=== PATIENT | female | born 1960 | race Caucasian/White ===

== ENCOUNTER → 2021-01-22 | Day surgery (SDC) | payer BC ==
[~2021-01-22] MED LIST: COSYNTROPIN 0.25 MG VIAL IV ONE; SODIUM CHLORIDE 0.9% 10ML INJ IV ONE
[2021-01-22 09:27] VITALS: BMI 14.6
[2021-01-22 09:34] VITALS: BP 127/81; TEMP 97.7; O2SAT 95
== END ==
LOC: DS 06:53
PROVIDERS: ATTEND Internal Medicine
DX: E87.1 Hypo-osmolality and hyponatremia (principal); R74.8 Abnormal levels of other serum enzymes
CPT/HCPCS: 82977; 36415; 82728; 83970; 82533 ×4; 82306; 82024; 86255 ×2; 86334; 96365; J0834

== ENCOUNTER 2021-04-12 18:34 | Emergency (ER) | payer BC ==
[2021-04-12 19:05] LABS: Absolute Lymphocytes (CBC) 1.2 K/uL (0.7-4.9); Basophils % 0.4 % (0-1.3); Hematocrit 37.9 % (36.0-45.0); Lymphocytes % 10.9 % (15.3-44.8); MPV 7.3 fL (7.6-11.3); RBC Red Blood Cell Count 3.86 M/uL (3.86-4.86)
[2021-04-12 19:21] LABS: Phenytoin (Dilantin) Level 14.4 ug/mL (10.0-20.0); Potassium 3.5 mmol/L (3.5-5.1)
--- NOTE | 2021-04-12 19:46 | RAD REPORT ---
EXAM DESCRIPTION: RAD - Chest Single View - 04/12/2021 7:36 pm CLINICAL HISTORY: Seizure COMPARISON: Chest Pa And Lat (2 Views) dated 01/14/2021; CHEST PA AND LAT 2 VIEW dated 07/21/2013; AMAURY ST SINGLE VIEW dated 06/22/2013; CHEST SINGLE VIEW dated 06/21/2013; CTANGIO CHEST FOR PE dated 06/15 FINDINGS: Lines: None. Lungs: No evidence of edema or pneumonia. Pleural: No significant pleural effusions or pneumothorax. Cardiac: The heart size is within normal limits. Bones: No acute fractures. Remote right-sided rib fractures. Other: IMPRESSION: No acute cardiopulmonary disease.
--- NOTE | 2021-04-12 20:58 | ER ---
Nurse's Notes [facility] Name: Cathy Giraldo Age: 60 yrs Sex: Female : 1960 Arrival Date: 04/12/2021 Time: 18:40 Bed 19 Private MD: Diagnosis: recurrent seizure Presentation: 04/12 18:40 Chief complaint: EMS states: seizure, approximately 4 min. Coronavirus screen: At this tc5 time, unable to obtain information related to travel outside the [place] Ebola Screen: Unable to complete the Ebola screening because:. Risk Assessment: Do you want to hurt yourself or someone else? Unable to obtain. Onset of symptoms was April 12, 2021 at 18:30. 18:40 Method Of Arrival: EMS tc5 18:40 Acuity: RACHEL 2 tc5 19:10 Initial Sepsis Screen: Does the patient meet any 2 criteria? No. Patient's initial cc4 sepsis screen is negative. 21:35 Initial Sepsis Screen: Does the patient have a suspected source of infection?. cc4 Triage Assessment: 18:44 General: Appears distressed, slender, Behavior is unresponsive. Smells of ciggarettes. tc5 19:10 Pain: Denies pain. cc4 Historical: - Allergies: 18:42 No Known Allergies; tc5 - Immunization history:: Adult Immunizations. - Social history:: Smoking status: Patient reports the use of cigarette tobacco products, unknown amount. Screenin:10 Abuse screen: Denies threats or abuse. Nutritional screening: No deficits noted. cc4 Tuberculosis screening: No symptoms or risk factors identified. Fall Risk None identified. Assessment: 19:10 General: Appears Sleeping; arouses easily to verbal stimuli; oriented to place; cc4 following commands; requesting to use bathroom; assisted onto bedpan \\T\\ voided 300 ml clear yellow urine; IV NS patent/infusing left AC \\T\\ open rate with no infiltration noted of site; SR's padded x 2; O2 intact \\T\\ 2L/NBP; SR with no ectopy; VSS; stretcher low position.. General: no seizure activity noted.. 19:10 Neuro: Level of Consciousness is post ictal, Arouses easily \\T\\ following commands.. cc4 Oriented to person. Cardiovascular: No deficits noted. Rhythm is sinus rhythm. Respiratory: No deficits noted. Airway is patent Breath sounds are clear bilaterally. GI: No deficits noted. Abdomen is flat, non-distended. : Reports urinary frequency, since reports months and seeing urologist with no improvement in urgency. EENT: No deficits noted. Derm: No deficits noted. Skin is intact. Musculoskeletal: No deficits noted. Capillary refill < 3 seconds. 20:00 Reassessment: Patient appears in no apparent distress at this time. awake \\T\\ more alert; cc4 no seizure activity noted; assisted onto bedpan \\T\\ voided 350 ml clear yellow urine; states, "I want to go home". Vital Signs: 18:40 BP 112 / 84; Pulse 90; Resp 28; Temp 97.7; Pulse Ox 91% 4 lpm ; Weight 40.82 kg; Height tc5 5 ft. 2 in. (157.48 cm); 19:10 BP 123 / 91; Pulse 85; Resp 24; Temp 97.6; Pulse Ox 99% on 2 lpm NC; cc4 20:00 BP 110 / 79; Pulse 85; Resp 18; Pulse Ox 97% on 2 lpm NC; cc4 21:00 BP 115 / 97; Pulse 85; Resp 16; Pulse Ox 98% on 2 lpm NC; cc4 21:35 BP 118 / 83; Pulse 85; Resp 16; Temp 98.4; Pulse Ox 95% on R/A; cc4 18:40 Body Mass Index 16.46 (40.82 kg, 157.48 cm) tc5 ED Course: 18:40 Patient arrived in ED. tc5 18:40 Waleska Shaw, RN is Primary Nurse. tc5 18:42 Triage completed. tc5 18:54 Davin Arzola MD is Attending Physician. kdr 19:10 Arm band placed on. cc4 19:10 Patient has correct armband on for positive identification. Bed in low position. Call cc4 light in reach. Side rails up X2. Seizure precautions initiated. Oral airway \\T\\ suction placed \\T\\ bedside; arriving to bedside. 19:36 CXR XRAY In Process Unspecified. EDMS 20:18 Attending Physician role handed off by Davin Arzola MD ps1 20:18 Say Jean Baptiste MD is Attending Physician. ps1 21:35 IV discontinued, intact, bleeding controlled, No redness/swelling at site. Pressure cc4 dressing applied. 22:04 No provider procedures requiring assistance completed. cc4 Administered Medications: 21:33 Drug: Keppra (levETIRAcetam) 1000 mg Route: PO; cc4 21:35 Follow up: Response: No adverse reaction; No change in condition cc4 Point of Care Testing: Blood Glucose: 18:45 Blood Glucose: 200 mg/dL; tc5 Ranges: Outcome: 20:58 Discharge ordered by . ps1 21:35 Discharged to home with . cc4 21:35 Condition: improved 21:35 Discharge instructions given to patient, with Instructed on discharge instructions, follow up and referral plans. Demonstrated understanding of instructions, follow-up care. 23:22 Patient left the ED. cc4 Signatures: Dispatcher [employer] EDMS Davin Arzola MD MD kdr Say Jean Baptiste MD MD ps1 Kassie Lomeli, RN RN cc4 Waleska Shaw RN RN tc5
--- NOTE | 2021-04-12 20:58 | EDPHYS ---
Physician Documentation [facility] Name: Cathy Giraldo Age: 60 yrs Sex: Female : 1960 Arrival Date: 04/12/2021 Time: 18:40 Bed 19 Private MD: ED Physician Say Jean Baptiste HPI: 04/12 18:57 This 60 yrs old Female presents to ER via EMS with complaints of Breakthrough kdr seizure. 18:57 The patient presents with a history of multiple seizures, an unknown number. Character kdr of seizure(s): Loss of consciousness: the patient experienced loss of consciousness, Motor activity: generalized, shaking all over, Incontinence: none. Seizure onset: just prior to arrival, today. Context: the seizure(s) was witnessed, by a bystander, by EMS personnel, occurred at home, occurred while the patient was Unknown. Contributing factors: unknown. Seizure Hx: it is unknown whether or not the patient has a previous seizure history. Associated injury: The patient did not suffer any apparent associated injury. EMS care: versed, Patient was given 2 mg of Versed intranasal followed by 2 mg of Versed IV. Current symptoms: confusion, Postictal. The patient has experienced similar episodes in the past, multiple times. It is unknown whether or not the patient has recently seen a physician. Historical: - Allergies: 18:42 No Known Allergies; tc5 - Immunization history:: Adult Immunizations. - Social history:: Smoking status: Patient reports the use of cigarette tobacco products, unknown amount. ROS: 18:57 Constitutional: Negative for fever, chills, and weight loss, Eyes: Negative for injury, kdr pain, redness, and discharge, Neck: Negative for injury, pain, and swelling, Cardiovascular: Negative for chest pain, palpitations, and edema, Abdomen/GI: Negative for abdominal pain, nausea, vomiting, diarrhea, and constipation. 18:57 Respiratory: Positive for Congestion and coarse breath sounds bilaterally. Exam: 18:57 Constitutional: This is a well developed, well nourished patient who is somnolent but kdr in no acute distress. Head/Face: Normocephalic, atraumatic. Eyes: Pupils equal round and reactive to light, extra-ocular motions intact. Lids and lashes normal. Conjunctiva and sclera are non-icteric and not injected. Cornea within normal limits. Periorbital areas with no swelling, redness, or edema. Neck: Trachea midline, no thyromegaly or masses palpated, and no cervical lymphadenopathy. Supple, full range of motion without nuchal rigidity, or vertebral point tenderness. No Meningismus. Chest/axilla: Normal chest wall appearance and motion. Nontender with no deformity. No lesions are appreciated. Cardiovascular: Regular rate and rhythm with a normal S1 and S2. No gallops, murmurs, or rubs. Normal PMI, no JVD. No pulse deficits. Abdomen/GI: Soft, non-tender, with normal bowel sounds. No distension or tympany. No guarding or rebound. No evidence of tenderness throughout. Back: No spinal tenderness. No costovertebral tenderness. Full range of motion. Skin: Warm, dry with normal turgor. Normal color with no rashes, no lesions, and no evidence of cellulitis. MS/ Extremity: Pulses equal, no cyanosis. Neurovascular intact. Full, normal range of motion. 18:57 Respiratory: the patient does not display signs of respiratory distress, Respirations: normal, Breath sounds: rales, Coarse breath sound. Vital Signs: 18:40 BP 112 / 84; Pulse 90; Resp 28; Temp 97.7; Pulse Ox 91% 4 lpm ; Weight 40.82 kg; Height tc5 5 ft. 2 in. (157.48 cm); 19:10 BP 123 / 91; Pulse 85; Resp 24; Temp 97.6; Pulse Ox 99% on 2 lpm NC; cc4 20:00 BP 110 / 79; Pulse 85; Resp 18; Pulse Ox 97% on 2 lpm NC; cc4 21:00 BP 115 / 97; Pulse 85; Resp 16; Pulse Ox 98% on 2 lpm NC; cc4 21:35 BP 118 / 83; Pulse 85; Resp 16; Temp 98.4; Pulse Ox 95% on R/A; cc4 18:40 Body Mass Index 16.46 (40.82 kg, 157.48 cm) tc5 MDM: 20:58 Patient medically screened. ps1 20:59 Data reviewed: vital signs, nurses notes, lab test result(s). Counseling: I had a ps1 detailed discussion with the patient and/or guardian regarding: the historical points, exam findings, and any diagnostic results supporting the discharge/admit diagnosis, lab results, the need for outpatient follow up, to return to the emergency department if symptoms worsen or persist or if there are any questions or concerns that arise at home. 04/12 18:54 Order name: CBC with Diff; Complete Time: 20:18 kdr 04/12 18:54 Order name: Chem 7; Complete Time: 20:18 kdr 04/12 18:54 Order name: CXR XRAY; Complete Time: : kdr 04/12 18:54 Order name: Dilantin; Complete Time: 20:18 kdr Administered Medications: 21:33 Drug: Keppra (levETIRAcetam) 1000 mg Route: PO; cc4 21:35 Follow up: Response: No adverse reaction; No change in condition cc4 Point of Care Testing: Blood Glucose: 18:45 Blood Glucose: 200 mg/dL; tc5 Ranges: Critical Glucose Levels:Adult <50 mg/dl or >400 mg/dl <40 mg/dl or >180 mg/dl Disposition Summary: 04/12/21 20:58 Discharge Ordered Location: Home ps1 Problem: new ps1 Symptoms: are unchanged ps1 Condition: Stable ps1 Diagnosis - recurrent seizure ps1 Followup: ps1 - With: Private Physician - When: As needed - Reason: Recheck today's complaints, Continuance of care, Re-evaluation by your physician Followup: ps1 - With: Emergency Department - When: As needed - Reason: Fever > 102 F, If symptoms return, Worsening of condition Discharge Instructions: - Discharge Summary Sheet ps1 - Seizure, Adult ps1 Forms: - Medication Reconciliation Form ps1 - Thank You Letter ps1 - Antibiotic Education ps1 - Prescription Opioid Use ps1 Signatures: Dispatcher [employer] EDDavin Snow MD MD kdr Say Jean Baptiste MD MD ps1 Kassie Lomeli, RN RN cc4 Waleska Shaw RN RN tc5
[2021-04-12] MEDS ORDERED: levETIRAcetam 500 MG TAB ONE (21:53)
[2021-04-12 23:35] VITALS: BP 118/83; TEMP 98.4; O2SAT 95
== END 2021-04-12 23:22 | disposition home or self-care (01) ==
LOC: ER 18:34
DX: G40.909 Epilepsy, unspecified, not intractable, without status epilepticus (principal); F17.210 Nicotine dependence, cigarettes, uncomplicated
CPT/HCPCS: 36415; 71045; 80048; 80185; 85025; 99284

== ENCOUNTER 2021-07-03 18:23 | Emergency (ER) | payer BC, OTHER ==
--- OUTSIDE RECORDS SUMMARY | 2021-07-03 18:37 | XMS REPORT | Continuity of Care Document ---
:1960 Author Organization [facility] t Address [address] [place] [place] [address] Care Team Providers Name Role Phone TRICE Primary Care Physician Unavailable Kareem Rob Attending Clinician Unavailable NAM REECE Attending Clinician Unavailable Andie Azul Attending Clinician Radiology Attending Clinician Unavailable RADIOLOGY Attending Clinician Unavailable Charlee Vines MD Attending Clinician Charlee Hammond DO Attending Clinician Trice Attending Clinician TRICE Attending Clinician Unavailable Doctor Unassigned, Name Attending Clinician Unavailable ANDIE HAYS Attending Clinician Unavailable Valeria Carter Attending Clinician Mikey LOREDO Attending Clinician Pob, Lab Main Attending Clinician Unavailable MIKEY Attending Clinician Unavailable 1, Lab Attending Clinician Unavailable Татьяна STOVER, S Attending Clinician KILO Attending Clinician Unavailable Poncho Carnes Admitting Clinician Unavailable Jennifer MERCEDES Admitting Clinician Unavailable Charlee Vines MD Admitting Clinician ANDIE HAYS Admitting Clinician Unavailable Charlee VINES Admitting Clinician Unavailable TRICE Admitting Clinician Unavailable LAKISHA ROSENBAUM Admitting Clinician Unavailable Payers Payer Name Policy Type Policy Number Effective Date Expiration Date Natalee feldman [employer] [place] [id number] 2019 00:00:00 CIGNA [id number] 2017 HMO/POS/OPEN 00:00:00 ACCESS CIGNA II [id number] 2017 2019 00:00:00 00:00:00 Problems Condition Condition Condition Status Onset Resolution Last Treating Co mments Source Name Details Category Date Date Treatment Clinician Date Acute Acute Disease Active 2019-06 Univers cystitis cystitis 06-30 ity of without without 00:00: [place] hematuria hematuria 00 [facility] Seizures Seizures Disease Active 2019-06 Unive rs 06-29 ity of 00:00: [place] 00 Medical Branch CVA Diagnosis Active 2018-11-16 Mem oria 11-16 14:48:00 l CVA 00:00: [place] 00 Active 11/16/2018 [facility] NSTEMI, Diagnosis Active 2018-12-01 Me moria SEIZURES 11-16 22:12:00 l NSTEMI, 00:00: [place] SEIZURES 00 Active 11/16/2018 [facility] MICHEAL Diagnosis Active 2018-11-17 Memoria BILLING 11-16 08:14:00 l 00:00: [place] MICHEAL 00 BILLING Active 11/16/2018 [facility] Cerebral Problem Active 2020-10-28 Mem oria infarction 00:56:47 l (disorder) Cerebral He rmann infarction (disorder) Active Problem 10/28/2020 [facility] Neuro Epilepsy Problem Active 2020-10-28 Mem oria characteri 00:56:47 l zed by Epilepsy Eddie n intractabl characteri e complex zed by partial intractabl seizures e complex (disorder) partial seizures (disorder) [facility] Hypertensi Problem Active 2020-10-28 M emoria ve 00:56:47 l disorder, [place] systemic Hypertensi arterial ve (disorder) disorder, systemic arterial (disorder) Active Problem [facility]/28/2020 [facility] Hyperlipid Problem Active 2020-10-28 M emoria emia 00:56:47 l (disorder) Eddie tapia Hyperlipid emia (disorder) Active Problem 10/28/2020 [facility] Hyponatrem Problem Active 2020-10-28 M emoria ia 00:56:47 l (disorder) Eddie tapia Hyponatrem ia (disorder) Active Problem 10/28/2020 [facility] NON-ST Diagnosis Active 2018-12-01 Mem oria ELEVATION 22:12:00 l (NSTEMI) NON-ST Eddie n MYOCARDIAL ELEVATION INF (NSTEMI) MYOCARDIAL INF Active [facility] UNSPECIFIE Diagnosis Active 2018-12-01 Memoria D 22:12:00 l CONVULSION Eddie n S UNSPECIFIE D CONVULSION S Active [facility] No known No known Disease Unive rs active active ity of problems problems [facility] Allergies, Adverse Reactions, Alerts Allergy Allergy Status Severity Reaction(s) Onset Inactive Treating Comm ents Source Name Type Date Date Clinician Hydrocod Propensi Active Nausea Univer s one ty to and/or 1-10 ity of adverse Vomiting 00:00: [place] reaction 00 [facility] HYDROCOD DRUG Active N/V Univers ONE INGREDI 1-10 ity of 00:00: [place] 00 [facility] codeine DA Active SV 2019- [facility] 2-30 [place] 00:00: d 00 [facility] hydrocod DA Active MO 2019-06 [facility] one 2-30 [place] 00:00: d 00 [facility] codeine DA Active SV NAUSEA 2019-06 [facility] 2-30 [place] 00:00: d 00 [facility] hydrocod DA Active MO NAUSEA 2019-06 [facility] one 2-30 [place] 00:00: d 00 [facility] Codeine Drug Active Nausea 2018-06 Univers Allergy and/or 0-23 ity of Vomiting 00:00: [place] 00 [facility] CODEINE DRUG Active N/V 2018-06 Univers INGREDI 0-23 ity of 00:00: [place] 00 [facility] Lillie Propensi Active Other - See 2017-06 Coughing, Univers Derivati ty to comments 0-18 sneezingC ity of ves adverse 00:00: oughing, [place] reaction 00 sneezing Medica s Branch Ragweed Propensi Active Other - See 2017-06 Coughing, Univers ty to comments 0-18 sneezingC ity o f adverse 00:00: oughing, Maribel reaction 00 sneezing Medica l s Branch OAK Drug Active High Other-Cmnt 2017-06 Univer s DERIVATI Class 0-18 ity of VES 00:00: [place] 00 Medical Branch RAGWEED Drug Active High Other-Cmnt 2017-06 Unive rs Class 0-18 ity of 00:00: [place] 00 Medical Branch OAK Allergy Active High Other 2017-[address] [facility] 0-18 [facility] RAGWEED Allergy Active High Other 2017-[address] 0-18 [facility] No Known DA Active U 2017-06 [facility] Allergie 0-08 [place] [facility] 00:[facility]: d 00 [facility] No Known DA Active U 2017- [facility] Allergie 0-08 [place] [facility] 00:[facility]: d 00 [facility] codeine codeine Active Nima Das Social History Social Habit Start Date Stop Date Quantity Comments Source History [facility] University o f Alcohol Std [place] [facility] Drinks Branch History [facility] University o f Alcohol Binge [place] [facility] al [facility] Sex Assigned At [facility] [place] [facility] Exposure to Not sure [facility] SARS-CoV-2 [facility] (event) Branch Alcohol intake 2020-04-30 2020-04-30 Current drinker Unive rsity of 00:00:00 00:00:00 of alcohol [place] [facility] (finding) Branch Tobacco use and 2020-04-30 2020-04-30 Never used Universit y of exposure 00:00:00 00:00:00 [place] [facility] History SDOH 2020-04-30 2020-04-30 17 University o f Education 00:00:00 00:00:00 [place] [facility] History SDOH 2020-04-30 2020-04-30 5 University o f Financial 00:00:00 00:00:00 [place] [facility] History SDDE Food 2020-04-30 2020-04-30 1 Univers ity of Worry 00:00:00 00:00:00 [place] [facility] History SDDE Food 2020-04-30 2020-04-30 1 Univers ity of Scarcity 00:00:00 00:00:00 [place] [facility] History SDOH 2020-04-30 2020-04-30 2 University o f Transport Med 00:00:00 00:00:00 [place] [facility] History SDDE 2020-04-30 2020-04-30 2 [place] o f Transport Non-Med 00:00:00 00:00:00 [facility] Social History 2019-09-09 2019-09-09 [facility] Sima robertsonelda 19:21:28 19:21:28 History [facility] 2019-04-20 2019-04-20 5 [place] o f Alcohol Frequency 00:00:00 00:00:00 [facility] Tobacco Comment 2019-04-20 2019-04-20 prn 1 a week Univer sity of 00:00:00 00:00:00 [facility] Smoking Status Start Date Stop Date Source Current some day 2020-04-30 00:00:00 [facility] smoker [facility] Unknown if ever smoked [facility] Social History 2018-11-17 04:21:27 2018-11-17 04:21:27 [facility] [place] Medications Ordered Filled Start Stop Current Ordering Indication Dosage Frequency Signature Comments Components Source Medication Medication Date Date Medication? Clinician (SIG) Name Name Levetiracet Yes 1,500 mg = Memoria am 750 MG 4-29 2 tab, PO, l Oral Tablet 19:26: BID, # 360 [place] [Keppra] 00 tab, 3 Refill(s), Pharmacy: [facility] #[id number], 154.94, cm, 04/20/20 10:48:00 CDT, Height, 39.545, kg, 10/25/20 14:07:00 CDT, Weight phenytoin Yes See Memoria 100 mg oral 4-29 Instructio l capsule, 19:26: ns, 300mg Herm elda extended 00 alternatin release g with 400mg, # 120 cap, 6 Refill(s), Pharmacy: [facility] #[id number], 154.94, cm, 04/20/20 10:48:00 CDT, Height, 39.545, kg, 10/25/20 14:07:00 CDT, Weight Levetiracet Yes 1,500 mg = Memoria am 750 MG 4-29 2 tab, PO, l Oral Tablet 19:26: BID, # 360 [place] [Keppra] 00 tab, 3 Refill(s), Pharmacy: [facility] #[id number], 154.94, cm, 04/20/20 10:48:00 CDT, Height, 39.545, kg, 10/25/20 14:07:00 CDT, Weight phenytoin Yes See Memoria 100 mg oral 10-25 Instructio l capsule, 19:26: ns, 300mg Herm elda extended 00 alternatin release g with 400mg, # 120 cap, 6 Refill(s), Pharmacy: [facility] #[id number], 154.94, cm, 04/20/20 10:48:00 CDT, Height, 39.545, kg, 10/25/20 14:07:00 CDT, Weight naproxen 0 2020- No 500mg 500 mg, Univ ers (NAPROSYN) 07-08 Oral, ity of tablet 500 23:00: 22:19 ONCE, 1 Matthew as mg 00 :00 dose, [facility] 07/08/20 at Branch 1700, Routine naproxen Yes [id number] 500mg Take 1 U nivers (NAPROSYN) 07-08 tablet by ity of 500 mg 00:00: mouth 2 [place] tablet 00 (two) Medical times [place] daily with meals. iohexol 2019-06- No 100mL 100 mL, Unive rs (OMNIPAQUE 07-30 Intravenou it y of 350 00:15: 00:11 s, ONCE, 1 [place] BULK-100 00 :00 dose, Mon Medica l mL) 05/28/20 Branch injection at 1815, 100 mL Routine atorvastati 2019-06 Yes 40mg 40 mg, Univ ers n (LIPITOR) 07-01 Oral, QHS, it y of tablet 40 03:00: First dose [place] mg 00 on [facility] 04/30/20 at Branch 2100, Until Discontinu ed, Routine cefTRIAXone 2019-06 2020- No 1000mg 1,000 mg, Univers (ROCEPHIN) 07-0108 IV ity of 1,000 mg in 00:00: 23:59 [place], [place] NaCl 0.9% 00 :00 Q24H ABX, Medic al (NS) 50 mL 6 doses, Branc h MINI-BAG First dose (after last modificati on) on [facility] 04/30/20 at 1800, Last dose on 05/05/20 at 1800, 50 mL
Reas on for Anti-Infec tive: Empiric Therapy for Suspected Infection< br>Empiric Therapy Site: Urine
D uration of therapy: 72 hours aspirin 81 2019-06 Yes 81mg Take 81 mg U nivers mg EC 02 by mouth. ity of tablet 23:07: [address] azelastine 2019-06 Yes 1{spray Use 1 Uni vers 137 mcg 06-30 } [place] in ity of (0.1 %) 23:07: each [place] nasal spray 05 nostril. [facility] budesonide- 2019-06 Yes 2{puff} Inhale 2 Univers formoterol 02 Puffs. ity of (SYMBICORT) 23:07: [place] 160-4.5 Medical mcg/actuati Branch on inhaler carvedilol 2019-06 Yes 3.125mg Take 3.125 Univers 3.125 mg 02 mg by ity of tablet 23:07: mouth. [address] melatonin 2019-06 Yes Take by [facility] ers 10 mg Cap 02 mouth. ity of 23:07: [address] ticagrelor 2019-06 Yes 90mg Take 90 mg U nivers (BRILINTA) 06-30 by mouth. ity of 90 mg 23:07: [address] cyanocobala 2019-[address] Uni vers min, 06-30 2,500 mcg ity of vitamin 23:07: under the [place] B-12, 5,000 05 tongue Medica l mcg Subl daily. Branch ipratropium 2019-06 Yes 2{spray Use 2 Un susana 0.03 % 06-30 } Sprays in ity of nasal spray 23:07: each [place] [address] nostril 2 Medical (two) Branch times daily. losartan 50 2019-06 Yes 50mg Take 50 mg Univers mg tablet 02 by mouth ity of 23:07: daily. [address] Lacosamide 2019-06 Yes 1{tbl} Take 1 Uni vers (VIMPAT) 06-30 tablet by ity of 200 mg 23:07: mouth 2 [place] tablet (two) Medical times Branch daily. montelukast 2019-06 Yes 10mg Take 10 mg Univers (SINGULAIR) 02 by mouth ity of 10 mg 23:07: daily. [place] tablet Medical Branch phenytoin 2019-06 Yes 100mg Take 100 Uni vers sodium 1-02 mg by ity of extended 23:07: mouth 4 [place] (DILANTIN 05 (four) Medical ORAL) times Branch daily. aspirin 81 2019-06 Yes 81mg Take 81 mg U nivers mg EC 02 by mouth. ity of tablet 23:07: [address] Branch azelastine 2019-06 Yes 1{spray Use 1 Uni vers 137 mcg 02 } [place] in ity of (0.1 %) 23:07: each [place] nasal spray 05 nostril. [facility] budesonide- 2019-06 Yes 2{puff} Inhale 2 Univers formoterol 02 Puffs. ity of (SYMBICORT) 23:07: [place] 160-4.5 05 Medical mcg/actuati Branch on inhaler carvedilol 2019-06 Yes 3.125mg Take 3.125 Univers 3.125 mg 1-02 mg by ity of tablet 23:07: mouth. [address] melatonin 2019-06 Yes Take by [facility] ers 10 mg Cap 02 mouth. ity of 23:07: [address] ticagrelor 2019-06 Yes 90mg Take 90 mg U nivers (BRILINTA) 02 by mouth. ity of 90 mg 23:07: [address] Branch cyanocobala 2019-[address] Uni vers min, -02 2,500 mcg ity of vitamin 23:07: under the [place] B-12, 5,000 05 tongue Medica l mcg Subl daily. Branch ipratropium 2019-06 Yes 2{spray Use 2 Un susana 0.03 % 06-30 } Sprays in ity of nasal spray 23:07: each [place] 05 nostril 2 Medical (two) Branch times daily. losartan 50 2019-06 Yes 50mg Take 50 mg Univers mg tablet 02 by mouth ity of 23:07: daily. [address] Lacosamide 2019-06 Yes 1{tbl} Take 1 Uni vers (VIMPAT) 1-02 tablet by ity of 200 mg 23:07: mouth 2 [place] tablet 05 (two) Medical times Branch daily. montelukast 2019-06 Yes 10mg Take 10 mg Univers (SINGULAIR) -02 by mouth ity of 10 mg 23:07: daily. [place] tablet [address] [place] [address] Branch phenytoin 2019-06 Yes 100mg Take 100 Uni vers sodium 1-02 mg by ity of extended 23:07: mouth 4 [place] (DILANTIN 05 (four) Medical ORAL) times Branch daily. aspirin 81 2019-06 Yes 81mg Take 81 mg U nivers mg EC 02 by mouth. ity of tablet 23:07: [address] azelastine 2019-06 Yes 1{spray Use 1 Uni vers 137 mcg 02 } [place] in ity of (0.1 %) 23:07: each [place] nasal spray 05 nostril. [facility] budesonide- 2019-06 Yes 2{puff} Inhale 2 Univers formoterol -02 Puffs. ity of (SYMBICORT) 23:07: [place] 160-4.5 Medical [facility]/actuati Branch on inhaler carvedilol 2019-06 Yes 3.125mg Take 3.125 Univers 3.125 mg 1-02 mg by ity of tablet 23:07: mouth. [address] melatonin 2019-06 Yes Take by Univ ers 10 mg Cap 02 mouth. ity of 23:07: [address] ticagrelor 2019-06 Yes 90mg Take 90 mg U nivers (BRILINTA) 02 by mouth. ity of 90 mg 23:07: [address] cyanocobala 2019-[address] Uni vers min, 1-02 2,500 mcg ity of vitamin 23:07: under the [place] B-12, 5,000 05 tongue Medica l mcg Subl daily. Branch ipratropium 2019-06 Yes 2{spray Use 2 Un susana 0.03 % 02 } Sprays in ity of nasal spray 23:07: each [place] [address] nostril 2 Medical (two) Branch times daily. losartan 50 2019-06 Yes 50mg Take 50 mg Univers mg tablet 02 by mouth ity of 23:07: daily. [address] Lacosamide 2019-06 Yes 1{tbl} Take 1 Uni vers (VIMPAT) 1-02 tablet by ity of 200 mg 23:07: mouth 2 [place] tablet 05 (two) Medical times Branch daily. montelukast 2019-06 Yes 10mg Take 10 mg Univers (SINGULAIR) 02 by mouth ity of 10 mg 23:07: daily. [place] tablet [address] [place] [address] phenytoin 2019-06 Yes 100mg Take 100 Uni vers sodium 1-02 mg by ity of extended 23:07: mouth 4 [place] (DILANTIN 05 (four) Medical ORAL) times Branch daily. aspirin 81 2019-06 Yes 81mg Take 81 mg U nivers mg EC 02 by mouth. ity of tablet 23:07: [address] azelastine 2019-06 Yes 1{spray Use 1 Uni vers 137 mcg -02 } [place] in ity of (0.1 %) 23:07: each [place] nasal spray 05 nostril. [facility] budesonide- 2019-06 Yes 2{puff} Inhale 2 Univers formoterol -02 Puffs. ity of (SYMBICORT) 23:07: [place] 160-4.5 Medical mcg/actuati Branch on inhaler carvedilol 2019-06 Yes 3.125mg Take 3.125 Univers 3.125 mg 1-02 mg by ity of tablet 23:07: mouth. [address] melatonin 2019-06 Yes Take by Univ ers 10 mg Cap -02 mouth. ity of 23:07: [address] ticagrelor 2019-06 Yes 90mg Take 90 mg U nivers (BRILINTA) 02 by mouth. ity of 90 mg 23:07: [address] cyanocobala 2019-[address] Uni vers min, 1-02 2,500 mcg ity of vitamin 23:07: under the [place] B-12, 5,000 05 tongue Medica l mcg Subl daily. Branch ipratropium 2019-06 Yes 2{spray Use 2 Un susana 0.03 % 02 } Sprays in ity of nasal spray 23:07: each [place] [address] nostril 2 Medical (two) Branch times daily. losartan 50 2019-06 Yes 50mg Take 50 mg Univers mg tablet 02 by mouth ity of 23:07: daily. [address] Lacosamide 2019-06 Yes 1{tbl} Take 1 Uni vers (VIMPAT) 1-02 tablet by ity of 200 mg 23:07: mouth 2 [place] tablet 05 (two) Medical times Branch daily. montelukast 2019-06 Yes 10mg Take 10 mg Univers (SINGULAIR) 06-30 by mouth ity of 10 mg 23:07: daily. [place] tablet 05 Medical Branch phenytoin 2019-06 Yes 100mg Take 100 Uni vers sodium 1-02 mg by ity of extended 23:07: mouth 4 [place] (DILANTIN 05 (four) Medical ORAL) times Branch daily. ibuprofen 2019-06 2020- No 200mg Take 200 Un susana 200 mg 06-30 11-02 mg by ity of tablet 19:13: 00:00 mouth. [place] 22 :00 Medical Branch ticagrelor 2019-06 Yes 90mg 90 mg, Unive rs (BRILINTA) 06-30 Oral, ity of tablet 90 15:00: DAILY, [place] mg 00 First dose Medical on [facility] 04/30/20 at 0900, Until Discontinu ed, Routine losartan 2019-06 Yes 50mg 50 mg, Univers (COZAAR) 06-30 Oral, ity of tablet 50 15:00: DAILY, [place] mg 00 First dose Medical on [facility] 04/30/20 at 0900, Until Discontinu ed, Routine montelukast 2019-06 Yes 10mg 10 mg, Univ ers (SINGULAIR) 06-30 Oral, ity of tablet 10 15:00: DAILY, [place] mg 00 First dose Medical on [facility] 04/30/20 at 0900, Until Discontinu ed, Routine aspirin EC 2019-06 Yes 81mg 81 mg, Unive rs tablet 81 06-30 Oral, ity of mg 15:00: DAILY, [place] 00 First dose Medical on [facility] 04/30/20 at 0900, Until Discontinu ed, Routine thiamine 2019-06 Yes 100mg 100 mg, Unive rs (VITAMIN 06-30 Oral, ity of B1) tablet 15:00: DAILY, [place] 100 mg 00 First dose Medical on [facility] 04/30/20 at 0900, Until Discontinu ed, Routine foLIC acid 2019- Yes 1mg 1 mg, Univer s (FOLATE) 06-30 Oral, ity of tablet 1 mg 15:00: DAILY, [place] 00 First dose Medical on [facility] 04/30/20 at 0900, Until Discontinu ed, Routine pantoprazol 2020-1 Yes 40mg 40 mg, Univ ers e 06-30 Oral, ity of (PROTONIX) 15:00: DAILY, [place] EC tablet 00 First dose Medi zach 40 mg on [facility] Branch 04/30/20 at 0900, Until Discontinu ed, Routine levETIRAcet 2019-06 Yes 2000mg 2,000 mg, Univers am (KEPPRA) 06-30 Oral, BID, it y of tablet 14:00: First dose [place] 2,000 mg 00 (after Medical last Branch modificati on) on [facility] 04/30/20 at 0800, Until Discontinu ed, Routine phenytoin 2019-06 Yes 100mg 100 mg, Univ ers Extended 06-30 Oral, QID, ity o f (DILANTIN 14:00: [place] KAPSEAL[place] 00 on [facility] Medical capsule 100 04/30/20 at Br anch mg 0800, Until Discontinu ed carvediloL 2019-06 Yes 3.125mg 3.125 mg, [facility] (COREG) 06-30 Oral, BID ity of tablet 14:00: MEALS, [place] 3.125 mg 00 First dose Medic al on [facility] 04/30/20 at 0800, Until Discontinu ed, Routine enoxaparin 2019-06 Yes 30mg 30 [facility], [facility]-30 Subcutaneo ity of injection 04:30: us, Q24H, [place] as 30 mg 00 First dose Medical on [facility] 04/29/20 at 2230, Until Discontinu ed, Routine budesonide- 2019-06 Yes 2{puff} 2 Puff, [facility] formoteroL 06-30 Inhalation ity of (SYMBICORT) 04:15: , BID, [place] 160-4.5 00 First dose Medica l mcg/actuati on [facility] on inhaler 04/29/20 at 2 Puff 2215, Until Discontinu ed, Routine clonazePAM 2019-06 2020- No .5mg Take 0.5 Un susana 0.5 mg 06-30 mg by ity of tablet 04:01: 00:00 mouth. [place] 50 :00 [facility] Branch lisinopril 2019-06 2020- No 5mg Take 5 mg U nivers 5 mg tablet 06-30 by mouth. it y of 04:01: 00:00 [place] 50 :00 Medical Branch furosemide 2019-06 2020- No 20mg Take 20 mg Univers 20 mg 06-30 by mouth ity of tablet 04:01: 00:00 daily. [place] 50 :00 [facility] oxazepam 2019-06 Yes 15mg 15 mg, Univers (SERAX) 06-30 Oral, ity of capsule 15 03:35: Q4HPRN, [place] mg 47 Starting [facility] 04/29/20 at 2135, Until Discontinu ed, Routine, Only while awake for DBP equal to or greater than 100, HR equal to or greater than 100. acetaminoph 2019-06 Yes 650mg 650 mg, Un susana en 06-30 Oral, ity of (TYLENOL) 03:07: Q6HPRN, [place] tablet 650 17 Starting Medic al mg [facility] 04/29/20 at 2107, Until Discontinu ed, Routine, Pain (scale 4-6) docusate 2019-06 Yes 100mg 100 mg, Unive rs (COLACE) 06-30 Oral, ity of capsule 100 03:07: QDAILYPRN, [place] mg 17 Starting [facility] 04/29/20 at 2107, Until Discontinu ed, Routine, Constipati on levETIRAcet 2019-06- No [id number] 1500mg Take 2 Univers am 750 mg 06-30 tablets by ity of tablet 00:00: 05:59 mouth [place] 00 :00 every Medical morning Branch for 90 days. levETIRAcet 2019-06- No [id number] 2000mg Take 2 Univers am 1,000 mg 06-30 tablets by i ty of tablet 00:00: 05:59 mouth at [place] 00 :00 bedtime Medical for 90 Branch days. levETIRAcet 2019-06- No [id number] 1500mg Take 2 Univers am 750 mg 06-30 tablets by ity of tablet 00:00: 05:59 mouth [place] 00 :00 every Medical morning Branch for 90 days. levETIRAcet 2019-06- No [id number] 2000mg Take 2 Univers am 1,000 mg 06-30 tablets by i ty of tablet 00:00: 05:59 mouth at [place] 00 :00 bedtime Medical for 90 Branch days. levETIRAcet 2019-06- No [id number] 1500mg Take 2 Univers am 750 mg 06-30 tablets by ity of tablet 00:00: 05:59 mouth [place] 00 :00 every Medical morning Branch for 90 days. levETIRAcet 2019-06 No [id number] 2000mg Take 2 Univers am 1,000 mg 06-30 tablets by i ty of tablet 00:00: 05:59 mouth at [place] 00 :00 bedtime Medical for 90 Branch days. levETIRAcet 2019-06 No [id number] 1500mg Take 2 Univers am 750 mg 06-30 tablets by ity of tablet 00:00: 05:59 mouth [place] 00 :00 every Medical morning Branch for 90 days. levETIRAcet 2019-06 No [id number] 2000mg Take 2 Univers am 1,000 mg 06-30 tablets by i ty of tablet 00:00: 05:59 mouth at [place] 00 :00 bedtime Medical for 90 Branch days. cefdinir 2019-06 No [id number] 300mg Take 1 U nivers 300 mg 06-30 capsule by ity of capsule 00:00: 05:59 mouth 2 [place] 00 :00 (two) Medical times Branch daily for 5 days. cefTRIAXone 2019-06 No 1000mg 1,000 mg, Univers (ROCEPHIN) 06-30 IV ity of 1,000 mg in 00:00: 23:32 [place], [place] NaCl 0.9% 00 :00 ONCE, 1 Medical (NS) 50 mL dose, [place] [facility] ch MINI-BAG 04/29/20 at 1800, 50 mL
Reas on for Anti-Infec tive: Empiric Therapy for Suspected Infection< br>Empiric Therapy Site: Urine
D uration of therapy: 72 hours levETIRAcet 2019-06 No 1000mg 1,000 mg, Univers am (KEPPRA) 06-29 IV ity of in NACL 22:15: 21:32 [place], [place] (ISO-OS) 00 :00 ONCE, 1 Medical 1,000 dose, [place] Branch mg/100 mL 04/29/20 at RTU 1615, 100 mL NaCl 0.9% 2019-06 No 1000mL at 999 Uni vers (NS) bolus 06-29 mL/hr, ity of infusion 21:15: 22:21 1,000 mL, [place] as 1,000 mL 00 :00 IV Medical Infusion, Branch ONCE, 1 dose, 04/29/20 at 1515, EZIO phenytoin 2019- Yes See Memoria 100 mg oral 0-23 Instructio l capsule, 16:05: ns, 300mg Herm elda extended 00 alternatin release g with 400mg, # 120 cap, 6 Refill(s), Pharmacy: [facility] #[id number], 154.94, cm, 04/20/20 10:48:00 CDT, Height, 44.091, kg, 04/20/20 10:48:00 CDT, Weight lacosamide 2019-06 Yes 200 mg = 1 M emoria 200 MG Oral 0-23 tab, PO, l Tablet 16:05: BID, # 60 Eddie n [Vimpat] 00 tab, 4 Refill(s), Pharmacy: [facility] #[id number], 154.94, cm, 04/20/20 10:48:00 CDT, Height, 44.091, kg, 04/20/20 10:48:00 CDT, Weight phenytoin 2019-06 Yes See Memoria 100 mg oral 0-23 Instructio l capsule, 16:05: ns, 300mg Herm elda extended 00 alternatin release g with 400mg, # 120 cap, 6 Refill(s), Pharmacy: [facility] #[id number], 154.94, cm, 04/20/20 10:48:00 CDT, Height, 44.091, kg, 04/20/20 10:48:00 CDT, Weight lacosamide 2019- Yes 200 mg = 1 M emoria 200 MG Oral 0-23 tab, PO, l Tablet 16:05: BID, # 60 Eddie n [Vimpat] 00 tab, 4 Refill(s), Pharmacy: [facility] #[id number], 154.94, cm, 04/20/20 10:48:00 CDT, Height, 44.091, kg, 04/20/20 10:48:00 CDT, Weight lacosamide 2020-0 Yes 100 mg = 1 M emoria 100 MG Oral 5-26 tab, PO, l Tablet 21:08: BID, # 60 Eddie n [Vimpat] 00 tab, 2 Refill(s), Pharmacy: [facility] #[id number] lacosamide 2020-0 Yes 100 mg = 1 M emoria 100 MG Oral 5-26 tab, PO, l Tablet 21:08: BID, # 60 Eddie n [Vimpat] 00 tab, 2 Refill(s), Pharmacy: [facility] #[id number] lacosamide 2020-0 Yes 50 mg = 1 Me moria 50 MG Oral 4-20 tab, PO, l Tablet 22:01: BID, # 60 Eddie n [Vimpat] 00 tab, 2 Refill(s), Pharmacy: [facility] #[id number] lacosamide 2020-0 Yes 50 mg = 1 Me moria 50 MG Oral 4-20 tab, PO, l Tablet 22:01: BID, # 60 Eddie n [Vimpat] 00 tab, 2 Refill(s), Pharmacy: [facility] #[id number] phenytoin 2020-0 2020- No 18mg/kg 898 mg [place] (DILANTIN) 10-16-20 (rounded ity of injection 01:00: 01:17 from 898.2 [place] 898 mg 00 :00 mg = 18 Medical mg/kg Branch ?49.9 kg), IV Piggyback, Administer over 20 Minutes, ONCE, 1 dose, 10/16/19 at 2000, STAT Levetiracet 2020-0 Yes 1,500 mg = Memoria am 750 MG 4-03 2 tab, PO, l Oral Tablet 20:20: BID, # 360 [place] [Keppra] 00 tab, 3 Refill(s), Pharmacy: [facility] #[id number] Levetiracet 2020-0 Yes 1,500 mg = Memoria am 750 MG 4-03 2 tab, PO, l Oral Tablet 20:20: BID, # 360 [place] [Keppra] 00 tab, 3 Refill(s), Pharmacy: [facility] #[id number] lamotrigine 2020-0 Yes 25 mg = 1 M emoria 25 MG Oral 3-13 tab, PO, l Tablet 19:16: BID, # 60 Eddie n [Lamictal] 00 tab, 3 Refill(s), Pharmacy: [facility] #[id number] lamotrigine 2020-0 Yes 25 mg = 1 M emoria 25 MG Oral 3-13 tab, PO, l Tablet 19:16: BID, # 60 Eddie n [Lamictal] 00 tab, 3 Refill(s), Pharmacy: [facility] #[id number] losartan 50 2020-0 Yes 50 mg = 1 M emoria mg oral 3-13 tab, PO, l tablet 18:54: Daily, 0 [place] 00 Refill(s) Potassium 2020-0 Yes 10 mEq, Memor ia Chloride 3-13 PO, ONCE, l 18:54: 0 [place] 00 Refill(s) montelukast 2020-0 Yes 10 mg = 1 M emoria 10 mg oral 3-13 tab, PO, l tablet 18:54: Daily, 0 [place] 00 Refill(s) Ipratropium 2020-0 Yes 500 Memori a 3-13 microgram, l 18:54: NEB, BID, [place] 00 0 Refill(s) losartan 50 2020-0 Yes 50 mg = 1 M emoria mg oral 3-13 tab, PO, l tablet 18:54: Daily, 0 [place] 00 Refill(s) Potassium 2020-0 Yes 10 mEq, Memor ia Chloride 3-13 PO, ONCE, l 18:54: 0 [place] 00 Refill(s) montelukast 2020-0 Yes 10 mg = 1 M emoria 10 mg oral 3-13 tab, PO, l tablet 18:54: Daily, 0 [place] 00 Refill(s) Ipratropium 2020-0 Yes 500 Memori a 3-13 microgram, l 18:54: NEB, BID, [place] 00 0 Refill(s) aspirin 81 2018- Yes 81mg Take 81 mg U nivers mg EC 1-14 by mouth. ity of tablet 16:50: [address] azelastine 2018-06 Yes 1{spray Use 1 Uni vers 137 mcg 1-14 } [place] in ity of (0.1 %) 16:50: each [place] nasal spray nostril. [facility] budesonide- 2018-06 Yes 2{puff} Inhale 2 Univers formoterol 1-14 Puffs. ity of (SYMBICORT) 16:50: [place] 160-4.5 Medical [facility]/actuati Branch on inhaler carvedilol 2018- Yes 3.125mg Take 3.125 Univers 3.125 mg 1-14 mg by ity of tablet 16:50: mouth. [address] clonazePAM 2018- Yes .5mg Take 0.5 Uni vers 0.5 mg 1-14 mg by ity of tablet 16:50: mouth. [address] ibuprofen 2018- Yes 200mg Take 200 Uni vers 200 mg 1-14 mg by ity of tablet 16:50: mouth. [address] lisinopril 2018- Yes 5mg Take 5 mg [place] 5 mg tablet 1-14 by mouth. ity of 16:50: [address] melatonin 2018-06 Yes Take by Univ ers 10 mg Cap 1-14 mouth. ity of 16:50: [address] ticagrelor 2018-06 Yes 90mg Take 90 mg U nivers (BRILINTA) 1-14 by mouth. ity of 90 mg 16:50: [address] cyanocobala 2018-[address] Uni vers min, 1-14 2,500 mcg ity of vitamin 16:50: under the [place] B-12, 5,000 tongue Medica l mcg Subl daily. Branch furosemide 2018-06 Yes 20mg Take 20 mg U nivers 20 mg 1-14 by mouth ity of tablet 16:50: daily. [address] ipratropium 2018-06 Yes 2{spray Use 2 [place] 0.03 % 1-14 } Sprays in ity of nasal spray 16:50: each [place] [address] nostril 2 Medical (two) Branch times daily. losartan 2018-06 Yes 100mg Take 100 Univ ers 100 mg 1-14 mg by ity of tablet 16:50: mouth [place] [address] daily. Medical Branch aspirin 81 2018-06 Yes 81mg Take 81 mg U nivers mg EC 1-14 by mouth. ity of tablet 16:50: [address] azelastine 2018-06 Yes 1{spray Use 1 Uni vers 137 mcg 1-14 } [place] in ity of (0.1 %) 16:50: each [place] nasal spray 54 nostril. [facility] Branch budesonide- 2018-06 Yes 2{puff} Inhale 2 Univers formoterol 1-14 Puffs. ity of (SYMBICORT) 16:50: [place] 160-4.5 Medical [facility]/actuati Branch on inhaler carvedilol 2018- Yes 3.125mg Take 3.125 Univers 3.125 mg 1-14 mg by ity of tablet 16:50: mouth. [address] clonazePAM 2018-06 Yes .5mg Take 0.5 Uni vers 0.5 mg 1-14 mg by ity of tablet 16:50: mouth. [address] ibuprofen 2018-06 Yes 200mg Take 200 Uni vers 200 mg 1-14 mg by ity of tablet 16:50: mouth. [address] lisinopril 2018-06 Yes 5mg Take 5 mg [place] 5 mg tablet 1-14 by mouth. ity of 16:50: [address] melatonin 2018-06 Yes Take by Univ ers 10 mg Cap 1-14 mouth. ity of 16:50: [address] ticagrelor 2018-06 Yes 90mg Take 90 mg U nivers (BRILINTA) 1-14 by mouth. ity of 90 mg 16:50: [address] cyanocobala 2018-[address] Uni vers min, 1-14 2,500 mcg ity of vitamin 16:50: under the [place] B-12, 5,000 tongue Medica l mcg Subl daily. Branch furosemide 2018-06 Yes 20mg Take 20 mg U nivers 20 mg 1-14 by mouth ity of tablet 16:50: daily. [address] ipratropium 2018-06 Yes 2{spray Use 2 [place] 0.03 % 1-14 } Sprays in ity of nasal spray 16:50: each [place] [address] nostril 2 Medical (two) Branch times daily. losartan 2018-06 Yes 100mg Take 100 Univ ers 100 mg 1-14 mg by ity of tablet 16:50: mouth [place] [address] daily. Medical Branch aspirin 81 2018- Yes 81mg Take 81 mg U nivers mg EC 1-14 by mouth. ity of tablet 16:50: [address] azelastine 2018-06 Yes 1{spray Use 1 Uni vers 137 mcg 1-14 } [place] in ity of (0.1 %) 16:50: each [place] nasal spray 54 nostril. [facility] Branch budesonide- 2018- Yes 2{puff} Inhale 2 Univers formoterol 1-14 Puffs. ity of (SYMBICORT) 16:50: [place] 160-4.5 Medical [facility]/actuati Branch on inhaler carvedilol 2018- Yes 3.125mg Take 3.125 Univers 3.125 mg 1-14 mg by ity of tablet 16:50: mouth. [address] clonazePAM 2018- Yes .5mg Take 0.5 Uni vers 0.5 mg 1-14 mg by ity of tablet 16:50: mouth. [address] ibuprofen 2018- Yes 200mg Take 200 Uni vers 200 mg 1-14 mg by ity of tablet 16:50: mouth. [address] lisinopril 2018- Yes 5mg Take 5 mg [place] 5 mg tablet 1-14 by mouth. ity of 16:50: [address] melatonin 2018-06 Yes Take by Univ ers 10 mg Cap 1-14 mouth. ity of 16:50: [address] ticagrelor 2018-06 Yes 90mg Take 90 mg U nivers (BRILINTA) 1-14 by mouth. ity of 90 mg 16:50: [address] cyanocobala 2018-[address] Uni vers min, 1-14 2,500 mcg ity of vitamin 16:50: under the [place] B-12, 5,000 tongue Medica l mcg Subl daily. Branch furosemide 2018-06 Yes 20mg Take 20 mg U nivers 20 mg 1-14 by mouth ity of tablet 16:50: daily. [address] ipratropium 2018- Yes 2{spray Use 2 [place] 0.03 % 1-14 } Sprays in ity of nasal spray 16:50: each [place] [address] nostril 2 Medical (two) Branch times daily. losartan 2018- Yes 100mg Take 100 Univ ers 100 mg 1-14 mg by ity of tablet 16:50: mouth [place] [address] daily. Medical Branch aspirin 81 2018- Yes 81mg Take 81 mg U nivers mg EC 1-14 by mouth. ity of tablet 16:50: [address] azelastine 2018-1 Yes 1{spray Use 1 Uni vers 137 mcg 1-14 } [place] in ity of (0.1 %) 16:50: each [place] nasal spray 54 nostril. [facility] Branch budesonide- 2018-06 Yes 2{puff} Inhale 2 Univers formoterol 1-14 Puffs. ity of (SYMBICORT) 16:50: [place] 160-4.5 Medical mcg/actuati Branch on inhaler carvedilol 2018-06 Yes 3.125mg Take 3.125 Univers 3.125 mg 1-14 mg by ity of tablet 16:50: mouth. [address] clonazePAM 2018-06 Yes .5mg Take 0.5 Uni vers 0.5 mg 1-14 mg by ity of tablet 16:50: mouth. [address] ibuprofen 2018-06 Yes 200mg Take 200 Uni vers 200 mg 1-14 mg by ity of tablet 16:50: mouth. [address] lisinopril 2018-06 Yes 5mg Take 5 mg [place] 5 mg tablet 1-14 by mouth. ity of 16:50: [address] melatonin 2018-06 Yes Take by Univ ers 10 mg Cap 1-14 mouth. ity of 16:50: [address] ticagrelor 2018-06 Yes 90mg Take 90 mg U nivers (BRILINTA) 1-14 by mouth. ity of 90 mg 16:50: [address] cyanocobala 2018-[address] Uni vers min, 1-14 2,500 mcg ity of vitamin 16:50: under the [place] B-12, 5,000 54 tongue Medica l mcg Subl daily. Branch furosemide 2018-06 Yes 20mg Take 20 mg U nivers 20 mg 1-14 by mouth ity of tablet 16:50: daily. [address] ipratropium 2018-06 Yes 2{spray Use 2 [place] 0.03 % 1-14 } Sprays in ity of nasal spray 16:50: each [place] [address] nostril 2 Medical (two) Branch times daily. losartan 2018-06 Yes 100mg Take 100 Univ ers 100 mg 1-14 mg by ity of tablet 16:50: mouth [place] [address] daily. Medical Branch aspirin 81 2018-06 Yes 81mg Take 81 mg U nivers mg EC 1-14 by mouth. ity of tablet 16:50: [address] azelastine 2018-06 Yes 1{spray Use 1 Uni vers 137 mcg 1-14 } [place] in ity of (0.1 %) 16:50: each [place] nasal spray 54 nostril. [facility] Branch budesonide- 2018-06 Yes 2{puff} Inhale 2 Univers formoterol 1-14 Puffs. ity of (SYMBICORT) 16:50: [place] 160-4.5 Medical mcg/actuati Branch on inhaler carvedilol 2018-06 Yes 3.125mg Take 3.125 Univers 3.125 mg 1-14 mg by ity of tablet 16:50: mouth. [address] clonazePAM 2018-06 Yes .5mg Take 0.5 Uni vers 0.5 mg 1-14 mg by ity of tablet 16:50: mouth. [address] ibuprofen 2018-06 Yes 200mg Take 200 Uni vers 200 mg 1-14 mg by ity of tablet 16:50: mouth. [address] lisinopril 2018-06 Yes 5mg Take 5 mg [place] 5 mg tablet 1-14 by mouth. ity of 16:50: [address] melatonin 2018-06 Yes Take by Univ ers 10 mg Cap 1-14 mouth. ity of 16:50: [address] ticagrelor 2018-06 Yes 90mg Take 90 mg U nivers (BRILINTA) 1-14 by mouth. ity of 90 mg 16:50: [address] cyanocobala 2018-[address] Uni vers min, 1-14 2,500 mcg ity of vitamin 16:50: under the [place] B-12, 5,000 tongue Medica l mcg Subl daily. Branch furosemide 2018-06 Yes 20mg Take 20 mg U nivers 20 mg 1-14 by mouth ity of tablet 16:50: daily. [address] ipratropium 2018-06 Yes 2{spray Use 2 [place] 0.03 % 1-14 } Sprays in ity of nasal spray 16:50: each [place] [address] nostril 2 Medical (two) Branch times daily. losartan 2018-06 Yes 100mg Take 100 Univ ers 100 mg 1-14 mg by ity of tablet 16:50: mouth [place] [address] daily. Medical Branch aspirin 81 2018-06 Yes 81mg Take 81 mg U nivers mg EC 1-14 by mouth. ity of tablet 16:50: [address] azelastine 2018- Yes 1{spray Use 1 Uni vers 137 mcg 1-14 } [place] in ity of (0.1 %) 16:50: each [place] nasal spray 54 nostril. [facility] Branch budesonide- 2018- Yes 2{puff} Inhale 2 Univers formoterol 1-14 Puffs. ity of (SYMBICORT) 16:50: [place] 160-4.5 Medical mcg/actuati Branch on inhaler carvedilol 2018-06 Yes 3.125mg Take 3.125 Univers 3.125 mg 1-14 mg by ity of tablet 16:50: mouth. [address] clonazePAM 2018-06 Yes .5mg Take 0.5 Uni vers 0.5 mg 1-14 mg by ity of tablet 16:50: mouth. [address] ibuprofen 2018-06 Yes 200mg Take 200 Uni vers 200 mg 1-14 mg by ity of tablet 16:50: mouth. [address] lisinopril 2018-06 Yes 5mg Take 5 mg [place] 5 mg tablet 1-14 by mouth. ity of 16:50: [address] melatonin 2018-06 Yes Take by Univ ers 10 mg Cap 1-14 mouth. ity of 16:50: [address] ticagrelor 2018-06 Yes 90mg Take 90 mg U nivers (BRILINTA) 1-14 by mouth. ity of 90 mg 16:50: [address] cyanocobala 2018-[address] Uni vers min, 1-14 2,500 mcg ity of vitamin 16:50: under the [place] B-12, 5,000 tongue Medica l mcg Subl daily. Branch furosemide 2018-06 Yes 20mg Take 20 mg U nivers 20 mg 1-14 by mouth ity of tablet 16:50: daily. [address] ipratropium 2018-06 Yes 2{spray Use 2 [place] 0.03 % 1-14 } Sprays in ity of nasal spray 16:50: each [place] [address] nostril 2 Medical (two) Branch times daily. losartan 2018- Yes 100mg Take 100 Univ ers 100 mg 1-14 mg by ity of tablet 16:50: mouth [place] [address] daily. Medical Branch melatonin Yes Take by [facility] ers 10 mg Cap 7-27 mouth. ity of 21:03: [address] ticagrelor Yes 90mg Take 90 mg U nivers (BRILINTA) 7-27 by mouth. ity of 90 mg 21:03: [place] [address] Medical Branch albuterol Yes 2{puff} Inhale 2 U nivers (PROVENTIL 7-27 Puffs. ity of HFA) 90 21:03: [facility]/actuati Medical on inhaler Branch aspirin 81 Yes 81mg Take 81 mg U nivers mg EC 7-27 by mouth. ity of tablet 21:03: [address] azelastine Yes 1{spray Use 1 Uni vers 137 mcg 7-27 } [place] in ity of (0.1 %) 21:03: each [place] nasal spray 54 nostril. [facility] budesonide- Yes 2{puff} Inhale 2 Univers formoterol 7-27 Puffs. ity of (SYMBICORT) 21:03: [place] 160-4.[address] [place] [address]/actuati [place] on inhaler carvedilol Yes 3.125mg Take 3.125 Univers 3.125 mg 7-27 mg by ity of tablet 21:03: mouth. [address] clonazePAM Yes .5mg Take 0.5 Uni vers 0.5 mg 7-27 mg by ity of tablet 21:03: mouth. [address] ibuprofen Yes 200mg Take 200 Uni vers 200 mg 7-27 mg by ity of tablet 21:03: mouth. [address] lisinopril Yes 5mg Take 5 mg [place] 5 mg tablet 7-27 by mouth. ity of 21:03: [address] melatonin Yes Take by [facility] ers 10 mg Cap 7-27 mouth. ity of 21:03: [address] ticagrelor Yes 90mg Take 90 mg U nivers (BRILINTA) 7-27 by mouth. ity of 90 mg 21:03: [address] Branch albuterol Yes 2{puff} Inhale 2 U nivers (PROVENTIL 7-27 Puffs. ity of HFA) 90 21:03: [facility]/actuati Medical on inhaler Branch aspirin 81 Yes 81mg Take 81 mg U nivers mg EC 7-27 by mouth. ity of tablet 21:03: [address] azelastine Yes 1{spray Use 1 Uni vers 137 mcg 7-27 } [place] in ity of (0.1 %) 21:03: each [place] nasal spray 54 nostril. [facility] Branch budesonide- Yes 2{puff} Inhale 2 Univers formoterol 7-27 Puffs. ity of (SYMBICORT) 21:03: [place] 160-4.[address] [place] [address]/actuati [place] on inhaler carvedilol Yes 3.125mg Take 3.125 Univers 3.125 mg 7-27 mg by ity of tablet 21:03: mouth. [address] clonazePAM Yes .5mg Take 0.5 Uni vers 0.5 mg 7-27 mg by ity of tablet 21:03: mouth. [address] ibuprofen Yes 200mg Take 200 Uni vers 200 mg 7-27 mg by ity of tablet 21:03: mouth. [address] lisinopril Yes 5mg Take 5 mg [place] 5 mg tablet 7-27 by mouth. ity of 21:03: [address] melatonin Yes Take by Univ ers 10 mg Cap 7-27 mouth. ity of 21:03: [address] ticagrelor Yes 90mg Take 90 mg U nivers (BRILINTA) 7-27 by mouth. ity of 90 mg 21:03: [address] albuterol Yes 2{puff} Inhale 2 U nivers (PROVENTIL 7-27 Puffs. ity of HFA) 90 21:03: [facility]/actuati Medical on inhaler Branch aspirin 81 Yes 81mg Take 81 mg U nivers mg EC 7-27 by mouth. ity of tablet 21:03: [address] azelastine Yes 1{spray Use 1 Uni vers 137 mcg 7-27 } [place] in ity of (0.1 %) 21:03: each [place] nasal spray 54 nostril. [facility] budesonide- Yes 2{puff} Inhale 2 Univers formoterol 7-27 Puffs. ity of (SYMBICORT) 21:03: [place] 160-4.5 Medical mcg/actuati Branch on inhaler carvedilol Yes 3.125mg Take 3.125 Univers 3.125 mg 7-27 mg by ity of tablet 21:03: mouth. [address] clonazePAM Yes .5mg Take 0.5 Uni vers 0.5 mg 7-27 mg by ity of tablet 21:03: mouth. [address] ibuprofen Yes 200mg Take 200 Uni vers 200 mg 7-27 mg by ity of tablet 21:03: mouth. [address] lisinopril Yes 5mg Take 5 mg [place] 5 mg tablet 7-27 by mouth. ity of 21:03: [address] melatonin Yes Take by Univ ers 10 mg Cap 7-27 mouth. ity of 21:03: [address] ticagrelor Yes 90mg Take 90 mg U nivers (BRILINTA) 7-27 by mouth. ity of 90 mg 21:03: [address] albuterol Yes 2{puff} Inhale 2 U nivers (PROVENTIL 7-27 Puffs. ity of HFA) 90 21:03: [facility]/actuati Medical on inhaler Branch aspirin 81 Yes 81mg Take 81 mg U nivers mg EC 7-27 by mouth. ity of tablet 21:03: [address] azelastine Yes 1{spray Use 1 Uni vers 137 mcg 7-27 } [place] in ity of (0.1 %) 21:03: each [place] nasal spray 54 nostril. [facility] budesonide- Yes 2{puff} Inhale 2 Univers formoterol 7-27 Puffs. ity of (SYMBICORT) 21:03: [place] 160-4.[address] [place] [address] mcg/actuati [place] on inhaler carvedilol Yes 3.125mg Take 3.125 Univers 3.125 mg 7-27 mg by ity of tablet 21:03: mouth. [address] clonazePAM Yes .5mg Take 0.5 Uni vers 0.5 mg 7-27 mg by ity of tablet 21:03: mouth. [address] ibuprofen Yes 200mg Take 200 Uni vers 200 mg 7-27 mg by ity of tablet 21:03: mouth. [address] lisinopril Yes 5mg Take 5 mg [place] 5 mg tablet 7-27 by mouth. ity of 21:03: [address] melatonin Yes Take by Univ ers 10 mg Cap 7-27 mouth. ity of 21:03: [address] ticagrelor Yes 90mg Take 90 mg U nivers (BRILINTA) 7-27 by mouth. ity of 90 mg 21:03: [address] albuterol Yes 2{puff} Inhale 2 U nivers (PROVENTIL 7-27 Puffs. ity of HFA) 90 21:03: [facility]/actuati Medical on inhaler [place] aspirin 81 Yes 81mg Take 81 mg U nivers mg EC 7-27 by mouth. ity of tablet 21:03: [address] azelastine Yes 1{spray Use 1 Uni vers 137 mcg 7-27 } [place] in ity of (0.1 %) 21:03: each [place] nasal spray 54 nostril. [facility] budesonide- Yes 2{puff} Inhale 2 Univers formoterol 7-27 Puffs. ity of (SYMBICORT) 21:03: [place] 160-4.[address] [place] [address] carvedilol Yes 3.125mg Take 3.125 Univers 3.125 mg 7-27 mg by ity of tablet 21:03: mouth. [address] clonazePAM Yes .5mg Take 0.5 Uni vers 0.5 mg 7-27 mg by ity of tablet 21:03: mouth. [address] ibuprofen Yes 200mg Take 200 Uni vers 200 mg 7-27 mg by ity of tablet 21:03: mouth. [address] lisinopril Yes 5mg Take 5 mg [place] 5 mg tablet 7-27 by mouth. ity of 21:03: [address] melatonin Yes Take by Univ ers 10 mg Cap 01-22 mouth. ity of 21:03: [address] ticagrelor Yes 90mg Take 90 mg U nivers (BRILINTA) 7- by mouth. ity of 90 mg 21:03: [place] tablet [address] [place] [address] albuterol 2018- Yes 2{puff} Inhale 2 U nivers (PROVENTIL 7- Puffs. ity of HFA) 90 21:03: [facility]/actuati Medical on inhaler Branch aspirin 81 2019- Yes 81mg Take 81 mg U nivers mg EC 01-22 by mouth. ity of tablet 21:03: [address] azelastine Yes 1{spray Use 1 Uni vers 137 mcg - } [place] in ity of (0.1 %) 21:03: each [place] nasal spray 54 nostril. [facility] budesonide- 2018- Yes 2{puff} Inhale 2 Univers formoterol 7-27 Puffs. ity of (SYMBICORT) 21:03: [place] 160-4.[address] [place] [address]/actuati [place] on inhaler carvedilol 2018- Yes 3.125mg Take 3.125 Univers 3.125 mg 7-27 mg by ity of tablet 21:03: mouth. [address] clonazePAM 2018- Yes .5mg Take 0.5 Uni vers 0.5 mg 7-27 mg by ity of tablet 21:03: mouth. [address] ibuprofen 2018- Yes 200mg Take 200 Uni vers 200 mg 7-27 mg by ity of tablet 21:03: mouth. [address] lisinopril Yes 5mg Take 5 mg [place] 5 mg tablet 01-22 by mouth. ity of 21:03: [address] levETIRAcet 2018- 2019- No 1000mg 1,000 mg, Univers am (KEPPRA) 01-22 IV ity of in NACL 18:15: 17:55 Piggyback, Matthew as (ISO-OS) 00 :00 ONCE, 1 Medical 1,000 dose, Sat Branch mg/100 mL 01/22/19 at RTU 1315, 100 mL fosphenytoi 2019- No 1000mg{ 1,000 mg Univers n (CEREBYX) 01-22 phenyto PE, Slow ity of injection 18:15: 17:59 in'equi IV Push, [place] 1,000 mg PE 00 :00 valent} ONCE, 1 Me dical dose, Sat [place] 01/22/19 at 1315, EZIO NaCl 0.9% 2019- No 1000mL at 999 Uni vers (NS) bolus 01-22 mL/hr, ity of infusion 18:00: 20:38 1,000 mL, Matthew as 1,000 mL 00 :00 IV Medical Infusion, [place] ONCE, 1 dose, 01/22/19 at 1300, STAT LORazepam 2018- No 2mg 2 mg, Slow U nivers (ATIVAN) 01-22 IV Push, ity of injection 2 16:45: 15:32 ONCE, 1 [place] mg 00 :00 dose, Sat [facility] 01/22/19 at Branch 1145, STAT fluconazole 2019- No [id number] 150mg Take 1 Univers 150 mg 01-22 tablet by ity of tablet 00:00: 04:59 mouth once [place] 00 :00 now for 1 Medical dose. [place] Ticagrelor Yes 90 mg = 1 Me moria 90 MG Oral 5-31 tab, PO, l Tablet 17:48: BID, # 60 [place] n [Brilinta] 00 tab, 2 Refill(s), Pharmacy: [facility] [id number] Levetiracet Yes 1,500 mg = Memoria am 750 MG 5-31 2 tab, PO, l Oral Tablet 17:48: BID, # 120 [place] [Keppra] 00 tab, 2 Refill(s), Pharmacy: [facility] [id number] Aspirin 81 2018- Yes 81 mg = 1 Me moria MG Chewable 5-31 tab, CHEW, l Tablet 17:48: Daily, # 1 Renita nn 00 tab, 3 Refill(s), Pharmacy: [facility] [id number] lisinopril Yes 5 mg = 1 Mem oria 5 mg oral 5-31 tab, PO, l tablet 17:48: Daily, # [place] 00 30 tab, 2 Refill(s), Pharmacy: [facility] [place] [address] carvedilol 2018- Yes 3.125 mg = M emoria 3.125 mg 5-31 1 tab, PO, l oral tablet 17:48: Q12H, # 60 [place] 00 tab, 2 Refill(s), Pharmacy: [facility] [place] [address] Ticagrelor 2018- Yes 90 mg = 1 Me moria 90 MG Oral 5-31 tab, PO, l Tablet 17:48: BID, # 60 [place] n [Brilinta] 00 tab, 2 Refill(s), Pharmacy: [facility] [place] [address] Levetiracet Yes 1,500 mg = Memoria am 750 MG 5-31 2 tab, PO, l Oral Tablet 17:48: BID, # 120 [place] [Keppra] 00 tab, 2 Refill(s), Pharmacy: [facility] [place] [address] Aspirin 81 Yes 81 mg = 1 Me moria MG Chewable 5-31 tab, CHEW, l Tablet 17:48: Daily, # 1 Renita nn 00 tab, 3 Refill(s), Pharmacy: [facility] [place] [address] lisinopril Yes 5 mg = 1 Mem oria 5 mg oral 5-31 tab, PO, l tablet 17:48: Daily, # [place] 00 30 tab, 2 Refill(s), Pharmacy: [facility] [place] [address] carvedilol Yes 3.125 mg = M emoria 3.125 mg 5-31 1 tab, PO, l oral tablet 17:48: Q12H, # 60 [place] 00 tab, 2 Refill(s), Pharmacy: [facility] [place] [address] potassium 2018- No Notes: Memori a phosphate 5-31 (Same as: l 10:36: K [place] 00 Phosphate. ) Do not infuse phosphorou s concurrent ly in the same line as TPN or IVF that contains calcium. For double lumen central lines, phosphorou s may be infused in a separate lumen from TPN. 1 mMol phoshate has 1.47 mEq potassium Infuse over 4 hours sodium 2019-0 No Notes: Memoria phosphate 5-31 Infuse l 10:36: over 4 [place] 00 hour. Do not infuse phosphorou s concurrent ly in the same line as TPN or IVF that contains calcium. For double lumen central lines, phosphorou s may be infused in a separate lumen from TPN. Potassium No Notes: Memori a Chloride 5-31 (Same as: l 10:36: KCL) [place] 00 Infuse over 2 hours. potassium No Notes: Memori a phosphate-s 5-31 (Same as: l odium 10:36: Phos-NaK) [place] phosphate 00 Each 1.5 250 mg-280 gm pkt has mg-160 mg 250mg oral powder phosphorou for s. Mix reconstitut w/2.5oz ion water and stir. Calcium No Notes: Memoria Gluconate 11-26 WASTE: F/P l 10:36: - Sink; E [place] [facility] Magnesium No Notes: Memori a Sulfate 11-26 WASTE: F/P l 10:36: - Sink; E [place] [facility] Magnesium No Notes: Memori a Oxide 11-26 (Same as: l 10:36: Mag-Ox [place] 00 400) Magnesium oxide [id number] g elemental magnesium Dose=____m g magnesium oxide (___mg elemental magnesium) potassium No Notes: Memori a phosphate 5-31 (Same as: l 10:36: K [place] 00 Phosphate. ) Do not infuse phosphorou s concurrent ly in the same line as TPN or IVF that contains calcium. For double lumen central lines, phosphorou s may be infused in a separate lumen from TPN. 1 mMol phoshate has 1.47 mEq potassium Infuse over 4 hours sodium No Notes: [facility] phosphate 5-31 Infuse l 10:36: over 4 [place] 00 hour. Do not infuse phosphorou s concurrent ly in the same line as TPN or IVF that contains calcium. For double lumen central lines, phosphorou s may be infused in a separate lumen from TPN. Potassium No Notes: Memori a Chloride 5-31 (Same as: l 10:36: KCL) [place] 00 Infuse over 2 hours. potassium No Notes: Memori a phosphate-s 5-31 (Same as: l odium 10:36: Phos-NaK) [place] phosphate 00 Each 1.5 250 mg-280 gm pkt has mg-160 mg 250mg oral powder phosphorou for s. Mix reconstitut w/2.5oz ion water and stir. Calcium No Notes: Memoria Gluconate 11-26 WASTE: F/P l 10:36: - Sink; E [place] 00 - Municipal Trash Bin Magnesium No Notes: Memori a Sulfate 11-26 WASTE: F/P l 10:36: - Sink; E [place] - Municipal Trash Bin Magnesium No Notes: Memori a Oxide 11-26 (Same as: l 10:36: Mag-Ox [place] 00 400) Magnesium oxide 467yb=280c g elemental magnesium Dose=____m g magnesium oxide (___mg elemental magnesium) Lisinopril No Notes: Memor ia -29 (Same as: l 19:03: Prinivil, [place] 00 Zestril) Lisinopril No Notes: Memor ia -29 (Same as: l 19:03: Prinivil, [place] 00 Zestril) sodium No Notes: Memoria phosphate 5-28 Infuse l 14:20: over 4 [place] 00 hour. Do not infuse phosphorou s concurrent ly in the same line as TPN or IVF that contains calcium. For double lumen central lines, phosphorou s may be infused in a separate lumen from TPN. potassium No Notes: Memori a phosphate - (Same as: l 14:20: K [place] 00 Phosphate. ) Do not infuse phosphorou s concurrent ly in the same line as TPN or IVF that contains calcium. For double lumen central lines, phosphorou s may be infused in a separate lumen from TPN. 1 mMol phoshate has 1.47 mEq potassium Infuse over 4 hours sodium No Notes: Memoria phosphate 5-28 Infuse l 14:20: over 4 [place] 00 hour. Do not infuse phosphorou s concurrent ly in the same line as TPN or IVF that contains calcium. For double lumen central lines, phosphorou s may be infused in a separate lumen from TPN. potassium No Notes: Memori a phosphate 5-28 (Same as: l 14:20: K [place] 00 Phosphate. ) Do not infuse phosphorou s concurrent ly in the same line as TPN or IVF that contains calcium. For double lumen central lines, phosphorou s may be infused in a separate lumen from TPN. 1 mMol phoshate has 1.47 mEq potassium Infuse over 4 hours potassium No Notes: Memori a phosphate-s 11-23 (Same as: l odium 14:20: Phos-NaK) [place] phosphate 00 Each 1.5 250 mg-280 gm pkt has mg-160 mg 250mg oral powder phosphorou for s. Mix reconstitut w/2.5oz ion water and stir. Magnesium No Notes: Memori a Sulfate 11-23 WASTE: F/P l 14:20: - Sink; E - Municipal Trash Bin Magnesium No Notes: Memori a Oxide 11-23 (Same as: l 14:20: Mag-Ox [place] 00 400) Magnesium oxide 291pe=546i g elemental magnesium Dose=____m g magnesium oxide (___mg elemental magnesium) Calcium No Notes: [facility] Gluconate 11-23 WASTE: F/P l 14:20: - Sink; E - Municipal Trash Bin Calcium No Notes: Memoria Carbonate 11-23 (Same As: l 500 MG 14:20: Tums) [place] Chewable 00 Calcium Tablet Carbonate 500 mg = 200 mg elemental calcium Dose = mg calcium carbonate ( mg elemental calcium) Potassium No Notes: Memori a Chloride 11-23 (Same as: l 14:20: KCL) [place] 00 Infuse over 2 hours. potassium No Notes: Memori a phosphate-s 11-23 (Same as: l odium 14:20: Phos-NaK) [place] phosphate 00 Each 1.5 250 mg-280 gm pkt has mg-160 mg 250mg oral powder phosphorou for s. Mix reconstitut w/2.5oz ion water and stir. Magnesium No Notes: Memori a Sulfate 11-23 WASTE: F/P l 14:20: - Sink; E [place] - Municipal Trash Bin Magnesium No Notes: Memori a Oxide 11-23 (Same as: l 14:20: Mag-Ox 400) Magnesium oxide 360jm=734o g elemental magnesium Dose=____m g magnesium oxide (___mg elemental magnesium) Calcium No Notes: [facility] Gluconate 11-23 WASTE: F/P l 14:20: - Sink; E - Municipal Trash Bin Calcium No Notes: [facility] Carbonate 11-23 (Same As: l 500 MG 14:20: Tums) [place] Calcium Tablet Carbonate 500 mg = 200 mg elemental calcium Dose = mg calcium carbonate ( mg elemental calcium) Potassium No Notes: Memori a Chloride 11-23 (Same as: l 14:20: KCL) Infuse over 2 hours. Lasix No Notes: Memoria - (Same as: l 14:00: Lasix) MEDICATION WASTE Product Size: 40 mg Product Wasted: ___ mg carvedilol No Notes: Memor ia - Give with l 14:00: food. [place] 00 (Same As: Coreg) Lasix No Notes: Memoria - (Same as: l 14:00: Lasix) MEDICATION WASTE Product Size: 40 mg Product Wasted: ___ mg carvedilol No Notes: Memor ia -28 Give with l 14:00: food. (Same As: Coreg) Budesonide No Notes: Memor ia - (Same As: l 01:00: Pulmicort) Budesonide No Notes: Memor ia -28 (Same As: l 01:00: Pulmicort) Calcium No 1,000 mg, Memor ia Gluconate 11-22 Route: l 21:45: IVPB, Drug form: INJ, ONCE, Dosing Weight 50.5, kg, Start date: 11/22/18 16:45:00 CDT, Stop date: 11/22/18 16:45:00 CDT Calcium No 1,000 mg, Memor ia Gluconate 11-22 Route: l 21:45: IVPB, Drug [place] 00 form: INJ, ONCE, Dosing Weight 50.5, kg, Start date: 11/22/18 16:45:00 CDT, Stop date: 11/22/18 16:45:00 CDT iodixanol 2019-0 No 70 mL, Memori a 11-22 Route: l 17:50: IVP, Drug [place] 00 Form: SOLN, Dosing Weight 50.5, kg, ONCALL, STAT, Start date: 11/22/18 12:50:00 CDT, Duration: 1 doses or times, Dose = 2.2ml/kg, Max dose = 100ml -- "To be infused by Radiology Staff ONLY" iodixanol 2019-0 No 70 mL, Memori a 11-22 Route: l 17:50: IVP, Drug [place] 00 Form: SOLN, Dosing Weight 50.5, kg, ONCALL, STAT, Start date: 11/22/18 12:50:00 CDT, Duration: 1 doses or times, Dose = 2.2ml/kg, Max dose = 100ml -- "To be infused by Radiology Staff ONLY" Levofloxaci 2018- No Notes: Do M emoria n -27 not give l 14:00: w/antacids [place] 00 , dairy pdt & minerals Take 1 hr before or 2 hr after dairy products Levofloxaci 2018-0 No Notes: Do M emoria n -27 not give l 14:00: w/antacids [place] 00 , dairy pdt & minerals Take 1 hr before or 2 hr after dairy products Omeprazole 2018- No 20 mg, Memor ia 11-22 Route: PO, l 12:30: Drug form: [place] 00 ECCAP, Before Breakfast, Dosing Weight 50.5, kg, Start date: 11/22/18 7:30:00 CDT, Duration: 30 day, Stop date: 12/21/18 7:30:00 CDT Protonix 2018-0 No Notes: Memoria 5-27 Tablet l 12:30: should not [place] 00 be chewed or crushed. (Same as: Protonix) Omeprazole No 20 mg, Memor ia 11-22 Route: PO, l 12:30: Drug form: [place] 00 ECCAP, Before Breakfast, Dosing Weight 50.5, kg, Start date: 11/22/18 7:30:00 CDT, Duration: 30 day, Stop date: 12/21/18 7:30:00 CDT Protonix 2019-0 No Notes: Memoria 5-27 Tablet l 12:30: should not [place] 00 be chewed or crushed. (Same as: Protonix) Sodium 2019-0 No 250 mL, Memoria Chloride 5-27 Rate: To l 0.9% 12:10: prime line Randolph (titrate) 00 and flush 250 mL remaining blood products., Dosing Weight 50.5, kg, Route: IV, Total Volume: 250, Start Date: 11/22/18 7:10:00 CDT, Duration: 1 day, Stop date: 11/23/18 7:09:00 CDT, Replace Every: 24 hr Sodium 2019-0 No 250 mL, Memoria Chloride 5-27 Rate: To l 0.9% 12:10: prime line [place] (titrate) 00 and flush 250 mL remaining blood products., Dosing Weight 50.5, kg, Route: IV, Total Volume: 250, Start Date: 11/22/18 7:10:00 CDT, Duration: 1 day, Stop date: 11/23/18 7:09:00 CDT, Replace Every: 24 hr Sodium 2019-0 No 250 mL, Memoria Chloride 5-27 Rate: To l 0.9% 11:02: prime line [place] (titrate) 00 and flush 250 mL remaining blood products., Dosing Weight 50.5, kg, Route: IV, Total Volume: 250, Priority: Routine, Start Date: 11/22/18 6:02:00 CDT, Duration: 30 day, Stop date: 12/22/18 6:01:00 CDT, Replace Every: 24 hr Sodium 2019-0 No 250 mL, Memoria Chloride 5-27 Rate: To l 0.9% 11:02: prime line [place] (titrate) 00 and flush 250 mL remaining blood products., Dosing Weight 50.5, kg, Route: IV, Total Volume: 250, Priority: Routine, Start Date: 11/22/18 6:02:00 CDT, Duration: 30 day, Stop date: 12/22/18 6:01:00 CDT, Replace Every: 24 hr NS (Bolus) No 250 mL, Neil paulo IV - 1000 l 04:55: ml/hr, [place] Infuse Over: 15 minutes, Route: IV, 250, Drug form: INJ, ONCE, Priority: STAT, Dosing Weight 50.5 kg, Start date: 11/21/18 23:55:00 CDT, Stop date: 11/21/18 23:55:00 CDT NS (Bolus) No 250 mL, Neil paulo IV - 1000 l 04:55: ml/hr, [place] 00 Infuse Over: 15 minutes, Route: IV, 250, Drug form: INJ, ONCE, Priority: STAT, Dosing Weight 50.5 kg, Start date: 11/21/18 23:55:00 CDT, Stop date: 11/21/18 23:55:00 CDT nxstage No Notes: Memoria pureflow 5-27 NxStage l rfp-401 04:19: RFP-401 = Renita nn 5000ml SOLN 00 K4/Ca3 5,000 mL Total ingredient s in bag Na 140meq/L; K 4meq/L; HCO 35meq/L; Ca 3meq/L; Magnesium 1meq/L; CL 113meq/L; Glucose 100mg/dL; "Break seal Between compartmen ts and mix before hanging" nxstage No Notes: Memoria pureflow 5-27 NxStage l rfp-401 04:19: RFP-401 = Renita nn 5000ml SOLN 00 K4/Ca3 5,000 mL Total ingredient s in bag Na 140meq/L; K 4meq/L; HCO 35meq/L; Ca 3meq/L; Magnesium 1meq/L; CL 113meq/L; Glucose 100mg/dL; "Break seal Between compartmen ts and mix before hanging" Calcium No 250 mL, Memoria Chloride 5-27 250 ml/hr, l 0.0014 03:51: Infuse [place] MEQ/ML / 00 Over: 1 Potassium hr, Route: Chloride IV, 250, 0.004 Drug form: MEQ/ML / INJ, ONCE, Sodium Priority: Chloride STAT, 0.103 Dosing MEQ/ML / Weight Sodium 50.5 kg, Lactate Start 0.028 date: MEQ/ML 11/21/18 Injectable 22:51:00 Solution CDT, Stop date: 11/21/18 22:51:00 CDT Calcium 2019- No 250 mL, Memoria Chloride 5-27 250 ml/hr, l 0.0014 03:51: Infuse [place] MEQ/ML / 00 Over: 1 Potassium hr, Route: Chloride IV, 250, 0.004 Drug form: MEQ/ML / INJ, ONCE, Sodium Priority: Chloride STAT, 0.103 Dosing MEQ/ML / Weight Sodium 50.5 kg, Lactate Start 0.028 date: MEQ/ML 11/21/18 Injectable 22:51:00 Solution CDT, Stop date: 11/21/18 22:51:00 CDT Flagyl No Notes: Memoria 5-26 (Same as: l 16:00: Flagyl) [place] 00 Take with food/ avoid alcohol Flagyl No Notes: Memoria 5-26 (Same as: l 16:00: Flagyl) [place] 00 Take with food/ avoid alcohol Melatonin No Notes: Memori a 5-26 (Same as: l 15:34: Melatonin) [place] 00 Melatonin No Notes: Memori a 5-26 (Same as: l 15:34: Melatonin) [place] 00 Levofloxaci No Notes: Do M emoria n 5-26 not give l 15:24: w/antacids [place] 00 , dairy pdt & minerals Take 1 hr before or 2 hr after dairy products Levofloxaci No Notes: Do M emoria n 5-26 not give l 15:24: w/antacids [place] 00 , dairy pdt & minerals Take 1 hr before or 2 hr after dairy products Vancomycin No 2000 mg: Me moria 5-26 infuse l 15:00: over 2.5 [place] 00 hours For adult patients only: Round to nearest 250 mg per Medical Staff approval MEDICATION WASTE Product Size: 1000 mg Product Wasted: ___ mg Vancomycin 2019- No 2000 mg: Me moria 5-26 infuse l 15:00: over 2.5 [place] 00 hours For adult patients only: Round to nearest 250 mg per Medical Staff approval MEDICATION WASTE Product Size: 1000 mg Product Wasted: ___ mg potassium No Notes: Memori a phosphate-s -26 (Same as: l odium 14:54: Phos-NaK) phosphate 00 Each 1.5 250 mg-280 gm pkt has mg-160 mg 250mg oral powder phosphorou for s. Mix reconstitut w/2.5oz ion water and stir. potassium No Notes: Memori a phosphate 5-26 (Same as: l 14:54: K [place] 00 Phosphate. ) Do not infuse phosphorou s concurrent ly in the same line as TPN or IVF that contains calcium. For double lumen central lines, phosphorou s may be infused in a separate lumen from TPN. 1 mMol phoshate has 1.47 mEq potassium Infuse over 4 hours Potassium No Notes: Memori a Chloride - (Same as: l 14:54: K-Dur 20) "Do Not Crush" Give with food and full glass of water For patients unable to swallow tablet, dissolve in one half glass of water. Allow about 2 minutes for the tablets to disintegra te. Stir before giving to prepare slurry and administer . Please exclude Patient s with feeding tube less than 14 Tristanian (Dobhoff, J-tube etc) and pediatric and patients. sodium No Notes: Memoria phosphate - Infuse l 14:54: over 4 [place] 00 hour. Do not infuse phosphorou s concurrent ly in the same line as TPN or IVF that contains calcium. For double lumen central lines, phosphorou s may be infused in a separate lumen from TPN. Magnesium No Notes: Memori a Sulfate 11-21 WASTE: F/P l 14:54: - Sink; E - Municipal Trash Bin Magnesium No Notes: Memori a Oxide - (Same as: l 14:54: Mag-Ox 400) Magnesium oxide [id number] g elemental magnesium Dose=____m g magnesium oxide (___mg elemental magnesium) Calcium No Notes: [facility]oria Chloride 11-21 WASTE: F/P l 14:54: - Sink; E - Municipal Trash Bin potassium No Notes: Memori a phosphate-s - (Same as: l odium 14:54: Phos-NaK) [place] phosphate 00 Each 1.5 250 mg-280 gm pkt has mg-160 mg 250mg oral powder phosphorou for s. Mix reconstitut w/2.5oz ion water and stir. potassium No Notes: Memori a phosphate 5-26 (Same as: l 14:54: K [place] Phosphate. ) Do not infuse phosphorou s concurrent ly in the same line as TPN or IVF that contains calcium. For double lumen central lines, phosphorou s may be infused in a separate lumen from TPN. 1 mMol phoshate has 1.47 mEq potassium Infuse over 4 hours Potassium No Notes: Memori a Chloride - (Same as: l 14:54: K-Dur 20) "Do Not Crush" Give with food and full glass of water For patients unable to swallow tablet, dissolve in one half glass of water. Allow about 2 minutes for the tablets to disintegra te. Stir before giving to prepare slurry and administer . Please exclude Patient s with feeding tube less than 14 Tristanian (Dobhoff, J-tube etc) and pediatric and patients. sodium No Notes: Memoria phosphate 5-26 Infuse l 14:54: over 4 [place] 00 hour. Do not infuse phosphorou s concurrent ly in the same line as TPN or IVF that contains calcium. For double lumen central lines, phosphorou s may be infused in a separate lumen from TPN. Magnesium No Notes: Memori a Sulfate 11-21 WASTE: F/P l 14:54: - Sink; E - Municipal Trash Bin Magnesium No Notes: Memori a Oxide - (Same as: l 14:54: Mag-Ox [place] 00 400) Magnesium oxide 267tt=302h g elemental magnesium Dose=____m g magnesium oxide (___mg elemental magnesium) Calcium No Notes: Memoria Chloride - WASTE: F/P l 14:54: - Sink; E - Municipal Trash Bin nxstage No Notes: Memoria pureflow -26 NxStage l rfp-400 14:53: RFP-400 = Renita nn 5000ml SOLN 00 K2/Ca3 5,000 mL Total ingredient s in bag Na 140meq/L; K 2meq/L; HCO 35meq/L; Ca 3meq/L; Magnesium 1meq/L; CL 111meq/L; Glucose 100mg/dL; "Break seal Between compartmen ts and mix before hanging" nxstage No Notes: Memoria pureflow 5-26 NxStage l rfp-400 14:53: RFP-400 = Renita nn 5000ml SOLN 00 K2/Ca3 5,000 mL Total ingredient s in bag Na 140meq/L; K 2meq/L; HCO 35meq/L; Ca 3meq/L; Magnesium 1meq/L; CL 111meq/L; Glucose 100mg/dL; "Break seal Between compartmen ts and mix before hanging" Fentanyl No Notes: Memoria 5-26 (Same as: l 14:44: Sublimaze) [place] Preservat bong free. Fentanyl No Notes: Memoria 5-26 (Same as: l 14:44: Sublimaze) [place] Preservat bong free. heparin No Notes: Memoria 5-26 porcine l 13:00: heparin [place] heparin No Notes: Memoria 5-26 porcine l 13:00: heparin [place] Lasix No Notes: Memoria 5-26 (Same as: l 12:13: Lasix) [place] MEDICATION WASTE Product Size: 40 mg Product Wasted: ___ mg Lasix No Notes: Memoria 5-26 (Same as: l 12:13: Lasix) [place] MEDICATION WASTE Product Size: 40 mg Product Wasted: ___ mg Keppra No Notes: Memoria 5-26 Same as l 03:00: Keppra [place] Keppra No Notes: Memoria 5-26 Same as l 03:00: Keppra [place] Seroquel No Notes: Memoria 5-26 (Same as: l 02:00: SEROquel) [place] Seroquel No Notes: Memoria 5-26 (Same as: l 02:00: SEROquel) [place] Vancomycin No 2001 mg: Me moria 5-26 infuse l 01:24: over 2.5 [place] 00 hours For adult patients only: Round to nearest 250 mg per Medical Staff approval MEDICATION WASTE Product Size: 1000 mg Product Wasted: ___ mg Vancomycin No 2000 mg: Me moria 5-26 infuse l 01:24: over 2.5 [place] 00 hours For adult patients only: Round to nearest 250 mg per Medical Staff approval MEDICATION WASTE Product Size: 1000 mg Product Wasted: ___ mg Ativan Yes Notes: Memoria 5-25 (Same as: l 23:43: Ativan) 00 Ativan Yes Notes: Memoria 5-25 (Same as: l 23:43: Ativan) Calcium No 1,000 mL, Memor ia Chloride 5-25 1,000 l 0.0014 22:06: ml/hr, [place] MEQ/ML / 00 Infuse Potassium Over: 1 Chloride hr, Route: 0.004 IV, 1,000, MEQ/ML / Drug form: Sodium INJ, ONCE, Chloride Priority: 0.103 STAT, MEQ/ML / Dosing Sodium Weight Lactate 50.5 kg, 0.028 Start MEQ/ML date: Injectable 11/20/18 Solution 17:06:00 CDT, Stop date: 11/20/18 17:06:00 CDT Calcium No 1,000 mL, Memor ia Chloride 5-25 1,000 l 0.0014 22:06: ml/hr, [place] MEQ/ML / 00 Infuse Potassium Over: 1 Chloride hr, Route: 0.004 IV, 1,000, MEQ/ML / Drug form: Sodium INJ, ONCE, Chloride Priority: 0.103 STAT, MEQ/ML / Dosing Sodium Weight Lactate 50.5 kg, 0.028 Start MEQ/ML date: Injectable 11/20/18 Solution 17:06:00 CDT, Stop date: 11/20/18 17:06:00 CDT Phenytoin No Notes: Memori a 5-25 (Same as: l 22:00: Dilantin) Do not open, crush, or chew. Phenytoin No Notes: Memori a 5-25 (Same as: l 22:00: Dilantin) [place] 00 Do not open, crush, or chew. NS (Bolus) No 1,000 mL, Me moria IV 5-25 1,000 l 16:15: ml/hr, [place] 00 Infuse Over: 1 hr, Route: IV, 1,000, Drug form: INJ, ONCE, Priority: STAT, Dosing Weight 50.5 kg, Start date: 11/20/18 11:15:00 CDT, Stop date: 11/20/18 11:15:00 CDT NS (Bolus) No 1,000 mL, Me moria IV 5-25 1,000 l 16:15: ml/hr, [place] 00 Infuse Over: 1 hr, Route: IV, 1,000, Drug form: INJ, ONCE, Priority: STAT, Dosing Weight 50.5 kg, Start date: 11/20/18 11:15:00 CDT, Stop date: 11/20/18 11:15:00 CDT Ipratropium No Notes: SEE Memoria Wheeler 0.2 5-25 RT l MG/ML 16:10: DOCUMENTAT Eddie n Inhalant 00 ION (Same Solution as:Atroven t) Xopenex No Notes: SEE Neil paulo 5-25 RT l 16:10: DOCUMENTAT [place] 00 ION (Same as:Xopenex ) Non-Formul steff Ipratropium No Notes: SEE Memoria Wheeler 0.2 5-25 RT l MG/ML 16:10: DOCUMENTAT Eddie n Inhalant 00 ION (Same Solution as:Atroven t) Xopenex No Notes: SEE Neil paulo 5-25 RT l 16:10: DOCUMENTAT [place] 00 ION (Same as:Xopenex ) Non-Formul steff Sodium No Notes: Memoria Chloride 5-25 Same as: l 1.2 MEQ/ML 16:09: HYPER-JOAN He rmann Inhalant 00 Solution Sodium No Notes: Memoria Chloride 5-25 Same as: l 1.2 MEQ/ML 16:09: HYPER-JOAN He rmann Inhalant 00 Solution Losartan No Notes: Memoria 5-25 (Same as: l 14:00: Cozaar) [place] 00 Losartan 2019-0 No Notes: Memoria 5-25 (Same as: l 14:00: Cozaar) [place] 00 Protonix 2018-0 No Notes: Memoria 5-25 Tablet l 12:30: should not be chewed or crushed. (Same as: Protonix) Omeprazole No 20 mg, Memor ia 5-25 Route: PO, l 12:30: Drug form: [place] 00 ECCAP, Before Breakfast, Dosing Weight 50.5, kg, Start date: 11/20/18 7:30:00 CDT, Duration: 30 day, Stop date: 12/19/18 7:30:00 CDT Protonix 0 No Notes: Memoria 5-25 Tablet l 12:30: should not be chewed or crushed. (Same as: Protonix) Omeprazole No 20 mg, Memor ia 5-25 Route: PO, l 12:30: Drug form: [place] 00 ECCAP, Before Breakfast, Dosing Weight 50.5, kg, Start date: 11/20/18 7:30:00 CDT, Duration: 30 day, Stop date: 12/19/18 7:30:00 CDT vancomycin No 2000 mg: Me moria + Sodium 5-25 infuse l Chloride 10:00: over 2.5 Renita nn 0.9% IV 250 00 hours For mL adult patients only: Round to nearest 250 mg per Medical Staff approval MEDICATION WASTE Product Size: 1000 mg Product Wasted: ___ mg vancomycin 2018- No 2000 mg: Me moria + Sodium 5-25 infuse l Chloride 10:00: over 2.5 Renita nn 0.9% IV 250 00 hours For mL adult patients only: Round to nearest 250 mg per Medical Staff approval MEDICATION WASTE Product Size: 1000 mg Product Wasted: ___ mg Calcium 2018-0 No 1,000 mL, Memor ia Chloride 5-25 1,000 l 0.0014 09:37: ml/hr, [place] MEQ/ML / 00 Infuse Potassium Over: 1 Chloride hr, Route: 0.004 IV, 1,000, MEQ/ML / Drug form: Sodium INJ, ONCE, Chloride Priority: 0.103 STAT, MEQ/ML / Dosing Sodium Weight Lactate 50.5 kg, 0.028 Start MEQ/ML date: Injectable 11/20/18 Solution 4:37:00 CDT, Stop date: 11/20/18 4:37:00 CDT Calcium 2019-0 No 1,000 mL, Memor ia Chloride 5-25 1,000 l 0.0014 09:37: ml/hr, [place] MEQ/ML / 00 Infuse Potassium Over: 1 Chloride hr, Route: 0.004 IV, 1,000, MEQ/ML / Drug form: Sodium INJ, ONCE, Chloride Priority: 0.103 STAT, MEQ/ML / Dosing Sodium Weight Lactate 50.5 kg, 0.028 Start MEQ/ML date: Injectable 11/20/18 Solution 4:37:00 CDT, Stop date: 11/20/18 4:37:00 CDT NS (Bolus) 2019-0 No 1,000 mL, Me moria IV 5-25 1,000 l 09:35: ml/hr, [place] 00 Infuse Over: 1 hr, Route: IV, 1,000, Drug form: INJ, ONCE, Priority: STAT, Dosing Weight 50.5 kg, Start date: 11/20/18 4:35:00 CDT, Stop date: 11/20/18 4:35:00 CDT NS (Bolus) 2019-0 No 1,000 mL, Me moria IV 5-25 1,000 l 09:35: ml/hr, [place] 00 Infuse Over: 1 hr, Route: IV, 1,000, Drug form: INJ, ONCE, Priority: STAT, Dosing Weight 50.5 kg, Start date: 11/20/18 4:35:00 CDT, Stop date: 11/20/18 4:35:00 CDT NS (Bolus) 2019-0 No 500 mL, Neil paulo IV 5-25 2000 l 09:32: ml/hr, [place] 00 Infuse Over: 15 minutes, Route: IV, 500, Drug form: INJ, ONCE, Dosing Weight 50.5 kg, Start date: 11/20/18 4:32:00 CDT, Stop date: 11/20/18 4:32:00 CDT NS (Bolus) 2019-0 No 500 mL, Neil paulo IV 5-25 2000 l 09:32: ml/hr, [place] 00 Infuse Over: 15 minutes, Route: IV, 500, Drug form: INJ, ONCE, Dosing Weight 50.5 kg, Start date: 11/20/18 4:32:00 CDT, Stop date: 11/20/18 4:32:00 CDT heparin 2018- No Notes: Memoria additive 5-25 Total l 25,000 unit 03:35: Concentrat [place] [12 00 ion = 50 unit/kg/hr] unit/ ml + Premix Total Diluent volume = Sodium 500 ml Chloride Send Med 0.45% 500 Request 2 mL hours prior to next bag Heparin 30 No Route: Memor ia unit/kg 5-25 IVP, PRN, l Bolus 03:35: 1,500 [place] (Heparin 00 unit, 1.5 Dosing mL, Drug Weight) form: INJ, PRN, Heparin Protocol, Start date: 11/19/18 22:35:00 CDT Stop date: 12/19/18 22:34:00 CDT, 30 day Heparin 60 No Route: Memor ia unit/kg 5-25 IVP, PRN, l Bolus 03:35: 3,000 [place] (Heparin 00 unit, 3 Dosing mL, Drug Weight) form: INJ, PRN, Heparin Protocol, Start date: 11/19/18 22:35:00 CDT Stop date: 12/19/18 22:34:00 CDT, 30 day Heparin - No 3,000 Memoria one time 5-25 unit, 3 l bolus for 03:35: mL, Route: rmann ACS 00 IVP, Drug form: INJ, ONCE, Dosing Weight 50.5, kg, Priority: STAT, Start date: 11/19/18 22:35:00 CDT, Stop date: 11/19/18 22:35:00 CDT heparin 2018-0 No Notes: Memoria additive 5-25 Total l 25,000 unit 03:35: Concentrat [place] [12 00 ion = 50 unit/kg/hr] unit/ ml + Premix Total Diluent volume = Sodium 500 ml Chloride Send Med 0.45% 500 Request 2 mL hours prior to next bag Heparin 30 No Route: Memor ia unit/kg 5-25 IVP, PRN, l Bolus 03:35: 1,500 [place] (Heparin 00 unit, 1.5 Dosing mL, Drug Weight) form: INJ, PRN, Heparin Protocol, Start date: 11/19/18 22:35:00 CDT Stop date: 12/19/18 22:34:00 CDT, 30 day Heparin 60 No Route: Memor ia unit/kg 5-25 IVP, PRN, l Bolus 03:35: 3,000 [place] (Heparin 00 unit, 3 Dosing mL, Drug Weight) form: INJ, PRN, Heparin Protocol, Start date: 11/19/18 22:35:00 CDT Stop date: 12/19/18 22:34:00 CDT, 30 day Heparin - No 3,000 Memoria one time 5-25 unit, 3 l bolus for 03:35: mL, Route: He rmann ACS 00 IVP, Drug form: INJ, ONCE, Dosing Weight 50.5, kg, Priority: STAT, Start date: 11/19/18 22:35:00 CDT, Stop date: 11/19/18 22:35:00 CDT NS (Bolus) No 500 mL, Neil paulo IV 5-25 500 ml/hr, l 02:25: Infuse [place] 00 Over: 1 hr, Route: IV, 500, Drug form: INJ, ONCE, Priority: STAT, Dosing Weight 50.5 kg, Start date: 11/19/18 21:25:00 CDT, Stop date: 11/19/18 21:25:00 CDT NS (Bolus) No 500 mL, Neil paulo IV 5-25 500 ml/hr, l 02:25: Infuse [place] 00 Over: 1 hr, Route: IV, 500, Drug form: INJ, ONCE, Priority: STAT, Dosing Weight 50.5 kg, Start date: 11/19/18 21:25:00 CDT, Stop date: 11/19/18 21:25:00 CDT Flagyl No Notes: Memoria 5-25 (Same as: l 02:00: Flagyl) Avoid alcohol. cefepime No Notes: Memoria 5-25 (Same As: l 02:00: Maxipime) MEDICATION WASTE Product Size: 1000 mg Product Wasted: ___ mg Flagyl No Notes: Memoria 5-25 (Same as: l 02:00: Flagyl) Randolph 00 Avoid alcohol. cefepime No Notes: Memoria 5-25 (Same As: l 02:00: Maxipime) Thiago 00 MEDICATION WASTE Product Size: 1000 mg Product Wasted: ___ mg vancomycin No 2001 mg: Me moria 5-25 infuse l 01:42: over 2.5 Thiago 00 hours vancomycin No 2001 mg: Me moria 5-25 infuse l 01:42: over 2.5 Thiago 00 hours pantoprazol No Notes: For Memoria e 5-25 IV push l 01:11: reconstitu Thiago 00 te with 10 ml 0.9% sodium chloride and push over 2 minutes. (Same as: Protonix) pantoprazol No Notes: For Memoria e 5-25 IV push l 01:11: reconstitu Thiago 00 te with 10 ml 0.9% sodium chloride and push over 2 minutes. (Same as: Protonix) NS (Bolus) No 500 mL, Neil paulo IV 5-24 250 ml/hr, l 23:39: Infuse Randolph 00 Over: 2 hr, Route: IV, 500, Drug form: INJ, ONCE, Priority: STAT, Dosing Weight 50.5 kg, Start date: 11/19/18 18:39:00 CDT, Stop date: 11/19/18 18:39:00 CDT NS (Bolus) No 500 mL, Neil paulo IV 5-24 250 ml/hr, l 23:39: Infuse [place]iago 00 Over: 2 hr, Route: IV, 500, Drug form: INJ, ONCE, Priority: STAT, Dosing Weight 50.5 kg, Start date: 11/19/18 18:39:00 CDT, Stop date: 11/19/18 18:39:00 CDT Ondansetron No Notes: Neil paulo 2 MG/ML 5-24 (Same as: l Injectable 18:55: Zofran) Herm elda Solution 00 [Zofran] MEDICATION WASTE Product Size: 4 mg Product Wasted: ___ mg Ondansetron No Notes: Neil pauol 2 MG/ML 5-24 (Same as: l Injectable 18:55: Zofran) Herm elda Solution [Zofran] MEDICATION WASTE Product Size: 4 mg Product Wasted: ___ mg heparin No Notes: Memoria 5-23 porcine l 21:00: heparin Randolph 00 heparin No Notes: Memoria 5-23 porcine l 21:00: heparin Thiago 00 Losartan No Notes: Memoria 5-23 (Same as: l 17:57: Cozaar) Losartan No Notes: Memoria 5-23 (Same as: l 17:57: Cozaar) Brilinta No Notes: Memoria 5-23 (Same as: l 14:00: Brilinta) Plavix No Notes: Memoria 5-23 (Same As: l 14:00: Plavix) Flagyl No Notes: Memoria 5-23 (Same as: l 14:00: Flagyl) Avoid alcohol. Brilinta No Notes: Memoria 5-23 (Same as: l 14:00: Brilinta) Plavix No Notes: Memoria 5-23 (Same As: l 14:00: Plavix) Flagyl No Notes: Memoria 5-23 (Same as: l 14:00: Flagyl) Avoid alcohol. Ondansetron No Notes: Neil paulo 5-23 (Same as: l 13:56: Zofran) Thiago MEDICATION WASTE Product Size: 4 mg Product Wasted: ___ mg Ondansetron No Notes: Neil paulo 5-23 (Same as: l 13:56: Zofran) Randolph MEDICATION WASTE Product Size: 4 mg Product Wasted: ___ mg Lactated No 1,000 mL, Neil paulo Ringers IV 11-18 Rate: 75 l 1,000 mL 06:10: ml/hr, Infuse over: 13.3 hr, Route: IV, Dosing Weight 50.5 kg, Total Volume: 1,000, Start date: 11/18/18 1:10:00 CDT, Duration: 30 day, Stop date: 12/18/18 1:09:00 CDT, 1.51, m2 Lactated 2019-0 No 1,000 mL, Neil paulo Ringers IV 5-23 Rate: 75 l 1,000 mL 06:10: ml/hr, [place] 00 Infuse over: 13.3 hr, Route: IV, Dosing Weight 50.5 kg, Total Volume: 1,000, Start date: 11/18/18 1:10:00 CDT, Duration: 30 day, Stop date: 12/18/18 1:09:00 CDT, 1.51, m2 normal 2019-0 No 1,000 mL, Memori a saline 0.9% 5-23 Rate: 75 l IV 1,000 mL 03:37: ml/hr, Herm elda Infuse over: 13.3 hr, Route: IVPB, Dosing Weight 50.5 kg, Total Volume: 1,000, Start date: 11/17/18 22:37:00 CDT, Duration: 30 day, Stop date: 12/17/18 22:36:00 CDT, 1.51, m2 normal 2019-0 No 1,000 mL, Memori a saline 0.9% 5-23 Rate: 75 l IV 1,000 mL 03:37: ml/hr, Herm elda 00 Infuse over: 13.3 hr, Route: IVPB, Dosing Weight 50.5 kg, Total Volume: 1,000, Start date: 11/17/18 22:37:00 CDT, Duration: 30 day, Stop date: 12/17/18 22:36:00 CDT, 1.51, m2 NS (Bolus) 2019-0 No 500 mL, Neil paulo IV 5-23 500 ml/hr, l 03:13: Infuse [place]iago 00 Over: 1 hr, Route: IV, 500, Drug form: INJ, ONCE, Priority: STAT, Dosing Weight 50.5 kg, Start date: 11/17/18 22:13:00 CDT, Stop date: 11/17/18 22:13:00 CDT NS (Bolus) 2019-0 No 500 mL, Neil paulo IV 5-23 500 ml/hr, l 03:13: Infuse [place] 00 Over: 1 hr, Route: IV, 500, Drug form: INJ, ONCE, Priority: STAT, Dosing Weight 50.5 kg, Start date: 11/17/18 22:13:00 CDT, Stop date: 11/17/18 22:13:00 CDT Lipitor No Notes: Memoria 11-18 (Same as: l 02:00: Lipitor) Lipitor No Notes: Memoria 11-18 (Same as: l 02:00: Lipitor) Versed No Notes: Memoria 11-18 (Same as: l 01:16: Versed) MEDICATION WASTE Product Size: 2 mg Product Wasted: ___ mg Versed No Notes: Memoria 11-18 (Same as: l 01:16: Versed) Randolph 00 MEDICATION WASTE Product Size: 2 mg Product Wasted: ___ mg Brilinta No Notes: Memoria 11-18 (Same as: l 00:26: Brilinta) Brilinta No Notes: Memoria 11-18 (Same as: l 00:26: Brilinta) Brilinta No Notes: Memoria 11-17 (Same as: l 22:29: Brilinta) Brilinta No Notes: Memoria 11-17 (Same as: l 22:29: Brilinta) Nitroglycer No Notes: Neil paulo in 11-17 (Same l 22:15: as:Nitroqu ick, Nitrostat) "Do Not Crush" Sublingual tablet Sodium No 500 mL, Memoria Chloride 11-17 Rate: 20 l 0.9% IV 500 22:15: ml/hr, Herm elda mL 00 Infuse over: 25 hr, Route: IV, Dosing Weight 50.5 kg, Total Volume: 500, Start date: 11/17/18 17:15:00 CDT, Duration: 24 hr, Stop date: 11/18/18 17:14:00 CDT, 1.51, m2 Nitroglycer No Notes: Neil paulo in 11-17 (Same l 22:15: as:Nitroqu [place] 00 ick, Nitrostat) "Do Not Crush" Sublingual tablet Sodium No 500 mL, Memoria Chloride 11-17 Rate: 20 l 0.9% IV 500 22:15: ml/hr, Herm elda mL 00 Infuse over: 25 hr, Route: IV, Dosing Weight 50.5 kg, Total Volume: 500, Start date: 11/17/18 17:15:00 CDT, Duration: 24 hr, Stop date: 11/18/18 17:14:00 CDT, 1.51, m2 propofol No Notes: If M emoria mg/mL 11-17 Diprivan - l (Titrate.) 21:26: change Renita nn IV 1,000 mg 00 bottle & tubing every 12 hr Per state nursing law propofol can only be given by a nurse if patient is intubated or being intubated (unless the nurse is a CHILDREN'S LITERATURE PROFESSOR). Same as: Diprivan Vecuronium Yes Notes: Memor ia - (Same As: l 21:26: Norcuron) Thiago 00 propofol No Notes: If M emoria mg/mL 11-17 Diprivan - l (Titrate.) 21:26: change Renita nn IV 1,000 mg 00 bottle & tubing every 12 hr Per state nursing law propofol can only be given by a nurse if patient is intubated or being intubated (unless the nurse is a CHILDREN'S LITERATURE PROFESSOR). Same as: Diprivan Vecuronium Yes Notes: Memor ia -22 (Same As: l 21:26: Norcuron) Th[place]ago Plavix No Notes: Memoria 5-22 (Same As: l 20:00: Plavix) [place] 00 Plavix No Notes: Memoria 5-22 (Same As: l 20:00: Plavix) [place] Dexmedetomi No Notes: Use Memoria dine 5-22 the l 19:05: following [place] 00 cdm for [id number]. Dexmedetomi No Notes: Use Memoria dine 5-22 the l 19:05: following [place] 00 cdm for [id number]. Aspirin No Notes: Do Memor ia 5-22 not crush l 14:00: or chew. Thiago 00 (Same As: Ecotrin) pantoprazol No Notes: For Memoria e 5-22 IV push l 14:00: reconstitu [place]iago 00 te with 10 ml 0.9% sodium chloride and push over 2 minutes. (Same as: Protonix) Aspirin No Notes: Do Memor ia 5-22 not crush l 14:00: or chew. Randolph 00 (Same As: Ecotrin) pantoprazol No Notes: For Memoria e 5-22 IV push l 14:00: reconstitu [place] 00 te with 10 ml 0.9% sodium chloride and push over 2 minutes. (Same as: Protonix) Heparin 30 No Route: Memor ia unit/kg 5-22 IVP, PRN, l Bolus 05:58: 1,500 [place]iago (Heparin 00 unit, 1.5 Dosing mL, Drug Weight) form: INJ, PRN, Heparin Protocol, Start date: 11/17/18 0:58:00 CDT Stop date: 12/17/18 0:57:00 CDT, 30 day heparin No Notes: Memoria additive 5-22 Total l 25,000 unit 05:58: Concentrat [place]ago [12 00 ion = 50 unit/kg/hr] unit/ ml + Premix Total Diluent volume = Sodium 500 ml Chloride Send Med 0.45% 500 Request 2 mL hours prior to next bag Heparin - No 2,500 Memoria one time 5-22 unit, 2.5 l bolus for 05:58: mL, Route: He rmann ACS 00 IVP, Drug form: INJ, ONCE, Dosing Weight 50.5, kg, Priority: STAT, Start date: 11/17/18 0:58:00 CDT, Stop date: 11/17/18 0:58:00 CDT Heparin 60 No Route: Memor ia unit/kg 5-22 IVP, PRN, l Bolus 05:58: 3,000 [place] (Heparin 00 unit, 3 Dosing mL, Drug Weight) form: INJ, PRN, Heparin Protocol, Start date: 11/17/18 0:58:00 CDT Stop date: 12/17/18 0:57:00 CDT, 30 day Heparin 30 No Route: Memor ia unit/kg 5-22 IVP, PRN, l Bolus 05:58: 1,500 [place] (Heparin 00 unit, 1.5 Dosing mL, Drug Weight) form: INJ, PRN, Heparin Protocol, Start date: 11/17/18 0:58:00 CDT Stop date: 12/17/18 0:57:00 CDT, 30 day heparin No Notes: Memoria additive 5-22 Total l 25,000 unit 05:58: Concentrat [place] [12 00 ion = 50 unit/kg/hr] unit/ ml + Premix Total Diluent volume = Sodium 500 ml Chloride Send Med 0.45% 500 Request 2 mL hours prior to next bag Heparin - No 2,500 Memoria one time 5-22 unit, 2.5 l bolus for 05:58: mL, Route: He rmann ACS 00 IVP, Drug form: INJ, ONCE, Dosing Weight 50.5, kg, Priority: STAT, Start date: 11/17/18 0:58:00 CDT, Stop date: 11/17/18 0:58:00 CDT Heparin 60 No Route: Memor ia unit/kg 5-22 IVP, PRN, l Bolus 05:58: 3,000 [place] (Heparin 00 unit, 3 Dosing mL, Drug Weight) form: INJ, PRN, Heparin Protocol, Start date: 11/17/18 0:58:00 CDT Stop date: 12/17/18 0:57:00 CDT, 30 day ocular No Notes: Memoria lubricant 5-22 (Same as: l 05:00: Lacri-Lube Randolph 00 , Puralube, Duratears Naturale, Artificial Tears, and Tears Again ) heparin No Notes: Memoria sodium, 5-22 porcine l porcine 05:00: heparin [place] 2500 UNT/ML 00 Injectable Solution ocular No Notes: Memoria lubricant 5-22 (Same as: l 05:00: Lacri-Lube [place] 00 , Puralube, Duratears Naturale, Artificial Tears, and Tears Again ) heparin No Notes: Memoria sodium, 5-22 porcine l porcine 05:00: heparin [place] 2500 UNT/ML 00 Injectable Solution Albuterol No Notes: Memori a 0.833 MG/ML 5-22 (Same as: l 04:47: Duoneb) [place] Ipratropium 00 Wheeler 0.167 MG/ML Inhalant Solution [DuoNeb] Albuterol No Notes: Memori a 0.833 MG/ML 5-22 (Same as: l / 04:47: Duoneb) Randolph Ipratropium 00 Wheeler 0.167 MG/ML Inhalant Solution [DuoNeb] Budesonide No Notes: Memor ia 0.25 MG/ML 5-22 (Same As: l Inhalant 04:21: Pulmicort) Her garcia Solution 00 [Pulmicort] Budesonide No Notes: Memor ia 0.25 MG/ML 5-22 (Same As: l Inhalant 04:21: Pulmicort) Her garcia Solution 00 [Pulmicort] Potassium No Notes: Memori a Chloride 5-22 (Same as: l 03:01: Potassium [place]ago 00 Chloride) Potassium No Notes: Memori a Chloride 5-22 (Same as: l 03:01: Potassium [place] 00 Chloride) Keppra No Notes: Memoria 5-22 Same as l 02:00: Keppra Mix with 100 mL NS, LR or D5W MEDICATION WASTE Product Size: 500 mg Product Wasted: ___ mg chlorhexidi No Notes: Neil paulo ne -22 (Same As: l gluconate 02:00: Peridex) Herm elda 1.2 MG/ML Mouthwash Saline No Notes: Memoria Flush 0.9% 5-22 (Same as: l 02:00: BD [place] 00 Posiflush) Keppra No Notes: Memoria 5-22 Same as l 02:00: Keppra Mix with 100 mL NS, LR or D5W MEDICATION WASTE Product Size: 500 mg Product Wasted: ___ mg chlorhexidi No Notes: Neil paulo ne 5-22 (Same As: l gluconate 02:00: Peridex) Herm elda 1.2 MG/ML Mouthwash Saline 2019-0 No Notes: Memoria Flush 0.9% 5-22 (Same as: l 02:00: BD [place] 00 Posiflush) Symbicort Yes 2 puff, Memor ia 160/4.5 5-22 INHALER, l inhalation 00:35: BID, # 1 Her garcia aerosol 00 ea, 3 with Refill(s) adapter phenytoin Yes 300 mg = 3 Me moria 100 mg oral 5-22 cap, PO, l capsule, 00:35: Bedtime, 0 Her garcia extended 00 Refill(s) release losartan No 100 mg = 1 Mem oria 100 mg oral 5-22 tab, PO, l tablet 00:35: Daily, # Thiago 00 30 tab, 0 Refill(s) Furosemide No 20 mg = 1 Me moria 20 MG Oral 5-22 tab, PO, l Tablet 00:35: Daily, # Randolph [Lasix] 00 30 tab, 0 Refill(s) clonazePAM Yes 0.5 mg = 1 M emoria 0.5 mg oral 5-22 tab, PO, l tablet 00:35: BID, PRN Thiago 00 anxiety, # 60 tab, 0 Refill(s) bisoprolol No 5 mg = 1 Mem oria 5 mg oral 5-22 tab, PO, l tablet 00:35: Daily, # Randolph 00 30 tab, 0 Refill(s) atorvastati Yes 40 mg = 1 M emoria n 40 MG 5-22 tab, PO, l Oral Tablet 00:35: Bedtime, # Thiago [Lipitor] 00 30 tab, 0 Refill(s) Albuterol Yes 2.49 mg = Mem oria 0.83 MG/ML 5-22 3 mL, NEB, l Inhalant 00:35: Q6H, PRN Renita nn Solution 00 as needed for shortness of breath, # 120 ea, 3 Refill(s) thiamine Yes 100 mg = 1 Mem oria 100 mg oral 5-22 tab, PO, l tablet 00:35: Daily, 0 Thiago 00 Refill(s) Vitamin B12 Yes 100 Memori a 100 mcg 5-22 microgram l oral tablet 00:35: = 1 tab, He rmann 00 PO, Daily, # 30 tab, 0 Refill(s) Symbicort Yes 2 puff, Memor ia 160/4.5 5-22 INHALER, l inhalation 00:35: BID, # 1 Her garcia aerosol 00 ea, 3 with Refill(s) adapter phenytoin Yes 300 mg = 3 Me moria 100 mg oral 5-22 cap, PO, l capsule, 00:35: Bedtime, 0 Her garcia extended 00 Refill(s) release losartan No 100 mg = 1 Mem oria 100 mg oral 5-22 tab, PO, l tablet 00:35: Daily, # Randolph 00 30 tab, 0 Refill(s) Furosemide No 20 mg = 1 Me moria 20 MG Oral 5-22 tab, PO, l Tablet 00:35: Daily, # Randolph [Lasix] 00 30 tab, 0 Refill(s) clonazePAM Yes 0.5 mg = 1 M emoria 0.5 mg oral 5-22 tab, PO, l tablet 00:35: BID, PRN Thiago 00 anxiety, # 60 tab, 0 Refill(s) bisoprolol No 5 mg = 1 Mem oria 5 mg oral 5-22 tab, PO, l tablet 00:35: Daily, # [place] 00 30 tab, 0 Refill(s) atorvastati Yes 40 mg = 1 M emoria n 40 MG 5-22 tab, PO, l Oral Tablet 00:35: Bedtime, # Randolph [Lipitor] 00 30 tab, 0 Refill(s) Albuterol Yes 2.49 mg = Mem oria 0.83 MG/ML 5-22 3 mL, NEB, l Inhalant 00:35: Q6H, PRN Renita nn Solution 00 as needed for shortness of breath, # 120 ea, 3 Refill(s) thiamine Yes 100 mg = 1 Mem oria 100 mg oral 5-22 tab, PO, l tablet 00:35: Daily, 0 Randolph 00 Refill(s) Vitamin B12 Yes 100 Memori a 100 mcg 5-22 microgram l oral tablet 00:35: = 1 tab, He rmann 00 PO, Daily, # 30 tab, 0 Refill(s) Ceftriaxone No Notes: Neil paulo 5-22 (Same As: l 00:34: Rocephin). Thiago 00 MEDICATION WASTE Product Size: 1000 mg Product Wasted: ___ mg Ceftriaxone No Notes: Neil paulo -22 (Same As: l 00:34: Rocephin). [place]ago 00 MEDICATION WASTE Product Size: 1000 mg Product Wasted: ___ mg chlorhexidi No Notes: Neil paulo ne 11-17 (Same As: l gluconate 00:19: Peridex) Herm elda 1.2 MG/ML 00 Mouthwash potassium No Notes: Memori a phosphate 11-17 (Same as: l 00:19: K [place] 00 Phosphate. ) Do not infuse phosphorou s concurrent ly in the same line as TPN or IVF that contains calcium. For double lumen central lines, phosphorou s may be infused in a separate lumen from TPN. 1 mMol phoshate has 1.47 mEq potassium Infuse over 4 hours Magnesium No Notes: Memori a Oxide 11-17 (Same as: l 00:19: Mag-Ox Randolph 00 400) Magnesium oxide 245tw=761m g elemental magnesium Dose=____m g magnesium oxide (___mg elemental magnesium) potassium No Notes: Memori a phosphate-s 11-17 (Same as: l odium 00:19: Phos-NaK) Randolph phosphate 00 Each 1.5 250 mg-280 gm pkt has mg-160 mg 250mg oral powder phosphorou for s. Mix reconstitut w/2.5oz ion water and stir. Magnesium No Notes: Memori a Sulfate 11-17 WASTE: F/P l 00:19: - Sink; E Randolph 00 - Municipal Trash Bin Calcium No Notes: Memoria Carbonate 11-17 (Same As: l 500 MG 00:19: Tums) Randolph Chewable 00 Calcium Tablet Carbonate 500 mg = 200 mg elemental calcium Dose = mg calcium carbonate ( mg elemental calcium) Calcium No Notes: Memoria Gluconate 11-17 WASTE: F/P l 00:19: - Sink; E [place] 00 - Municipal Trash Bin Potassium No Notes: Memori a Chloride 5-22 (Same as: l 00:19: KCL) Th[place]ago 00 Infuse over 2 hours. sodium No Notes: Memoria phosphate 5-22 Infuse l 00:19: over 4 Randolph 00 hour. Do not infuse phosphorou s concurrent ly in the same line as TPN or IVF that contains calcium. For double lumen central lines, phosphorou s may be infused in a separate lumen from TPN. Saline No Notes: Memoria Flush 0.9% 5-22 (Same as: l 00:19: BD Randolph 00 Posiflush) Nystatin No Notes: Memoria 100 UNT/MG -22 (Same l Topical 00:19: as:Mycosta Herm elda Powder 00 tin, Nilstat) for external use only. chlorhexidi No Notes: Neil paulo ne -22 (Same As: l gluconate 00:19: Peridex) Herm elda 1.2 MG/ML 00 Mouthwash potassium No Notes: Memori a phosphate 5-22 (Same as: l 00:19: K [place] 00 Phosphate. ) Do not infuse phosphorou s concurrent ly in the same line as TPN or IVF that contains calcium. For double lumen central lines, phosphorou s may be infused in a separate lumen from TPN. 1 mMol phoshate has 1.47 mEq potassium Infuse over 4 hours Magnesium No Notes: Memori a Oxide -22 (Same as: l 00:19: Mag-Ox [place]ago 00 400) Magnesium oxide 237ix=660t g elemental magnesium Dose=____m g magnesium oxide (___mg elemental magnesium) potassium No Notes: Memori a phosphate-s -22 (Same as: l odium 00:19: Phos-NaK) Th[place]ago phosphate 00 Each 1.5 250 mg-280 gm pkt has mg-160 mg 250mg oral powder phosphorou for s. Mix reconstitut w/2.5oz ion water and stir. Magnesium No Notes: Memori a Sulfate -22 WASTE: F/P l 00:19: - Sink; E [place] 00 - Municipal Trash Bin Calcium No Notes: Memoria Carbonate -22 (Same As: l 500 MG 00:19: Tums) [place]ago Chewable 00 Calcium Tablet Carbonate 500 mg = 200 mg elemental calcium Dose = mg calcium carbonate ( mg elemental calcium) Calcium No Notes: Memoria Gluconate - WASTE: F/P l 00:19: - Sink; E Randolph 00 - Municipal Trash Bin Potassium No Notes: Memori a Chloride - (Same as: l 00:19: KCL) Th[place]ago Infuse over 2 hours. sodium No Notes: Memoria phosphate - Infuse l 00:19: over 4 [place]ago 00 hour. Do not infuse phosphorou s concurrent ly in the same line as TPN or IVF that contains calcium. For double lumen central lines, phosphorou s may be infused in a separate lumen from TPN. Saline No Notes: Memoria Flush 0.9% 11-17 (Same as: l 00:19: BD [place] Posiflush) Nystatin No Notes: Memoria 100 UNT/MG 11-17 (Same l Topical 00:19: as:Mycosta Herm elda Powder 00 tin, Nilstat) for external use only. Dilantin No Notes: Memoria 5-21 (Same as: l 22:23: Dilantin) Rinse packet/syr luis with water "Caution of interactio n with continuous NG feedings: Withhold administra tion of nutritiona l supplement s for 1-2 hours before and after phenytoin dose". Dilantin No Notes: Memoria 5-21 (Same as: l 22:23: Dilantin) Randolph Rinse packet/syr luis with water "Caution of interactio n with continuous NG feedings: Withhold administra tion of nutritiona l supplement s for 1-2 hours before and after phenytoin dose". atorvastati No Notes: Neil paulo n 5-21 (Same as: l 21:56: Lipitor) Thiago 00 atorvastati No Notes: Neil paulo n 5-21 (Same as: l 21:56: Lipitor) Aspirin No Notes: Memoria 5-21 Refrigerat l 18:34: e. Randolph 00 Aspirin 2019-0 No Notes: Memoria 5-21 Refrigerat l 18:34: e. Midazolam 2018-0 No Notes: Memori a 5-21 (Same as: l 18:07: Versed) Midazolam 2018-0 No Notes: Memori a 5-21 (Same as: l 18:07: Versed) Fentanyl 2018-0 No 50 Memoria 5-21 microgram, l 18:04: Route: IVP, ONCE, Dosing Weight 50.5, kg, Priority: STAT, Start date: 11/16/18 13:04:00 CDT, Stop date: 11/16/18 13:04:00 CDT Midazolam 2019-0 No 2 mg, Memoria 5-21 Route: l 18:04: IVP, ONCE, Dosing Weight 50.5, kg, Priority: STAT, Start date: 11/16/18 13:04:00 CDT, Stop date: 11/16/18 13:04:00 CDT Fentanyl 2018-0 No 50 Memoria 5-21 microgram, l 18:04: Route: IVP, ONCE, Dosing Weight 50.5, kg, Priority: STAT, Start date: 11/16/18 13:04:00 CDT, Stop date: 11/16/18 13:04:00 CDT Midazolam 2018-0 No 2 mg, Memoria 5-21 Route: l 18:04: IVP, ONCE, Dosing Weight 50.5, kg, Priority: STAT, Start date: 11/16/18 13:04:00 CDT, Stop date: 11/16/18 13:04:00 CDT Isolyte S 2018-0 No Notes: Memori a PH 7.4 5-21 (Same as: l 1,000 mL 17:50: Isolyte S Herm elda 00 PH 7.4) Isolyte S 2018-0 No Notes: Memori a PH 7.4 5-21 (Same as: l 1,000 mL 17:50: Isolyte S Herm elda 00 PH 7.4) Fentanyl 2018-0 No 1,000 Memoria 5-21 microgram, l 17:49: 20 mL, Rate: Titrate, Start Dose: 50 microgram/ hr, Titration: 25 microgram/ hour every 15 minutes, Goal(s): BPS 3, Max Dose: 300 microgram/ hr, Route: IV, Dosing Weight 50.5 kg, Total Volume: 20, Start date: 11/16/18 12:49:00 CDT, Durat... Fentanyl 2019- No 1,000 Memoria 5-21 microgram, l 17:49: 20 mL, Thiago 00 Rate: Titrate, Start Dose: 50 microgram/ hr, Titration: 25 microgram/ hour every 15 minutes, Goal(s): BPS 3, Max Dose: 300 microgram/ hr, Route: IV, Dosing Weight 50.5 kg, Total Volume: 20, Start date: 11/16/18 12:49:00 CDT, Durat... Iohexol 2018- No 60 mL, Memoria 5-21 Route: l 17:31: IVP, Drug Form: SOLN, Dosing Weight 50.5, kg, ONCALL, STAT, Start date: 11/16/18 12:31:00 CDT, Duration: 1 doses or times, Dose = 2.2ml/kg, Max dose = 100ml -- "To be infused by Radiology Staff ONLY" Iohexol No 60 mL, Memoria 5-21 Route: l 17:31: IVP, Drug Form: SOLN, Dosing Weight 50.5, kg, ONCALL, STAT, Start date: 11/16/18 12:31:00 CDT, Duration: 1 doses or times, Dose = 2.2ml/kg, Max dose = 100ml -- "To be infused by Radiology Staff ONLY" Saline No Notes: Memoria Flush 0.9% 5-21 Same as: l 16:52: BD Randolph 00 Posiflush Sterile Keppra No Notes: Memoria 5-21 Same as l 16:52: Keppra Thiago 00 Mix with 100 mL NS, LR or D5W MEDICATION WASTE Product Size: 500 mg Product Wasted: ___ mg Saline No Notes: Memoria Flush 0.9% 5-21 Same as: l 16:52: BD [place] 00 Posiflush Sterile Keppra No Notes: Memoria 5-21 Same as l 16:52: Keppra Thiago 00 Mix with 100 mL NS, LR or D5W MEDICATION WASTE Product Size: 500 mg Product Wasted: ___ mg phenytoin 2017-06 Yes 100mg Take 100 Uni vers Extended 0-26 mg by ity of 100 mg 00:00: mouth. [place] capsule [facility] atorvastati 2017-06 Yes 40mg Take 40 mg Univers n 40 mg 0-26 by mouth. ity of tablet 00:00: [facility] levETIRAcet 2017-06 Yes 750mg Take 750 U nivers am 750 mg 0-26 mg by ity of tablet 00:00: mouth. [place] [facility] phenytoin 2017-06 Yes 100mg Take 100 Uni vers Extended 0-26 mg by ity of 100 mg 00:00: mouth. [place] capsule [facility] atorvastati 2017-06 Yes 40mg Take 40 mg Univers n 40 mg 0-26 by mouth. ity of tablet 00:00: [place] [facility] levETIRAcet 2017-06 Yes 750mg Take 750 U nivers am 750 mg 0-26 mg by ity of tablet 00:00: mouth. [place] [facility] phenytoin 2017-06 Yes 100mg Take 100 Uni vers Extended 0-26 mg by ity of 100 mg 00:00: mouth. [place] capsule [facility] atorvastati 2017-06 Yes 40mg Take 40 mg Univers n 40 mg 0-26 by mouth. ity of tablet 00:00: [place] [facility] levETIRAcet 2017-06 Yes 750mg Take 750 U nivers am 750 mg 0-26 mg by ity of tablet 00:00: mouth. [place] [facility] phenytoin 2017-06 Yes 100mg Take 100 Uni vers Extended 0-26 mg by ity of 100 mg 00:00: mouth. [place] capsule [facility] atorvastati 2017-06 Yes 40mg Take 40 mg Univers n 40 mg 0-26 by mouth. ity of tablet 00:00: [place] [facility] levETIRAcet 2017-06 Yes 750mg Take 750 U nivers am 750 mg 0-26 mg by ity of tablet 00:00: mouth 2 [place] (two) Medical times Branch daily. phenytoin 2017-06 Yes 100mg Take 100 Uni vers Extended 0-26 mg by ity of 100 mg 00:00: mouth 4 [place] capsule (four) Medical times Branch daily. atorvastati 2017-06 Yes 40mg Take 40 mg Univers n 40 mg 0-26 by mouth. ity of tablet 00:00: Medical Branch levETIRAcet 2017- Yes 750mg Take 750 U nivers am 750 mg 0-26 mg by ity of tablet 00:00: mouth 2 (two) Medical times Branch daily. phenytoin 2017-06 Yes 100mg Take 100 Uni vers Extended 0-26 mg by ity of 100 mg 00:00: mouth 4 [place] capsule (four) Medical times Branch daily. atorvastati 2017-06 Yes 40mg Take 40 mg Univers n 40 mg 0-26 by mouth. ity of tablet 00:00: Medical [facility] levETIRAcet 2017-06 Yes 750mg Take 750 U nivers am 750 mg 0-26 mg by ity of tablet 00:00: mouth 2 [place] (two) Medical times Branch daily. phenytoin 2017-06 Yes 100mg Take 100 Uni vers Extended 0-26 mg by ity of 100 mg 00:00: mouth 4 [place] capsule (four) Medical times Branch daily. atorvastati 2017-06 Yes 40mg Take 40 mg Univers n 40 mg 0-26 by mouth. ity of tablet 00:00: Medical Branch levETIRAcet 2017-06 Yes 750mg Take 750 U nivers am 750 mg 0-26 mg by ity of tablet 00:00: mouth 2 [place] (two) Medical times Branch daily. phenytoin 2017-06 Yes 100mg Take 100 Uni vers Extended 0-26 mg by ity of 100 mg 00:00: mouth 4 [place] capsule (four) Medical times Branch daily. atorvastati 2017-06 Yes 40mg Take 40 mg [facility] n 40 mg 0-26 by mouth. ity of tablet 00:00: Medical Branch atorvastati 2017-06 Yes 40mg Take 40 mg [facility] n 40 mg 0-26 by mouth. ity of tablet 00:00: Medical [facility] levETIRAcet 2017-06 Yes 750mg Take 750 U nivers am 750 mg 0-26 mg by ity of tablet 00:00: mouth 2 (two) Medical times Branch daily. phenytoin 2017-06 Yes 100mg Take 100 [facility] vers Extended 0-26 mg by ity of 100 mg 00:00: mouth 4 [place] capsule (four) Medical times Branch daily. atorvastati 2017-06 Yes 40mg Take 40 mg [facility] n 40 mg 0-26 by mouth. ity of tablet 00:00: [place] [facility] levETIRAcet 2017-06 Yes 750mg Take 750 U nivers am 750 mg 0-26 mg by ity of tablet 00:00: mouth 2 [place] (two) Medical times Branch daily. phenytoin 2017-06 Yes 100mg Take 100 [facility] vers Extended 0-26 mg by ity of 100 mg 00:00: mouth 4 [place] capsule (four) Medical times Branch daily. atorvastati 2017-06 Yes 40mg Take 40 mg Univers n 40 mg 0-26 by mouth. ity of tablet 00:00: [place] [facility] levETIRAcet 2017-06 Yes 750mg Take 750 U nivers am 750 mg 0-26 mg by ity of tablet 00:00: mouth. [place] [facility] phenytoin 2017-06 Yes 100mg Take 100 Uni vers Extended 0-26 mg by ity of 100 mg 00:00: mouth. [place] capsule [facility] atorvastati 2017-06 Yes 40mg Take 40 mg Univers n 40 mg 0-26 by mouth. ity of tablet 00:00: [place] [facility] atorvastati 2017-06 Yes 40mg Take 40 mg Univers n 40 mg 0-26 by mouth. ity of tablet 00:00: [place] [facility] atorvastati 2017-06 Yes 40mg Take 40 mg Univers n 40 mg 0-26 by mouth. ity of tablet 00:00: [place] [facility] atorvastati 2017-06 Yes 40mg Take 40 mg Univers n 40 mg 0-26 by mouth. ity of tablet 00:00: [place] [facility] levETIRAcet 2017-06 Yes 750mg Take 750 U nivers am 750 mg 0-26 mg by ity of tablet 00:00: mouth. [address] phenytoin 2017-06 Yes 100mg Take 100 Uni vers Extended 0-26 mg by ity of 100 mg 00:00: mouth. [place] capsule [facility] atorvastati 2017-06 Yes 40mg Take 40 mg Univers n 40 mg 0-26 by mouth. ity of tablet 00:00: [place] [facility] levETIRAcet 2017-06 Yes 750mg Take 750 U nivers am 750 mg 0-26 mg by ity of tablet 00:00: mouth. [place] 00 [facility] levETIRAcet 2017-06- No 1500mg Take 1,500 Univers am 750 mg 0-26 11-02 mg by ity of tablet 00:00: 00:00 mouth 2 [place] 00 :00 (two) Medical times Branch daily. phenytoin 2017-06- No 100mg Take 100 Un susana Extended 0-26 11-01 mg by ity of 100 mg 00:00: 00:00 mouth 4 [place] capsule 00 :00 (four) Medical times Branch daily. Immunizations Ordered Filled Immunization Date Status Comments [facility] e Immunization Name Name Pneumococcal 2020-03-28 Completed University o f Polysaccharide, 00:00:00 [place] Med ical PPSV23 (PNEUMOVAX) Branch Pneumococcal 2020-03-28 Completed University o f Polysaccharide, 00:00:00 [place] Med ical PPSV23 (PNEUMOVAX) Branch Pneumococcal 2020-03-28 Completed University o f Polysaccharide, 00:00:00 [place] Med ical PPSV23 (PNEUMOVAX) Branch Pneumococcal 2020-03-28 Completed University o f Polysaccharide, 00:00:00 [place] Med ical PPSV23 (PNEUMOVAX) Branch Pneumococcal 2019-04-02 Completed University o f Polysaccharide, 00:00:00 [place] [facility] ical PPSV23 (PNEUMOVAX) Branch Pneumococcal 2019-04-02 Completed University o f Polysaccharide, 00:00:00 [place] [facility] ical PPSV23 (PNEUMOVAX) Branch Pneumococcal 2019-04-02 Completed University o f Polysaccharide, 00:00:00 [place] [facility] ical PPSV23 (PNEUMOVAX) Branch Pneumococcal 2019-04-02 Completed University o f Polysaccharide, 00:00:00 [place] Med ical PPSV23 (PNEUMOVAX) Branch Pneumococcal 13 2018-03-24 Completed Universit y of Conjugate, PCV13 00:00:00 [place] Sc dical (Prevnar 13) Branch Pneumococcal 13 2018-03-24 Completed Universit y of Conjugate, PCV13 00:00:00 [place] Me dical (Prevnar 13) Branch Pneumococcal 13 2018-03-24 Completed Universit y of Conjugate, PCV13 00:00:00 [place] Sc dical (Prevnar 13) Branch Pneumococcal 13 2018-03-24 Completed Universit y of Conjugate, PCV13 00:00:[address] [facility] dical (Prevnar 13) Branch Vital Signs Vital Name Observation Time Observation Value Comments Source WEIGHT 2021-02-20 45.3 kg 04:45:00 HEIGHT 2021-02-19 152.4 cm 07:00:00 WEIGHT 2021-02-19 44.3 kg 07:00:00 HEIGHT 2021-02-18 152.4 cm 21:45:00 WEIGHT 2021-02-18 45.36 kg 21:45:00 WEIGHT 2021-02-20 45.3 kg 04:45:00 HEIGHT 2021-02-19 152.4 cm 07:00:00 WEIGHT 2021-02-19 44.3 kg 07:00:00 HEIGHT 2021-02-18 152.4 cm 21:45:00 WEIGHT 2021-02-18 45.36 kg 21:45:00 Systolic blood 2020-07-09 157 mm[Hg] University of pressure 02:00:00 [facility] Diastolic blood 2020-07-09 86 mm[Hg] University o f pressure 02:00:00 [facility] Heart rate 2020-07-09 82 /min [facility] 02:00:00 [facility] Body temperature 2020-07-09 37.06 Connie University of 02:00:00 [facility] Respiratory rate 2020-07-09 25 /min [facility] 02:00:00 [facility] Oxygen saturation 2020-07-09 96 /min University in Arterial blood 02:00:00 [facility] by Pulse oximetry [place] Body weight 2020-07-08 43.092 kg University 21:16:00 [facility] BMI 2020-07-08 17.38 kg/m2 University 21:16:00 [facility] Systolic blood 2020-04-30 99 mm[Hg] University of pressure 17:54:00 [facility] Diastolic blood 2020-04-30 69 mm[Hg] University o f pressure 17:54:00 [facility] Heart rate 2020-04-30 77 /min University 17:54:00 [facility] Body temperature 2020-04-30 37 Connie University of 17:54:00 [facility] Respiratory rate 2020-04-30 15 /min [facility] 17:54:00 [facility] Oxygen saturation 2020-04-30 91 /min notified nurse Eliz nixon of in Arterial blood 17:54:00 [place] [facility]i zach by Pulse oximetry Branch Body height 2020-04-29 157.5 cm University of 20:52:00 [facility] Body weight 2020-04-29 45.36 kg University of 20:52:00 [facility] BMI 2020-04-29 18.29 kg/m2 University of 20:52:00 [facility] Systolic blood 2020-04-30 99 mm[Hg] University of pressure 17:54:00 [facility] Diastolic blood 2020-04-30 69 mm[Hg] University o f pressure 17:54:00 [facility] Heart rate 2020-04-30 77 /min University of 17:54:00 [facility] Body temperature 2020-04-30 37 Connie University of 17:54:00 [facility] Respiratory rate 2020-04-30 15 /min University of 17:54:00 [facility] Oxygen saturation 2020-04-30 91 /min notified nurse Eliz nixon of in Arterial blood 17:54:00 [facility] zach by Pulse oximetry Branch Body height 2020-04-29 157.5 cm University of 20:52:00 [facility] Body weight 2020-04-29 45.36 kg University of 20:52:00 [facility] BMI 2020-04-29 18.29 kg/m2 University of 20:52:00 [facility] Systolic blood 2019-11-17 107 mm[Hg] University of pressure 00:24:12 [facility] Diastolic blood 2019-11-17 81 mm[Hg] University o f pressure 00:24:12 [facility] Heart rate 2019-11-17 89 /min University of 00:24:12 [facility] Respiratory rate 2019-11-17 16 /min University of 00:24:12 [facility] Body temperature 2019-11-16 37.22 Connie University of 23:45:26 [facility] Body height 2019-11-16 157.5 cm University of 23:12:00 [facility] Body weight 2019-11-16 45.36 kg University of 23:12:00 [facility] BMI 2019-11-16 18.29 kg/m2 University of 23:12:00 [facility] Oxygen saturation 2019-11-16 93 /min University of in Arterial blood 23:12:00 [facility] zach by Pulse oximetry Branch Systolic blood 2019-11-17 107 mm[Hg] University of pressure 00:24:12 [facility] Diastolic blood 2019-11-17 81 mm[Hg] University o f pressure 00:24:12 [place] [facility] Heart rate 2019-11-17 89 /min University of 00:24:12 [place] [facility] Respiratory rate 2019-11-17 16 /min University of 00:24:12 [facility] Body temperature 2019-11-16 37.22 Connie University of 23:45:26 [facility] Branch Body height 2019-11-16 157.5 cm University of 23:12:00 [facility] Body weight 2019-11-16 45.36 kg University of 23:12:00 [facility] BMI 2019-11-16 18.29 kg/m2 University of 23:12:00 [facility] Branch Oxygen saturation 2019-11-16 93 /min University of in Arterial blood 23:12:00 [place] Medi zach by Pulse oximetry Branch Systolic blood 2019-10-16 111 mm[Hg] University of pressure 23:00:00 [facility] Branch Diastolic blood 2019-10-16 83 mm[Hg] University o f pressure 23:00:00 [place] [facility] Branch Heart rate 2019-10-16 100 /min University of 23:00:00 [facility] Branch Respiratory rate 2019-10-16 29 /min University of 23:00:00 [facility] Oxygen saturation 2019-10-16 97 /min University of in Arterial blood 23:00:00 [place] Medi zach by Pulse oximetry Branch Body weight 2019-10-16 49.896 kg University of 22:09:00 [facility] BMI 2019-10-16 19.49 kg/m2 University of 22:09:00 [facility] Body temperature 2019-10-16 36.56 Connie University of 22:08:00 [facility] Branch Systolic blood 2019-10-16 111 mm[Hg] University of pressure 23:00:00 [place] [facility] Branch Diastolic blood 2019-10-16 83 mm[Hg] University o f pressure 23:00:00 [place] [facility] Heart rate 2019-10-16 100 /min University of 23:00:00 [place] [facility] Respiratory rate 2019-10-16 29 /min University of 23:00:00 [facility] Branch Oxygen saturation 2019-10-16 97 /min University of in Arterial blood 23:00:00 [place] Medi zach by Pulse oximetry Branch Body weight 2019-10-16 49.896 kg University of 22:09:00 [place] [facility] BMI 2019-10-16 19.49 kg/m2 University of 22:09:00 [facility] Body temperature 2019-10-16 36.56 Connie [facility] 22:08:00 [facility] Systolic blood 2019-01-22 113 mm[Hg] University of pressure 20:40:00 [facility] Diastolic blood 2019-01-22 88 mm[Hg] [place] o f pressure 20:40:00 [facility] Heart rate 2019-01-22 93 /min [facility] 20:40:00 [facility] Respiratory rate 2019-01-22 24 /min [facility] 20:40:00 [facility] Oxygen saturation 2019-01-22 100 /min [facility] in Arterial blood 20:30:00 [facility] by Pulse oximetry [place] Body temperature 2019-01-22 36.94 Connie [facility] 16:30:00 [facility] Body weight 2019-01-22 47.628 kg [facility] 15:30:00 [facility] Systolic (mm Hg) 2020-10-25 [facility] rmann 19:07:00 Diastolic (mm Hg) 2020-10-25 [facility] ermann 19:07:00 Heart Rate 2020-10-25 [facility] 19:07:00 Respitory Rate 2020-10-25 [facility] 19:07:00 Weight 2020-10-25 [facility] 19:07:00 Systolic (mm Hg) 2020-04-20 [facility] rmann 15:48:00 Diastolic (mm Hg) 2020-04-20 [facility] H ermann 15:48:00 Heart Rate 2020-04-20 [facility] n 15:48:00 Respitory Rate 2020-04-20 [facility] elda 15:48:00 Height 2020-04-20 154.94 cm [facility] n 15:48:00 Weight 2020-04-20 [facility] n 15:48:00 BMI Calculated 2020-04-20 [facility] 15:48:00 Systolic (mm Hg) 2019-09-09 [facility] 18:44:00 Diastolic (mm Hg) 2019-09-09 [facility] 18:44:00 Heart Rate 2019-09-09 [facility] n 18:44:00 Respitory Rate 2019-09-09 [facility] 18:44:00 Height 2019-09-09 157.48 cm [facility] n 18:44:00 Weight 2019-09-09 [facility] n 18:44:00 BMI Calculated 2019-09-09 [facility] 18:44:00 Systolic (mm Hg) 2018-11-26 [facility] 19:02:00 Diastolic (mm Hg) 2018-11-26 [facility] 19:02:00 Respitory Rate 2018-11-26 [facility] 19:02:00 Systolic (mm Hg) 2018-11-26 [facility] 17:00:00 Diastolic (mm Hg) 2018-11-26 [facility] ermann 17:00:00 Respitory Rate 2018-11-26 [facility] 17:00:00 Temperature Oral 2018-11-26 98.8 F [facility] (F) 17:00:00 Systolic (mm Hg) 2018-11-26 [facility] 16:00:00 Diastolic (mm Hg) 2018-11-26 [facility] 16:00:00 Respitory Rate 2018-11-26 [facility] 16:00:00 Temperature Oral 2018-11-26 97.9 F [facility] rmann (F) 13:00:00 Temperature Oral 2018-11-26 98.0 F [facility] (F) 10:39:00 Height 2018-11-20 160.02 cm [facility] 01:29:00 Weight 2018-11-20 [facility] 01:29:00 Height 2018-11-18 160.02 cm [facility] 12:21:00 Height 2018-11-18 160.02 cm [facility] 08:29:00 BMI Calculated 2018-11-17 [facility] 05:05:00 Weight 2018-11-17 [facility] 05:05:00 BMI Calculated 2018-11-16 [facility] 16:42:00 Weight 2018-11-16 [facility] 16:42:00 Heart Rate 2018-11-16 [facility] 16:42:00 Procedures Procedure Date / Time Performing Clinician Source Performed CT PELVIS WO CONTRAST 2020-07-09 00:57:34 Judit Hays [facility] COVID-19 (ID NOW RAPID 2020-07-08 23:39:00 Judit Hays [facility] XR LUMBAR SPINE 3 VW 2020-07-08 23:13:23 Judit Hays [facility] XR FEMUR 2 VW LEFT 2020-07-08 22:39:58 Judit Hays [facility] XR HIPS 2 VW LEFT 2020-07-08 22:39:58 Judit Hays [facility] CONSENT/REFUSAL FOR 2020-07-08 21:05:48 Doctor Unassigned, Chiki [facility] DIAGNOSIS AND TREATMENT [place] [facility] OSMOLALITY SERUM 2020-04-30 10:41:00 Storm Barker [facility] PHENYTOIN FREE 2020-04-30 10:41:00 Storm Barker [facility] SEDIMENTATION RATE 2020-04-30 10:41:00 [facility] BASIC METABOLIC PANEL (NA, 2020-04-30 10:40:00 King Barker ea [facility] K, CL, CO2, GLUCOSE, BUN, [facility] CREATININE, CA) CBC WITH DIFF 2020-04-30 10:40:00 Storm Barker [facility] OSMOLALITY URINE 2020-04-30 04:10:00 Storm Barker [facility] GALV/CLC ONLY - URINE DRUG 2020-04-30 04:10:00 King Barker ea [facility] (IMMUNOASSAY) - [facility] COMPREHENSIVE DRUG SCREEN CREATININE, URINE RANDOM 2020-04-30 04:10:00 Storm Barker [facility] UREA NITROGEN, URINE 2020-04-30 04:10:00 Storm Barker [facility] RANDOM [facility] SODIUM, URINE RANDOM 2020-04-30 04:10:00 Storm Barker [facility] CT HEAD WO CONTRAST 2020-04-29 23:16:27 [facility] AC PANEL 21 + LACTIC ACID 2020-04-29 22:56:00 Caridad Hammond [facility] XR CHEST 1 VW 2020-04-29 21:43:14 Caridad Hammond [facility] CREATINE KINASE 2020-04-29 21:13:00 Caridad Hammond [facility] Medical Branch LIPASE 2020-04-29 21:13:00 Caridad Hammond [facility] HEPATIC FUNCTION PANEL 2020-04-29 21:13:00 Caridad Hammond [facility] ([id number]) (ALB,T.PRO,BILI Medical Branch T,BU/BC,ALT,AST,ALK PHOS) BASIC METABOLIC PANEL (NA, 2020-04-29 21:13:00 Caridad Hammond [facility] K, CL, CO2, GLUCOSE, BUN, Medica l Branch CREATININE, CA) PHENYTOIN 2020-04-29 21:13:00 Caridad Hammond [facility] CBC WITH DIFF 2020-04-29 21:12:00 Caridad Hammond [facility] URINALYSIS 2020-04-29 21:12:00 Caridad Hammond [facility] COVID-19 (ID NOW RAPID 2020-04-29 21:12:00 Caridad Hammond [facility] TESTING) [facility] LACTIC ACID WHOLE BLOOD 2020-04-29 21:03:00 Caridad Hammond [facility] EMERGENCY DEPARTMENT 2020-04-29 05:01:00 Doctor Unassigned, [facility] DOCUMENTS [place] [facility] US RETROPERITONEAL 2020-04-16 17:30:11 Requisition, Paper [facility] COMPLETE Medical Branch ASSIGNMENT OF BENEFITS 2020-04-16 15:54:32 Doctor Unassigned, [facility] [place] [facility] CBC WITH DIFFERENTIAL 2019-10-16 22:22:00 Ramon Jensen [facility] HEPATIC FUNCTION PANEL 2019-10-16 22:21:00 Ramon Jensen [facility] ([id number]) (ALB,T.PRO,BILI Medical Branch T,BU/BC,ALT,AST,ALK PHOS) BASIC METABOLIC PANEL (NA, 2019-10-16 22:21:00 Ramon Jensen [facility] K, CL, CO2, GLUCOSE, BUN, Medica l Branch CREATININE, CA) PHENYTOIN 2019-10-16 22:21:00 Ramon Jensen o f [facility] POCT GLUCOSE (AUTOMATED) 2019-10-16 22:15:00 Ramon Jensen [facility] PHYSICIAN ORDERS 2019-08-19 06:01:00 Doctor Unassigned, [facility] Name Medical [place] ASSIGNMENT OF BENEFITS 2019-02-01 15:21:26 [facility]assigned, [facility] Medical [place] URINALYSIS 2019-01-22 17:51:00 Miranda Vza [facility] BLOOD CULTURE SCREEN 2019-01-22 17:40:00 Miranda Vaz [facility] LACTIC ACID WHOLE BLOOD 2019-01-22 17:40:00 Miranda Vaz [facility] CT HEAD WO CONTRAST 2019-01-22 15:53:02 Miranda Vaz [facility] XR CHEST 1 VW 2019-01-22 15:52:21 Miranda Vaz [facility] TROPONIN I 2019-01-22 15:33:00 Miranda Vaz [facility] COMP. METABOLIC PANEL 2019-01-22 15:33:00 Miranda Vaz [facility] ([id number]) [facility] PHENYTOIN 2019-01-22 15:33:00 Miranda Vaz [facility] PROTHROMBIN TIME / INR 2019-01-22 15:33:00 Miranda Vaz [facility] ACTIVATED PARTIAL THRMPLAS 2019-01-22 15:33:00 [facility] 2019-01-22 15:32:00 Miranda Vaz [facility] CBC WITH DIFFERENTIAL 2019-01-22 15:32:00 Miranda Vaz [facility] Hip replacement [facility] Operation on lumbar spine [place]den [place] Encounters Start End Encounter Admission Attending Care Care Encounter Source Date/Time Date/Time Type Type Clinicians Facility Department ID 2021-04-28 Emergency [facility] [id number] [facility] 2021-04-27 Emergency [facility] [id number] Univers 16:18[facility] 2021-04-27 Emergency [facility] [id number] Univers 02:17:58 ity of [facility] 2021-04-25 Emergency [facility] [id number] Univers 21:46:44 ity of [facility] 2021-04-25 Emergency [facility] [id number] Univers 18:23:54 ity of [facility] 2020-07-03 Inpatient Alan Rob HCAPM JOSEFA [id number] [facility] 08:30:00 [facility] 2020-06-27 Inpatient EL Alan Rob HCAPM DAYS [id number] [facility] 13:00:00 [facility] 2021-04-26 2021-04-26 Outpatient MHIE MHIE [id number] Memoria 13:45:00 13:45:00 08 l Thiago 2021-02-18 2021-02-18 Emergency ER [facility] Emergency [id number] [facility] 21:27:00 21:27:00 2020-10-25 2020-10-26 Outpatient nullFlavo MNA [id number] Memoria 18:45:00 04:59:59 r Neurology 07 l Emily Das 2020-07-24 2020-07-24 Ambulatory nullFlavo MNA [id number] Memoria 16:45:00 16:45:00 Pre-Reg r Neurology 06 l Emily Das 2020-07-08 2020-07-08 Emergency Lis, Judit [facility] [id number] Univers 15:14:00 20:16:00 Andie Riley [id number] i ty of [place] [id number] [facility] [id number] [facility] 084 Branch 2020-05-28 2020-05-28 [facility] Radiology [facility] [id number] 17:10:00 23:59:00 Encounter [place] [id number] [place] [id number] [place] [id number] [facility] 2020-05-28 2020-05-28 [facility] Radiology [facility] [id number] Univers 17:10:00 23:59:00 Encounter [place] [id number] ity of [place] [id number] [facility] [place] [id number] [place] [id number] Branch 2020-05-28 2020-05-28 Outpatient R RADIOLOGY [facility] [id number] Univers 17:10:00 17:10:00 ity [facility] 2020-05-28 2020-05-28 Outpatient R RADIOLOGY [facility] [id number] Univers 00:00:00 00:00:00 ity [facility] 2020-05-08 2020-05-08 RefKathleen Nelson UNIVERSIT 1.2.840.114 [id number] 00:00:00 00:00:00 Y HEALTH [id number] CLINICS 4.2.7.2.686 [id number] [facility] 2020-05-08 2020-05-08 Kathleen Maldonado UNIVERSIT 1.2.840.114 [id number] Univers 00:00:00 00:00:00 Y HEALTH [id number] i [facility] 4.2.7.2.686 [facility] [id number] [address] 2020-04-29 2020-04-30 Emergency Caridad Hammond 1.2.8 40.114 [id number] 14:48:00 17:06:00 Kathleen Vines [id number] [facility] 4.2.7.2.686 [id number] [facility] 2020-04-29 2020-04-30 Emergency Caridad Hammond 1.2.8 40.114 [id number] [facility] 14:48:00 17:06:00 Kathleen Vines [id number] [facility] 4.2.7.2.686 Matthew as [id number] [address] 2020-04-20 2020-04-21 Outpatient nullFlavo MNA [id number] Memoria 15:15:00 04:59:59 r Neurology 05 l Emily Das 2020-04-16 2020-04-16 [facility] 1.2.840.114 [id number] 10:45:00 23:59:00 Encounter Lona Lin [id number] [place] 4.2.7.2.686 [place] [id number] 2020-04-16 2020-04-16 [facility] 1.2.840.114 [id number] Univers 10:45:00 23:59:00 Encounter Lona Lin [id number] ity [facility] 4.2.7.2.686 [facility] [id number] [facility] 806 Branch 2020-04-16 2020-04-16 [facility] [id number] Univers 10:45:00 10:45:00 LONA [id number] ity [facility] 2020-04-16 2020-04-16 Outpatient R [facility] [id number] Univers 00:00:00 00:00:00 LONA [facility] 2020-04-16 2020-04-16 Orders Doctor HERNÁNDEZ 1.2.840.114 [id number] 00:00:00 00:00:00 Only Unassigned, BHAKTI [id number] [place] [facility] 4.2.7.2.686 [id number] 2020-04-16 2020-04-16 Orders Doctor EDGAR 1.2.840.114 [id number] Univers 00:00:00 00:00:00 Only Unassigned, BHAKTI [id number] ity [place] [facility] 4.2.7.2.686 [facility] [id number] [facility] 009 Branch 2020-01-20 2020-01-21 Outpatient nullFlavo MNA [id number] Memoria 15:00:00 04:59:59 r Neurology 04 l Emily [place] 2020-01-20 2020-01-20 Ambulatory nullFlavo MNA [id number] Memoria 15:00:00 15:00:00 Pre-Reg r Neurology 03 l Emily Das 2019-11-28 2019-11-28 Emergency X Judit HAYS [facility] ERT [id number] Univers 10:20:43 12:42:00 ity [facility] 2019-11-16 2019-11-16 Emergency Judit Hays [facility] 1.2.840.114 [id number] 18:10:43 19:50:00 Andie Lin [id number] [place] 4.2.7.2.686 [place] [id number] [facility] 2019-11-16 2019-11-16 Emergency Judit Hays [facility] 1.2.840.114 [id number] [facility] 18:10:43 19:50:00 Andie Lin [id number] i ty of [place] 4.2.7.2.686 [facility] [id number] [address] 2019-10-21 2019-10-22 Outpatient nullFlavo MNA [id number] Memoria 18:15:00 04:59:59 r Neurology 01 l [place] 2019-10-16 2019-10-16 Emergency Joann Cabral [facility] 1.2.840. 114 [id number] 17:07:29 21:14:00 Ramon Jensen [place] [id number] [place] 4.2.7.2.686 [place] [id number] [facility] 2019-10-16 2019-10-16 Emergency CabralJoann scott [facility] 1.2.840. 114 [id number] [facility] 17:07:29 21:14:00 JensenRamon Riley [id number] ity of [place] [id number] [facility] [id number] [address] 2019-09-14 2019-09-15 Outpatient nullFlavo MNA [id number] Memoria 20:30:00 04:59:59 r Neurology 02 l [place] 2019-09-09 2019-09-10 Outpatient nullFlavo MNA [id number] Memoria 18:30:00 04:59:59 r Neurology 00 l [place] Thiago 2019-08-19 2019-08-19 Craft Superintendent Bonita Champagne [facility] 1.2.840.114 [id number] 12:41:09 12:56:09 Visit Lab Main [place] 350.1.13.10 [place] [address] [place] [phone] 2019-08-19 2019-08-19 Craft Superintendent Bonita Champ[facility] Main [facility] 1.2.8 40.114 [id number] [facility] 12:41:09 12:56:09 Visit Lona Carnes 350.1.13.10 ity [place] [phone] [address] 2019-08-19 2019-08-19 Orders Doctor EDGAR 1.2.840.114 [id number] 00:00:00 00:00:00 Only Unassigned, BHAKTI 350.1.13.10 [facility] 4.2.7.2.686 [id number] 2019-08-19 2019-08-19 Orders Doctor EDGAR 1.2.840.114 [id number] [facility] 00:00:00 00:00:00 Only Unassigned, BHAKTI 350.1.13.10 ity of [place] [facility] 4.2.7.2.686 Matthew as [phone] [address] 2019-06-28 2019-06-29 Emergency X MIKEY, [facility] ERT [id number] [facility] 21:56:59 02:36:00 RAMON [place] [facility] 2019-05-30 2019-05-30 Outpatient R [facility] [id number] [facility] 11:44:11 11:44:00 LONA [place] [facility] 2019-02-08 2019-02-08 Craft Superintendent 1, [facility] 1.2.840.114 [id number] 12:34:19 13:04:45 Visit Riley 350.1.13.10 [place] 4.2.7.2.686 [place] [phone] [facility] 2019-02-08 2019-02-08 Craft Superintendent 1, [facility] Lab [facility] 1.2.840.114 [id number] [facility] 12:34:19 13:04:45 Visit Lona Carnes 350.1.13.10 [place] [phone] [address] 2019-02-01 2019-02-01 Craft Superintendent 1, Adc Lab [facility] 1.2.840.114 [id number] [facility] 10:21:56 10:36:56 Visit Lona Carnes 350.1.13.10 [place] [phone] [facility] [address] 2019-02-01 2019-02-01 Orders Doctor EDGAR 1.2.840.114 [id number] 00:00:00 00:00:00 Only Unassigned, BHAKTI 350.1.13.10 ity of [place] [facility] 4.2.7.2.686 Matthew as [phone] [facility] [address] 2019-01-22 2019-01-22 Emergency Vaz, [facility] 1.2.774.407 [id number] [facility] 10:22:50 16:11:00 Miranda S Riley 350.1.13.10 i ty of [place] 4.2.7.2.686 [facility] [phone] [facility] [address] 2018-11-16 2018-11-26 Inpatient [facility] [id number] [facility] 16:38:00 21:00:[address] 2018-11-16 2018-11-16 Outpatient [facility] JOSEFA 9370 [facility] 13:09:00 13:09:00 2018-11-16 2018-11-16 Inpatient E [facility] CAR 9367 [facility] 19:19:00 11:28:00 Results Test Description Test Time Test Comments Results Result Comments Source FUNGUS CULTURE, BLOOD (ISOLATOR) 2021-03-03 06:27:00 Test Item Value Reference Range Interpretation Comme nts CULTURE (CARLOTTA) (test code = 1095) No fungus isolated POCT-GLUCOSE [id number] 11:44:00 Test Item Value Reference Range Interpretation Comments POC-GLUCOSE METER 111 mg/dL 70-110 H : Notified RN/MD: (CARLOTTA) (test code = TESTED AT [facility] 6720 1538) [facility], [address]: [employer] 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 ID = [id number] for Dale Blue BLOOD [id number] 09:00:00 Test Item Value Reference Range Interpretation Comments CULTURE (CARLOTTA) (test No growth in 5 days code = 1095) The specimen volume collected for this blood culture was below the optimum (10 mL per bottle or 20 mL total). Use of lower volumes may adversely affect recovery and/or detection times of some organisms.BLOOD [id number] 09:00:00 Test Item Value Reference Range Interpretation Comments CULTURE (BEAKER) (test No growth in 5 days code = 1095) The specimen volume collected for this blood culture was below the optimum (10 mL per bottle or 20 mL total). Use of lower volumes may adversely affect recovery and/or detection times of some organisms.POCT-GLUCOSE [id number] 08:29:00 Test Item Value Reference Range Interpretation Comments POC-GLUCOSE METER 76 mg/dL 70-110 : TESTED A T [facility] 6720 (BEAKER) (test code = [place], 1538) [address]: [employer] 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 ID = [id number] for Dale Warner BASIC METABOLIC [id number] 05:44:00 Test Item Value Reference Range Interpretation Comments SODIUM (BEAKER) 128 meq/L 136-145 L (test code = 381) POTASSIUM (BEAKER) 3.7 meq/L 3.5-5.1 (test code = 379) CHLORIDE (BEAKER) 96 meq/L 98-107 L (test code = 382) CO2 (BEAKER) (test 24 meq/L 22-29 code = 355) BLOOD UREA NITROGEN 6 mg/dL 7-21 L (BEAKER) (test code = 354) CREATININE (BEAKER) 0.42 mg/dL 0.57-1.25 L (test code = 358) GLUCOSE RANDOM 84 mg/dL 70-105 (BEAKER) (test code = 652) CALCIUM (BEAKER) 8.2 mg/dL 8.4-10.2 L (test code = 697) EGFR (BEAKER) (test 153 mL/min/1.73 ESTIM ATED GFR IS code = 1092) sq m NOT ACCURATE CREATININE CLEARANCE IN PREDICTING GLOMERULAR FILTRATION RATE . ESTIMATED GFR I S NOT APPLICABLE FOR DIALYSIS PATIEN TS. [employer] Vice President ID - GAIL [id number] 05:44:00 Test Item Value Reference Range Interpretation Comments MAGNESIUM (BEAKER) (test code = 1.5 mg/dL 1.6-2.6 L 627) [employer] Vice President ID - GAIL [id number] 05:44:00 Test Item Value Reference Range Interpretation Comments PHOSPHORUS (BEAKER) (test code = 2.7 mg/dL 2.3-4.7 604) [employer] Vice President ID - GAIL LPOCT-GLUCOSE [id number] 22:07:00 Test Item Value Reference Range Interpretation Comments POC-GLUCOSE METER 117 mg/dL 70-110 H : TESTED A T [facility] 6720 (BEAKER) (test code = [facility], 1538) [address]: [employer] 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 ID = [id number] for DE NNIS, AROLDO POCT-GLUCOSE [id number] 17:55:00 Test Item Value Reference Range Interpretation Comments POC-GLUCOSE METER 105 mg/dL 70-110 : TESTED A T [facility] 6720 (BEAKER) (test code = [facility], 1538) [address]: [employer] 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 ID = [id number] for [place] INSONU, GILDA CORTISOL,60 [id number] 13:19:00 Test Item Value Reference Range Interpretation Comments CORTISOL BASELINE NETWORKED 15.4 mcg/dL (BEAKER) (test code = 2307) CORTISOL 30 MINUTE NETWORKED 23.0 mcg/dL (BEAKER) (test code = 2308) CORTISOL, 60 MINUTE (BEAKER) 26.2 ug/dL (test code = 1805) ACTH STIMULATION TEST INTERPRETATION GUIDELINES(Synonyms: Cortrosyn Test, Cosyntropin or Corticotropin Stimulation Test)Adenocorticotropic hormone (ACTH)is a tropic hormone, made in the pituitary gland, which travels trhough the bloodstream and stimulates the cortex of the adrenal glands to release cortisol. Cortisol is a primary hormone, which aids the body's metabolism of fats, carbohydrates, and protein as well as sodium and potassium regulation.ACTH Stimulation Test: Exogenous administrationof biologically active ACTH stimulates the secretion of cortisol from the adrenal gland. This test is used to evaluate adrenal function by measuring cortisol levels at baseline and at 30 and 60 minutesafter the administration of 250 micrograms of cosyntropin (Cortrosyn). Patients who have received exogenous corticosteroids immediately prior to performing the ACTH Stimulation Test will often have elevated baseline cortisol levels, which may lead to erroneous interpretation of test results. The notable exception is with dexamethasone.Normal Response: An increase in cortisol after stimulation by ACTHis normal. Post-stimulation cortisol concentration should be greater than 20 mcg/dL or the rate of rise from baseline cortisol should be greater than or equal to 9 mcg/dL.Patients with sepsis or septicshock: According to a study by Nelson et al (PETAR 2000,283(8):1232-88), the ACTH Stimulation Test provides important prognostic information. This study defined 3 groups of patients with sepsis or septic shock: 1. Good Survival: Low basal cortisol (<or=34 mcg/dL) and high ACTH response (>9mcg/dL) 2. Intermediate Survival: Low basal cortisol (<34 mcg/dL) and low response to ACTH (<or=9 mcg/dL) OR High basal cortisol (>34 mcg/dL) or high ACTH response (>9 mcg/dL) 3.Poor Survival: High basal cortisol (>34 mcg/dL) and low ACTH response (<or=9 mcg/dL).Treatment of patients with relative adrenal dysfunction may be indicated based on test results and the cli nical condition of the patient. Additional information, including treatment recommendations, is available in critically ill patients, approved by the Pharmacy, Nutrition, and Therapeutics Committee on 06/07/2004 and available through the Pharmacy Policy and Procedure Section on The Source.[employer] Vice President ID - DONI MOONEYISOL,30 [id number] 13:18:00 Test Item Value Reference Range Interpretation Comments CORTISOL BASELINE NETWORKED 15.4 mcg/dL (BEAKER) (test code = 2307) CORTISOL, 30 MINUTE (BEAKER) 23.0 ug/dL (test code = 1804) ACTH STIMULATION TEST INTERPRETATION GUIDELINES(Synonyms: Cortrosyn Test, Cosyntropin or Corticotropin Stimulation Test)Adenocorticotropic hormone (ACTH)is a tropic hormone, made in the pituitary gland, which travels trhough the bloodstream and stimulates the cortex of the adrenal glands to release cortisol. Cortisol is a primary hormone, which aids the body's metabolism of fats, carbohydrates, and protein as well as sodium and potassium regulation.ACTH Stimulation Test: Exogenous administrationof biologically active ACTH stimulates the secretion of cortisol from the adrenal gland. This test is used to evaluate adrenal function by measuring cortisol levels at baseline and at 30 and 60 minutesafter the administration of 250 micrograms of cosyntropin (Cortrosyn). Patients who have received exogenous corticosteroids immediately prior to performing the ACTH Stimulation Test will often have elevated baseline cortisol levels, which may lead to erroneous interpretation of test results. The notable exception is with dexamethasone.Normal Response: An increase in cortisol after stimulation by ACTHis normal. Post-stimulation cortisol concentration should be greater than 20 mcg/dL or the rate of rise from baseline cortisol should be greater than or equal to 9 mcg/dL.Patients with sepsis or septicshock: According to a study by Nelson et al (PETAR 2000,283(8):2875-97), the ACTH Stimulation Test provides important prognostic information. This study defined 3 groups of patients with sepsis or septic shock: 1. Good Survival: Low basal cortisol (<or=34 mcg/dL) and high ACTH response (>9mcg/dL) 2. Intermediate Survival: Low basal cortisol (<34 mcg/dL) and low response to ACTH (<or=9 mcg/dL) OR High basal cortisol (>34 mcg/dL) or high ACTH response (>9 mcg/dL) 3.Poor Survival: High basal cortisol (>34 mcg/dL) and low ACTH response (<or=9 mcg/dL).Treatment of patients with relative adrenal dysfunction may be indicated based on test results and the cli nical condition of the patient. Additional information, including treatment recommendations, is available in critically ill patients, approved by the Pharmacy, Nutrition, and Therapeutics Committee on 06/07/2004 and available through the Pharmacy Policy and Procedure Section on The Source.[employer] Vice President ID - EMERSONCORTISOL,[id number] 12:15:00 Test Item Value Reference Range Interpretation Comments CORTISOL, BASELINE (BEAKER) (test 15.4 ug/dL code = 1803) ACTH STIMULATION TEST INTERPRETATION GUIDELINES(Synonyms: Cortrosyn Test, Cosyntropin or Corticotropin Stimulation Test)Adenocorticotropic hormone (ACTH)is a tropic hormone, made in the pituitary gland, which travels trhough the bloodstream and stimulates the cortex of the adrenal glands to release cortisol. Cortisol is a primary hormone, which aids the body's metabolism of fats, carbohydrates, and protein as well as sodium and potassium regulation.ACTH Stimulation Test: Exogenous administrationof biologically active ACTH stimulates the secretion of cortisol from the adrenal gland. This test is used to evaluate adrenal function by measuring cortisol levels at baseline and at 30 and 60 minutesafter the administration of 250 micrograms of cosyntropin (Cortrosyn). Patients who have received exogenous corticosteroids immediately prior to performing the ACTH Stimulation Test will often have elevated baseline cortisol levels, which may lead to erroneous interpretation of test results. The notable exception is with dexamethasone.Normal Response: An increase in cortisol after stimulation by ACTHis normal. Post-stimulation cortisol concentration should be greater than 20 mcg/dL or the rate of rise from baseline cortisol should be greater than or equal to 9 mcg/dL.Patients with sepsis or septicshock: According to a study by Nelson et al (PETAR 2000,283(8):1038-45), the ACTH Stimulation Test provides important prognostic information. This study defined 3 groups of patients with sepsis or septic shock: 1. Good Survival: Low basal cortisol (<or=34 mcg/dL) and high ACTH response (>9mcg/dL) 2. Intermediate Survival: Low basal cortisol (<34 mcg/dL) and low response to ACTH (<or=9 mcg/dL) OR High basal cortisol (>34 mcg/dL) or high ACTH response (>9 mcg/dL) 3.Poor Survival: High basal cortisol (>34 mcg/dL) and low ACTH response (<or=9 mcg/dL).Treatment of patients with relative adrenal dysfunction may be indicated based on test results and the cli nical condition of the patient. Additional information, including treatment recommendations, is available in critically ill patients, approved by the Pharmacy, Nutrition, and Therapeutics Committee on 06/07/2004 and available through the Pharmacy Policy and Procedure Section on The Source.[employer] Vice President ID - DONI MPOCT-GLUCOSE [id number] 12:00:00 Test Item Value Reference Range Interpretation Comments POC-GLUCOSE METER 95 mg/dL 70-110 : TESTED A T [facility] 6720 (BEAKER) (test code = [facility], 1538) [address]: [employer] 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 ID = [id number] for GILDA VILLANUEVA BASIC METABOLIC [id number] 08:39:00 Test Item Value Reference Range Interpretation Comments SODIUM (BEAKER) 129 meq/L 136-145 L (test code = 381) POTASSIUM (BEAKER) 3.8 meq/L 3.5-5.1 (test code = 379) CHLORIDE (BEAKER) 96 meq/L 98-107 L (test code = 382) CO2 (BEAKER) (test 24 meq/L 22-29 code = 355) BLOOD UREA NITROGEN 5 mg/dL 7-21 L (BEAKER) (test code = 354) CREATININE (BEAKER) 0.50 mg/dL 0.57-1.25 L (test code = 358) GLUCOSE RANDOM 83 mg/dL 70-105 (BEAKER) (test code = 652) CALCIUM (BEAKER) 8.1 mg/dL 8.4-10.2 L (test code = 697) EGFR (BEAKER) (test 125 mL/min/1.73 ESTIM ATED GFR IS code = 1092) sq m NOT ACCURATE CREATININE CLEARANCE IN PREDICTING GLOMERULAR FILTRATION RATE . ESTIMATED GFR I S NOT APPLICABLE FOR DIALYSIS PATIEN TS. [employer] Vice President ID - DONI [id number] 08:39:00 Test Item Value Reference Range Interpretation Comments MAGNESIUM (BEAKER) (test code = 1.7 mg/dL 1.6-2.6 627) [employer] Vice President ID - DONI [id number] 08:39:00 Test Item Value Reference Range Interpretation Comments PHOSPHORUS (BEAKER) (test code = 3.1 mg/dL 2.3-4.7 604) [employer] Vice President ID - DONI MHEMOGLOBIN AND [id number] 08:20:00 Test Item Value Reference Range Interpretation Comments HEMOGLOBIN (BEAKER) (test code = 11.2 GM/DL 11.2-15.7 410) HEMATOCRIT (BEAKER) (test code = 31.8 % 34.1-44.9 L 411) [employer] Vice President ID - [id number]-GLUCOSE [id number] 08:07:00 Test Item Value Reference Range Interpretation Comments POC-GLUCOSE METER 89 mg/dL 70-110 : TESTED A T [facility] 6720 (BEAKER) (test code = [place], 1538) [address]: [employer] 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 ID = [id number] for GILDA VILLANUEVA [id number] 07:39:00 Test Item Value Reference Range Interpretation Comments CORTISOL, TOTAL (BEAKER) (test code 9.8 ug/dL 3.7-19.4 = 2755) [employer] Vice President ID - DONI MCBC W/PLT COUNT & AUTO [id number] 07:05:00 Test Item Value Reference Range Interpretation Comments WHITE BLOOD CELL COUNT (BEAKER) 9.8 K/ L 3.5-10.5 (test code = 775) RED BLOOD CELL COUNT (BEAKER) 2.93 M/ L 3.93-5.22 L (test code = 761) HEMOGLOBIN (BEAKER) (test code = 9.9 GM/DL 11.2-15.7 L 410) HEMATOCRIT (BEAKER) (test code = 27.9 % 34.1-44.9 L 411) MEAN CORPUSCULAR VOLUME (BEAKER) 95.2 fL 79.4-94.8 H (test code = 753) MEAN CORPUSCULAR HEMOGLOBIN 33.8 pg 25.6-32.2 H (BEAKER) (test code = 751) MEAN CORPUSCULAR HEMOGLOBIN CONC 35.5 GM/DL 32.2-35.5 (BEAKER) (test code = 752) RED CELL DISTRIBUTION WIDTH 13.2 % 11.7-14.4 (BEAKER) (test code = 412) PLATELET COUNT (BEAKER) (test 255 K/CU MM 150-450 code = 756) MEAN PLATELET VOLUME (BEAKER) 10.5 fL 9.4-12.3 (test code = 754) NUCLEATED RED BLOOD CELLS 0 /100 WBC 0-0 (BEAKER) (test code = 413) NEUTROPHILS RELATIVE PERCENT 73 % (BEAKER) (test code = 429) LYMPHOCYTES RELATIVE PERCENT 12 % (BEAKER) (test code = 430) MONOCYTES RELATIVE PERCENT 12 % (BEAKER) (test code = 431) EOSINOPHILS RELATIVE PERCENT 3 % (BEAKER) (test code = 432) BASOPHILS RELATIVE PERCENT 0 % (BEAKER) (test code = 437) NEUTROPHILS ABSOLUTE COUNT 7.11 K/ L 1.56-6.13 H (BEAKER) (test code = 670) LYMPHOCYTES ABSOLUTE COUNT 1.14 K/ L 1.18-3.74 L (BEAKER) (test code = 414) MONOCYTES ABSOLUTE COUNT (BEAKER) 1.17 K/ L 0.24-0.36 H (test code = 415) EOSINOPHILS ABSOLUTE COUNT 0.27 K/ L 0.04-0.36 (BEAKER) (test code = 416) BASOPHILS ABSOLUTE COUNT (BEAKER) 0.04 K/ L 0.01-0.08 (test code = 417) IMMATURE GRANULOCYTES-RELATIVE 0 % 0-1 PERCENT (BEAKER) (test code = 2801) BASIC METABOLIC [id number] 00:32:00 Test Item Value Reference Range Interpretation Comments SODIUM (BEAKER) 128 meq/L 136-145 L (test code = 381) POTASSIUM (BEAKER) 4.1 meq/L 3.5-5.1 (test code = 379) CHLORIDE (BEAKER) 95 meq/L 98-107 L (test code = 382) CO2 (BEAKER) (test 24 meq/L 22-29 code = 355) BLOOD UREA NITROGEN 6 mg/dL 7-21 L (BEAKER) (test code = 354) CREATININE (BEAKER) 0.53 mg/dL 0.57-1.25 L (test code = 358) GLUCOSE RANDOM 100 mg/dL 70-105 (BEAKER) (test code = 652) CALCIUM (BEAKER) 7.7 mg/dL 8.4-10.2 L (test code = 697) EGFR (BEAKER) (test 117 mL/min/1.73 ESTIM ATED GFR IS code = 1092) sq m NOT ACCURATE CREATININE CLEARANCE IN PREDICTING GLOMERULAR FILTRATION RATE . ESTIMATED GFR I S NOT APPLICABLE FOR DIALYSIS PATIEN TS. [employer] Vice President ID - DONI MPOCT-GLUCOSE [id number] 21:23:00 Test Item Value Reference Range Interpretation Comments POC-GLUCOSE METER 138 mg/dL 70-110 H : TESTED A T [facility] 6720 (BEAKER) (test code = [facility], 1538) [address]: [employer] 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 ID = [id number] for An sah, Lola POCT-GLUCOSE [id number] 17:58:00 Test Item Value Reference Range Interpretation Comments POC-GLUCOSE METER 123 mg/dL 70-110 H : TESTED A T [facility] 6720 (BEAKER) (test code = [facility], 1538) [address]: [employer] 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 ID = [id number] for Ca vitt, Eminae OSMOLALITY, [id number] 16:27:00 Test Item Value Reference Range Interpretation Comments OSMOLALITY, SERUM (BEAKER) (test 260 mOsm/kg 275-295 L code = 615) BASIC METABOLIC [id number] 16:01:00 Test Item Value Reference Range Interpretation Comments SODIUM (BEAKER) 126 meq/L 136-145 L (test code = 381) POTASSIUM (BEAKER) 3.4 meq/L 3.5-5.1 L (test code = 379) CHLORIDE (BEAKER) 91 meq/L 98-107 L (test code = 382) CO2 (BEAKER) (test 23 meq/L 22-29 code = 355) BLOOD UREA NITROGEN 6 mg/dL 7-21 L (BEAKER) (test code = 354) CREATININE (BEAKER) 0.51 mg/dL 0.57-1.25 L (test code = 358) GLUCOSE RANDOM 105 mg/dL 70-105 (BEAKER) (test code = 652) CALCIUM (BEAKER) 8.4 mg/dL 8.4-10.2 (test code = 697) EGFR (BEAKER) (test 123 mL/min/1.73 ESTIM ATED GFR IS code = 1092) sq m NOT ACCURATE CREATININE CLEARANCE IN PREDICTING GLOMERULAR FILTRATION RATE . ESTIMATED GFR I S NOT APPLICABLE FOR DIALYSIS PATIEN TS. [employer] Vice President ID - [id number] 16:01:00 Test Item Value Reference Range Interpretation Comments MAGNESIUM (BEAKER) (test code = 2.4 mg/dL 1.6-2.6 627) [employer] Vice President ID - [id number] 16:01:00 Test Item Value Reference Range Interpretation Comments PHOSPHORUS (BEAKER) (test code = 2.2 mg/dL 2.3-4.7 L 604) [employer] Vice President ID - [id number] 15:13:00 Test Item Value Reference Range Interpretation Comments FERRITIN (BEAKER) (test code = 351.59 ng/mL 5.00-275.00 H 361) [employer] Vice President ID - RMPOCT-GLUCOSE [id number] 13:25:00 Test Item Value Reference Range Interpretation Comments POC-GLUCOSE METER 134 mg/dL 70-110 H : TESTED A T [facility] 6720 (BEAKER) (test code = [place], 1538) [address]: [employer] 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 ID = [id number] for Ca vitt, Eminae IRON, TIBC, % SAT. (WITHOUT FERRITIN)2021-02-22 12:33:00 Test Item Value Reference Range Interpretation Comments IRON (BEAKER) (test code = 547) 37.0 ug/dL 40.0-160.0 L TOTAL IRON BINDING CAPACITY 196 ug/dL 250-450 L (BEAKER) (test code = 769) IRON % SATURATION (2) (BEAKER) 19 % 20-55 L (test code = 2590) [employer] Vice President ID - GAIL LCT, CHEST, WITH [id number] 12:30:00Unlisted Reason for Exam - Click Yes and Enter Reason Below->YesUnlisted Reason for Exam->smoker with weight loss, hyponatremia; eval for lung malignancy [facility] : 1960 Sex: FFINAL REPORT TECHNIQUE: CT of the chest, abdomen, and pelvis WITH intravenous contrast and WITHOUT oral contrast. Dose modulation, iterative reconstruction, and/or weight-based adjustment of the mA/kV was utilized to reduce the radiation dose to as low as reasonably achievable. INDICATION: Unlisted Reason for Examsmoker with weight loss, hyponatremia; eval for lung malignancy. History of alcohol abuse. Evaluate for occult malignancy, pancreatitis COMPARISON: None. FINDINGS: LINES/TUBES: None. LUNGS AND AIRWAYS: Mild right and moderate left basilar atelectasis. There are groundglass opacities which are scattered throughout the lungs remain the periphery.PLEURA: Small bilateral pleural effusionsHEART AND MEDIASTINUM: A right thyroid nodule measures 0.9 cm. This is likely clinically insignificant, and no further imaging is recommended. No significant mediastinal, hilar, or axillary lymphadenopathy. The heart and pericardium are within normal limits. Marked calcification of the coronary arteries. Moderate calcification of the descending thoracic aorta and arch branch vessels. HEPATOBILIARY: There is likely a Tyler's lobe. A hyperenhancing focus at the periphery of segment VII measures 0.6 cm on axial image 49. Gallbladder is unremarkable. No biliary ductal dilatation.SPLEEN: No splenomegaly.PANCREAS: No focal masses or ductal dilatation. ADRENALS: No adre nal nodules.KIDNEYS/URETERS: No hydronephrosis, stones, or masses. A left upper pole renal hypodensity measures 0.8 cm and is too small to further characterize. PELVIC ORGANS/BLADDER: There is focal thickening of the right lateral bladder wall which measures up to 1 cm in thickness and 4.4 cm in length. Mild thickening of the left lateral urinary bladder wall. 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 There is marked calcification of the abdominal pelvic vasculature with moderate, less than 50% narrowing of the distal abdominal aorta. GI TRACT: No distention or wall thickening. BONES AND SOFT TISSUES: Age-indeterminate, moderate compression deformity of the inferior endplate of T10. Chronic right posterior ribs 9, 10, 11, and 12 fractures. Old, healed left lateral ninth rib fracture. Subacute, healing right L2 and L3 transverse process fractures. Age-indeterminate, approximately 50% compression deformity of the superior endplate of L1 with mild retropulsion. Prior posterior fusion at L5-S1.Old, unhealed left greater trochanter fracture. The bones are diffusely demineralized. IMPRESSION: 1.The groundglass opacities in the lungs are a pattern which would be typical for COVID-19 pneumonia. Other causes of multifocal pneumonia are also in the differential. Interstitial lung diseases are also possible including acute interstitial pneumonitis. Consider a follow-up CT in 3-6 months to document resolution and exclude a neoplasm. 2.There is focal thickening of the right lateral bladder wall from an indeterminate cause. There is less prominent, mild focal thickening of the left lateral urinary bladder wall. A urology consultation is recommended for further evaluation and possible cystoscopy. 3.Small bilateral pleural effusions with mild right and moderate left basilar atelectasis. 4.A hyperenhancing focus at the periphery of segment VII measures 0.6 cm and is most likely either perfusional,a flash filling hemangioma, or focal nodular hyperplasia. If the patient does not have a known malignancy or known liver disease, no routine follow-up imaging is recommended. 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 6.Age- indeterminate compression fractures of T10 and L1. There is mild retropulsion at L1. Signed: Georgie Arboleda MDReport Verified Date/Time: 02/22/2021 12:30:56 Reading Location: [facility] C013Y CT Body Reading Room CT, [id number] 12:30:00 Unlisted Reason for Exam - Click Yes and Enter Reason Below->YesUnlisted Reason for Exam->unexplained weight loss, hyponatremia, history of alcohol abuse; evaluate for occult malignancy, pancreaetiitsWill this procedure require oral contrast?->No [facility] GIRALDOYAZANROSA ELENA : 1960 Sex: FFINAL REPORT TECHNIQUE: CT of the chest, abdomen, and pelvis WITH intravenous contrast and WITHOUT oral contrast. Dose modulation, iterative reconstruction, and/or weight-based adjustment of the mA/kV was utilized to reduce the radiation dose to as low as reasonably achievable. INDICATION: Unlisted Reason for Examsmoker with weight loss, hyponatremia; eval for lung malignancy. History of alcohol abuse. Evaluate for occult malignancy, pancreatitis COMPARISON: None. FINDINGS: LINES/TUBES: None. LUNGS AND AIRWAYS: Mild right and moderate left basilar atelectasis. There are groundglass opacities which are scattered throughout the lungs remain the periphery.PLEURA: Small bilateral pleural effusionsHEART AND MEDIASTINUM: A right thyroid nodule measures 0.9 cm. This is likely clinically insignificant, and no further imaging is recommended. No significant mediastinal, hilar, or axillary lymphadenopathy. The heart and pericardium are within normal limits. Marked calcification of the coronary arteries. Moderate calcification of the descending thoracic aorta and arch branch vessels. HEPATOBILIARY: There is likely a Tyler's lobe. A hyperenhancing focus at the periphery of segment VII measures 0.6 cm on axial image 49. Gallbladder is unremarkable. No biliary ductal dilatation.SPLEEN: No splenomegaly.PANCREAS: No focal masses or ductal dilatation. ADRENALS: No adre nal nodules.KIDNEYS/URETERS: No hydronephrosis, stones, or masses. A left upper pole renal hypodensity measures 0.8 cm and is too small to further characterize. PELVIC ORGANS/BLADDER: There is focal thickening of the right lateral bladder wall which measures up to 1 cm in thickness and 4.4 cm in length. Mild thickening of the left lateral urinary bladder wall. 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 There is marked calcification of the abdominal pelvic vasculature with moderate, less than 50% narrowing of the distal abdominal aorta. GI TRACT: No distention or wall thickening. BONES AND SOFT TISSUES: Age-indeterminate, moderate compression deformity of the inferior endplate of T10. Chronic right posterior ribs 9, 10, 11, and 12 fractures. Old, healed left lateral ninth rib fracture. Subacute, healing right L2 and L3 transverse process fractures. Age-indeterminate, approximately 50% compression deformity of the superior endplate of L1 with mild retropulsion. Prior posterior fusion at L5-S1.Old, unhealed left greater trochanter fracture. The bones are diffusely demineralized. IMPRESSION: 1.The groundglass opacities in the lungs are a pattern which would be typical for COVID-19 pneumonia. Other causes of multifocal pneumonia are also in the differential. Interstitial lung diseases are also possible including acute interstitial pneumonitis. Consider a follow-up CT in 3-6 months to document resolution and exclude a neoplasm. 2.There is focal thickening of the right lateral bladder wall from an indeterminate cause. There is less prominent, mild focal thickening of the left lateral urinary bladder wall. A urology consultation is recommended for further evaluation and possible cystoscopy. 3.Small bilateral pleural effusions with mild right and moderate left basilar atelectasis. 4.A hyperenhancing focus at the periphery of segment VII measures 0.6 cm and is most likely either perfusional,a flash filling hemangioma, or focal nodular hyperplasia. If the patient does not have a known malignancy or known liver disease, no routine follow-up imaging is recommended. 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 6.Age- indeterminate compression fractures of T10 and L1. There is mild retropulsion at L1. Signed: Georgie Arboleda MDReport Verified Date/Time: 02/22/2021 12:30:56 Reading Location: [facility] C013Y CT Body Reading Room BASIC METABOLIC [id number] 08:56:00 Test Item Value Reference Range Interpretation Comments SODIUM (BEAKER) 124 meq/L 136-145 L (test code = 381) POTASSIUM (BEAKER) 3.6 meq/L 3.5-5.1 (test code = 379) CHLORIDE (BEAKER) 90 meq/L 98-107 L (test code = 382) CO2 (BEAKER) (test 24 meq/L 22-29 code = 355) BLOOD UREA NITROGEN 4 mg/dL 7-21 L (BEAKER) (test code = 354) CREATININE (BEAKER) 0.52 mg/dL 0.57-1.25 L (test code = 358) GLUCOSE RANDOM 76 mg/dL 70-105 (BEAKER) (test code = 652) CALCIUM (BEAKER) 8.8 mg/dL 8.4-10.2 (test code = 697) EGFR (BEAKER) (test 120 mL/min/1.73 ESTIM ATED GFR IS code = 1092) sq m NOT ACCURATE CREATININE CLEARANCE IN PREDICTING GLOMERULAR FILTRATION RATE . ESTIMATED GFR I S NOT APPLICABLE FOR DIALYSIS PATIEN TS. [employer] Vice President ID - PIHILL [id number] 08:56:00 Test Item Value Reference Range Interpretation Comments MAGNESIUM (BEAKER) (test code = 1.4 mg/dL 1.6-2.6 L 627) [employer] Vice President ID - GAIL [id number] 08:56:00 Test Item Value Reference Range Interpretation Comments PHOSPHORUS (BEAKER) (test code = 2.2 mg/dL 2.3-4.7 L 604) [employer] Vice President ID - GAIL LHEPATIC FUNCTION [id number] 08:56:00 Test Item Value Reference Range Interpretation Comments TOTAL PROTEIN (BEAKER) (test code = 6.9 gm/dL 6.0-8.3 770) ALBUMIN (BEAKER) (test code = 1145) 3.5 g/dL 3.5-5.0 BILIRUBIN TOTAL (BEAKER) (test code 0.5 mg/dL 0.2-1.2 = 377) BILIRUBIN DIRECT (BEAKER) (test 0.3 mg/dL 0.1-0.5 code = 706) ALKALINE PHOSPHATASE (BEAKER) (test 125 U/L 40-150 code = 346) AST (SGOT) (BEAKER) (test code = 33 U/L 5-34 353) ALT (SGPT) (BEAKER) (test code = 22 U/L 6-55 347) [employer] Vice President ID - GAIL [id number] 08:56:00 Test Item Value Reference Range Interpretation Comments LIPASE (BEAKER) (test code = 749) 37 U/L 8-78 [employer] Vice President ID - GAIL HERNANDESLALITY, [id number] 07:33:00 Test Item Value Reference Range Interpretation Comments OSMOLALITY URINE 366 mOsm/kg See_Comment [Automated message] (BEAKER) (test code = The sy stem which 614) generated this result transmitted ref erence range: 50-1,200 mOsm/kg. The reference range was not used to int erpret this result as normal/abnormal . CBC W/PLT COUNT & AUTO [id number] 05:51:00 Test Item Value Reference Range Interpretation Comments WHITE BLOOD CELL COUNT (BEAKER) 13.0 K/ L 3.5-10.5 H (test code = 775) RED BLOOD CELL COUNT (BEAKER) 3.87 M/ L 3.93-5.22 L (test code = 761) HEMOGLOBIN (BEAKER) (test code = 12.8 GM/DL 11.2-15.7 410) HEMATOCRIT (BEAKER) (test code = 37.2 % 34.1-44.9 411) MEAN CORPUSCULAR VOLUME (BEAKER) 96.1 fL 79.4-94.8 H (test code = 753) MEAN CORPUSCULAR HEMOGLOBIN 33.1 pg 25.6-32.2 H (BEAKER) (test code = 751) MEAN CORPUSCULAR HEMOGLOBIN CONC 34.4 GM/DL 32.2-35.5 (BEAKER) (test code = 752) RED CELL DISTRIBUTION WIDTH 13.3 % 11.7-14.4 (BEAKER) (test code = 412) PLATELET COUNT (BEAKER) (test 237 K/CU MM 150-450 code = 756) MEAN PLATELET VOLUME (BEAKER) 9.9 fL 9.4-12.3 (test code = 754) NUCLEATED RED BLOOD CELLS 0 /100 WBC 0-0 (BEAKER) (test code = 413) NEUTROPHILS RELATIVE PERCENT 78 % (BEAKER) (test code = 429) LYMPHOCYTES RELATIVE PERCENT 11 % (BEAKER) (test code = 430) MONOCYTES RELATIVE PERCENT 8 % (BEAKER) (test code = 431) EOSINOPHILS RELATIVE PERCENT 2 % (BEAKER) (test code = 432) BASOPHILS RELATIVE PERCENT 0 % (BEAKER) (test code = 437) NEUTROPHILS ABSOLUTE COUNT 10.17 K/ L 1.56-6.13 H (BEAKER) (test code = 670) LYMPHOCYTES ABSOLUTE COUNT 1.44 K/ L 1.18-3.74 (BEAKER) (test code = 414) MONOCYTES ABSOLUTE COUNT (BEAKER) 1.06 K/ L 0.24-0.36 H (test code = 415) EOSINOPHILS ABSOLUTE COUNT 0.23 K/ L 0.04-0.36 (BEAKER) (test code = 416) BASOPHILS ABSOLUTE COUNT (BEAKER) 0.02 K/ L 0.01-0.08 (test code = 417) IMMATURE GRANULOCYTES-RELATIVE 1 % 0-1 PERCENT (BEAKER) (test code = 2801) CREATININE, RANDOM [id number] 04:29:00 Test Item Value Reference Range Interpretation Comments CREATININE URINE (BEAKER) (test 32.5 mg/dL code = 375) Reference Range: No NormalsOperator ID - PIAYA LSODIUM, RANDOM [id number] 04:29:00 Test Item Value Reference Range Interpretation Comments SODIUM URINE (BEAKER) (test code = 111 meq/L 243) Reference Range: No NormalsOperator ID - PIAYA LPOCT-GLUCOSE [id number] 22:15:00 Test Item Value Reference Range Interpretation Comments POC-GLUCOSE METER 124 mg/dL 70-110 H : TESTED A T [facility] [address] (BEAKER) (test code = [place], 1538) [id number]: [employer] 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 ID = [id number] for MIRYAM EVANS VITAMIN D, [id number] 19:16:00 Test Item Value Reference Range Interpretation Comments VITAMIN D 25-OH (Ambient Clinical AnalyticsAKER) (test 24.3 ng/mL 6.6-49.9 code = 2764) Effective 04/08/2017: Reference Range ChangeNew: 6.6-49.9 ng/mL Previous: 13.0-47.8 ng/mLRecommended Vitamin D Target Range: 30.0-40.0 ng/mLOperator ID - DBHIV-1 ANTIGEN WITH HIV-1/2 [id number] 19:16:00 Test Item Value Reference Range Interpretation Comments HIV-1 ANTIGEN WITH HIV 1\\T\\2 Nonreactive Nonreactive ANTIBODY (2) (Ambient Clinical AnalyticsAKER) (test code = 2586) [employer] Vice President ID - DBVITAMIN [id number] 18:03:00 Test Item Value Reference Range Interpretation Comments VITAMIN B12 (BEAKER) (test code = > pg/mL 213-816 H 774) [employer] Vice President ID - DBOSMOLALITY, [id number] 17:38:00 Test Item Value Reference Range Interpretation Comments OSMOLALITY, SERUM (BEAKER) (test 259 mOsm/kg 275-295 L code = 615) HEPARIN ASSAY - LOW MOLECULAR [id number] 17:16:00 Test Item Value Reference Range Interpretation Comments LOVENOX-ANTI 10A (BEAKER) (test 0.29 u/ml 0.60-2.00 L code = 1605) Anti-Factor 10-A Level (Heparin Assay for Low Molecular Weight Heparin)Monitoring Guidelines: Blood samples should be obtained 4 hours post subcutaneous injection (time of Peak level) Therapeutic Peak Levels: 0.6-1.0 units/mL twice daily enoxaparin 1.0-2.0 units/mL once daily enoxaparinRef: CHEST 2012;141:[id number] 12:04:00 Test Item Value Reference Range Interpretation Comments POC-GLUCOSE METER 81 mg/dL 70-110 : TESTED A T [facility] [address] ([employer] (test code = [facility], 1538) [id number]: [employer] 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 ID = [id number] for Ninfa Van CBC W/PLT COUNT & AUTO [id number] 09:21:00 Test Item Value Reference Range Interpretation Comments WHITE BLOOD CELL COUNT (BEAKER) 17.8 K/ L 3.5-10.5 H (test code = 775) RED BLOOD CELL COUNT (BEAKER) 3.10 M/ L 3.93-5.22 L (test code = 761) HEMOGLOBIN (BEAKER) (test code = 10.5 GM/DL 11.2-15.7 L 410) HEMATOCRIT (BEAKER) (test code = 29.5 % 34.1-44.9 L 411) MEAN CORPUSCULAR VOLUME (BEAKER) 95.2 fL 79.4-94.8 H (test code = 753) MEAN CORPUSCULAR HEMOGLOBIN 33.9 pg 25.6-32.2 H (BEAKER) (test code = 751) MEAN CORPUSCULAR HEMOGLOBIN CONC 35.6 GM/DL 32.2-35.5 H (BEAKER) (test code = 752) RED CELL DISTRIBUTION WIDTH 13.4 % 11.7-14.4 (BEAKER) (test code = 412) PLATELET COUNT (BEAKER) (test 218 K/CU MM 150-450 code = 756) MEAN PLATELET VOLUME (BEAKER) 10.0 fL 9.4-12.3 (test code = 754) NUCLEATED RED BLOOD CELLS 0 /100 WBC 0-0 (BEAKER) (test code = 413) (CELLAVISION MANUAL DIFF)2021-02-21 09:21:00 Test Item Value Reference Range Interpretation Comments NEUTROPHILS - REL 89 % (CELLAVISION)(BEAKER) (test code = 2816) LYMPHOCYTES - REL 8 % (CELLAVISION)(BEAKER) (test code = 2817) MONOCYTES - REL 3 % (CELLAVISION)(BEAKER) (test code = 2818) NEUTROPHILS - ABS 15.84 K/ul 1.56-6.13 H (CELLAVISION)(BEAKER) (test code = 2830) LYMPHOCYTES - ABS 1.42 K/ul 1.18-3.74 (CELLAVISION)(BEAKER) (test code = 2831) MONOCYTES - ABS 0.53 K/uL 0.24-0.36 H (CELLAVISION)(BEAKER) (test code = 2832) TOTAL COUNTED (BEAKER) (test code 100 = 1351) RBC MORPHOLOGY (BEAKER) (test code Normal = 762) WBC MORPHOLOGY (BEAKER) (test code Normal = 487) PLT MORPHOLOGY (BEAKER) (test code Normal = 486) ARTIFACT (CELLAVISION)(BEAKER) Present (test code = 3432) PLATELET CONCENTRATION Adequate (CELLAVISION)(BEAKER) (test code = 3438) [employer] Vice President ID - Romina OverholtUser comments: Slide comments:POCT-GLUCOSE METER 2021-02-21 09:13:00 Test Item Value Reference Range Interpretation Comments POC-GLUCOSE METER 87 mg/dL 70-110 : TESTED A T [facility] [address] (BEAKER) (test code = [place] [facility], 1538) [id number]: [employer] 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 ID = [id number] for Ninfa Van MR, BRAIN, [id number] 08:27:00Unlisted Reason for Exam - Click Yes and Enter Reason Below->No Deos the patient have an implanted electronic device?->No [facility] 1960 Sex: FFINAL REPORT MR, BRAIN, WITH \\T\\ WITHOUT CONTRAST INDICATION:Seizure, abnormal neuro exam TECHNIQUE: Multiplanar, multisequence MR imaging of the brain was obtained before and after uneventful administration of gadolinium contrast. COMPARISON: April 16, 2018 FINDINGS:Severe global volume loss. Passive expansion of the ventricular and sulcal CSF spaces. Relatively mild, predominantly periventricular white matter disease. No recent infarct or hemorrhage. Midline is normally positioned. No migrational anomaly. Postcontrast sequences demonstrate no abnormal parenchymal, leptomeningeal or dural enhancement. No abnormality of the skull base or calvarium is present. The visualized paranasal sinuses, mastoid air cells, and orbits are within normal limits. IMPRESSION: Advanced involutional changes. No migrational anomaly or acute structural abnormality to explain seizure activity. Signed: JR Trevizo Robert MDRepdaniel Verified Date/Time: 02/21/2021 08:27:21 Reading Location: [facility] C013V Neuro Reading Room POCT-GLUCOSE [id number] 05:44:00 Test Item Value Reference Range Interpretation Comments POC-GLUCOSE METER 91 mg/dL 70-110 : TESTED A T [facility] [address] (BEAKER) (test code = [facility], 1538) [id number]: [employer] 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 ID = [id number] for MIRYAM ARAMBULA BASIC METABOLIC [id number] 05:36:00 Test Item Value Reference Range Interpretation Comments SODIUM (BEAKER) 130 meq/L 136-145 L (test code = 381) POTASSIUM (BEAKER) 2.8 meq/L 3.5-5.1 L (test code = 379) CHLORIDE (BEAKER) 93 meq/L 98-107 L (test code = 382) CO2 (BEAKER) (test 27 meq/L 22-29 code = 355) BLOOD UREA NITROGEN 4 mg/dL 7-21 L (BEAKER) (test code = 354) CREATININE (BEAKER) 0.43 mg/dL 0.57-1.25 L (test code = 358) GLUCOSE RANDOM 90 mg/dL 70-105 (BEAKER) (test code = 652) CALCIUM (BEAKER) 8.3 mg/dL 8.4-10.2 L (test code = 697) EGFR (BEAKER) (test 149 mL/min/1.73 ESTIM ATED GFR IS code = 1092) sq m NOT ACCURATE CREATININE CLEARANCE IN PREDICTING GLOMERULAR FILTRATION RATE . ESTIMATED GFR I S NOT APPLICABLE FOR DIALYSIS PATIEN TS. [employer] Vice President ID - DONI MPOCT-GLUCOSE [id number] 18:27:00 Test Item Value Reference Range Interpretation Comments POC-GLUCOSE METER 81 mg/dL 70-110 : TESTED A Obdulia [facility] [address] ([place]) (test code = [place], 1538) [id number]: [employer] 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 ID = [id number] for YULI RAMOS EEG W VID 12-26 HR CONTINUOUS MONITORING (VEEG)2021-02-20 15:39:00Reason for exam:->status epilepticus [facility] : 1960 Sex: FJAVIER [facility] REPORT NAME: Cathy Giraldo DATE(s) OF TEST: 02/19/2021- 02/20/2021 DATE OF REPORT: 02/20/2021 ACC: [id number] Start time/date: 9:49 AM, 02/19/2021 Stop time/date: 9:42 AM, 02/20/2021 ICD-10: R56.9 CPT Code: 53014 HISTORY: 60 F with PMH of epilepsy, HTN, HFrEF, tobacco and alcohol use, prior R temporal stroke admitted with status epilepticus on 02/18. MEDICATIONS THAT COULD AFFECT EEG: Keppra, dilantin, vimpat TECHNICAL SUMMARY: [facility] recorded with 32 input channels reviewed with bipolar and referential montages using the modified combinatorial system nomenclature. DESCRIPTION OF RECORD: During the maximally alert state no posterior dominant rhythm was seen. Background was co ntinuous, reactive to external stimuli and predominantly represented by 2-6 Hz frequency with superimposed faster beta activity. Asymmetry was appreciated especially in right temporal region where faster beta activity was lacking. Normal sleep architecture was not noted. INTERICTAL EPILEPTIFORM DISCHARGES: Occasional sharp wave discharges was noted in the right temporal region with maximum electronegativity at F8/FT10 and a times at P8. EVENTS/SEIZURES: 02/19, 17:56:16- 17:56:35 EEG: Manuel wave discharges at 0.5 Hz were noted in the right temporal region (F8,T8,P8) which became more rhythmic with further evolution in frequency (3-4 Hz) and amplitude before abruptly ending at 17:56:35. Clinical: No clinical correlate observed on the video HV: Hyperventilation was not done. PHOTIC STIMULATION: Photic stimulation was not done. ELECTROCARDIOGRAM EVENTS: Normal Sinus Rhythm IMPRESSION: Abnormal Video EEG in coma due to: 1. Electrographic seizure, Ictal EEG pattern, regional, right temporal. No clinical signs. 2. Continuous, slow generalized, delta/theta range, reactive 3.Continuous slow, lateralized, right hemisphere, maximal in the right temporal region 4. Occasionalsharp waves, regional, right temporal. CLINICAL CORRELATION: This EEG record is noted for interitcal epileptiform discharges in the right temporal region indicate underlying focal cortical irritability and increased risk of seizures further supported by an electrographic seizure that was captured arising from that region with no clear clinical signs. There is also evidence of a moderate degree ofencephalopathy, non-specific in etiology. Focal slowing in right temporal region is indicative of focal cortical dysfunction. NICU team was notified of above findings. Farrah Guzman MD Neurophysiology Fellow, PGY 5 I have personally reviewed this EEG and the report and I agree with the above note. Mary Rogel MD Clinical Neurophysiology/Epilepsy Attending PHENYTOIN LEVEL, TOTAL AND [id number] 14:59:00 Test Item Value Reference Range Interpretation Comments PHENYTOIN (DILANTIN) 31.0 ug/mL 10.0-20.0 H Test [facility] (test code [facility] = 605) [facility] PHENYTOIN FREE 1.77 mcg/ml 1.00-2.00 (BEAKER) (test code = 847) POCT-GLUCOSE [id number] 12:22:00 Test Item Value Reference Range Interpretation Comments POC-GLUCOSE METER 150 mg/dL 70-110 H : TESTED A T [facility] [address] (BEAKER) (test code [place], = 1538) [id number]: [employer] 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 ID = [id number] for Rafael sprague 9pca2), Meryem [id number] 09:29:00 Test Item Value Reference Range Interpretation Comments MAGNESIUM (BEAKER) (test code = 2.1 mg/dL 1.6-2.6 627) [employer] Vice President ID - KEYANA [id number] 09:29:00 Test Item Value Reference Range Interpretation Comments POTASSIUM (BEAKER) (test code = 4.0 meq/L 3.5-5.1 379) [employer] Vice President ID - KEYANA CRAD, CHEST, 1 VIEW, NON [id number] 09:00:00Reason for exam:->intubationShould this be performed at the bedside?->Yes [facility] : 1960 Sex: FFINAL REPORT Chest one view. Clinical history: intubation Comparison: February 18, 2021 Discussion: A frontal chest is provided. Cardiomediastinal contours are unchanged. Lines and tubes are in stable position. There are left greater than right bibasilar opacities, which may reflect atelectasis or consolidation. No pneumothorax or large effusion. Signed: Elda Lui Verified Date/Time: 02/20/2021 09:00:01 Reading Location: [address] Consult Reading Room PHENYTOIN LEVEL, [id number] 05:02:00 Test Item Value Reference Range Interpretation Comments PHENYTOIN (DILANTIN) (BEAKER) 19.0 ug/mL 10.0-20.0 (test code = 605) [employer] Vice President ID Mili REYNOLDS LBASIC METABOLIC [id number] 04:36:00 Test Item Value Reference Range Interpretation Comments SODIUM (BEAKER) 131 meq/L 136-145 L (test code = 381) POTASSIUM (BEAKER) 3.0 meq/L 3.5-5.1 L (test code = 379) CHLORIDE (BEAKER) 98 meq/L 98-107 (test code = 382) CO2 (BEAKER) (test 24 meq/L 22-29 code = 355) BLOOD UREA NITROGEN 8 mg/dL 7-21 (BEAKER) (test code = 354) CREATININE (BEAKER) 0.51 mg/dL 0.57-1.25 L (test code = 358) GLUCOSE RANDOM 128 mg/dL 70-105 H (BEAKER) (test code = 652) CALCIUM (BEAKER) 7.4 mg/dL 8.4-10.2 L (test code = 697) EGFR (BEAKER) (test 123 mL/min/1.73 ESTIM ATED GFR IS code = 1092) sq m NOT ACCURATE CREATININE CLEARANCE IN PREDICTING GLOMERULAR FILTRATION RATE . ESTIMATED GFR I S NOT APPLICABLE FOR DIALYSIS PATIEN TS. [employer] Vice President ID - GAIL [id number] 04:27:00 Test Item Value Reference Range Interpretation Comments MAGNESIUM (BEAKER) (test code = 1.6 mg/dL 1.6-2.6 627) [employer] Vice President ID - GAIL [id number] 04:27:00 Test Item Value Reference Range Interpretation Comments PHOSPHORUS (BEAKER) (test code = 3.0 mg/dL 2.3-4.7 604) [employer] Vice President ID - GAIL LHIGH SENSITIVITY TROPONIN [id number] 04:15:00 Test Item Value Reference Range Interpretation Comments HIGH SENSITIVITY 366 pg/ml See_Comment H [Automated message] TROPONIN I (test code The sy stem which = [id number]) generated this result transmitted ref erence range: <=17. Th e reference range was not used to int erpret this result as normal/abnormal . [employer] Vice President ID - PIAYA LThe PLASTER BLOCK LAYER STAT High Sensitivity Troponin-I results should be used in conjunction with other diagnostic information such as ECG, clinical observations and information, and patient symptoms to aid in the diagnosis of [place].BLOOD GAS, [id number] 04:01:00 Test Item Value Reference Range Interpretation Comments PH ARTERIAL (BEAKER) (test code = 7.46 7.35-7.45 H 383) PCO2 ARTERIAL (BEAKER) (test code 36 mm Hg 35-45 = 384) PO2 ARTERIAL (BEAKER) (test code = 197 mm Hg 80-90 H 385) O2 SATURATION ARTERIAL (BEAKER) 99.4 % 96.0-97.0 H (test code = 386) HCO3 ARTERIAL (BEAKER) (test code 25 mmol/L 21-29 = 388) BASE EXCESS ARTERIAL (BEAKER) 1.2 mmol/L -2.0-3.0 (test code = 387) PATIENT TEMPERATURE (BEAKER) (test 37.2 code = 1818) FIO2 (BEAKER) (test code = 1819) 70.0 CBC W/PLT COUNT & AUTO [id number] 03:56:00 Test Item Value Reference Range Interpretation Comments WHITE BLOOD CELL COUNT (BEAKER) 20.7 K/ L 3.5-10.5 H (test code = 775) RED BLOOD CELL COUNT (BEAKER) 3.03 M/ L 3.93-5.22 L (test code = 761) HEMOGLOBIN (BEAKER) (test code = 10.2 GM/DL 11.2-15.7 L 410) HEMATOCRIT (BEAKER) (test code = 28.8 % 34.1-44.9 L 411) MEAN CORPUSCULAR VOLUME (BEAKER) 95.0 fL 79.4-94.8 H (test code = 753) MEAN CORPUSCULAR HEMOGLOBIN 33.7 pg 25.6-32.2 H (BEAKER) (test code = 751) MEAN CORPUSCULAR HEMOGLOBIN CONC 35.4 GM/DL 32.2-35.5 (BEAKER) (test code = 752) RED CELL DISTRIBUTION WIDTH 13.7 % 11.7-14.4 (BEAKER) (test code = 412) PLATELET COUNT (BEAKER) (test 239 K/CU MM 150-450 code = 756) MEAN PLATELET VOLUME (BEAKER) 9.7 fL 9.4-12.3 (test code = 754) NUCLEATED RED BLOOD CELLS 0 /100 WBC 0-0 (BEAKER) (test code = 413) NEUTROPHILS RELATIVE PERCENT 85 % (BEAKER) (test code = 429) LYMPHOCYTES RELATIVE PERCENT 7 % (BEAKER) (test code = 430) MONOCYTES RELATIVE PERCENT 7 % (BEAKER) (test code = 431) EOSINOPHILS RELATIVE PERCENT 0 % (BEAKER) (test code = 432) BASOPHILS RELATIVE PERCENT 0 % (BEAKER) (test code = 437) NEUTROPHILS ABSOLUTE COUNT 17.58 K/ L 1.56-6.13 H (BEAKER) (test code = 670) LYMPHOCYTES ABSOLUTE COUNT 1.41 K/ L 1.18-3.74 (BEAKER) (test code = 414) MONOCYTES ABSOLUTE COUNT (BEAKER) 1.46 K/ L 0.24-0.36 H (test code = 415) EOSINOPHILS ABSOLUTE COUNT 0.02 K/ L 0.04-0.36 L (BEAKER) (test code = 416) BASOPHILS ABSOLUTE COUNT (BEAKER) 0.05 K/ L 0.01-0.08 (test code = 417) IMMATURE GRANULOCYTES-RELATIVE 1 % 0-1 PERCENT (BEAKER) (test code = 2801) POCT-GLUCOSE [id number] 21:25:00 Test Item Value Reference Range Interpretation Comments POC-GLUCOSE METER 126 mg/dL 70-110 H : TESTED A T [facility] 6720 (BEAKER) (test code = [facility], 1538) [id number]: [employer] 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 ID = [id number] for FLAKO POWELLO, JACKIE POCT-GLUCOSE [id number] 17:56:00 Test Item Value Reference Range Interpretation Comments POC-GLUCOSE METER 126 mg/dL 70-110 H : TESTED A T [facility] 6720 (BEAKER) (test code [facility], = 1538) [id number]: [employer] 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 ID = [id number] for Lili herman (pca2), Carla RAPID DRUG SCREEN, [id number] 17:04:00 Test Item Value Reference Range Interpretation Comments BARBITURATE URINE (BEAKER) (test Negative Negative code = 725) BENZODIAZEPINE SCREEN URINE (BEAKER) Positive Negative A (test code = 726) COCAINE (METAB.) SCREEN (BEAKER) Negative Negative (test code = 1164) METHADONE SCREEN (BEAKER) (test code Negative Negative = 1436) OPIATE SCREEN URINE (BEAKER) (test Positive Negative A code = 734) CANNABINOID SCREEN URINE (BEAKER) Positive Negative A (test code = 727) AMPH/METHAMPH SCREEN (BEAKER) (test Negative Negative code = 1438) PHENCYCLIDINE SCREEN URINE (BEAKER) Negative Negative (test code = 608) PH UA (BEAKER) (test code = 467) 6.5 5.0-8.0 DRUG CUTOFF CONC.Cocaine 300 ng/mL Cannabinoid 50 ng/mLBenzodiazepine 200 ng/mLBarbiturate 200 ng/mLPhencyclidine 25 ng/mLOpiate 300 ng/mLMethadone 300 ng/mLAmphetamine/ 1000 ng/mL MethamphetamineThis assay provides an unconfirmed qualitative test result for the clinical management of patients in emergency situations. Chain of custody not maintained. Some kubq-xha-mnuxrzg medications, as well as adulterants, may cause inaccurate results. Clinical correlation should be applied. A more comprehensivedrug screen or confirmation of a detected drug may be performed upon request.[employer] Vice President ID - [email or web address] 2021-02-19 15:59:00 Test Item Value Reference Range Interpretation Comments MAGNESIUM (BEAKER) 2.0 mg/dL 1.6-2.6 Specimen slightly (test code = 627) hemolyzed [employer] Vice President ID - GAIL LHIGH SENSITIVITY TROPONIN [id number] 15:20:00 Test Item Value Reference Range Interpretation Comments HIGH SENSITIVITY 694 pg/ml See_Comment HH [Automated message] TROPONIN I (test code The stem which = [id number]) generated this result transmitted ref erence range: <=17. Th e reference range was not used to int erpret this result as normal/abnormal . [employer] Vice President ID - TRICIAAYA LThe PLASTER BLOCK LAYER STAT High Sensitivity Troponin-I results should be used in conjunction with other diagnostic information such as ECG, clinical observations and information, and patient symptoms to aid in the diagnosis of [place].[id number] 15:18:00 Test Item Value Reference Range Interpretation Comments SODIUM (BEAKER) (test code = 381) 129 meq/L 136-145 L [employer] Vice President ID - GAIL LPOCT-GLUCOSE [id number] 12:30:00 Test Item Value Reference Range Interpretation Comments POC-GLUCOSE METER 126 mg/dL 70-110 H : TESTED Svitlana T [facility] 6720 ([place]) (test code [facility], = 1538) 96310: [employer] 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 ID = [id number] for Lili herman (pca2)Carla SARS-COV2/RT-PCR ([facility])2021-02-19 12:13:00 Test Item Value Reference Range Interpretation Comments SARS-COV2/RT-PCR (test Negative Not Detected, Negative, code = 6355023) See external report for linked test SARS-COV-2 PERFORMING LAB [facility] NICOLASA (test code = 1502489) Negative result for this test determines that SARS-CoV-2 RNA was not present in the specimen above the Limit of Detection (LOD). However, Negative results do not preclude SARS-CoV-2 infection and should not be used as the sole basis for treatment or patient management decisions. Negative results mustbe combined with clinical observations, patient history, and epidemiological information. A false negative result may occur if a specimen is improperly collected, transported or handled. A false negative result should be considered if patient's recent exposures or clinical presentation indicate that COVID-19 (SARS-CoV-2) is likely and diagnostic tests for other causes of illness are negative. Re-testing should be considered in cases of suspected false negatives.The limit of detection for this assay is 800 copies/mL.This SARS CoV-2 test is a real-time RT-PCR test intended for the qualitative detection of nucleic acid from SARS-CoV-2 in a nasopharyngeal swab specimen collected from individuals susp ected of COVID-19 by their healthcare provider.This test has not been Food and Drug Administration (FDA) cleared or approved. This is a modified version of an approved Emergency Use Authorization (EUA) and is in the process of review by the FDA. Once authorized by the FDA, the issued EUA will be effective until the declaration that circumstances exist justifying the authorization of the emergency use of in vitro diagnostic tests for detection and/or diagnosis of COVID-19 is terminated under Section 564(b)(2) of the Act or the EUA is revoked under Section 564(g) of the Act.Fact Sheet for Healthcare Providers:https://www.[employer].com/sites/default/files/product/documents/Fact_Steve alexanderw_UO_Nctymeuwy_Qcid_FHME-RjH-9.pdfFact Sheet for Healthcare Patients:https://www.[employer]/sites/default/files/product/ documents/Idpy_Dwvcz_Fwgbenfq_Apbj_HKOW-VwF-8.pdfPerforming Laboratory:[facility], [place] [address]SKKDWSOAQS W/ REFLEX URINE [id number] 11:01:00 Test Item Value Reference Range Interpretation Comments COLOR (BEAKER) (test code = 470) Light Yellow CLARITY (BEAKER) (test code = Clear 469) SPECIFIC GRAVITY UA (BEAKER) 1.016 1.001-1.035 (test code = 468) PH UA (BEAKER) (test code = 467) 6.5 5.0-8.0 PROTEIN UA (BEAKER) (test code = 50 mg/dL Negative A 464) GLUCOSE UA (BEAKER) (test code = Negative Negative 365) KETONES UA (BEAKER) (test code = Negative Negative 371) BILIRUBIN UA (BEAKER) (test code Negative Negative = 462) BLOOD UA (BEAKER) (test code = Trace Negative A 461) NITRITE UA (BEAKER) (test code = Negative Negative 465) LEUKOCYTE ESTERASE UA (BEAKER) Large Negative A (test code = 466) UROBILINOGEN UA (BEAKER) (test 0.2 mg/dL 0.2-1.0 code = 463) RBC UA (BEAKER) (test code = 0 /HPF 519) WBC UA (BEAKER) (test code = 114 /HPF 520) BACTERIA (BEAKER) (test code = None Seen 517) MUCUS (BEAKER) (test code = Rare 1574) SQUAMOUS EPITHELIAL (BEAKER) 2 /HPF (test code = 516) CRYSTALS, URINE (BEAKER) (test None Seen code = 1521) SOURCE(BEAKER) (test code = 2795) [employer] Vice President ID - [auto][employer] Vice President ID - [auto][employer] Vice President ID - [email or web address] 2021-02-19 09:32:00 Test Item Value Reference Range Interpretation Comments PROCALCITONIN (BEAKER) (test code 0.09 ng/mL <0.05 H = 3036) SEPSIS RISK (ng/mL)Low: 0.05-0.50Intermediate: 0.51-2.00High: >=2.01TSH/FREE T4 IF [id number] 09:17:00 Test Item Value Reference Range Interpretation Comments THYROID STIMULATING HORMONE 4.395 uIU/mL 0.350-4.940 (BEAKER) (test code = 772) [employer] Vice President ID - GAIL LHIGH SENSITIVITY TROPONIN [id number] 09:10:00 Test Item Value Reference Range Interpretation Comments HIGH SENSITIVITY 976 pg/ml See_Comment HH [Automated message] TROPONIN I (test code The sy stem which = [id number]) generated this result transmitted ref erence range: <=17. Th e reference range was not used to int erpret this result as normal/abnormal . [employer] Vice President ID - GAIL LThe PLASTER BLOCK LAYER STAT High Sensitivity Troponin-I results should be used in conjunction with other diagnostic information such as ECG, clinical observations and information, and patient symptoms to aid in the diagnosis of [place].PHENYTOIN LEVEL, [id number] 09:01:00 Test Item Value Reference Range Interpretation Comments PHENYTOIN (DILANTIN) (BEAKER) 25.3 ug/mL 10.0-20.0 H (test code = 605) [employer] Vice President ID - GAIL [id number] 08:55:00 Test Item Value Reference Range Interpretation Comments PREALBUMIN (BEAKER) (test code = 17 mg/dL 14-45 586) [employer] Vice President ID - GAIL [id number] 08:52:00 Test Item Value Reference Range Interpretation Comments ETHANOL (BEAKER) < mg/dL See_Comment [Automated message] The (test code = 400) system i generated this result tra nsmitted reference range : <=10. The reference r kian was not used to int erpret this result as normal/abnormal . [employer] Vice President ID - GAIL LLACTIC ACID, [id number] 08:51:00 Test Item Value Reference Range Interpretation Comments LACTATE BLOOD ARTERIAL (2) 0.8 mmol/L 0.5-2.2 (BEAKER) (test code = 2874) [employer] Vice President ID - GAIL LCBC W/PLT COUNT & AUTO [id number] 08:33:00 Test Item Value Reference Range Interpretation Comments WHITE BLOOD CELL COUNT (BEAKER) 19.1 K/ L 3.5-10.5 H (test code = 775) RED BLOOD CELL COUNT (BEAKER) 3.46 M/ L 3.93-5.22 L (test code = 761) HEMOGLOBIN (BEAKER) (test code = 11.6 GM/DL 11.2-15.7 410) HEMATOCRIT (BEAKER) (test code = 32.8 % 34.1-44.9 L 411) MEAN CORPUSCULAR VOLUME (BEAKER) 94.8 fL 79.4-94.8 (test code = 753) MEAN CORPUSCULAR HEMOGLOBIN 33.5 pg 25.6-32.2 H (BEAKER) (test code = 751) MEAN CORPUSCULAR HEMOGLOBIN CONC 35.4 GM/DL 32.2-35.5 (BEAKER) (test code = 752) RED CELL DISTRIBUTION WIDTH 13.7 % 11.7-14.4 (BEAKER) (test code = 412) PLATELET COUNT (BEAKER) (test 294 K/CU MM 150-450 code = 756) MEAN PLATELET VOLUME (BEAKER) 9.4 fL 9.4-12.3 (test code = 754) NUCLEATED RED BLOOD CELLS 0 /100 WBC 0-0 (BEAKER) (test code = 413) NEUTROPHILS RELATIVE PERCENT 75 % (BEAKER) (test code = 429) LYMPHOCYTES RELATIVE PERCENT 15 % (BEAKER) (test code = 430) MONOCYTES RELATIVE PERCENT 10 % (BEAKER) (test code = 431) EOSINOPHILS RELATIVE PERCENT 0 % (BEAKER) (test code = 432) BASOPHILS RELATIVE PERCENT 0 % (BEAKER) (test code = 437) NEUTROPHILS ABSOLUTE COUNT 14.33 K/ L 1.56-6.13 H (BEAKER) (test code = 670) LYMPHOCYTES ABSOLUTE COUNT 2.77 K/ L 1.18-3.74 (BEAKER) (test code = 414) MONOCYTES ABSOLUTE COUNT (BEAKER) 1.85 K/ L 0.24-0.36 H (test code = 415) EOSINOPHILS ABSOLUTE COUNT 0.06 K/ L 0.04-0.36 (BEAKER) (test code = 416) BASOPHILS ABSOLUTE COUNT (BEAKER) 0.03 K/ L 0.01-0.08 (test code = 417) IMMATURE GRANULOCYTES-RELATIVE 1 % 0-1 PERCENT (BEAKER) (test code = 2801) (CELLAVISION MANUAL DIFF)2021-02-19 08:33:00 Test Item Value Reference Range Interpretation Comments TOTAL COUNTED (BEAKER) (test code = 1351) WBC MORPHOLOGY (BEAKER) (test code = Normal 487) PLT MORPHOLOGY (BEAKER) (test code = Normal 486) ANISOCYTOSIS (BEAKER) (test code = 1+ few 961) MACROCYTES (BEAKER) (test code = 964) 1+ few [id number] 07:32:00 Test Item Value Reference Range Interpretation Comments MAGNESIUM (BEAKER) (test code = 1.6 mg/dL 1.6-2.6 627) [employer] Vice President ID - GAIL [id number] 07:32:00 Test Item Value Reference Range Interpretation Comments PHOSPHORUS (BEAKER) (test code = 4.7 mg/dL 2.3-4.7 604) [employer] Vice President ID - GAIL LB-TYPE NATRIURETIC FACTOR (BNP)2021-02-19 07:27:00 Test Item Value Reference Range Interpretation Comments B-TYPE NATRIURETIC PEPTIDE (BEAKER) 251 pg/mL 0-100 H (test code = 700) [employer] Vice President ID - PIHILL [id number] 07:13:00 Test Item Value Reference Range Interpretation Comments SODIUM (BEAKER) (test code = 381) 129 meq/L 136-145 L [employer] Vice President ID - GAIL LCALCIUM, [id number] 06:47:00 Test Item Value Reference Range Interpretation Comments CALCIUM IONIZED (BEAKER) (test 1.05 mmol/L 1.12-1.27 L code = 698) PH, BLOOD (BEAKER) (test code = 7.37 1810) BLOOD GAS, [id number] 06:46:00 Test Item Value Reference Range Interpretation Comments PH ARTERIAL (BEAKER) (test code = 7.37 7.35-7.45 383) PCO2 ARTERIAL (BEAKER) (test code 48 mm Hg 35-45 H = 384) PO2 ARTERIAL (BEAKER) (test code = 167 mm Hg 80-90 H 385) O2 SATURATION ARTERIAL (BEAKER) 99.0 % 96.0-97.0 H (test code = 386) HCO3 ARTERIAL (BEAKER) (test code 27 mmol/L 21-29 = 388) BASE EXCESS ARTERIAL (BEAKER) 1.0 mmol/L -2.0-3.0 (test code = 387) PATIENT TEMPERATURE (BEAKER) (test 37.4 code = 1818) FIO2 (BEAKER) (test code = 1819) 70.0 COMPREHENSIVE METABOLIC [id number] 05:01:00 Test Item Value Reference Range Interpretation Comments TOTAL PROTEIN 5.8 gm/dL 6.0-8.3 L (BEAKER) (test code = 770) ALBUMIN (BEAKER) 3.3 g/dL 3.5-5.0 L (test code = 1145) ALKALINE PHOSPHATASE 115 U/L 40-150 (BEAKER) (test code = 346) BILIRUBIN TOTAL 0.3 mg/dL 0.2-1.2 (BEAKER) (test code = 377) SODIUM (BEAKER) (test 129 meq/L 136-145 L code = 381) POTASSIUM (BEAKER) 4.0 meq/L 3.5-5.1 (test code = 379) CHLORIDE (BEAKER) 96 meq/L 98-107 L (test code = 382) CO2 (BEAKER) (test 25 meq/L 22-29 code = 355) BLOOD UREA NITROGEN 12 mg/dL 7-21 (BEAKER) (test code = 354) CREATININE (BEAKER) 0.62 mg/dL 0.57-1.25 (test code = 358) GLUCOSE RANDOM 117 mg/dL 70-105 H (BEAKER) (test code = 652) CALCIUM (BEAKER) 7.9 mg/dL 8.4-10.2 L (test code = 697) AST (SGOT) (BEAKER) 32 U/L 5-34 (test code = 353) ALT (SGPT) (BEAKER) 20 U/L 6-55 (test code = 347) EGFR (BEAKER) (test 98 mL/min/1.73 ESTIMA MARTA GFR IS code = 1092) sq m NOT ACCURATE CREATININE CLEARANCE IN PREDICTING GLOMERULAR FILTRATION RATE . ESTIMATED GFR I S NOT APPLICABLE FOR DIALYSIS PATIEN TS. [employer] Vice President ID - PIAYA [id number] 04:44:00 Test Item Value Reference Range Interpretation Comments PARTIAL THROMBOPLASTIN TIME 33.1 seconds 22.5-36.0 (BEAKER) (test code = 760) PROTHROMBIN TIME/[id number] 04:43:00 Test Item Value Reference Range Interpretation Comments PROTIME (BEAKER) 13.1 seconds 11.9-14.2 (test code = 759) INR (BEAKER) (test 1.01 See_Comment [Automat ed message] code = 370) The system [employer] generated this result transmitted ref erence range: <=5.90. The reference range was not used to int erpret this result as normal/abnormal . RECOMMENDED COUMADIN/WARFARIN INR THERAPY RANGESSTANDARD DOSE: 2.0 - 3.0 Includes: PROPHYLAXIS forvenous thrombosis, systemic embolization; TREATMENT for venous thrombosis and/or pulmonary embolus.HIGH RISK: Target INR is 2.5-3.5 for patients with mechanical heart valves.RAD, ABDOMEN/KUB, 1 VIEW [id number] 00:33:00Reason for exam:->feeding tube placementShould this be performed at the bedside?->Yes [facility] ALLIER[facility]LENA : 1960 Sex: FFINAL REPORT Abdomen one view Comparison: None. Reason for exam: feeding tube placement Findings: Supine view of the abdomen was performed. There is an enteric tube with tip in the gastric body. There is a nonspecific and nonobstructive bowel gas pattern. There is lumbosacral spinal fixation hardware. There is a mild age-indeterminate compression fracture deformity of L1; MRI or bone scan may be performed for further evaluation as clinically warranted. There is a right total hip arthroplasty. There are vascular calcifications. There is a retrocardiac opacity,which may represent atelectasis and/or pneumonia. Signed: Jo-Ann [place] Verified Date/Time: 02/19/2021 00:33:31 RAD, CHEST, 1 VIEW, NON [id number] 00:00:00Reason for exam:->CEREBROVASCULAR ACCIDENTShould this be performed at the bedside?->Yes [facility] : 1960 Sex: FFINAL REPORT RAD, CHEST, 1 VIEW, NON DEPT INDICATION: CEREBROVASCULAR ACCIDENT COMPARISON: 04/16/2018 04/17/2018 FINDINGS: Portable frontal view of the chest. IMPRESSION: Support Lines: ET tube terminates 4.5 cm above the juan. Enteric tube descends into theabdomen with tip overlying the proximal stomach. Lungs and pleura: Left lung base hazy opacities suggestive of atelectasis and/or small effusion. Right lung base scarring or atelectasis present. No pneumothorax.Heart and mediastinum: Within normal limits.Additional findings: Right ninth rib remote fracture deformity. Signed: Kosta Abbott MDReport Verified Date/Time: 02/19/2021 00:00:35 BLOOD GAS, [id number] 23:22:00 Test Item Value Reference Range Interpretation Comments PH ARTERIAL (BEAKER) (test code = 7.36 7.35-7.45 383) PCO2 ARTERIAL (BEAKER) (test code 39 mm Hg 35-45 = 384) PO2 ARTERIAL (BEAKER) (test code 118 mm Hg 80-90 H = 385) O2 SATURATION ARTERIAL (BEAKER) 98.2 % 96.0-97.0 H (test code = 386) HCO3 ARTERIAL (BEAKER) (test code 21 mmol/L 21-29 = 388) BASE EXCESS ARTERIAL (BEAKER) -3.7 mmol/L -2.0-3.0 L (test code = 387) PATIENT TEMPERATURE (BEAKER) 36.9 (test code = 1818) FIO2 (BEAKER) (test code = 1819) 70.0 CT, BRAIN/STROKE [id number] 22:15:00 [facility] 1960 Sex: FFINAL REPORT EXAM: CT head without contrast. CLINICAL HISTORY: TIA, initial exam. COMPARISON: Head CT 04/15/2018. TECHNIQUE: CT images of the head were obtained without intravenous contrast. This exam was performed according to our departmental dose optimization program which includes automated exposure control, adjustment of the mA and/or kV according to patient's size and/or use of iterative reconstructive technique. FINDINGS:There is generalized parenchymal atrophy. 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 There is colpocephaly. There are mild white matter microvascular ischemic changes.There is no acute intracranial hemorrhage, extra-axial fluid collection, mass effect, herniation, hydrocephalus or large demarcated acute territorial infarct. The basal cisterns are patent. There are bilateral lens replacements. The visualized paranasal sinuses andtympanomastoid cavities are clear. The skull base and calvarium are intact. IMPRESSION: Dysgenesis of the corpus callosum.Mild white matter microvascular ischemic changes. No CT evidence of an acute intracranial process. MRI may be performed for further evaluation if clinical suspicion for acute intracranial pathology persists. Discussed with neuro ICU resident at approximately 10:14 PM 02/18/2021. Signed: Jo-Ann [place] Verified Date/Time: 02/18/2021 22:15:30 COVID-19 (ID NOW RAPID TESTING)2020-07-09 00:20:00 Test Item Value Reference Range Interpretation Comments SARS-CoV-2 Rapid ID NOW Not Detected Not Detected (test code = 77832-3) QUANG (test code = QUANG) ID NOW COVID-19 Assay is an isothermal nucleic acid amplification test intended for the qualitative detection of nucleic acid from SARS-CoV-2 viral RNA in nasopharyngeal (MARKETING DATABASE COORDINATOR) specimens. It is used under Emergency Use Authorization (EUA) by FDA. The limit of detection (LOD) of the assay is 125 Genome Equivalents/mL. A positive result is indicative of the presence of SARS-CoV-2 RNA. ?Clinical correlation with patient history and other diagnostic information is necessary to determine patient infection status. A negative (Not Detected) result does not preclude SARS-CoV-2 infection. In patients with clinical symptoms and other tests that are consistent with SARS-CoV-2 infection, negative results should be treated as presumptive negative and a new specimen should be tested with alternative PCR molecular test. Invalid: Please collect a new specimen for repeat patient testing if clinically indicated. Lab Interpretation Normal (test code = 56772-5) [facility] 15[facility]43:00 Test Item Value Reference Range Interpretation Comments SURG (test code = SURG) RUN DATE: 07/04/20 [facility] PAGE 1 RUN TIME: 1544 Specimen Inquiry RUN USER: INTERFACE PATIENT: CATHY GIRALDO LOC: ANIKA U #: [id number] AGE/SX: 59/F ROOM: RE07/03/20REG DR: Alan Rob MD : 58 BED: DIS: STATUS: [facility] TLOC: SPEC #: [id number] RECD: 07/03/20 STATUS: LESTERObdulia REQ #: [id number] SHANNON: 07/03/20 [facility] DR: Alan Rob MD ENTERED: 07/03/20 SP TYPE: SURG OTHR DR: Jazlyn Carnes MD ORDERED: SURG PATH LVL 5 COPIES TO: Jazlyn Carnes MD [address] [place] [address] [place] [id number] [address] HISTOLOGY: TISSUE ID BLK PCS PB LEV PROCEDURE DISPOSITION ____ ___ ___ ___ URINARY BLADDER A 1 2 PROCEDURES: SURG PATH LVL 5 (07/03/20) TISSUES: A. URINARY BLADDER, NOS - BLADDER MASS BIOPSY CLINICAL HISTORY HEMATURIA - R31.29 CPT CODES CPT CODE(S): 17435 , , , , , , FINAL DIAGNOSIS Urinary bladder, biopsy: URINARY PAPILLOMA GROSS DESCRIPTION Bladder mass biopsy. Received in formalin are nine fragments of soft pink-gauthier tissue, together measuring 1.3 x 0.9 x 0.4 cm. The entire specimen is submitted as A. bk/nr Grossing performed at [facility] Pathology, [address] [place] [address], [address], CONTINUED ON NEXT PAGE RUN DATE: 07/04/20 [facility] PAGE 2 RUN TIME: 1544 Specimen Inquiry RUN USER: INTERFACE SPEC #: [facility]:[id number] PATIENT: CATHY GIRALDO #[id number] (Continued) GROSS DESCRIPTION (Continued) [place], [place] [address]. Smoke Control Supervisor: Diego Sevilla M.D. MICROSCOPIC DESCRIPTION Bladder mass biopsy. Sections a mixture of urothelial and squamous mucosa. The biopsy demonstrates a papillary appearance. No dysplasia or malignancy is identified. 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 Signed SIGNATURE ON FILE Abhay Smyth 07/04/20 1543 END OF REPORT COVID 19 INHOUSE [id number] 08:21:00 Test Item Value Reference Range Interpretation Comments COVID 19 INHOUSE AG NEGATIVE Negative Per manu facturer, (test code = negative result s should [id number]) be treated aspr esumptive and, if inconsi stent with clinical signs andsymptoms or necessary for patient man agement, should betested with an alternative mol ecular assay. Negative resultsdo not preclude SA RS-CoV-2 infection and s hould not be usedas the s ole basis for patient man agement decisions. Neg ative results should be considered in t he context of apatient's r ecent exposures, hist ory, presence of cli nicalsigns and symptoms co nsistent with COVID-19. - XR CHEST 1 [id number] 08:21:00 [facility] 1960 Sex: F Name: CATHY GIRALDO Dixon : 0 1960 Age/S: 59 / F [address] [address] [place] Unit #: [id number] Loc: [place] [address] Phys: Alan Rob MD Acct: [id number] Dis Date: Status: REG MOC PHONE #: [phone] Exam Date: 07/03/2020 08 FAX #: Reason: SURGERY EXAMS: CPT: [id number] XR CHEST 1 V 20788 Fluoro Time: DAP (Gy m2): Air Kerma (mGy): Single View Chest. Location: S17 Clinical Indication: 59-year-old with surgery Comparison: None Findings: An AP view of the chest was obtained. There is minimal linear atelectasis or scar of the right costophrenic angle. Lungs are otherwise clear. Heart size isnormal. No acute osseous abnormality. A remote right ninth rib fracture is present. Impression: Minimal right basilar atelectasis or scar. at 0821 Reported and signed by: Charlie Roth M.D.CC: Jazlyn Carnes MD; Alan Rob MD PAGE 1 Signed Report Name: CATHY GIRALDO [facility] : 1960 Age/S: 59 / F [address] [address] [place] Unit #: [id number] Loc: [place] [address] Phys: Alan Rob MD Acct: [id number] Dis Date: [facility] [phone] Exam Date: 07/03/2020 08 FAX #: Reason: SURGERY EXAMS: CPT: [id number] XR CHEST 1 V 83480 FluoroTime: DAP (Gy m2): Air Kerma (mGy): <Continued> Technologist: Clarissa Chatterjee RT(R) Trnflb Date/Time: 07/03/2020 (820) [email or web address] Orig Print D/T: S: 07/03/2020 (0859) PAGE 2 Signed ReportBASIC METABOLIC PANEL 2020-07-03 07:51:00 Test Item Value Reference Range Interpretation Comments SODIUM (test code = NA) 129 mmol/L 134-147 L POTASSIUM (test code = 4.7 mmol/L 3.4-5.0 N K) CHLORIDE (test code = 99 mmol/L 100-108 L CL) CARBON DIOXIDE (test 24 mmol/L 21-32 N code = CO2) ANION GAP (test code = 6.0 GAP calc 4.0-15.0 N GAP) GLUCOSE (test code = 80 MG/DL 70-110 N GLU) BLOOD UREA NITROGEN 8 MG/DL 7-18 N (test code = BUN) GLOMERULAR FILTRATION >=60 max estimate >60 RATE (test code = GFR) estGFR CREATININE (test code = 0.5 MG/DL 0.6-1.0 L CREAT) CALCIUM (test code = CA) 8.8 MG/DL 8.5-10.1 N BASIC METABOLIC [id number] 15:40:00 Test Item Value Reference Range Interpretation Comments SODIUM (test code = NA) 125 mmol/L 134-147 L POTASSIUM (test code = 4.3 mmol/L 3.4-5.0 N K) CHLORIDE (test code = 95 mmol/L 100-108 L CL) CARBON DIOXIDE (test 23 mmol/L 21-32 N code = CO2) ANION GAP (test code = 7.0 GAP calc 4.0-15.0 N GAP) GLUCOSE (test code = 74 MG/DL 70-110 N GLU) BLOOD UREA NITROGEN 9 MG/DL 7-18 N (test code = BUN) GLOMERULAR FILTRATION >=60 max estimate >60 RATE (test code = GFR) estGFR CREATININE (test code = 0.5 MG/DL 0.6-1.0 L CREAT) CALCIUM (test code = CA) 9.0 MG/DL 8.5-10.1 N PROTHROMBIN [id number] 14:15:00 Test Item Value Reference Range Interpretation Comments PT PATIENT (test code = PTP) 9.5 SECONDS 9.3-12.9 N INTERNATIONAL NORMAL RATIO 0.84 INR Unit 0.8-1.2 N (test code = INR) THROMBOPLASTIN TIME [id number] 14:15:00 Test Item Value Reference Range Interpretation Comments THROMBOPLASTIN TIME PARTIAL 29.5 SECONDS 26-35 N (test code = PTT) CBC W/AUTO [id number] 14:03:00 Test Item Value Reference Range Interpretation Comments WHITE BLOOD CELL (test code = 10.2 K/mm3 3.5-11.0 N WBC) RED BLOOD CELL (test code = 4.46 M/mm3 4.70-6.10 L RBC) HEMOGLOBIN (test code = HGB) 14.9 G/DL 10.4-14.9 N HEMATOCRIT (test code = HCT) 43.6 % 31.5-44.1 N MEAN CELL VOLUME (test code = 97.8 Fl 84.5-98.6 N MCV) MEAN CELL HGB (test code = MCH) 33.4 pg 27.0-34.2 N MEAN CELL HGB CONCETRATION 34.2 G/DL 31.5-34.0 H (test code = MCHC) RED CELL DISTRIBUTION WIDTH 14.4 SD 11.5-14.5 N (test code = RDW) PLATELET COUNT (test code = 329 K/mm3 150-450 N PLT) MEAN PLATELET VOLUME (test code 9.20 fL 7.0-10.5 N = MPV) NEUTROPHIL % (test code = NT%) 62.8 % 40-76 N IMMATURE GRANULOCYTE % (test 0.4 % 0.0-5.0 N code = IG%) LYMPHOCYTE % (test code = LY%) 25.1 % 20.5-51.1 N MONOCYTE % (test code = MO%) 10.0 % 1.7-9.3 H EOSINOPHIL % (test code = EO%) 1.4 % 0.0-6.0 N BASOPHIL % (test code = BA%) 0.3 % 0.0-2.0 N NUCLEATED RBC % (test code = 0.0 /100WBC% 0.0-1.0 N NRBC%) NEUTROPHIL # (test code = NT#) 6.4 K/mm3 1.8-7.6 N IMMATURE GRANULOCYTE # (test 0.04 x10 3/uL 0.00-0.03 H code = IG#) LYMPHOCYTE # (test code = LY#) 2.6 K/mm3 0.6-3.2 N MONOCYTE # (test code = MO#) 1.0 K/mm3 0.3-1.1 N EOSINOPHIL # (test code = EO#) 0.1 K/mm3 0.0-0.4 N BASOPHIL # (test code = BA#) 0.0 K/mm3 0.0-0.1 N NUCLEATED RBC # (test code = 0.0 K/mm3 0.0-0.1 N NRBC#) MANUAL DIFF REQUIRED (test code NO DIFF/SCN CRITERIA = MDIFF) CT Head W/O [id number] 14:07:21 No acute intracranial hemorrhage or mass effect. 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 Partially empty sella. Preliminary Report Dictated by Resident: Federica Wagner MD., have reviewed this study and agree with theabove report.CT HEAD WO CONTRAST HISTORY: Seizure. COMPARISON: CT head without contrast 06/28/2019 TECHNIQUE: ?Noncontrast CT imaging of the head was performed and coronaland sagittal reconstructions were obtained and reviewed. FINDINGS: Agenesis of the corpus callosum is noted. Asymmetric dilatation of theposterior body, occipital and temporal horns of the lateral ventricle,similar to prior. The cerebral sulci are normal in caliber andconfiguration. No midline shift or pathologicalextra-axial fluidcollection is present. The basal cisterns are unremarkable. There is no acute intracranial hemorrhage or significant mass effect. Noparenchymal attenuation abnormality. The light-white matter differentiationis preserved. Partially empty sella is seen. The mastoid air cells and paranasal air sinuses are clear. Groundglassappearance of the skull is noted, might be related to metabolic ?b onedisease. The calvarium and central skull base are intact. High riding right jugular bulb. [facility], Radiant Results Inft User - 04/30/2020 8:08 AM CSTCT HEAD WO CONTRASTHISTORY: Seizure.COMPARISON: CT head without contrast 06/28/2019TECHNIQUE: Noncontrast CT imaging of the head was performed and coron aland sagittal reconstructions were obtained and reviewed.FINDINGS:Agenesis of the corpus callosum is noted. Asymmetric dilatation of theposterior body, occipital and temporal horns of the lateral ventricle,similar to prior. The cerebral sulci are normal in caliber andconfiguration. No midline shift or pathological extra-axial fluidcollection is present. The basal cisterns are unremarkable.There is no acute intracranial hemorrhage or significant mass effect. Noparenchymal attenuation abnormality. The light-white matter differentiationis preserved. Partially empty sella is seen.The mastoid air cells and paranasal air sinuses are clear. Groundglassappearance of the skull is noted, might be related tometabolic bonedisease. 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 Greater than 2.5 ug/mL Test developed and characteristics determined by [facility] Laboratory Services. Lab Interpretation Normal (test code = 09037-9) [facility] WITH [id number] 12:39:00 Test Item Value Reference Range Interpretation Comments WBC (test code = See_Comment H [Automated 7385-2) message] The system which generated this result transmit marta reference range : 4.30 - 11.10 10*3/?L. The reference range was not used to interpret this result as normal/abnormal . RBC (test code = See_Comment [Automated 432-8) message] The system which generated this result transmit marta reference range : 3.93 - 5.25 10*6/?L. The reference range was not used to interpret this result as normal/abnormal . HGB (test code = 13.3 g/dL 11.6-15 718-7) HCT (test code = 37.1 % 35.7-45.2 4544-3) MCV (test code = 93.7 fL 80.6-95.5 787-2) MCH (test code = 33.6 pg 25.9-32.8 H 785-6) MCHC (test code = 35.8 g/dL 31.6-35.1 H 786-4) RDW-SD (test code = 45.0 fL 39-49.9 33148-2) RDW-CV (test code = 13.2 % 12-15.5 788-0) PLT (test code = See_Comment [Automated 777-3) message] The system which generated this result transmit marta reference range : 166 - 358 10*3/ ?L. The reference range was not u sed to interpret th is result as normal/abnormal . MPV (test code = 9.4 fL 9.5-12.9 L 61936-9) NRBC/100 WBC (test See_Comment [Automat ed code = 7394011916) message] The system which generated this result transmit marta reference range : 0.0 - 10.0 /100 WBCs. The reference range was not used to interpret this result as normal/abnormal . NRBC x10^3 (test code <0.01 See_Comment [Auto mated = 8394052281) message] The system which generated this result transmit marta reference range : 10*3/?L. The reference range was not used to interpret this result as normal/abnormal . GRAN MAT (NEUT) % 84.1 % (test code = 770-8) IMM GRAN % (test code 0.50 % = 7512665851) LYMPH % (test code = 7.1 % 736-9) MONO % (test code = 8.0 % 5905-5) EOS % (test code = 0.1 % 713-8) BASO % (test code = 0.2 % 706-2) GRAN MAT x10^3(ANC) 18.51 10*3/uL 1.88-7.09 H (test code = 8481435911) IMM GRAN x10^3 (test 0.12 10*3/uL 0-0.06 H code = 6507337110) LYMPH x10^3 (test code 1.56 10*3/uL 1.32-3.29 = 731-0) MONO x10^3 (test code 1.75 10*3/uL 0.33-0.92 H = 742-7) EOS x10^3 (test code = <0.03 0.03-0.39 L 711-2) BASO x10^3 (test code 0.05 10*3/uL 0.01-0.07 = 704-7) EVIE CELLS (test code 2+ See_Comment A [Auto mated = 9290-9) message] The system which generated this result transmit marta reference range : (none). The reference range was not used to interpret this result as normal/abnormal . Lab Interpretation Abnormal (test code = 41723-8) [facility] IrvingOSMOLALITY [id number] 12:21:00 Test Item Value Reference Range Interpretation Comments OSMOLALITY (test code = See_Comment L [Au tomated message] 6665361754) The system [email or web address] generated this result transmitted ref erence range: 278 - 30 5 mOsm/kg. The reference range was not used to int erpret this result as normal/abnormal . Lab Interpretation (test Abnormal code = 22439-5) [facility] IrvingSedimentation Rate - [id number] 12:09:00 Test Item Value Reference Range Interpretation Comments ESR (test code = See_Comment [Automated message] 1204700839) The system [email or web address] generated this result transmitted ref erence range: 0 - 20 m m/HR. The reference r kian was not used to interpret this result as normal/abnor mal. Lab Interpretation (test Normal code = 14593-4) [facility] METABOLIC PANEL (NA, K, CL, CO2, GLUCOSE, BUN, CREATININE, CA)2020-04-30 11:24:00 Test Item Value Reference Range Interpretation Comments NA (test code = 128 mmol/L 135-145 L 9041912731) K (test code = 3.3 mmol/L 3.5-5 L 2211970888) CL (test code = 99 mmol/L 98-108 1566505790) CO2 TOTAL (test code = 16 mmol/L 23-31 L 1904613036) AGAP (test code = 2-16 2313381883) BUN (test code = 8 mg/dL 7-23 9151181711) GLUCOSE (test code = 76 mg/dL 70-110 4788748614) CREATININE (test code = 0.35 mg/dL 0.5-1.04 L 2559471849) CALCIUM (test code = 8.4 mg/dL 8.6-10.6 L 5714956127) eGFR Calculation mL/min/1.73m2 (Non-) (test code = 6931785944) eGFR Calculation mL/min/1.73m2 () (test code = 5336161513) QUANG (test code = QUANG) Association of Glomerular Filtration Rate (GFR) and Staging of Kidney Disease* + --+ --+ ------+| GFR (mL/min/1.73 m2) ?| With Kidney Damage ?| ?Without Kidney Damage+ --------+ --------+ +| ?>90 ?| ?Stage one ?| ? Normal ?+ ---+ ---+ -------+| ?60-89 ?| ?Stage two ?| ? Decreased GFR ? + --+ --+ ------+| ?30-59 ?| ?Stage three ?| ? Stage three ? + --+ --+ ------+| ?15-29 ?| ?Stage four ? | ? Stage four ?+ ---+ ---+ -------+| ?<15 (or dialysis) ? ?| ?Stage five ? | ? Stage five ?+ ---+ ---+ -------+ *Each stage assumes the associated GFR level has been in effect for at least three months. ?Stages 1 to 5, with or without kidney disease, indicate chronic kidney disease. Notes: Determination of stages one and two (with eGFR >59mL/min/1.73 m2) requires estimation of kidney damage for at least three months as defined by structural or functional abnormalities of the kidney, manifested by either:Pathological abnormalities or Markers of kidney damage (including abnormalities in the composition of the blood or urine or abnormalities in imaging tests). Lab Interpretation Abnormal (test code = 41248-3) [facility] IrvingGALV/CLC ONLY - URINE DRUG (IMMUNOASSAY) - COMPREHENSIVE DRUG [id number] 05:25:00 Test Item Value Reference Range Interpretation Comments AMPHET (test code = Negative Negative 0051878856) ESTHER U (test code = Negative Negative 1048517729) BENZO U (test code = Negative Negative 8930091246) Cocaine Metabolite (test Negative Negative code = 5415794635) METHADONE (test code = Negative Negative 3079523192) OPIATES (test code = Negative Negative 4365430044) PCP (test code = Negative Negative 6578560531) THC (test code = Presumptive Positive Negative A 5562342032) QUANG (test code = QUANG) Urine Drug Cutoff Ranges Cocaine: ? 150 ng/mLBenzodiazepines: ? ? 200 ng/mLMethadone: ? 300 ng/mLAmphetamine: ? 1,000 ng/mLOpiates: ? 300 ng/mLCannabinoids: ?50 ng/mLPhencyclidine: ? ? ? 25 ng/mLBarbiturates: ?200 ng/mL The results are to be used only for medical (i.e., treatment) purposes. Unconfirmed screening results must not be used for non-medical purposes (e.g., employment testing, legal testing). Lab Interpretation (test Abnormal code = 50285-3) [facility] IrvingCREATININE, URINE [id number] 05:04:00 Test Item Value Reference Range Interpretation Comments CREAT U (test code = 4366930698) 29.2 mg/dL [facility] IrvingSODIUM, URINE [id number] 05:04:00 Test Item Value Reference Range Interpretation Comments NA URINE (test code = 2353436476) 103 mmol/L [facility] IrvingUREA NITROGEN, URINE [id number] 05:04:00 Test Item Value Reference Range Interpretation Comments UREA N UR (test code = 4202798586) 324 mg/dL [facility] IrvingOSMOLALITY [id number] 04:57:00 Test Item Value Reference Range Interpretation Comments OSMO U (test code = See_Comment [Automa marta message] 2383913878) The system [employer] h generated this result transmitted ref erence range: 50-1,100 mOsm/kg. The re ference range was not u sed to interpret this result as normal/abnor mal. Lab Interpretation (test Normal code = 30116-9) [facility] 1 [id number] 23:40:22 No acute cardiopulmonary process. Bibasilar atelectasis. Preliminary Report Dictated by Resident: Riley Patel MD., have reviewed this study and agree with theabove report.PROCEDURE: XR CHEST 1 VW CLINICAL INDICATION: sob TECHNIQUE: Frontal chest radiograph was obtained. COMPARISON: 01/22/2019 FINDINGS: The lungs show no acute infiltrate. There is bibasilar atelectasis (leftslightly worse than right). No pleural effusion or pneumothorax is seen. The heart is normal in size.A coronary stent is noted. No acute bony abnormality is noted. Moderate right posterior ninth ribfracture. [facility], Radiant Results Inft User - 04/29/2020 5:41 PM CSTPROCEDURE: XR CHEST 1 VWCLINICAL INDICATION: sob TECHNIQUE: Frontal chest radiograph was obtained.COMPARISON: 01/22/2019FINDINGS:The lungs show no acute infiltrate. There is bibasilar atelectasis (leftslightly worse than right). No pleural effusion or pneumothorax is seen. The heart is normal in size. A coronary stent is noted.No acute bony abnormality is noted. Moderate right posterior ninth ribfracture.IMPRESSIONNo acute cardiopulmonaryprocess. Bibasilar atelectasis.Preliminary Report Dictated by Resident: Riley Maldonado MD., have reviewed this study and agree with theabove report.[facility] IrvingAC PANEL 21 + LACTIC [id number] 23:02:00 Test Item Value Reference Range Interpretation Comments PH (test code = 7.32-7.42 4123938580) PCO2 DEIRDRE (test code = See_Comment L [Auto mated 8650076798) message] The sy stem which generated this result transmitted reference range : 41 - 51 mmHg. The reference range was not used to interpret this result as normal/abnormal . PO2 DEIRDRE (test code = See_Comment [Autom ated 3791727025) message] The sy stem which generated this result transmitted reference range : 25 - 40 mmHg. The reference range was not used to interpret this result as normal/abnormal . HCO3 DEIRDRE (test code = See_Comment L [Auto mated 7937775826) message] The sy stem which generated this result transmitted reference range : 24 - 28 mEq/L. The reference range was not used to interpret this result as normal/abnormal . AC VBE(BEAKER) (test mEq/L code = 5446801297) THB DEIRDRE (test code = 15.4 g/dL 12-16 3089869610) %O2HB DEIRDRE (test code = 66.0 % 52-63 H 3685373569) %COHB DEIRDRE (test code = 2.6 % 0-1.5 H 6633992501) %METHB DEIRDRE (test code = 0.3 % 0.4-1.5 L 4264286349) VOL%O2 DEIRDRE (test code = 14.2 % 6-12 H 2198654363) NA (test code = 130 mmol/L 135-145 L 1190352368) K+ (test code = 4.5 mmol/L 3.5-5 1440778424) AC CA IONZ (test code = 4.10 mg/dL 4.5-5.3 L 4603079659) GLUCOSE (test code = 131 mg/dL 70-110 H 9700820559) LACTIC ACID (test code 3.39 mmol/L = 3539658174) Lab Interpretation Abnormal (test code = 53043-4) [facility] IrvingPHENYTOIN2020-11-01 22:25:00 Test Item Value Reference Range Interpretation Comments PHENYTOIN (test code = 10.5 ug/mL 10-20 5015937809) QUANG (test code = QUANG) Toxic Range: ? 0-3 Months ? Greater than 14 ug/mL ? ? 3 Months - 150 Years ? ? Greater than 20 ug/mL Lab Interpretation (test Normal code = 35611-7) [facility] IrvingCOVID-19 (ID NOW RAPID TESTING)2020-04-29 22:07:00 Test Item Value Reference Range Interpretation Comments SARS-CoV-2 Rapid ID NOW Not Detected Not Detected (test code = 71209-0) QUANG (test code = QUANG) ID NOW COVID-19 Assay is an isothermal nucleic acid amplification test intended for the qualitative detection of nucleic acid from SARS-CoV-2 viral RNA in nasopharyngeal (MARKETING DATABASE COORDINATOR) specimens. It is used under Emergency Use Authorization (EUA) by FDA. The limit of detection (LOD) of the assay is 125 Genome Equivalents/mL. A positive result is indicative of the presence of SARS-CoV-2 RNA. ?Clinical correlation with patient history and other diagnostic information is necessary to determine patient infection status. A negative (Not Detected) result does not preclude SARS-CoV-2 infection. In patients with clinical symptoms and other tests that are consistent with SARS-CoV-2 infection, negative results should be treated as presumptive negative and a new specimen should be tested with alternative PCR molecular test. Invalid: Please collect a new specimen for repeat patient testing if clinically indicated. Lab Interpretation Normal (test code = 89975-6) [facility] IrvingHepatic Function Panel (ALB, T.PRO, BILI T, BU/BC, ALT, AST, ALK PHOS)2020-04-29 21:54:00 Test Item Value Reference Range Interpretation Comments TOTAL BILI (test code = 6696141838) 0.5 mg/dL 0.1-1.1 BILI UNCON (test code = 8000979393) 0.4 mg/dL 0.1-1.1 BILI CONJ (test code = 0042052167) 0.0 mg/dL 0-0.3 T PROTEIN (test code = 1217904369) 7.6 g/dL 6.3-8.2 ALBUMIN (test code = 2136783291) 4.4 g/dL 3.5-5 ALK PHOS (test code = 1801706529) 171 U/L 34-122 H ALTv (test code = 1742-6) 37 U/L 5-35 H AST(SGOT) (test code = 1397814380) 90 U/L 13-40 H Lab Interpretation (test code = Abnormal 21938-2) [facility] IrvingBasic Metabolic Panel (NA, K, CL, CO2, GLUCOSE, BUN, CREATININE, CA)2020-04-29 21:47:00 Test Item Value Reference Range Interpretation Comments NA (test code = 126 mmol/L 135-145 L 6540862650) K (test code = 3.6 mmol/L 3.5-5 9973236912) CL (test code = 94 mmol/L 98-108 L 0709919867) CO2 TOTAL (test code = 11 mmol/L 23-31 L 8993970920) AGAP (test code = 2-16 H 3606528132) BUN (test code = 13 mg/dL 7-23 5311589428) GLUCOSE (test code = 219 mg/dL 70-110 H 6541426563) CREATININE (test code = 0.53 mg/dL 0.5-1.04 9775008043) CALCIUM (test code = 8.9 mg/dL 8.6-10.6 9861446498) eGFR Calculation mL/min/1.73m2 (Non-) (test code = 1248391086) eGFR Calculation mL/min/1.73m2 () (test code = 2660118089) QUANG (test code = QUANG) Association of Glomerular Filtration Rate (GFR) and Staging of Kidney Disease* + --+ --+ ------+| GFR (mL/min/1.73 m2) ?| With Kidney Damage ?| ?Without Kidney Damage+ --------+ --------+ +| ?>90 ?| ?Stage one ?| ? Normal ?+ ---+ ---+ -------+| ?60-89 ?| ?Stage two ?| ? Decreased GFR ? + --+ --+ ------+| ?30-59 ?| ?Stage three ?| ? Stage three ? + --+ --+ ------+| ?15-29 ?| ?Stage four ? | ? Stage four ?+ ---+ ---+ -------+| ?<15 (or dialysis) ? ?| ?Stage five ? | ? Stage five ?+ ---+ ---+ -------+ *Each stage assumes the associated GFR level has been in effect for at least three months. ?Stages 1 to 5, with or without kidney disease, indicate chronic kidney disease. Notes: Determination of stages one and two (with eGFR >59mL/min/1.73 m2) requires estimation of kidney damage for at least three months as defined by structural or functional abnormalities of the kidney, manifested by either:Pathological abnormalities or Markers of kidney damage (including abnormalities in the composition of the blood or urine or abnormalities in imaging tests). Lab Interpretation Abnormal (test code = 39664-6) [facility] IrvingLipase [id number] 21:47:00 Test Item Value Reference Range Interpretation Comments LIPASE (test code = 8028505062) 122 U/L 0-220 Lab Interpretation (test code = Normal 91038-8) [facility] IrvingCREATINE [id number] 21:47:00 Test Item Value Reference Range Interpretation Comments CK (test code = 4327050917) 45 U/L 33-194 Lab Interpretation (test code = Normal 64444-6) [facility] IrvingUrinalysis2020-11-01 21:45:00 Test Item Value Reference Range Interpretation Comments APPEARANCE (test code = Hazy Clear A 0311586039) COLOR (test code = Yellow Yellow 6989519011) PH (test code = 4.8-8.0 4903535244) SP GRAVITY (test code = 1.003-1.030 2888924381) GLU U QUAL (test code = 50 mg/dL Normal A 7392995766) BLOOD (test code = 1+ Negative A 4222359634) KETONES (test code = 5 mg/dL Negative A 3152534845) PROTEIN (test code = 100 mg/dL Negative A 2887-8) UROBILIN (test code = Normal Normal 7163827617) BILIRUBIN (test code = Negative Negative 6450167145) NITRITE (test code = Negative Negative 7758168918) LEUK KARINA (test code = 500/uL Negative A 1057597346) RBC/HPF (test code = See_Comment [Autom ated message] 0419121597) The system [email or web address] generated this result transmit marta reference range : 0 - 3 HPF. The refe rence range was not u sed to interpret th is result as normal/abnormal . WBC/HPF (test code = See_Comment H [Autom ated message] 1200708712) The system [email or web address] generated this result transmit marta reference range : 0 - 5 HPF. The refe rence range was not u sed to interpret th is result as normal/abnormal . BACTERIA (test code = Few Negative A 2671758631) SQ EPITH (test code = <1 HPF 0123361220) WBC CLUMPS (test code = See_Comment H [Au tomated message] 4185100882) The system [email or web address] generated this result transmit marta reference range : <=1 HPF. The refere nce range was not u sed to interpret th is result as normal/abnormal . HYAL CAST (test code = See_Comment [Aut omated message] 7047395877) The system [email or web address] generated this result transmit marta reference range : <=2 LPF. The refere nce range was not u sed to interpret th is result as normal/abnormal . Lab Interpretation (test Abnormal code = 05681-8) [facility] with [id number] 21:24:00 Test Item Value Reference Range Interpretation Comments WBC (test code = See_Comment H [Automated 6690-2) message] The system which generated this result transmit marta reference range : 4.30 - 11.10 10*3/?L. The reference range was not used to interpret this result as normal/abnormal . RBC (test code = See_Comment [Automated 789-8) message] The system which generated this result transmit marta reference range : 3.93 - 5.25 10*6/?L. The reference range was not used to interpret this result as normal/abnormal . HGB (test code = 14.0 g/dL 11.6-15 718-7) HCT (test code = 39.9 % 35.7-45.2 4544-3) MCV (test code = 95.9 fL 80.6-95.5 H 787-2) MCH (test code = 33.7 pg 25.9-32.8 H 785-6) MCHC (test code = 35.1 g/dL 31.6-35.1 786-4) RDW-SD (test code = 47.7 fL 39-49.9 86606-4) RDW-CV (test code = 13.5 % 12-15.5 788-0) PLT (test code = See_Comment H [Automated 777-3) message] The system which generated this result transmit marta reference range : 166 - 358 10*3/ ?L. The reference range was not u sed to interpret th is result as normal/abnormal . MPV (test code = 9.3 fL 9.5-12.9 L 38087-5) NRBC/100 WBC (test See_Comment [Automat ed code = 7604506812) message] The system which generated this result transmit marta reference range : 0.0 - 10.0 /100 WBCs. The reference range was not used to interpret this result as normal/abnormal . NRBC x10^3 (test code <0.01 See_Comment [Auto mated = 9809266670) message] The system which generated this result transmit marta reference range : 10*3/?L. The reference range was not used to interpret this result as normal/abnormal . GRAN MAT (NEUT) % 68.6 % (test code = 770-8) IMM GRAN % (test code 0.50 % = 7064076705) LYMPH % (test code = 22.1 % 736-9) MONO % (test code = 8.0 % 5905-5) EOS % (test code = 0.4 % 713-8) BASO % (test code = 0.4 % 706-2) GRAN MAT x10^3(ANC) 10.30 10*3/uL 1.88-7.09 H (test code = 1201297572) IMM GRAN x10^3 (test 0.08 10*3/uL 0-0.06 H code = 7249667811) LYMPH x10^3 (test code 3.33 10*3/uL 1.32-3.29 H = 731-0) MONO x10^3 (test code 1.21 10*3/uL 0.33-0.92 H = 742-7) EOS x10^3 (test code = 0.06 10*3/uL 0.03-0.39 711-2) BASO x10^3 (test code 0.06 10*3/uL 0.01-0.07 = 704-7) Lab Interpretation Abnormal (test code = 95818-9) [facility] [id number] 21:08:00 Test Item Value Reference Range Interpretation Comments LACTIC ACID (test code = 7.37 mmol/L 5978407531) [facility] IrvingUS RETROPERITONEAL [id number] 18:08:18 Bilateral nonobstructive subcentimeter 5 mm lower pole calculi. Layering sediment/debris within the urinary bladder. Minimal cortical thinning seen bilaterally. Preserved corticomedullarydifferentiation and normal renal echogenicity.ULTRASOUND RENAL INDICATION: Microscopic hematuria COMPARISON: 01/27/2017. FINDINGS: Right kidney measures 9.4 x 4.0 x 4.4 cm. There is normal renal corticalechogenicity and corticomedullary differentiation. Mild cortical thinning.No hydronephrosis. 4 mm echogenic focus within the right interpolar regionprobably represents a small nonobstructive calculus. There is qualitat ivelynormal perfusion on color doppler interrogation. Left kidney measures 8.4 x 3.9 x 4.0 cm. Thereis normal renal corticalechogenicity and corticomedullary differentiation. 2 mm echogenic lesionwithin the left lower renal pole probably represents a small nonobstructivecalculus. No hydronephrosis. There is qualitatively normal perfusion oncolor doppler interrogation. Partially decompressed bladder contains multiple low-level echoesconcerning for layering sediment. [facility], Radiant Results [facility] User - 04/16/2020 1:09 PM CDTULTRASOUND RENALINDICATION: Microscopic hematuriaCOMPARISON: 01/27/2017.FINDINGS:Right kidney measures 9.4 x 4.0 x 4.4 cm. There is normal renal corticalechogenicity and corticomedullary differentiation. Mild cortical thinning.No hydronephrosis. 4 mm echogenic focus within the right interpolar regionprobably represents a small nonobstructive calculus. There is qualitativelynormal perfusion on color doppler interrogation.Left kidney measures 8.4 x 3.9 x 4.0 cm. There is normal renal corticalechogenicity and corticomedullary differentiation. 2 mm echogenic lesionwithin the left lower renal pole probably represents a small nonobstructivecalculus. No hydronephrosis. There is qualitatively normal perfusion oncolor doppler interrogation.Partially decompressed bladder contains multiple low-level echoesconcerning for layering sediment. IMPRESSIONBilateral nonobstructive subcentimeter 5 mm lower pole calculi.Layering sediment/debris within the urinary bladder.Minimal cortical thinning seen bilaterally. Preserved corticomedullarydifferentiation and normal renal echogenicity.[facility] HmblapCROPAUWDKH6784-08-55 18:33:0066.0[facility] HermannTOXICOLOGY 2019-11-25 18:33:005.6[facility] TctupwfAAMPJGLZLZ3944-79-60 18:33:009.1[facility] QaircudCLOCMPBTXQ9467-11-43 18:33:0066.0[facility] XiwatyoJMHRPLQCVV8141-64-93 18:33:005.6[facility] LtndsvdMFSSBWHSDI8008-32-38 18:33:009.1[facility] HPTDSEZXZ9110-01-60 23:52:00 Test Item Value Reference Range Interpretation Comments PHENYTOIN (test code = 9.2 ug/mL 10-20 L 1103574047) QUANG (test code = QUANG) Toxic Range: ? 0-3 Months ? Greater than 14 ug/mL ? ? 3 Months - 150 Years ? ? Greater than 20 ug/mL Lab Interpretation (test Abnormal code = 73519-3) [facility] Metabolic Panel (NA, K, CL, CO2, GLUCOSE, BUN, CREATININE, CA)2019-10-16 23:26:00 Test Item Value Reference Range Interpretation Comments NA (test code = 127 mmol/L 135-145 L 4595132523) K (test code = 4.0 mmol/L 3.5-5 3362482846) CL (test code = 96 mmol/L 98-108 L 7740547639) CO2 TOTAL (test code = 18 mmol/L 23-31 L 4733332522) AGAP (test code = 2-16 0675683460) BUN (test code = 14 mg/dL 7-23 5502553407) GLUCOSE (test code = 148 mg/dL 70-110 H 0382636979) CREATININE (test code = 0.57 mg/dL 0.5-1.04 7621817415) CALCIUM (test code = 8.9 mg/dL 8.6-10.6 8844093999) eGFR Calculation mL/min/1.73m2 (Non-) (test code = 9083391336) eGFR Calculation mL/min/1.73m2 () (test code = 4093269389) QUANG (test code = QUANG) Association of Glomerular Filtration Rate (GFR) and Staging of Kidney Disease* + --+ --+ ------+| GFR (mL/min/1.73 m2) ?| With Kidney Damage ?| ?Without Kidney Damage+ --------+ --------+ +| ?>90 ?| ?Stage one ?| ? Normal ?+ ---+ ---+ -------+| ?60-89 ?| ?Stage two ?| ? Decreased GFR ? + --+ --+ ------+| ?30-59 ?| ?Stage three ?| ? Stage three ? + --+ --+ ------+| ?15-29 ?| ?Stage four ? | ? Stage four ?+ ---+ ---+ -------+| ?<15 (or dialysis) ? ?| ?Stage five ? | ? Stage five ?+ ---+ ---+ -------+ *Each stage assumes the associated GFR level has been in effect for at least three months. ?Stages 1 to 5, with or without kidney disease, indicate chronic kidney disease. Notes: Determination of stages one and two (with eGFR >59mL/min/1.73 m2) requires estimation of kidney damage for at least three months as defined by structural or functional abnormalities of the kidney, manifested by either:Pathological abnormalities or Markers of kidney damage (including abnormalities in the composition of the blood or urine or abnormalities in imaging tests). Lab Interpretation Abnormal (test code = 66700-7) [facility] Irving[facility] Function [facility] (ALB, T.PRO, BILI T, BU/BC, ALT, AST, ALK PHOS)2019-10-16 23:26:00 Test Item Value Reference Range Interpretation Comments TOTAL BILI (test code = 8756941562) 0.3 mg/dL 0.1-1.1 BILI UNCON (test code = 7108490179) 0.4 mg/dL 0.1-1.1 BILI CONJ (test code = 7783571148) 0.0 mg/dL 0-0.3 T PROTEIN (test code = 2142191068) 7.5 g/dL 6.3-8.2 ALBUMIN (test code = 0558533417) 4.4 g/dL 3.5-5 ALK PHOS (test code = 7408595578) 189 U/L 34-122 H ALTv (test code = 1742-6) 22 U/L 5-35 AST(SGOT) (test code = 6428784514) 66 U/L 13-40 H Lab Interpretation (test code = Abnormal 28539-2) [facility] IrvingCB WITH WHWBUKVVWAAJ7289-57-70 22:33:00 Test Item Value Reference Range Interpretation Comments WBC (test code = See_Comment H [Automated 6690-2) message] The sy stem which generated this result transmitted reference range : 4.30 - 11.10 10*3/?L. The reference range was not used to interpret this result as normal/abnormal . RBC (test code = See_Comment [Automated 789-8) message] The sy stem which generated this result transmitted reference range : 3.93 - 5.25 10*6/?L. The reference range was not used to interpret this result as normal/abnormal . HGB (test code = 13.4 g/dL 11.6-15 718-7) HCT (test code = 38.3 % 35.7-45.2 4544-3) MCV (test code = 95.5 fL 80.6-95.5 787-2) MCH (test code = 33.4 pg 25.9-32.8 H 785-6) MCHC (test code = 35.0 g/dL 31.6-35.1 786-4) RDW-SD (test code = 49.3 fL 39-49.9 34853-8) RDW-CV (test code = 14.1 % 12-15.5 788-0) PLT (test code = See_Comment [Automated 777-3) message] The sy stem which generated this result transmitted reference range : 166 - 358 10*3/ ?L. The reference r kian was not used to interpret this result as normal/abnormal . MPV (test code = 9.4 fL 9.5-12.9 L 80733-9) NRBC/100 WBC (test See_Comment [Automat ed code = 8154595417) message] The system which generated this result transmitted reference range : 0.0 - 10.0 /100 WBCs. The refer ence range was not u sed to interpret th is result as normal/abnormal . NRBC x10^3 (test code <0.01 See_Comment [Auto mated = 4531686258) message] The s ystem which generated this result transmitted reference range : 10*3/?L. The reference range was not used to interpret this result as normal/abnormal . GRAN MAT (NEUT) % 70.6 % (test code = 770-8) IMM GRAN % (test code 0.60 % = 6753422075) LYMPH % (test code = 19.2 % 736-9) MONO % (test code = 9.0 % 5905-5) EOS % (test code = 0.3 % 713-8) BASO % (test code = 0.3 % 706-2) GRAN MAT x10^3(ANC) 8.16 10*3/uL 1.88-7.09 H (test code = 5719467686) IMM GRAN x10^3 (test 0.07 10*3/uL 0-0.06 H code = 9100719005) LYMPH x10^3 (test code 2.22 10*3/uL 1.32-3.29 = 731-0) MONO x10^3 (test code 1.04 10*3/uL 0.33-0.92 H = 742-7) EOS x10^3 (test code = 0.04 10*3/uL 0.03-0.39 711-2) BASO x10^3 (test code 0.04 10*3/uL 0.01-0.07 = 704-7) Lab Interpretation Abnormal (test code = 12835-6) [facility] IrvingPONH GLUCOSE (AUTOMATED)2019-10-16 22:26:00 Test Item Value Reference Range Interpretation Comments POCT GLU (test code = 5162903624) 158 mg/dL 70-110 H Lab Interpretation (test code = Abnormal 58737-3) [facility] IrvingTOXICOLOGY2020-04-09 16:52:0013.2[facility] SetqmyaSTDBMTSGAT9646-18-40 16:52:0080.0[facility] XufbcyuYAZHVUVCTP9734-96-81 16:52:0013.2[facility] LcjwdtvCARPISZIKJ4581-29-80 16:52:0080.0[facility] ORGKLHWSTB0384-91-14 18:24:00 Test Item Value Reference Range Interpretation Comments APPEARANCE (test code = Clear Clear 9540806811) COLOR (test code = Yellow Yellow 7183525813) PH (test code = 4.8-8.0 0792725001) SP GRAVITY (test code = 1.003-1.030 4579697962) GLU U QUAL (test code = Negative Negative 9805840979) BLOOD (test code = Negative Negative 2568569822) KETONES (test code = Negative Negative 7730042639) PROTEIN (test code = Negative Negative 2887-8) UROBILIN (test code = 0.2 mg/dL See_Comment [Auto mated message] 8819905973) The system [email or web address] generated this result transmit marta reference range : 0-1.0 mg/dL. Th e reference range was not used to interpret this result as normal/abnormal . BILIRUBIN (test code = Negative Negative 0948123314) NITRITE (test code = Negative Negative 1311076536) LEUK KARINA (test code = Negative Negative 3824737007) RBC/HPF (test code = See_Comment [Autom ated message] 8239718565) The system [email or web address] generated this result transmit marta reference range : 0 - 3 HPF. The refe rence range was not u sed to interpret th is result as normal/abnormal . WBC/HPF (test code = See_Comment [Autom ated message] 3488887973) The system [email or web address] generated this result transmit marta reference range : 0 - 5 HPF. The refe rence range was not u sed to interpret th is result as normal/abnormal . BACTERIA (test code = Negative Negative 5254000579) AMORPHOUS (test code = 1+ HPF 2878494868) SQ EPITH (test code = HPF 2292835352) YEAST BUD (test code = See_Comment H [Aut omated message] 6461188110) The system [email or web address] generated this result transmit marta reference range : <=1 HPF. The refere nce range was not u sed to interpret th is result as normal/abnormal . Lab Interpretation (test Abnormal code = 07984-0) [facility] IrvingLactic Acid Whole Ajbza8164-50-39 17:47:00 Test Item Value Reference Range Interpretation Comments LACTIC ACID (test code = 1.45 mmol/L 0.5-2.2 8135505853) Lab Interpretation (test code = Normal 19921-8) [facility] IrvingXR CHEST 1 [id number] 17:14:48 No acute cardiopulmonary abnormality. IAaron MD., have reviewed this study and agree with the abovereport.EXAM: XR CHEST 1 VW HISTORY: seizure COMPARISON: Chest x-ray 02/04/2017 FINDINGS: The lungs are clear. No focal consolidation, pleural effusion orpneumothorax is seen. The cardiac silhouette is normal in size. No acute bony abnormality. Remote fracture/deformation of the rightposterior ninth rib. [facility]22/[facility] 12:14 PM CDTEXAM: XR CHEST 1 VWHISTORY: seizure COMPARISON: Chest x-ray 02/04/2017FINDINGS:The lungs are clear. No focal consolidation, pleural effusion orpneumothorax is seen. The cardiac silhouette is normal in size.No acute bony abnormality. 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 IGallo MD., have reviewed this study and agree with the abovereport.CT HEAD WO CONTRAST HISTORY:Seizure, new, abn neuro exam, nontraumatic COMPARISON: None. TECHNIQUE:? Noncontrast CT imaging of the head was performed and coronaland sagittal reconstructions were obtained and reviewed. FINDINGS: Agenesis of corpus callosum and could possibly is manifested by asymmetricdilatation of the posteriorbody and temporal horns of the lateralventricles. The cerebral sulci are normal in caliber and configuration. Nomidline shift or pathological extra- axial fluid collection is present. Thebasal cisterns are unremarkable. There is no acute intracranial hemorrhage or significant mass effect. Noparenchymal attenuation abnormality. The light-white matter differentiationis preserved. Partial empty sella configuration. The mastoid air cells and paranasal air sinuses are clear. The calvariumand central skull base are unremarkable. [facility] - 01/22/2019 11:43 AM CDTCT HEAD WO CONTRASTHISTORY: Seizure, new, abn neuro exam, nontraumatic COMPARISON: None.TECHNIQUE: Noncontrast CT imaging of the head was performed and coronaland sagittal reconstructions were obtained and reviewed.FINDINGS:Agenesis of corpus callosum and could possibly is manifested by asymmetricdilatation of the posterior body and temporal horns of the lateralventricles. The cerebral sulci are normal in caliber and configuration. Nomidline shift or pathological extra-axial fluid collection is present. Thebasal cisterns are unremarkable.There is no acute intracranial hemorrhage or significant mass effect. Noparenchymal attenuation abnormality. The light-white matter differentiationis preserved.Partial empty sella configuration.The mastoid air cells and paranasal air sinuses are clear. The calvariumand central skull base are unremarkable.IMPRESSIONAgenesis of corpus callosum and focal possibility noted.Partial empty sella configuration.IJessica MD., have reviewed this study and agree with the abovereport. [facility] WITH MVGEREUIZGDT3191-59-57 16:22:00 Test Item Value Reference Range Interpretation Comments WBC (test code = See_Comment H Previous 6690-2) preliminary verified result was 24.01 10*3/ ?L on 01/22/2019 at 1122 CDT [Automated message] The system which generated this result transmit marta reference range : 4.30 - 11.10 10*3/?L. The reference range was not used to interpret this result as normal/abnormal . RBC (test code = See_Comment L Previous 789-8) preliminary verified result was 3.48 10*6/? L on 01/22/2019 at 1122 CDT [Automated message] The system which generated this result transmit marta reference range : 3.93 - 5.25 10*6/?L. The reference range was not used to interpret this result as normal/abnormal . HGB (test code = 10.7 g/dL 11.6-15 L 718-7) HCT (test code = 32.7 % 35.7-45.2 L Previous 4544-3) preliminary verified result was 32.6 % on 01/22/2019 at 11 22 CDT MCV (test code = 93.4 fL 80.6-95.5 Previous 787-2) preliminary verified result was 93.7 fL on 01/22/2019 at 11 22 CDT MCH (test code = 30.6 pg 25.9-32.8 Previous 785-6) preliminary verified result was 30.7 pg on 01/22/2019 at 11 22 CDT MCHC (test code = 32.7 g/dL 31.6-35.1 Previous 786-4) preliminary verified result was 32.8 g/dL o n 01/22/2019 at 11 22 CDT RDW-SD (test code = 69.0 fL 39-49.9 H Previous 72337-5) preliminary verified result was 69.6 fL on 01/22/2019 at 11 22 CDT RDW-CV (test code = 20.2 % 12-15.5 H Previous 788-0) preliminary verified result was 20.1 % on 01/22/2019 at 11 22 CDT PLT (test code = See_Comment H Previous 777-3) preliminary verified result was 391 10*3/?L on 01/22/2019 at 11 22 CDT [Automated message] The system which generated this result transmit marta reference range : 166 - 358 10*3/ ?L. The reference range was not u sed to interpret th is result as normal/abnormal . MPV (test code = 9.4 fL 9.5-12.9 L 12728-8) NRBC/100 WBC (test See_Comment [Automat ed code = 3917791561) message] The system which generated this result transmit marta reference range : 0.0 - 10.0 /100 WBCs. The reference range was not used to interpret this result as normal/abnormal . NRBC x10^3 (test code <0.01 See_Comment [Auto mated = 2228890495) message] The system which generated this result transmit marta reference range : 10*3/?L. The reference range was not used to interpret this result as normal/abnormal . GRAN MAT (NEUT) % 63.6 % (test code = 770-8) IMM GRAN % (test code 0.80 % = 3181103581) LYMPH % (test code = 26.3 % 736-9) MONO % (test code = 8.5 % 5905-5) EOS % (test code = 0.5 % 713-8) BASO % (test code = 0.3 % 706-2) GRAN MAT x10^3(ANC) 15.24 10*3/uL 1.88-7.09 H (test code = 9865502359) IMM GRAN x10^3 (test 0.18 10*3/uL 0-0.06 H code = 4272064401) LYMPH x10^3 (test code 6.29 10*3/uL 1.32-3.29 H = 731-0) MONO x10^3 (test code 2.03 10*3/uL 0.33-0.92 H = 742-7) EOS x10^3 (test code = 0.11 10*3/uL 0.03-0.39 711-2) BASO x10^3 (test code 0.06 10*3/uL 0.01-0.07 = 704-7) Lab Interpretation Abnormal (test code = 82016-8) [facility] IrvingTROPONIN [id number] 16:15:00 Test Item Value Reference Range Interpretation Comments TROPONIN I (test 0.004 ng/mL See_Comment [Automated code = 1668058421) message] The system which generated this result transmitted reference range : <=0.034. The reference range was not used to interpret this result as normal/abnormal . QUANG (test code = Equal or Less than QUANG) 0.034 ng/ml---Normal?Not e: Cardiac troponin begins to rise 3-4 hours after the onset of ischemia. Repeat in 4-6 hours if the sample was drawn within 3-4 hours of the onset of the symptom and found normal. Between 0.035 and 0.120 ng/mL--- Borderline. Questionable myocardial injury or necrosis?Note: Serial measurement may be necessary to confirm or exclude the diagnosis of myocardial injury or necrosis; Clinical correlation (symptoms, EKGs, imaging studies, and others) required; Repeat in 4-6 hours if clinically indicated.? Equal or Higher than 0.121 ng/mL---Abnormal. Myocardial Injury or Necrosis Likely? Biotin has been reported to cause a negative bias, interpret results relative to patient's use of biotin.? ? Lab Interpretation Normal (test code = 90986-8) [facility]ENY[facility]2019-07-27 16:06:00 Test Item Value Reference Range Interpretation Comments PHENYTOIN (test code = 4.4 ug/mL 10-20 L 6132514938) QUANG (test code = QUANG) Toxic Range:? 0-3 Months? Greater than 14 ug/mL? 3 Months - 150 Years? Greater than 20 ug/mL Lab Interpretation (test Abnormal code = 75948-0) [facility] IrvingCOMP. METABOLIC PANEL (59130)2019-01-22 16:04:00 Test Item Value Reference Range Interpretation Comments NA (test code = 134 mmol/L 135-145 L 1264118780) K (test code = 4.4 mmol/L 3.5-5 1258083341) CL (test code = 102 mmol/L 98-108 3879313826) CO2 TOTAL (test code = 13 mmol/L 23-31 L 2177235605) AGAP (test code = 2-16 H 7799457032) BUN (test code = 13 mg/dL 7-23 7971208766) GLUCOSE (test code = 144 mg/dL 70-110 H 4229966767) CREATININE (test code = 0.50 mg/dL 0.5-1.04 1871175808) TOTAL BILI (test code = 0.3 mg/dL 0.1-1.8 5238262472) CALCIUM (test code = 9.0 mg/dL 8.6-10.6 4206623818) T PROTEIN (test code = 7.6 g/dL 6.3-8.2 8025995653) ALBUMIN (test code = 4.3 g/dL 3.5-5 9999267019) ALK PHOS (test code = 254 U/L 34-122 H 0853404545) ALT(SGPT) (test code = 23 U/L 9-51 5279828325) AST(SGOT) (test code = 39 U/L 13-40 8879519562) eGFR Calculation mL/min/1.73m2 (Non-) (test code = 5757930036) eGFR Calculation mL/min/1.73m2 () (test code = 9197080163) QUANG (test code = QUANG) Association of Glomerular Filtration Rate (GFR) and Staging of Kidney Disease*+ + + +| GFR (mL/min/1.73 m2)?| With Kidney Damage?|?Without Kidney Damage+ --------+ --------+ +|?>90?|?S tage one?|? Normal?+ ---------+ ---------+ +|?60-89? |?Stage two?|? Decreased GFR? + --+ --+ ------+|?30-59?|?Stage three?|? Stage three? + --+ --+ ------+|?15-29?|?Stage four? |? Stage four?+ -------+ -------+ +|?<15 (or dialysis)?|?Stage five? |? Stage five?+ -------+ -------+ +*Each stage assumes the associated GFR level has been in effect for at least three months.?Stages 1 to 5, with or without kidney disease, indicate chronic kidney disease.Notes: Determination of stages one and two (with eGFR >59mL/min/1.73 m2) requires estimation of kidney damage for at least three months as defined by structural or functional abnormalities of the kidney, manifested by either:Pathological abnormalities or Markers of kidney damage (including abnormalities in the composition of the blood or urine or abnormalities in imaging tests). Lab Interpretation Abnormal (test code = 30572-2) [facility] IrvingaPTT2019-07-27 16:03:00 Test Item Value Reference Range Interpretation Comments APTT Patient (test See_Comment [Automat ed code = 3173-2) message] The system which generated this result transmitted reference range : 23 - 38 Seconds . The reference range was not used to interpr et this result as normal/abnormal . QUANG (test code = QUANG) The [facility] patient population mean normal value for aPTT is 30 seconds. Lab Interpretation Normal (test code = 33498-8) [facility] IrvingPROTHROMBIN TIME / [id number] 16:01:00 Test Item Value Reference Range Interpretation Comments PROTIME PATIENT (test See_Comment [Auto mated message] code = 5964-2) The system wh ich generated this result transmitted ref erence range: 12.0 - 1 4.7 Seconds. The re ference range was not u sed to interpret this result as normal/abnor mal. INR (test code = 6301-6) Nor mal INR <1.1; Warfarin Therap eutic range 2.0 to 3. 0 or 2.5 to 3.5, dep ending upon the indica tions. Lab Interpretation (test Normal code = 56984-4) [facility] IrvingCHEM [id number] 05:46:001.8[facility] HermannCHEM OVOSL9083-79-40 05:46:0088[facility] HermannCHEM LTRDV4807-50-87 05:46:004[facility] HermannCHEM RVCTM0410-56-62 05:46:70657Gzlgzbnn HermannCHEM FUFUK2250-87-78 05:46:0013.1[facility] HermannCHEM WVCJD9534-76-50 05:46:0025 [facility]annCHEM ILNSN4557-94-72 05:46:007.2[facility] HermannCHEM PANEL 2018-11-26 05:46:004.1[facility] HermannCHEM NYTPV1177-84-69 05:46:0099[facility] HermannCHEM FYONY7056-54-94 05:46:000.52[facility] HermannCHEM IPWDB7744-25-14 05:46:26461Mlynyobv HermannCHEM AQTEO5351-31-01 05:46:002.6[facility] KZEHRIKJYR3125-05-75 05:46:000.9[facility] AdlezywRUUKFKXLIO6443-60-62 05:46:000.2 [facility] MidepuaRAWWHIEFGP5434-77-55 05:46:001.9[facility] HermannHEMATOLOGY 2018-11-26 05:46:007.6[facility] ZjmctwwLKHBHFFMDR6755-68-22 05:46:0071.4[facility] AzzvigrVPMXTQCVUV2502-72-73 05:46:0017.9[facility] UycteelXRNTORMWQO5540-20-08 05:46:000.3[facility] ZvzcddwBQAREMJOFO5052-06-17 05:46:008.3[facility] IHWAZQULXU9409-06-12 05:46:002.1[facility] ZtubcdbYKEBGJDDZY4395-40-66 05:46:00 Test Item Value Reference Range Interpretation Comments PT (test code = PT) 12.8 s 12.0-14.7 [facility] HseyxxgFJRTGSPBON2384-98-95 05:46:00 Test Item Value Reference Range Interpretation Comments INR (test code = INR) 0.98 1 0.85-1.17 [facility] PhnpjncFLGEMZCXEN7199-89-73 05:46:0031.6[facility]annHEMATOLOGY 2018-11-26 05:46:0089.6[facility] NiifrivESZUYAUEZL0717-65-74 05:46:0010.7[facility] RkjrcfgLTLZILMVWQ3880-95-44 05:46:00 Test Item Value Reference Range Interpretation Comments MCH (test code = MCH) 30.4 pg 27.0-31.0 [facility] YvdysczNJMSDFCEXS7389-64-78 05:46:0034.0[facility]annHEMATOLOGY 2018-11-26 05:46:008.7[facility] WpswkgtWPWADRFHWX8141-28-73 05:46:0019.4[facility] UqcktixCYTNPKAQUW9670-66-81 05:46:48380Zuppwlkn LqyahamMXDIVLPEHI7832-56-75 05:46:0010.6[facility] IfafedzNHZMZSVJES3631-82-25 05:46:003.52[facility] PARATHYROID XMTSKGI2375-36-19 05:46:000.98[facility] HermannPARATHYROID PROFILE 2018-11-26 05:46:000.98[facility] HermannCHEM GVVJH3114-63-36 05:46:001.8[facility] HermannCHEM FTNHW2035-03-90 05:46:0088[facility]annCHEM LRYLM5819-21-85 05:46:004[facility]annCHEM KOUXA0928-97-53 05:46:33721Chauqoyh HermannCHEM OURIZ0463-31-88 05:46:0013.1[facility] HermannCHEM TJAIE9515-87-66 05:46:0025 [facility]annCHE[facility] OLBNO4297-18-53 05:46:007.2[facility]annCHEM PANEL 2018-11-26 05:46:004.1[facility]annCHEM ILFMR6407-96-47 05:46:0099[facility]annCHEM GRGHM7960-08-78 05:46:000.52[facility] HermannCHEM JUOMM8731-37-61 05:46:69806Isisxekj HermannCHEM GNIIW6618-00-93 05:46:002.6[facility] QMZMBQQCNO0425-47-13 05:46:000.9[facility] QxnkndoTPWKQERXSX8736-60-21 05:46:000.2 [facility] RggknqnWKOXKRUVPY1373-53-59 05:46:001.9[facility]annHEMATOLOGY 2018-11-26 05:46:007.6[facility] XmrskzhHLFPTPLGYZ6038-77-80 05:46:0071.4[facility] EcupixlQUXRKSUCIP6544-88-19 05:46:0017.9[facility] QsnhcinXYHGAOGTMM5670-47-59 05:46:000.3[facility] OfnpjgaRJIJRBBCED9851-39-49 05:46:008.3[facility] OEGCDADRDK3477-70-50 05:46:002.1[facility] BogzkooUGBQYAFCEC0581-10-61 05:46:00 Test Item Value Reference Range Interpretation Comments PT (test code = PT) 12.8 s 12.0-14.7 [facility] DxeknmcAJGAOFVOFX9353-05-77 05:46:00 Test Item Value Reference Range Interpretation Comments INR (test code = INR) 0.98 1 0.85-1.17 [facility] ObqtlsvELBWYPJPAU5225-16-68 05:46:0031.6[facility] HermannHEMATOLOGY 2018-11-26 05:46:0089.6[facility] OrctuakMDBTWIYEKX8017-68-88 05:46:0010.7[facility] RzspqhbENDSWFRTGO3431-71-16 05:46:00 Test Item Value Reference Range Interpretation Comments MCH (test code = MCH) 30.4 pg 27.0-31.0 [facility] EdhnghxSFQDZQFPYM3790-05-97 05:46:0034.0[facility] HermannHEMATOLOGY 2018-11-26 05:46:008.7[facility] ZrmrwmyOQIRXTHGCV2547-96-50 05:46:0019.4[facility] ByacljtSHARCZYMFC6633-85-40 05:46:22234Rnimgoqb TjwhqojUEBCGQZHTV8412-32-56 05:46:0010.6[facility] MifjkzuEAOEHYLFYL8562-66-99 05:46:003.52[facility] PARATHYROID ZIHLBYB7789-40-06 05:46:000.98[facility] HermannPARATHYROID PROFILE 2018-11-26 05:46:000.98[facility]annBLOOD BANK WLVLTFB1619-71-80 07:57:00 Negative (11/25/18 2:57 AM)[facility] HermannCHEM EDKZT7448-49-98 07:57:001.6 [facility]annCHEM QPFQL6559-47-33 07:57:001.9[facility] HermannELECTROLYTES 2018-11-25 07:57:0010.9[facility] SybulrlLYDHBZOAYTNQ5436-59-60 07:57:99051 [facility] WgggrtlFMCIYRELFGQN7228-45-43 07:57:94244Axrxcikw HermannELECTROLYTES 2018-11-25 07:57:000.61[facility] CytlakuCWIMDHCDNQMH9293-80-67 07:57:003[facility] GzmcztaKVAQVCHAAOHO7549-27-76 07:57:0026[facility] UnztqykXPZZZVMAPMCX7021-74-36 07:57:0099[facility] VdrctmgCQUJBESBZJVP3191-72-14 07:57:80647Rnzzrqbs [facility] IQOZJHDPPLOY4697-56-80 07:57:007.2[facility] HvpcfnyCATNYPEAVZTT3282-93-85 07:57:003.9[facility] XnwmrzeBNZYVKJQDJ6496-99-83 07:57:39519Hivlknvo [facility] SCDPOCEIPF6366-31-05 07:57:008.7[facility] GxadehzKOIBRALIKD2090-99-90 07:57:00 3.48[facility] HdvmlaaATOWEEGMUO7109-68-46 07:57:0011.8[facility] HermannHEMATOLOGY 2018-11-25 07:57:0010.6[facility] MzcbjjsZLMOCQAYMT6354-11-50 07:57:0019.3[facility] DrykqshRYOFITDCNB5630-69-83 07:57:0089.7[facility] ZcrisuhXCVJUEXGNJ9818-74-41 07:57:0031.3[facility] BzxhuorRRBBKKQRUC3271-25-05 07:57:00 Test Item Value Reference Range Interpretation Comments MCH (test code = MCH) 30.4 pg 27.0-31.0 [facility] GafckvhYYZEBBWUUY9510-03-31 07:57:0033.8[facility] HermannHEMATOLOGY 2018-11-25 07:57:008.8[facility] WruqehgMXUCNVVAFP8955-77-07 07:57:001.1[facility] BirjdotYRUKLFYLWN0793-30-54 07:57:000.4[facility] IlfeyzxRLOJBAWIIA2020-12-54 07:57:001.6[facility] QujasevDUBOYJYVZM6061-09-81 07:57:003.0[facility] XZTBPSOQHA4335-21-65 07:57:000.3[facility] JqhpgxuLOFTBSUOWM8147-80-21 07:57:00 74.5[facility] UmslfqjYCHQRTIGDE2332-17-15 07:57:0013.2[facility] HermannHEMATOLOGY 2018-11-25 07:57:009.0[facility] HermannPARATHYROID OYZZCLB9453-87-14 07:57:000.96 [facility] HermannPARATHYROID ZBEEHUK7706-66-20 07:57:000.94[facility]annBLOOD BANK SZCCIDC1955-51-05 07:57:00Negative (11/25/18 2:57 AM)[facility] HermannCHEM OTSFC2521-34-24 07:57:001.6[facility] HermannCHEM NSCNU2350-25-33 07:57:001.9 [facility] JrjqsyvAPISPRGGDTCZ6908-24-00 07:57:0010.9[facility] HermannELECTROLYTES 2018-11-25 07:57:99565Zoxgkpgm BpxigbjMEEMIDWXSRFA6750-47-69 07:57:48258Wvfqvhir EujjmnyUGDOHSPLPSRA7062-93-57 07:57:000.61[facility] VulhoorHHUMOGZHOYDW7410-81-57 07:57:003[facility] MizkrlxVHIXGBMSVDRR1375-24-14 07:57:0026[facility] CVXHDAMNQCNO8276-44-74 07:57:0099[facility] TqhuapwYFFICRRARHKO5530-17-42 07:57:00 104[facility] CzhoeiqSZEVBRGGVYKW0823-18-97 07:57:007.2[facility] SALCAYTJKKZG0459-32-03 07:57:003.9[facility] DsnerntOTYVVSRCDM7944-14-51 07:57:00 253[facility] WcscvmmQVTNSTRNKV0547-16-66 07:57:008.7[facility] HermannHEMATOLOGY 2018-11-25 07:57:003.48[facility] EkqdicsHBRWVQCLVV7362-16-32 07:57:0011.8[facility] JbuwcsbXDGEQEPGNP6057-42-47 07:57:0010.6[facility] UxvlxyeIWYGGRSXHS9682-22-97 07:57:0019.3[facility] IfziverMDBBEXFZPY4352-54-71 07:57:0089.7[facility] YBRNWNNOHK2251-80-13 07:57:0031.3[facility] OeqqnvlZRTXFJNDFJ8777-47-71 07:57:00 Test Item Value Reference Range Interpretation Comments MCH (test code = MCH) 30.4 pg 27.0-31.0 [facility] CixdjxzWDNCTNLBQD6664-25-74 07:57:0033.8[facility] HermannHEMATOLOGY 2018-11-25 07:57:008.8[facility] LbrtiswCEXLHCIIOS6901-62-77 07:57:001.1[facility] PqihjhpHAWALAOVHJ9228-74-54 07:57:000.4[facility] PusrnbhEEAIKIFOLZ4934-33-05 07:57:001.6[facility] HvrvzqrDJTAIWOGSQ9851-31-10 07:57:003.0[facility] ETTAMEYSQE0995-91-15 07:57:000.3[facility] UpsshguGOVGKFDXKJ5569-86-07 07:57:00 74.5[facility] InvukwgOHMIDTVAHF0084-59-16 07:57:0013.2[facility] HermannHEMATOLOGY 2018-11-25 07:57:009.0[facility] HermannPARATHYROID SCSRWLO9838-64-26 07:57:000.96 [facility]annPARATHYROID KUOTLZA4242-79-03 07:57:000.94[facility] HermannCHEM PVPLU8529-44-90 22:03:002.2[facility] HermannCHEM GHUWR1051-73-47 22:03:003.0 [facility] HermannCHEM UABUA2921-68-75 22:03:0085[facility] HermannCHEM PANEL 2018-11-24 22:03:22254Rwklrohd HermannCHEM PJCFK7559-36-72 22:03:007.4[facility] HermannCHEM DSCIP5697-71-82 22:03:0027[facility] HermannCHEM FEDQU0389-75-25 22:03:0095[facility]annCHEM YFYJA3922-29-57 22:03:009.5[facility] HermannCHEM USEQE3500-87-18 22:03:000.77[facility]annCHEM LVVYO6115-90-13 22:03:45915 [facility]annCHEM QBPYT3334-74-56 22:03:004[facility]annCHEM PANEL 2018-11-24 22:03:003.5[facility] HermannPARATHYROID GPRSVRO8620-91-95 22:03:001.00 [facility]annPARATHYROID UEGLLBQ2058-09-70 22:03:000.98[facility] HermannCHEM YFFLH0148-70-11 22:03:002.2[facility] HermannCHEM CVGXN7804-52-89 22:03:003.0 [facility]annCHEM DQGEC1707-08-16 22:03:0085[facility] HermannCHEM PANEL 2018-11-24 22:03:21973Pymppfkl HermannCHEM FNFXB7274-72-79 22:03:007.4[facility] HermannCHEM XVQQL1616-18-72 22:03:0027[facility] HermannCHEM VIIJV5947-91-28 22:03:0095[facility] HermannCHEM PJYVD4416-76-32 22:03:009.5[facility] HermannCHEM VVGMO1229-83-00 22:03:000.77[facility] HermannCHEM KLHEW5650-64-21 22:03:72542 [facility]annCHEM YIZGD6233-83-20 22:03:004[facility]annCHEM PANEL 2018-11-24 22:03:003.5[facility] HermannPARATHYROID XDKMMTX5575-63-76 22:03:001.00 [facility] HermannPARATHYROID BVEVTNO7359-28-94 22:03:000.98[facility] WIBBFHLZKY5661-62-84 14:26:0029.4[facility] LkadjwcASKWUMBHZT8375-43-20 14:26:00 9.7[facility] EjbvdvjIBBNQJFEKM8008-99-75 14:26:0029.4[facility] HermannHEMATOLOGY 2018-11-24 14:26:009.7[facility] FzgmfonHFDKFEQWMF3918-07-28 13:15:00 Test Item Value Reference Range Interpretation Comments POC Activated Clotting Time (test code 271 s = POC Activated Clotting Time) [facility] NhorkkqCYCDITSJZI5207-80-52 13:15:00 Test Item Value Reference Range Interpretation Comments POC Activated Clotting Time (test code 271 s = POC Activated Clotting Time) [facility] CrtyitcECYZTHYYVG0570-91-86 13:05:00 Test Item Value Reference Range Interpretation Comments POC Activated Clotting Time (test code 199 s = POC Activated Clotting Time) [facility] PlskbowQBGZMNDXRZ4903-50-61 13:05:00 Test Item Value Reference Range Interpretation Comments POC Activated Clotting Time (test code 199 s = POC Activated Clotting Time) [facility]annCHEM RKMJO9617-94-40 06:38:002.8[facility] HermannCHEM PANEL 2018-11-24 06:38:00 Test Item Value Reference Range Interpretation Comments A/G Ratio (test code = A/G Ratio) 0.6 1 0.7-1.6 [facility]annCHEM CMKXO7799-72-93 06:38:000.2[facility] HermannCHEM PANEL 2018-11-24 06:38:000.5[facility] HermannCHEM VVMXN6300-93-99 06:38:000.7[facility] HermannCHEM ZZEAT1747-91-12 06:38:001.8[facility]annCHEM IIMSF4941-07-14 06:38:004.6[facility] HermannCHEM MGAJG7044-34-90 06:38:91353Hljgvyca HermannCHEM VBTYN4178-92-89 06:38:68737Oefmjlet HermannCHEM PWSOG5119-44-32 06:38:0094 [facility] OogwuxyHAFIBDVUGS2372-36-74 06:38:000.4[facility] HermannHEMATOLOGY 2018-11-24 06:38:000.1[facility] QtwrmijFXWYYEYPFA1036-38-55 06:38:000.1[facility] RgycrizBAEEFHWDZV7618-30-83 06:38:0089.0[facility] DmetxpwVBMQFSNDPJ6387-22-62 06:38:004.0[facility] RcogkroSPZXUYXNTK5536-39-51 06:38:001.0[facility] MOAAYOFMKK3840-37-60 06:38:002.0[facility] HrsgsajZDSHFLQPQD9772-77-18 06:38:001.0 [facility] DtjxmfeDPCZXHNCXH3794-19-03 06:38:001.0[facility] HermannHEMATOLOGY 2018-11-24 06:38:001.0[facility] DubnaggYJXDBIWFPL9668-71-49 06:38:001.0[facility] GvwblcsVBREVBLLGJ7243-59-06 06:38:000.0[facility] ZlutdmrTFNQYEHDLJ7828-84-51 06:38:001[facility] AfuwkchZFWSGHVBOQ6245-99-90 06:38:00Moderate *ABN*(11/24/18 1:38 AM)[facility] JadssouVTIMOGUSXP7792-02-11 06:38:009.4[facility] XFXONFNZCX3491-59-51 06:38:000.2[facility] XzzeavvYTFOWZFULJ6207-98-52 06:38:16209 [facility] SgfgucaPOHHXQWARB7545-86-01 06:38:009.2[facility] HermannHEMATOLOGY 2018-11-24 06:38:0019.6[facility] DyxnlasTOJJHHCQPS3590-00-45 06:38:0034.9[facility] RnfduxqIBPZGMJFUM1231-76-57 06:38:00 Test Item Value Reference Range Interpretation Comments MCH (test code = MCH) 30.9 pg 27.0-31.0 [facility] ZrgkrycZAOSURPLSN1738-41-19 06:38:0088.5[facility]annHEMATOLOGY 2018-11-24 06:38:0010.4[facility] WijlneiVBOACULXEF5925-29-66 06:38:003.06[facility] HermannCHEM JSNDG2260-56-40 06:38:002.8[facility] HermannCHEM AFLGE6922-72-53 06:38:00 Test Item Value Reference Range Interpretation Comments A/G Ratio (test code = A/G Ratio) 0.6 1 0.7-1.6 [facility]annCHEM QKKIX7597-53-65 06:38:000.2[facility] HermannCHEM PANEL 2018-11-24 06:38:000.5[facility] HermannCHEM KVNAW2757-21-26 06:38:000.7[facility] HermannCHEM UANJJ5800-35-47 06:38:001.8[facility]annCHEM GNQDY4945-65-47 06:38:004.6[facility] HermannCHEM BDSAN8636-16-24 06:38:76847Yfjmplql HermannCHEM VNHXD2732-02-48 06:38:09892Lmlaauom HermannCHEM ZYLXN8357-47-35 06:38:0094 [facility] IbixczlVQJWVNDQTD3182-42-93 06:38:000.4[facility]annHEMATOLOGY 2018-11-24 06:38:000.1[facility] AdmcgpgRYIQAPDQKS7709-91-22 06:38:000.1[facility] SsdqaiiZBDBXPLGIX0605-07-42 06:38:0089.0[facility] HndyjzhVARXMCQABY3780-94-08 06:38:004.0[facility] UaooowrJZJQRGGPDB7257-26-96 06:38:001.0[facility] EDAPSIACZY6013-66-57 06:38:002.0[facility] JcjyvswHTNGNDFATH4751-58-89 06:38:001.0 [facility] VizdatyKWAPVSEQRZ0772-66-39 06:38:001.0[facility]annHEMATOLOGY 2018-11-24 06:38:001.0[facility] DmsmwqbIUYYKBRTYC0678-57-13 06:38:001.0[facility] TmquvwpQXUDFDKRTS6801-65-32 06:38:000.0[facility] BvuakewGXETPLPBOU5104-50-35 06:38:001[facility] BglkzniELAIQSCSLL0930-02-78 06:38:00Moderate *ABN*(11/24/18 1:38 AM)[facility] SurkalaPHMKWKHWPV7840-11-59 06:38:009.4[facility] PCUHLIPNGW6415-97-98 06:38:000.2[facility] JlcfabdLTGUTEVMOX6538-58-24 06:38:53976 [facility] WwxtewfUESUKTNGYQ6878-03-87 06:38:009.2[facility]annHEMATOLOGY 2018-11-24 06:38:0019.6[facility] QgztivmFITZGPXCHJ2406-71-45 06:38:0034.9[facility] BjfxxbjIRCOGWXHMR9560-71-49 06:38:00 Test Item Value Reference Range Interpretation Comments MCH (test code = MCH) 30.9 pg 27.0-31.0 [facility] SpcdntkNBJKCOWIZL2030-63-61 06:38:0088.5[facility]annHEMATOLOGY 2018-11-24 06:38:0010.4[facility] EmruuhwJSTKRSYUWQ3568-21-87 06:38:003.06[facility] HermannCHEM VVUMN3473-08-08 08:55:00 Test Item Value Reference Range Interpretation Comments A/G Ratio (test code = A/G Ratio) 0.6 1 0.7-1.6 [facility]annCHEM BZJJI5593-41-82 08:55:002.8[facility] HermannCHEM PANEL 2018-11-23 08:55:72309Qtrqzuvf HermannCHEM FEDJD4514-87-93 08:55:66446Wmnxpjwf HermannCHEM KIZQN4227-55-09 08:55:001.8[facility] HermannCHEM LBKUG4996-84-51 08:55:004.6[facility]annCHEM XFKFM7651-58-45 08:55:000.2[facility]annCHEM DXEEC3678-92-37 08:55:000.7[facility]annCHEM CYYVH7910-59-35 08:55:82822 [facility]annCHEM RVUDQ4588-47-11 08:55:000.5[facility]annCHEM PANEL 2018-11-23 08:55:00 Test Item Value Reference Range Interpretation Comments A/G Ratio (test code = A/G Ratio) 0.6 1 0.7-1.6 [facility]annCHEM OKGGJ7880-63-25 08:55:002.8[facility] HermannCHEM PANEL 2018-11-23 08:55:98206Qdursuvd HermannCHEM TTAFN3137-49-36 08:55:94130Igewtccl HermannCHEM KHVAC6275-92-70 08:55:001.8[facility]annCHEM PQSZG4092-56-65 08:55:004.6[facility]annCHEM SXKJF7437-55-30 08:55:000.2[facility] HermannCHEM BVGZA9336-52-59 08:55:000.7[facility] HermannCHEM MHFJZ9577-14-77 08:55:82274 [facility]annCHEM KRHGZ4793-70-07 08:55:000.5[facility]annHEMATOLOGY 2018-11-23 08:51:002.0[facility] FgzlxriAIUCMGIGZF4800-24-37 08:51:000.0[facility] SsvgksdEQUNRXORNP6378-99-22 08:51:002.0[facility] DqxffefGSNAVXBJHG4017-98-97 08:51:000.0[facility] TbtonmrADZEJUVWGV6055-08-38 02:11:007.0[facility] LEECMQITDB5220-97-24 02:11:001.0[facility] DlysdhcLLQZLIUKFB5802-86-44 02:11:003 [facility] ZqtwuuhZIGMOMDNVE4099-70-70 02:11:000.0[facility]annHEMATOLOGY 2018-11-23 02:11:00Normal (11/22/18 9:11 PM)[facility] UnkwhyyILYQRYIJXA7643-63-49 02:11:001+ *ABN*(11/22/18 9:11 PM)[facility] AwapsigLIFEJQEGIU5248-43-36 02:11:00 Test Item Value Reference Range Interpretation Comments Ildefonso WATSON (test code = I[address] 2130 1 TND) [facility] IqkpdcbLMFMRBWADM2844-39-79 02:11:003.9[facility] HermannHEMATOLOGY 2018-11-23 02:11:007.0[facility] OpkuoffNKJRYRDHTV0327-01-24 02:11:001.0[facility] UjrdomtBKDGYDZCZF8003-46-04 02:11:003[facility] ZoxyizcQMXLZOPWGF8972-02-30 02:11:000.0[facility] FqaghnpZSLDUCVQDH0160-67-69 02:11:00Normal (11/22/18 9:11 PM) [facility] FrfqedxNBRAMTAEDU7867-48-54 02:11:001+ *ABN*(11/22/18 9:11 PM)[facility] OyjfsgqPFKBATRSJC7213-12-20 02:11:00 Test Item Value Reference Range Interpretation Comments Vanco Tr TND (test code = Ildefonso Tr 2130 1 TND) [facility]IczciouUCUGPSBDTF0055-21-30 02:11:003.9[facility]annHEMATOLOGY 2018-11-22 21:58:69841Rsejbirm BsthxwyXCRXFVKZRK2043-90-41 21:58:97551Ncbywnxd FcqxwqrGVWKDGGTNZ5910-23-01 21:16:002.0[facility] ChizemsPFONMYLDEW6639-26-68 21:16:005.0[facility] HqwqnfhCFXGYJZMRP5722-80-66 21:16:002[facility] UOJQWWFGKZ2570-36-00 21:16:00Normal (11/22/18 4:16 PM)[facility]annHEMATOLOGY 2018-11-22 21:16:001+ *ABN*(11/22/18 4:16 PM)[facility] XctgfgwYANGRQVIXB9924-06-52 21:16:002.0[facility] PyzugavNRKSQRXQZG1982-86-10 21:16:005.0[facility] TIVVWCLCUZ9042-23-56 21:16:002[facility] IpydmmzEDSEUWNTMT6252-22-48 21:16:00 Normal (11/22/18 4:16 PM)[facility] VdwapskSDHFULQYSE7763-30-31 21:16:001+ *ABN*(11/22/18 4:16 PM)[facility] HermannCHEM FDQXP7833-12-31 13:13:56464Mkpppcqt HermannCHEM JMMLC8431-87-18 13:13:0010[facility] IvqnztjTQLGPLQNRL9407-97-87 13:13:00 Test Item Value Reference Range Interpretation Comments PTT (test code = PTT) 43.0 s 22.9-35.8 [facility] SzbhogpUJEAHYMUIU4311-00-45 13:13:00 Test Item Value Reference Range Interpretation Comments INR (test code = INR) 1.62 1 0.85-1.17 [facility] HospitalCohmymuRINVEJXJTY9488-45-13 13:13:00 Test Item Value Reference Range Interpretation Comments PT (test code = PT) 18.9 s 12.0-14.7 [facility] IngoumrGRCICHNUFZ2326-31-09 13:13:14763TrydcefnMethod[facility] HospitalHEMATOLOGY 2018-11-22 13:13:00Negative 9(11/22/18 8:13 AM)[facility] 2018-11-22 13:13:00 Test Item Value Reference Range Interpretation Comments Pat Od Value (test code = Pat Od 0.109 1 Value) [facility]neIvcljbeDGMRDDLPYQ2145-65-88 13:13:00 Test Item Value Reference Range Interpretation Comments Pos CO Value (test code = Pos CO 0.400 1 Value) [facility] HospitalOgrczveGSZNPGSSKH4907-06-29 13:13:75799Ynvtzohj HermannCHEM PANEL 2018-11-22 13:13:06207Xxbwvbnq HermannCHEM NXBSC5434-72-96 13:13:0010[facility] HospitalFzouizmBTTWNWWHHV3877-10-47 13:13:00 Test Item Value Reference Range Interpretation Comments PTT (test code = PTT) 43.0 s 22.9-35.8 [facility]neIqvynmbRQSVXSFVAA8457-56-24 13:13:00 Test Item Value Reference Range Interpretation Comments INR (test code = INR) 1.62 1 0.85-1.17 [facility]neZbfnwkgXDWKWZBXNP9587-01-14 13:13:00 Test Item Value Reference Range Interpretation Comments PT (test code = PT) 18.9 s 12.0-14.7 [facility]neIerqmqoPSYZJSACWW8550-89-51 13:13:01616PneudsppTexas Health Harris [facility] 2018-11-22 13:13:00Negative 9(11/22/18 8:13 AM)[facility] 2018-11-22 13:13:00 Test Item Value Reference Range Interpretation Comments Pat Od Value (test code = Pat Od 0.109 1 Value) [facility]neEowierqPYKBESVHXK5042-93-07 13:13:00 Test Item Value Reference Range Interpretation Comments Pos CO Value (test code = Pos CO 0.400 1 Value) [facility]AhliskrXLCEWPJFOJ2174-85-69 13:13:79043HffunkzpCH[facility]ST[facility] TylerBringIt BANK FJABTND7122-66-82 12:45:00Negative (11/22/18 7:45 AM)[facility] TylerBring[facility] BANK [id number] 12:45:00Negative (11/22/18 7:45 AM)[facility] [id number] 12:10:00Product available (11/22/18 7:10 AM)[facility] [id number] 12:10:00Product available (11/22/18 7:10 AM)[facility] [id number] 11:02:00Product available (11/22/18 6:02 AM) [facility] [id number] 11:02:00Product available (11/22/18 6:02 AM)[facility]annCHEM [id number] 08:29:001.2[facility] ZVWOSLNLLP7966-86-68 08:29:00 Test Item Value Reference Range Interpretation Comments PTT (test code = PTT) 45.6 s 22.9-35.8 [facility] SriciorCAXQHJTXSV5465-43-96 08:29:00 Test Item Value Reference Range Interpretation Comments PT (test code = PT) 20.4 s 12.0-14.7 [facility] ZtlfdpvTPAKWXKHVB1678-32-93 08:29:00 Test Item Value Reference Range Interpretation Comments INR (test code = INR) 1.79 1 0.85-1.17 [facility] [id number] 08:29:001.2[facility]annHEMATOLOGY 2018-11-22 08:29:00 Test Item Value Reference Range Interpretation Comments PTT (test code = PTT) 45.6 s 22.9-35.8 [facility] RadcohdOOZURROOGY5598-48-56 08:29:00 Test Item Value Reference Range Interpretation Comments PT (test code = PT) 20.4 s 12.0-14.7 [facility] AaenkwoSNPXEKKWOR7760-14-03 08:29:00 Test Item Value Reference Range Interpretation Comments INR (test code = INR) 1.79 1 0.85-1.17 [facility] HospitalRqykombQZARWSRJQV3286-31-61 03:08:006.0[facility]annTOXICOLOGY 2018-11-22 03:08:006.0[facility]annCHEM [id number] 17:52:016020Disqatsc HermannCHEM EZMXC1480-73-31 17:52:91205Qqhjfvyk HermannCHEM VIHPW0574-38-56 17:52:00 Test Item Value Reference Range Interpretation Comments A/G Ratio (test code = A/G Ratio) 0.8 1 0.7-1.6 [facility]annCHEM [id number] 17:52:0095[facility]annCHEM PANEL 2018-11-21 17:52:000.5[facility]annCHEM [id number] 17:52:00 Test Item Value Reference Range Interpretation Comments B/C Ratio (test code = B/C Ratio) 13 12-21 [facility]annCHEM [id number] 17:52:004.3[facility]annCHEM PANEL 2018-11-21 17:52:001.9[facility]annCHEM [id number] 17:52:002.4[facility]annCHEM [id number] 17:52:001.5[facility] AilhtuuZHGZKBFJKV9431-68-53 17:52:0010.9[facility]annCHEM AVFYJ8471-45-23 17:52:287218[facility] CHEM WOMTF4756-54-02 17:52:65066Nbdmjdmd HermannCHEM [id number] 17:52:00 Test Item Value Reference Range Interpretation Comments A/G Ratio (test code = A/G Ratio) 0.8 1 0.7-1.6 [facility] HermannCHEM [id number] 17:52:0095[facility]annCHEM PANEL 2018-11-21 17:52:000.5[facility] HermannCHEM [id number] 17:52:00 Test Item Value Reference Range Interpretation Comments B/C Ratio (test code = B/C Ratio) 13 12-21 [facility] HermannCHEM [id number] 17:52:004.3[facility]annCHEM PANEL 2018-11-21 17:52:001.9[facility]annCHEM FPMXS7947-18-18 17:52:002.4[facility]annCHEM MTQCW1079-88-16 17:52:001.5[facility] SifigtqLAHBUAKSZY8506-75-89 17:52:0010.9[facility] HermannCARDIAC DBHINKF1772-24-97 05:38:001.74[facility]annCHEM JWHJS1507-21-06 05:38:002.2[facility] HermannCHEM [id number] 05:38:00 Test Item Value Reference Range Interpretation Comments B/C Ratio (test code = B/C Ratio) 13 12-21 [facility] UcummxkZTNAWWDCDN5824-82-99 05:38:00 Test Item Value Reference Range Interpretation Comments Vanco Tr TND (test code = Vanco Tr 2030 1 TND) [facility] TgtlfxyAHHCITNXZZ4994-59-01 05:38:0023.6[facility] HermannCARDIAC ENZYMES 2018-11-21 05:38:001.74[facility] HermannCHEM [id number] 05:38:002.2[facility]annCHEM FOKQX9812-08-03 05:38:00 Test Item Value Reference Range Interpretation Comments B/C Ratio (test code = B/C Ratio) 13 12-21 [facility] IypiiteOVWAENYLGB5058-98-44 05:38:00 Test Item Value Reference Range Interpretation Comments Vanco Tr TND (test code = Vanco Tr 2030 1 TND) [facility] ChzfwedSHSSKKKEKG4773-12-01 05:38:0023.6[facility] HermannURINE CHEM 2018-11-20 21:36:0034.4[facility] HermannURINE [id number] 21:36:0015[facility] HermannURINE GQJW1682-92-09 21:36:0010[facility] HermannURINE [id number] 21:36:0023.0[facility] HermannURINE [id number] 21:36:0034.4[facility]INE [id number] 21:36:0015[facility] HermannURINE [id number] 21:36:0010 [facility]annURINE [id number] 21:36:0023.0[facility]annHEMATOLOGY 2018-11-20 21:32:00 Test Item Value Reference Range Interpretation Comments PTT (test code = PTT) 47.2 s 22.9-35.8 [facility] UmgvmkaKLTSLCSRBF9027-99-43 21:32:0017.5[facility]annHEMATOLOGY 2018-11-20 21:32:00 Test Item Value Reference Range Interpretation Comments PTT (test code = PTT) 47.2 s 22.9-35.8 [facility] RmadovjZDHPDRWDWN7393-84-55 21:32:0017.5[facility] HermannCARDIAC ENZYMES 2018-11-20 13:40:000.234[facility]annCARDIAC DNFCJZO1869-51-25 13:40:002.87 [facility]annCHEM LVYBX5567-00-68 13:40:000.44[facility]annCARDIAC ENZYMES 2018-11-20 13:40:000.234[facility]annCARDIAC WLQCWGU9480-42-30 13:40:002.87 [facility]annCHEM [id number] 13:40:000.44[facility]annCARDIAC ENZYMES 2018-11-20 07:02:004.06[facility]annCARDIAC [id number] 07:02:004.06 [facility]annCARDIAC RFIZMNQ0378-21-52 04:31:91684Mrnztymh HermannCARDIAC IMBFOSB1302-98-15 04:31:00 Test Item Value Reference Range Interpretation Comments CK MB Index (test 2.6 1 See_Comment [Automate d message] The code = CK MB Index) system [employer] generated this result transmit marta reference range : <=2.5. The reference range was not used to interpr et this result as lisbeth l/abnormal. [facility]annCARDIAC [id number] 04:31:007.5[facility] HermannCARDIAC QRRCWDM8426-14-77 04:31:32825Agkewfze [facility] [id number] 04:31:00 Test Item Value Reference Range Interpretation Comments CK MB Index (test 2.6 1 See_Comment [Automate d message] The code = CK MB Index) system w [employer] generated this result transmit marta reference range : <=2.5. The reference range was not used to interpr et this result as lisbeth l/abnormal. [facility] [id number] 04:31:007.5[facility] [id number] 01:30:00 Test Item Value Reference Range Interpretation Comments CK MB Index (test 2.3 1 See_Comment [Automate d message] The code = CK MB Index) system w imo[employer] generated this result transmit marta reference range : <=2.5. The reference range was not used to interpr et this result as lisbeth l/abnormal. [facility] [id number] 01:30:007.2[facility] [id number] 01:30:67838Bkevmpcf EzpqxjcTGRTWLKCHW2979-62-52 01:30:001.0 [facility] HyjqcqzSAXPNMIFSC9568-38-11 01:30:00Normal (11/19/18 8:30 PM)[facility] RvfpwaxKPOFLMPZEL1933-54-16 01:30:004.7[facility] [id number] 01:30:00 Test Item Value Reference Range Interpretation Comments CK MB Index (test 2.3 1 See_Comment [Automate d message] The code = CK MB Index) system w [employer] generated this result transmit marta reference range : <=2.5. The reference range was not used to interpr et this result as lisbeth l/abnormal. [facility] ILVKJNP9617-99-19 01:30:007.2[facility] ROSWAYU9421-75-44 01:30:34553Wfazapan YgvhbccZEVHRNNNOQ0421-82-83 01:30:001.0 [facility] FjodmmzLZYTOKBQUZ2418-67-06 01:30:00Normal (11/19/18 8:30 PM)[facility] ZigrimeCWGZPZEQME2731-57-88 01:30:004.7[facility] FSTAFRF8210-72-28 19:12:94080Zrgvuuzz [facility] ERWWTWC6110-39-82 19:12:00 Test Item Value Reference Range Interpretation Comments CK MB Index (test 0.9 1 See_Comment [Automate d message] The code = CK MB Index) system w [employer] generated this result transmit marta reference range : <=2.5. The reference range was not used to interpr et this result as lisbeth l/abnormal. [facility] HFCGTMR0689-80-04 19:12:001.3[facility]annCHEM PANEL 2018-11-18 19:12:00 Test Item Value Reference Range Interpretation Comments B/C Ratio (test code = B/C Ratio) 11 12-21 [facility] [id number] 19:12:55939Xjvabass [facility] [id number] 19:12:00 Test Item Value Reference Range Interpretation Comments CK MB Index (test 0.9 1 See_Comment [Automate d message] The code = CK MB Index) system [employer] generated this result transmit marta reference range : <=2.5. The reference range was not used to interpr et this result as lisbeth l/abnormal. [facility] BJQGYPB1444-10-53 19:12:001.3[facility]annCHEM PANEL 2018-11-18 19:12:00 Test Item Value Reference Range Interpretation Comments B/C Ratio (test code = B/C Ratio) 11 12-21 [facility] HwhzudgHRSYLAFAIV7947-36-81 11:34:002.9[facility]annTOXICOLOGY 2018-11-18 11:34:002.9[facility]annCHEM YKFOD5205-21-08 11:00:82965Rpmntiik HermannCHEM RCZQX9903-69-77 11:00:99912Ymcpcxah AnabmzaIXYNIVHBFP8923-13-55 10:29:000.1[facility] AmnptdvDKHLODGIXG3558-04-45 10:29:000.1[facility] BACTERIAL - [id number] 05:24:00Negative (11/17/18 12:24 AM)[facility] EZOIGAH7005-46-05 05:24:00Negative (11/17/18 12:24 AM)[facility]annBACTERIAL - ITFFJFSG2788-55-58 05:24:00Negative (11/17/18 12:24 AM) [facility] [id number] 05:24:00Negative (11/17/18 12:24 AM) [facility]annCHE[facility] [id number] 02:56:88967Hikistpx [facility]annURINE CHEM 2018-11-17 02:56:04515Xlfmsaem [facility]annCHEM DWNRR6572-67-47 02:56:13552Gtuzptig [facility] GHHX9478-76-48 02:56:53811Vuevnmwe OyzwilqXMHIZO3973-02-52 00:26:00 Test Item Value Reference Range Interpretation Comments VLDL (test code = VLDL) 15 1 [facility] OcweqggIXNKON1821-67-02 00:26:0084[facility] LyjxqvdDPAHJD0205-70-83 00:26:0042[facility] EdwlbxpVUNLPR2217-87-92 00:26:00 Test Item Value Reference Range Interpretation Comments CHD Risk (test code = CHD Risk) 3.36 1 3.90-5.80 [facility] HlxighrFRHXBT6963-44-86 00:26:0075[facility] BragkpvYNXXYF7886-05-35 00:26:60417Ccsbsnql SdbakkfWSOLPCIQHE2130-11-52 00:26:006.2[facility] HPQWFG0704-26-58 00:26:00 Test Item Value Reference Range Interpretation Comments VLDL (test code = VLDL) 15 1 [facility] BsksakhZMGTDF0435-70-16 00:26:0084[facility] QxddmflFIOAIE4620-03-85 00:26:0042[facility] ToweamsYHEEXT8607-41-17 00:26:00 Test Item Value Reference Range Interpretation Comments CHD Risk (test code = CHD Risk) 3.36 1 3.90-5.80 [facility] ZmqrmhyMSOQJV1869-33-52 00:26:0075[facility] QhdjueeRUZLUQ4865-95-75 00:26:89666Ohiclobg XflwvpvOUTBDNUEVS6413-38-94 00:26:006.2[facility] AND EJKDW9723-72-09 21:09:00Trace *ABN*(11/16/18 4:09 PM)[facility] YHQNQ2401-20-54 21:09:00Negative (11/16/18 4:09 PM)[facility] [id number] 21:09:00Negative (11/16/18 4:09 PM)[facility] ZHOIH3349-05-79 21:09:00Trace *ABN*(11/16/18 4:09 PM)[facility] UIARI6754-27-12 21:09:000.2[facility] [id number] 21:09:00 Negative (11/16/18 4:09 PM)[facility] NOPBK8169-04-64 21:09:00 Negative *NA*(11/16/18 4:09 PM)[facility] QEYPL9486-81-22 21:09:00 <=1.005 *NA*(11/16/18 4:09 PM)[facility] MONSI2783-89-31 21:09:00Clear (11/16/18 4:09 PM)[facility] TGTMW9381-15-58 21:09:00Negative (11/16/18 4:09 PM)[facility] CGEQC7662-19-11 21:09:00 Test Item Value Reference Range Interpretation Comments UA pH (test code = UA pH) 7.0 1 5.0-8.0 [facility] [id number] 21:09:00Yellow *NA*(11/16/18 4:09 PM) [facility] WGTGJ0751-65-17 21:09:00Trace *ABN*(11/16/18 4:09 PM) [facility] [id number] 21:09:00Negative (11/16/18 4:09 PM) [facility] NZBKG4257-12-71 21:09:00Negative (11/16/18 4:09 PM) [facility] [id number] 21:09:00Trace *ABN*(11/16/18 4:09 PM) [facility] AEQIY1343-69-58 21:09:000.2[facility] EQFJZ3004-62-07 21:09:00Negative (11/16/18 4:09 PM)[facility] JOOJB1365-51-03 21:09:00Negative *NA*(11/16/18 4:09 PM)[facility] DHEHX7696-14-63 21:09:00<=1.005 *NA*(11/16/18 4:09 PM)[facility] [id number] 21:09:00Clear (11/16/18 4:09 PM)[facility] [id number] 21:09:00Negative (11/16/18 4:09 PM)[facility] [id number] 21:09:00 Test Item Value Reference Range Interpretation Comments UA pH (test code = UA pH) 7.0 1 5.0-8.0 [facility] [id number] 21:09:00Yellow *NA*(11/16/18 4:09 PM) [facility]annCHE[facility] [id number] 17:10:000.5[facility]annCHEM PANEL 2018-11-16 17:10:000.5[facility]annMISCELLANEOUS LAB [id number] 07:41:00 Test Item Value Reference Range Interpretation Comments SCAN RESULT (test code = 3419373) MISCELLANEOUS LAB [id number] 11:12:00 Test Item Value Reference Range Interpretation Comments SCAN RESULT (test code = 4729038) CSF CULTURE + GRAM [id number] 17:06:00 Test Item Value Reference Range Interpretation Comments CULTURE (BEAKER) (test code No growth = 1095) GRAM STAIN RESULT (BEAKER) <1+ WBCs (test code = 1123) GRAM STAIN RESULT (BEAKER) No organisms seen (test code = 54058) CBC W/PLT COUNT & AUTO [id number] 10:29:00 Test Item Value Reference Range Interpretation Comments WHITE BLOOD CELL COUNT (BEAKER) 9.6 K/ L 3.5-10.5 (test code = 775) RED BLOOD CELL COUNT (BEAKER) 2.68 M/ L 3.93-5.22 L (test code = 761) HEMOGLOBIN (BEAKER) (test code = 9.3 GM/DL 11.2-15.7 L 410) HEMATOCRIT (BEAKER) (test code = 27.5 % 34.1-44.9 L 411) MEAN CORPUSCULAR VOLUME (BEAKER) 102.6 fL 79.4-94.8 H (test code = 753) MEAN CORPUSCULAR HEMOGLOBIN 34.7 pg 25.6-32.2 H (BEAKER) (test code = 751) MEAN CORPUSCULAR HEMOGLOBIN CONC 33.8 GM/DL 32.2-35.5 (BEAKER) (test code = 752) RED CELL DISTRIBUTION WIDTH 14.9 % 11.7-14.4 H (BEAKER) (test code = 412) PLATELET COUNT (BEAKER) (test 382 K/CU MM 150-450 code = 756) MEAN PLATELET VOLUME (BEAKER) 9.6 fL 9.4-12.3 (test code = 754) NUCLEATED RED BLOOD CELLS 0 /100 WBC 0-0 (BEAKER) (test code = 413) (CELLAVISION MANUAL DIFF)2018-04-23 10:29:00 Test Item Value Reference Range Interpretation Comments NEUTROPHILS - REL 73 % (CELLAVISION)(BEAKER) (test code = 2816) LYMPHOCYTES - REL 15 % (CELLAVISION)(BEAKER) (test code = 2817) MONOCYTES - REL 8 % (CELLAVISION)(BEAKER) (test code = 2818) EOSINOPHILS - REL 2 % (CELLAVISION)(BEAKER) (test code = 2819) BASOPHILS - REL 2 % (CELLAVISION)(BEAKER) (test code = 2820) NEUTROPHILS - ABS 7.01 K/ul 1.56-6.13 H (CELLAVISION)(BEAKER) (test code = 2830) LYMPHOCYTES - ABS 1.44 K/ul 1.18-3.74 (CELLAVISION)(BEAKER) (test code = 2831) MONOCYTES - ABS 0.77 K/uL 0.24-0.36 H (CELLAVISION)(BEAKER) (test code = 2832) EOSINOPHILS - ABS 0.19 K/uL 0.04-0.36 (CELLAVISION)(BEAKER) (test code = 2834) BASOPHILS - ABS 0.19 K/uL 0.01-0.08 H (CELLAVISION)(BEAKER) (test code = 2835) TOTAL COUNTED (BEAKER) (test code = 100 1351) WBC MORPHOLOGY (BEAKER) (test code Normal = 487) PLT MORPHOLOGY (BEAKER) (test code Normal = 486) ANISOCYTOSIS (BEAKER) (test code = 1+ few 961) POIKILOCYTES (BEAKER) (test code = 1+ few 966) ARTIFACT (CELLAVISION)(BEAKER) Present (test code = 3432) PLATELET CONCENTRATION Adequate (CELLAVISION)(BEAKER) (test code = 3438) Received comment: User comments: Slide comments:[id number] 06:29:00 Test Item Value Reference Range Interpretation Comments FERRITIN (BEAKER) (test code = 361) 357 ng/mL 5-275 H FOLATE, [id number] 06:29:00 Test Item Value Reference Range Interpretation Comments FOLATE (BEAKER) (test code = 362) 10.3 ng/mL >=7.0 [id number] 06:16:00 Test Item Value Reference Range Interpretation Comments MAGNESIUM (BEAKER) (test code = 1.4 mg/dL 1.6-2.6 L 627) BASIC METABOLIC [id number] 06:16:00 Test Item Value Reference Range Interpretation Comments SODIUM (BEAKER) 134 meq/L 136-145 L (test code = 381) POTASSIUM (BEAKER) 3.3 meq/L 3.5-5.1 L (test code = 379) CHLORIDE (BEAKER) 102 meq/L 98-107 (test code = 382) CO2 (BEAKER) (test 22 meq/L 22-29 code = 355) BLOOD UREA NITROGEN 4 mg/dL 7-21 L (BEAKER) (test code = 354) CREATININE (BEAKER) 0.64 mg/dL 0.57-1.25 (test code = 358) GLUCOSE RANDOM 107 mg/dL 70-105 H (BEAKER) (test code = 652) CALCIUM (BEAKER) 8.6 mg/dL 8.4-10.2 (test code = 697) EGFR (BEAKER) (test 95 mL/min/1.73 ESTIMA MARTA GFR IS code = 1092) sq m NOT ACCURATE CREATININE CLEARANCE IN PREDICTING GLOMERULAR FILTRATION RATE . ESTIMATED GFR I S NOT APPLICABLE FOR DIALYSIS PATIEN TS. CREATINE KINASE (CK)2018-04-23 06:16:00 Test Item Value Reference Range Interpretation Comments CREATINE KINASE TOTAL (BEAKER) (test 313 U/L 29-200 H code = 380) IRON, TIBC, % SAT. (WITHOUT FERRITIN)2018-04-23 06:10:00 Test Item Value Reference Range Interpretation Comments IRON (BEAKER) (test code = 547) 50 ug/dL 40-160 TOTAL IRON BINDING CAPACITY 243 ug/dL 250-450 L (BEAKER) (test code = 769) IRON % SATURATION (2) (BEAKER) 21 % 20-55 (test code = 2590) B-TYPE NATRIURETIC FACTOR (BNP)2018-04-23 05:50:00 Test Item Value Reference Range Interpretation Comments B-TYPE NATRIURETIC PEPTIDE 1941 pg/mL 0-100 H (AKER) (test code = 700) POCT-GLUCOSE [id number] 21:20:00 Test Item Value Reference Range Interpretation Comments POC-GLUCOSE METER 184 mg/dL 70-110 H TESTED AT [place] [address] ([facility]) (test code = [facility] 1538) [address] POCT-GLUCOSE [id number] 17:25:00 Test Item Value Reference Range Interpretation Comments POC-GLUCOSE METER 189 mg/dL 70-110 H TESTED AT [place] [address] ([facility]) (test code = [facility] 1538) [address] CBC W/PLT COUNT & AUTO [id number] 10:14:00 Test Item Value Reference Range Interpretation Comments WHITE BLOOD CELL COUNT (BEAKER) 9.1 K/ L 3.5-10.5 (test code = 775) RED BLOOD CELL COUNT (BEAKER) 3.16 M/ L 3.93-5.22 L (test code = 761) HEMOGLOBIN (BEAKER) (test code = 10.9 GM/DL 11.2-15.7 L 410) HEMATOCRIT (BEAKER) (test code = 32.0 % 34.1-44.9 L 411) MEAN CORPUSCULAR VOLUME (BEAKER) 101.3 fL 79.4-94.8 H (test code = 753) MEAN CORPUSCULAR HEMOGLOBIN 34.5 pg 25.6-32.2 H (BEAKER) (test code = 751) MEAN CORPUSCULAR HEMOGLOBIN CONC 34.1 GM/DL 32.2-35.5 (BEAKER) (test code = 752) RED CELL DISTRIBUTION WIDTH 14.5 % 11.7-14.4 H (BEAKER) (test code = 412) PLATELET COUNT (BEAKER) (test 354 K/CU MM 150-450 code = 756) MEAN PLATELET VOLUME (BEAKER) 10.0 fL 9.4-12.3 (test code = 754) NUCLEATED RED BLOOD CELLS 0 /100 WBC 0-0 (BEAKER) (test code = 413) (CELLAVISION MANUAL DIFF)2018-04-22 10:14:00 Test Item Value Reference Range Interpretation Comments NEUTROPHILS - REL 64 % (CELLAVISION)(BEAKER) (test code = 2816) LYMPHOCYTES - REL 20 % (CELLAVISION)(BEAKER) (test code = 2817) MONOCYTES - REL 13 % (CELLAVISION)(BEAKER) (test code = 2818) EOSINOPHILS - REL 3 % (CELLAVISION)(BEAKER) (test code = 2819) NEUTROPHILS - ABS 5.82 K/ul 1.56-6.13 (CELLAVISION)(BEAKER) (test code = 2830) LYMPHOCYTES - ABS 1.82 K/ul 1.18-3.74 (CELLAVISION)(BEAKER) (test code = 2831) MONOCYTES - ABS 1.18 K/uL 0.24-0.36 H (CELLAVISION)(BEAKER) (test code = 2832) EOSINOPHILS - ABS 0.27 K/uL 0.04-0.36 (CELLAVISION)(BEAKER) (test code = 2834) TOTAL COUNTED (BEAKER) (test code = 100 1351) WBC MORPHOLOGY (BEAKER) (test code Normal = 487) LARGE PLT(BEAKER) (test code = Present 2156) POLYCHROMATOPHILLIC RBCS(BEAKER) 1+ few (test code = 478) ARTIFACT (CELLAVISION)(BEAKER) Present (test code = 3432) PLATELET CONCENTRATION Adequate (CELLAVISION)(BEAKER) (test code = 3438) Received comment: User comments: Slide comments:MENINGITIS/ENCEPHALITIS PANEL 2018-04-22 09:52:00 Test Item Value Reference Range Interpretation Comments ESCHERICHIA COLI K1 (test code = Not detected Not detected 20160329) HAEMOPHILUS INFLUENZAE (test Not detected Not detected code = 20160330) LISTERIA MONOCYTOGENES (test Not detected Not detected code = 7614483) NEISSERIA MENINGITIDIS (test Not detected Not detected code = 20160401) STREPTOCOCCUS AGALACTIAE (test Not detected Not detected code = 1218613) STREPTOCOCCUS PNEUMONIAE (test Not detected Not detected code = 6759589) CYTOMEGALOVIRUS (CMV) (test code Not detected Not detected = 4388425) ENTEROVIRUS (test code = Not detected Not detected 9052734) HUMAN HERPESVIRUS 6 (HHV-6) Not detected Not detected (test code = 3899927) HERPES SIMPLEX VIRUS 1(HSV-1) Not detected Not detected (test code = 3079514) HERPES SIMPLEX VIRUS 2(HSV-2) Not detected Not detected (test code = 9435924) HUMAN PARECHOVIRUS (test code = Not detected Not detected 8135787) VARICELLA-ZOSTER VIRUS (VZV) Not detected Not detected (test code = 3294569) CRYPTOCOCCUS NEOFORMANS/GATTII Not detected Not detected (test code = 0567241) Other viruses and bacteria not targeted by this PCR panel cannot be excluded; therefore, clinical correlation and follow up of serology, culture results, and other molecular studies is required. The results are not intended to be used as the sole means for clinical diagnosis or patient management decisions. This sample was tested at the [facility] Molecular Diagnostics Laboratory using the [employer] FilmArray Meningitis Encephalitis Panel. It is FDA cleared and has been verified and approved by the [facility] for clinical use. This laboratory is CLIA-certified and [employer] [place] [employer] (CAP)-accredited to perform high complexity testing.[id number] 08:40:00 Test Item Value Reference Range Interpretation Comments MAGNESIUM (BEAKER) (test code = 1.6 mg/dL 1.6-2.6 627) BASIC METABOLIC [id number] 08:40:00 Test Item Value Reference Range Interpretation Comments SODIUM (BEAKER) 131 meq/L 136-145 L (test code = 381) POTASSIUM (BEAKER) 4.1 meq/L 3.5-5.1 (test code = 379) CHLORIDE (BEAKER) 98 meq/L 98-107 (test code = 382) CO2 (BEAKER) (test 24 meq/L 22-29 code = 355) BLOOD UREA NITROGEN 4 mg/dL 7-21 L (BEAKER) (test code = 354) CREATININE (BEAKER) 0.61 mg/dL 0.57-1.25 (test code = 358) GLUCOSE RANDOM 117 mg/dL 70-105 H (AKER) (test code = 652) CALCIUM (BEAKER) 9.0 mg/dL 8.4-10.2 (test code = 697) EGFR (BEAKER) (test 101 mL/min/1.73 ESTIM ATED GFR IS code = 1092) sq m NOT ACCURATE CREATININE CLEARANCE IN PREDICTING GLOMERULAR FILTRATION RATE . ESTIMATED GFR I S NOT APPLICABLE FOR DIALYSIS PATIEN TS. CREATINE KINASE (CK)2018-04-22 08:40:00 Test Item Value Reference Range Interpretation Comments CREATINE KINASE TOTAL (AKER) (test 678 U/L 29-200 H code = 380) POCT-GLUCOSE [id number] 07:49:00 Test Item Value Reference Range Interpretation Comments POC-GLUCOSE METER 144 mg/dL 70-110 H TESTED AT [facility] [address] ([facility]) (test code = [facility] 1538) [address] VDRL, [id number] 03:16:00 Test Item Value Reference Range Interpretation Comments SYPHILIS VDRL QUANTITATION CSF Nonreactive Nonreactive ([facility]) (test code = 747) POCT-GLUCOSE [id number] 21:00:00 Test Item Value Reference Range Interpretation Comments POC-GLUCOSE METER 169 mg/dL 70-110 H TESTED AT [facility] 6720 ([facility]) (test code = [facility] 1538) [address] POTASSIUM, RANDOM [id number] 15:54:00 Test Item Value Reference Range Interpretation Comments POTASSIUM URINE ([facility]) (test 19.0 meq/L code = 195) Reference Range: No NormalsFL, LUMBAR PUNCTURE, [id number] 14:00:00Patient is intubated in ICUReason for exam:->seizures, rule out encephalitisFINAL REPORT Procedure: Lumbar puncture Modality: Fluoroscopy Sedation: 0.5 mg Xanax sublingual Anesthesia: 1% lidocaine local Indication: Encephalopathy Discussion: Details of the procedure, risks, benefits, alternatives, and questions were discussed with the patient after which informed consent was obtained. The patient was sterilely prepped and draped. 1% lidocaine was usedfor local anesthesia. Using fluoroscopic guidance, a 20-gauge needle was introduced into the thecal sac at the L2/3 level. Approximately 17 cc of clear spinal fluid was removed and sent to the laboratory. There were no procedure related complications. Fluoro time was 0.4 minutes. Images obtained: Zero. Disposition: The patient was transferred back to their hospital room in unchanged condition. Impression: Successful fluoroscopy guided lumbar puncture. Signed: Edgar Cooney Verified Date/Time: 04/21/2018 14:00:57 Reading Location: [facility] C013V Neuro Reading Room Electronically signedby: EDGAR COONEY M.D. on 04/21/2018 02:00 PMCSF CELL COUNT [id number]/[id number] 13:58:00 Test Item Value Reference Range Interpretation Comments APPEARANCE CSF (BEAKER) (test code Clear Clear = 407) COLOR CSF (BEAKER) (test code = Colorless Colorless 408) RBC CSF (BEAKER) (test code = 409) 0 /cu mm 0-5 WBC CSF (BEAKER) (test code = 0 /cu mm <=5 1020) RBCS FRESH (BEAKER) (test code = 100% Fresh 1444) NUMBER OF CELLS DIFF'D (BEAKER) 0 (test code = 1591) TUBE NUMBER CSF (BEAKER) (test EDTA Tube code = 2678) GLUCOSE, [id number] 13:24:00 Test Item Value Reference Range Interpretation Comments GLUCOSE CSF (BEAKER) (test code = 70 mg/dL 40-70 406) PROTEIN, [id number] 13:24:00 Test Item Value Reference Range Interpretation Comments PROTEIN CSF (BEAKER) (test code = 21 mg/dL 15-45 378) POCT-GLUCOSE [id number] 13:17:00 Test Item Value Reference Range Interpretation Comments POC-GLUCOSE METER 99 mg/dL 70-110 TESTED AT [facility] 6720 (BEAKER) (test code = [place] [address] 1538) CBC W/PLT COUNT & AUTO [id number] 08:39:00 Test Item Value Reference Range Interpretation Comments WHITE BLOOD CELL COUNT (BEAKER) 7.6 K/ L 3.5-10.5 (test code = 775) RED BLOOD CELL COUNT (BEAKER) 2.84 M/ L 3.93-5.22 L (test code = 761) HEMOGLOBIN (BEAKER) (test code = 9.6 GM/DL 11.2-15.7 L 410) HEMATOCRIT (BEAKER) (test code = 28.0 % 34.1-44.9 L 411) MEAN CORPUSCULAR VOLUME (BEAKER) 98.6 fL 79.4-94.8 H (test code = 753) MEAN CORPUSCULAR HEMOGLOBIN 33.8 pg 25.6-32.2 H (BEAKER) (test code = 751) MEAN CORPUSCULAR HEMOGLOBIN CONC 34.3 GM/DL 32.2-35.5 (BEAKER) (test code = 752) RED CELL DISTRIBUTION WIDTH 14.2 % 11.7-14.4 (BEAKER) (test code = 412) PLATELET COUNT (BEAKER) (test 264 K/CU MM 150-450 code = 756) MEAN PLATELET VOLUME (BEAKER) 9.9 fL 9.4-12.3 (test code = 754) NUCLEATED RED BLOOD CELLS 0 /100 WBC 0-0 (BEAKER) (test code = 413) (CELLAVISION MANUAL DIFF)2018-04-21 08:39:00 Test Item Value Reference Range Interpretation Comments NEUTROPHILS - REL 78 % (CELLAVISION)(BEAKER) (test code = 2816) LYMPHOCYTES - REL 14 % (CELLAVISION)(BEAKER) (test code = 2817) MONOCYTES - REL 5 % (CELLAVISION)(BEAKER) (test code = 2818) EOSINOPHILS - REL 2 % (CELLAVISION)(BEAKER) (test code = 2819) BASOPHILS - REL 1 % (CELLAVISION)(BEAKER) (test code = 2820) NEUTROPHILS - ABS 5.93 K/ul 1.56-6.13 (CELLAVISION)(BEAKER) (test code = 2830) LYMPHOCYTES - ABS 1.06 K/ul 1.18-3.74 L (CELLAVISION)(BEAKER) (test code = 2831) MONOCYTES - ABS 0.38 K/uL 0.24-0.36 H (CELLAVISION)(BEAKER) (test code = 2832) EOSINOPHILS - ABS 0.15 K/uL 0.04-0.36 (CELLAVISION)(BEAKER) (test code = 2834) BASOPHILS - ABS 0.08 K/uL 0.01-0.08 (CELLAVISION)(BEAKER) (test code = 2835) TOTAL COUNTED (BEAKER) (test code = 100 1351) RBC MORPHOLOGY (BEAKER) (test code Normal = 762) WBC MORPHOLOGY (BEAKER) (test code Normal = 487) PLT MORPHOLOGY (BEAKER) (test code Normal = 486) ARTIFACT (CELLAVISION)(BEAKER) Present (test code = 3432) PLATELET CONCENTRATION Adequate (CELLAVISION)(BEAKER) (test code = 3438) Received comment: User comments: Slide comments:POCT-GLUCOSE [id number] 07:55:00 Test Item Value Reference Range Interpretation Comments POC-GLUCOSE METER 121 mg/dL 70-110 H TESTED AT [facility] 67[address] (BEAKER) (test code = [place] 1538) [address] [id number] 07:06:00 Test Item Value Reference Range Interpretation Comments MAGNESIUM (BEAKER) (test code = 1.6 mg/dL 1.6-2.6 627) BASIC METABOLIC [id number] 07:06:00 Test Item Value Reference Range Interpretation Comments SODIUM (BEAKER) 132 meq/L 136-145 L (test code = 381) POTASSIUM (BEAKER) 3.2 meq/L 3.5-5.1 L (test code = 379) CHLORIDE (BEAKER) 99 meq/L 98-107 (test code = 382) CO2 (BEAKER) (test 25 meq/L 22-29 code = 355) BLOOD UREA NITROGEN 5 mg/dL 7-21 L (BEAKER) (test code = 354) CREATININE (BEAKER) 0.55 mg/dL 0.57-1.25 L (test code = 358) GLUCOSE RANDOM 109 mg/dL 70-105 H (BEAKER) (test code = 652) CALCIUM (BEAKER) 8.4 mg/dL 8.4-10.2 (test code = 697) EGFR (BEAKER) (test 114 mL/min/1.73 ESTIM ATED GFR IS code = 1092) sq m NOT ACCURATE CREATININE CLEARANCE IN PREDICTING GLOMERULAR FILTRATION RATE . ESTIMATED GFR I S NOT APPLICABLE FOR DIALYSIS PATIEN TS. CREATINE KINASE (CK)2018-04-21 07:06:00 Test Item Value Reference Range Interpretation Comments CREATINE KINASE TOTAL (BEAKER) (test 1442 U/L 29-200 H code = 380) BLOOD [id number] 00:00:00 Test Item Value Reference Range Interpretation Comments CULTURE (BEAKER) (test No growth in 5 days code = 1095) BLOOD [id number] 00:00:00 Test Item Value Reference Range Interpretation Comments CULTURE (BEAKER) (test No growth in 5 days code = 1095) POCT-GLUCOSE [id number] 21:29:00 Test Item Value Reference Range Interpretation Comments POC-GLUCOSE METER 179 mg/dL 70-110 H TESTED AT [place] [address] ([facility]) (test code = [facility] 1538) [id number] POCT-GLUCOSE [id number] 17:41:00 Test Item Value Reference Range Interpretation Comments POC-GLUCOSE METER 177 mg/dL 70-110 H TESTED AT [place] [address] ([facility]) (test code = [facility] 1538) [id number] PROTHROMBIN [id number] 12:09:00 Test Item Value Reference Range Interpretation Comments PROTIME ([facility]) (test code = 13.5 seconds 11.7-14.7 759) INR ([facility]) (test code = 370) 1.0 <=5.9 RECOMMENDED COUMADIN/WARFARIN INR THERAPY RANGESSTANDARD DOSE: 2.0 - 3.0 Includes: PROPHYLAXIS forvenous thrombosis, systemic embolization; TREATMENT for venous thrombosis and/or pulmonary embolus.HIGH RISK: Target INR is 2.5-3.5 for patients with mechanical heart valves.POCT-GLUCOSE [id number] 11:23:00 Test Item Value Reference Range Interpretation Comments POC-GLUCOSE METER 99 mg/dL 70-110 TESTED AT [place] [address] ([facility]) (test code = [facility] [address] 1538) B-TYPE NATRIURETIC FACTOR (BNP)2018-04-20 07:24:00 Test Item Value Reference Range Interpretation Comments B-TYPE NATRIURETIC PEPTIDE 1445 pg/mL 0-100 H ([facility]) (test code = 700) [id number] 07:23:00 Test Item Value Reference Range Interpretation Comments MAGNESIUM (BEAKER) (test code = 1.5 mg/dL 1.6-2.6 L 627) BASIC METABOLIC [id number] 07:23:00 Test Item Value Reference Range Interpretation Comments SODIUM (BEAKER) 133 meq/L 136-145 L (test code = 381) POTASSIUM (BEAKER) 3.8 meq/L 3.5-5.1 (test code = 379) CHLORIDE (BEAKER) 96 meq/L 98-107 L (test code = 382) CO2 (BEAKER) (test 28 meq/L 22-29 code = 355) BLOOD UREA NITROGEN 4 mg/dL 7-21 L (BEAKER) (test code = 354) CREATININE (BEAKER) 0.60 mg/dL 0.57-1.25 (test code = 358) GLUCOSE RANDOM 93 mg/dL 70-105 (BEAKER) (test code = 652) CALCIUM (BEAKER) 8.6 mg/dL 8.4-10.2 (test code = 697) EGFR (BEAKER) (test 103 mL/min/1.73 ESTIM ATED GFR IS code = 1092) sq m NOT ACCURATE CREATININE CLEARANCE IN PREDICTING GLOMERULAR FILTRATION RATE . ESTIMATED GFR I S NOT APPLICABLE FOR DIALYSIS PATIEN TS. CREATINE KINASE (CK)2018-04-20 07:23:00 Test Item Value Reference Range Interpretation Comments CREATINE KINASE TOTAL (BEAKER) (test 2577 U/L 29-200 H code = 380) POCT-GLUCOSE [id number] 07:19:00 Test Item Value Reference Range Interpretation Comments POC-GLUCOSE METER 88 mg/dL 70-110 TESTED AT [facility] 6720 (BEAKER) (test code = [facility] [address] 1538) CBC W/PLT COUNT & AUTO [id number] 06:56:00 Test Item Value Reference Range Interpretation Comments WHITE BLOOD CELL COUNT (BEAKER) 7.1 K/ L 3.5-10.5 (test code = 775) RED BLOOD CELL COUNT (BEAKER) 2.77 M/ L 3.93-5.22 L (test code = 761) HEMOGLOBIN (BEAKER) (test code = 9.5 GM/DL 11.2-15.7 L 410) HEMATOCRIT (BEAKER) (test code = 30.5 % 34.1-44.9 L 411) MEAN CORPUSCULAR VOLUME (BEAKER) 110.1 fL 79.4-94.8 H (test code = 753) MEAN CORPUSCULAR HEMOGLOBIN 34.3 pg 25.6-32.2 H (BEAKER) (test code = 751) MEAN CORPUSCULAR HEMOGLOBIN CONC 31.1 GM/DL 32.2-35.5 L (BEAKER) (test code = 752) RED CELL DISTRIBUTION WIDTH 14.6 % 11.7-14.4 H (BEAKER) (test code = 412) PLATELET COUNT (BEAKER) (test 247 K/CU MM 150-450 code = 756) MEAN PLATELET VOLUME (BEAKER) 10.0 fL 9.4-12.3 (test code = 754) NUCLEATED RED BLOOD CELLS 0 /100 WBC 0-0 (BEAKER) (test code = 413) NEUTROPHILS RELATIVE PERCENT 69 % (BEAKER) (test code = 429) LYMPHOCYTES RELATIVE PERCENT 18 % (BEAKER) (test code = 430) MONOCYTES RELATIVE PERCENT 11 % (BEAKER) (test code = 431) EOSINOPHILS RELATIVE PERCENT 1 % (BEAKER) (test code = 432) BASOPHILS RELATIVE PERCENT 1 % (BEAKER) (test code = 437) NEUTROPHILS ABSOLUTE COUNT 4.93 K/ L 1.56-6.13 (BEAKER) (test code = 670) LYMPHOCYTES ABSOLUTE COUNT 1.26 K/ L 1.18-3.74 (BEAKER) (test code = 414) MONOCYTES ABSOLUTE COUNT (BEAKER) 0.75 K/ L 0.24-0.36 H (test code = 415) EOSINOPHILS ABSOLUTE COUNT 0.10 K/ L 0.04-0.36 (BEAKER) (test code = 416) BASOPHILS ABSOLUTE COUNT (BEAKER) 0.05 K/ L 0.01-0.08 (test code = 417) IMMATURE GRANULOCYTES-RELATIVE 0 % 0-1 PERCENT (BEAKER) (test code = 2801) POCT-GLUCOSE [id number] 23:30:00 Test Item Value Reference Range Interpretation Comments POC-GLUCOSE METER 181 mg/dL 70-110 H TESTED AT [facility] 6720 (BEAKER) (test code = [place] 1538) [address] VANCOMYCIN LEVEL, [id number] 20:16:00 Test Item Value Reference Range Interpretation Comments VANCOMYCIN TROUGH (BEAKER) (test 12.1 ug/mL 10.0-20.0 code = 522) [id number] 20:12:00 Test Item Value Reference Range Interpretation Comments POTASSIUM (BEAKER) (test code = 4.0 meq/L 3.5-5.1 379) POCT-GLUCOSE [id number] 12:18:00 Test Item Value Reference Range Interpretation Comments POC-GLUCOSE METER 201 mg/dL 70-110 H TESTED AT [place] [address] (BEAKER) (test code = [facility] 1538) [address] [id number] 10:47:00 Test Item Value Reference Range Interpretation Comments POTASSIUM (BEAKER) (test code = 4.4 meq/L 3.5-5.1 379) [id number] 10:47:00 Test Item Value Reference Range Interpretation Comments MAGNESIUM (BEAKER) (test code = 2.1 mg/dL 1.6-2.6 627) CREATINE KINASE (CK)2018-04-19 10:47:00 Test Item Value Reference Range Interpretation Comments CREATINE KINASE TOTAL (BEAKER) (test 2936 U/L 29-200 H code = 380) SPUTUM CULTURE + GRAM [id number] 09:31:00 Test Item Value Reference Range Interpretation Comments CULTURE (BEAKER) See comment (test code = 1095) GRAM STAIN RESULT 2+ WBCs (BEAKER) (test code = 1123) GRAM STAIN RESULT 0-5 epithelial cells (BEAKER) (test code = 390135) GRAM STAIN RESULT <1+ gram positive cocci (BEAKER) (test code = in clusters 690018) <1+ yeastNo Normal respiratory tristian [id number] 07:17:00 Test Item Value Reference Range Interpretation Comments PHOSPHORUS (BEAKER) (test code = 2.3 mg/dL 2.3-4.7 604) POCT-GLUCOSE [id number] 06:35:00 Test Item Value Reference Range Interpretation Comments POC-GLUCOSE METER 87 mg/dL 70-110 TESTED AT [facility] 67[address] (BEAKER) (test code = [facility] [address] 1538) CBC W/PLT COUNT & AUTO [id number] 04:15:00 Test Item Value Reference Range Interpretation Comments WHITE BLOOD CELL COUNT (BEAKER) 10.4 K/ L 3.5-10.5 (test code = 775) RED BLOOD CELL COUNT (BEAKER) 2.43 M/ L 3.93-5.22 L (test code = 761) HEMOGLOBIN (BEAKER) (test code = 8.4 GM/DL 11.2-15.7 L 410) HEMATOCRIT (BEAKER) (test code = 24.2 % 34.1-44.9 L 411) MEAN CORPUSCULAR VOLUME (BEAKER) 99.6 fL 79.4-94.8 H (test code = 753) MEAN CORPUSCULAR HEMOGLOBIN 34.6 pg 25.6-32.2 H (BEAKER) (test code = 751) MEAN CORPUSCULAR HEMOGLOBIN CONC 34.7 GM/DL 32.2-35.5 (BEAKER) (test code = 752) RED CELL DISTRIBUTION WIDTH 14.5 % 11.7-14.4 H (BEAKER) (test code = 412) PLATELET COUNT (BEAKER) (test 210 K/CU MM 150-450 code = 756) MEAN PLATELET VOLUME (BEAKER) 9.7 fL 9.4-12.3 (test code = 754) NUCLEATED RED BLOOD CELLS 0 /100 WBC 0-0 (BEAKER) (test code = 413) NEUTROPHILS RELATIVE PERCENT 76 % (BEAKER) (test code = 429) LYMPHOCYTES RELATIVE PERCENT 14 % (BEAKER) (test code = 430) MONOCYTES RELATIVE PERCENT 9 % (BEAKER) (test code = 431) EOSINOPHILS RELATIVE PERCENT 1 % (BEAKER) (test code = 432) BASOPHILS RELATIVE PERCENT 0 % (BEAKER) (test code = 437) NEUTROPHILS ABSOLUTE COUNT 7.96 K/ L 1.56-6.13 H (BEAKER) (test code = 670) LYMPHOCYTES ABSOLUTE COUNT 1.41 K/ L 1.18-3.74 (BEAKER) (test code = 414) MONOCYTES ABSOLUTE COUNT (BEAKER) 0.90 K/ L 0.24-0.36 H (test code = 415) EOSINOPHILS ABSOLUTE COUNT 0.09 K/ L 0.04-0.36 (BEAKER) (test code = 416) BASOPHILS ABSOLUTE COUNT (BEAKER) 0.04 K/ L 0.01-0.08 (test code = 417) IMMATURE GRANULOCYTES-RELATIVE 0 % 0-1 PERCENT (BEAKER) (test code = 2801) BASIC METABOLIC [id number] 04:10:00 Test Item Value Reference Range Interpretation Comments SODIUM (BEAKER) 132 meq/L 136-145 L (test code = 381) POTASSIUM (BEAKER) 2.7 meq/L 3.5-5.1 L (test code = 379) CHLORIDE (BEAKER) 94 meq/L 98-107 L (test code = 382) CO2 (BEAKER) (test 25 meq/L 22-29 code = 355) BLOOD UREA NITROGEN 4 mg/dL 7-21 L (BEAKER) (test code = 354) CREATININE (BEAKER) 0.55 mg/dL 0.57-1.25 L (test code = 358) GLUCOSE RANDOM 67 mg/dL 70-105 L (BEAKER) (test code = 652) CALCIUM (BEAKER) 7.9 mg/dL 8.4-10.2 L (test code = 697) EGFR (BEAKER) (test 114 mL/min/1.73 ESTIM ATED GFR IS code = 1092) sq m NOT ACCURATE CREATININE CLEARANCE IN PREDICTING GLOMERULAR FILTRATION RATE . ESTIMATED GFR I S NOT APPLICABLE FOR DIALYSIS PATIEN TS. [id number] 04:09:00 Test Item Value Reference Range Interpretation Comments MAGNESIUM (BEAKER) (test code = 1.5 mg/dL 1.6-2.6 L 627) CREATINE KINASE (CK)2018-04-19 04:09:00 Test Item Value Reference Range Interpretation Comments CREATINE KINASE TOTAL (BEAKER) (test 3396 U/L 29-200 H code = 380) POCT-GLUCOSE [id number] 00:16:00 Test Item Value Reference Range Interpretation Comments POC-GLUCOSE METER 79 mg/dL 70-110 TESTED AT [facility] 6720 (BEAKER) (test code = [place] [address] 1538) [id number] 22:48:00 Test Item Value Reference Range Interpretation Comments MAGNESIUM (BEAKER) (test code = 1.9 mg/dL 1.6-2.6 627) CREATINE KINASE (CK)2018-04-18 22:48:00 Test Item Value Reference Range Interpretation Comments CREATINE KINASE TOTAL (BEAKER) (test 3450 U/L 29-200 H code = 380) [id number] 18:01:00 Test Item Value Reference Range Interpretation Comments MAGNESIUM ([place]) (test code = 1.5 mg/dL 1.6-2.6 L 627) CREATINE KINASE (CK)2018-04-18 18:01:00 Test Item Value Reference Range Interpretation Comments CREATINE KINASE TOTAL ([place]) (test 3451 U/L 29-200 H code = 380) POCT-GLUCOSE [id number] 12:41:00 Test Item Value Reference Range Interpretation Comments POC-GLUCOSE METER 89 mg/dL 70-110 TESTED AT [facility] 6720 ([place]) (test code = [place] [address] 1538) EEG MONITORING WITH VIDEO RECORDING EACH 24 [id number] 11:37:00billing for 04/17/18Neurophysiology Continuous Video Electroencephalogram Report DATE OF REPORT: 04/18/18 Date(s) of Study: ACC: [id number] Start time: 0704 hrs Stop time: 1101 hrs ICD-10: R56.9 CPT Code: 68414 HISTORY: 57 yo female with PMHx of HTN, COPD found down at home with concern for seizures. ME DICATIONS THAT COULD AFFECT EEG: Levetiracetam TECHNICAL SUMMARY: This is a digital video EEG recorded with 32 input channels reviewed with bipolar and referential montages using the modified combinatorial system nomenclature. DESCRIPTION OF RECORD: The posterior dominant rhythm was 6-7 Hz and moderately modulated with a frequency-amplitude gradient that was mildly disorganized. The early background rhythms consisted of 5-8 Hz and 3-4 Hz activities, with 14-16 Hz activity seen frontally; as the recording progressed rhythms evolved to alpha frequencies anteriorly. There was a background asymmetry with intermittent periods of diffuse voltage attenuation seen over the right hemisphere, lasting up to 2.5 seconds. There was also 1 Hz lateralized, frontally predominant, periodic discharges seen onthe right as well, with a broad field to the left frontal region at times. There were no stage-II sleep architecture features seen. HV: Not performed. PHOTIC STIMULATION: Not performed EVENTS: No el ectrographic seizures seen. IMPRESSION: Abnormal cEEG due to: 1. Continuous slowing, generalized 2. Background discontinuity, focal (right hemisphere) 3. Lateralized periodicdischarges (LPDs) with frontal predominance, right hemisphere CLINICAL CORRELATION: This study is consistent with a nonspecific encephalopathy improving from moderate to mild over the recording. There remains a focal right hemispheric dysfunction with evidence of cortical irritability. The lateralized periodic discharges are a part of the ictal-interictal spectrum and could indicate a propensity for epileptic seizures. There were no electrographic seizures seen during this recording, which is similar to the prior recording. Humera Sellers MD Epilepsy Fellow Toney Cruz MD Clinical Neurophysiology Attending [facility] Neurophysiology B-TYPE NATRIURETIC FACTOR (BNP)2018-04-18 10:58:00 Test Item Value Reference Range Interpretation Comments B-TYPE NATRIURETIC PEPTIDE (BEAKER) 689 pg/mL 0-100 H (test code = 700) PROTHROMBIN [id number] 10:55:00 Test Item Value Reference Range Interpretation Comments PROTIME (BEAKER) (test code = 14.2 seconds 11.7-14.7 759) INR (BEAKER) (test code = 370) 1.1 <=5.9 RECOMMENDED COUMADIN/WARFARIN INR THERAPY RANGESSTANDARD DOSE: 2.0 - 3.0 Includes: PROPHYLAXIS forvenous thrombosis, systemic embolization; TREATMENT for venous thrombosis and/or pulmonary embolus.HIGH RISK: Target INR is 2.5-3.5 for patients with mechanical heart valves.[id number] 10:55:00 Test Item Value Reference Range Interpretation Comments PARTIAL THROMBOPLASTIN TIME 27.7 seconds 22.5-36.0 (BEAKER) (test code = 760) BASIC METABOLIC [id number] 10:52:00 Test Item Value Reference Range Interpretation Comments SODIUM (BEAKER) 140 meq/L 136-145 (test code = 381) POTASSIUM (BEAKER) 3.8 meq/L 3.5-5.1 (test code = 379) CHLORIDE (BEAKER) 107 meq/L 98-107 (test code = 382) CO2 (BEAKER) (test 22 meq/L 22-29 code = 355) BLOOD UREA NITROGEN 6 mg/dL 7-21 L (BEAKER) (test code = 354) CREATININE (BEAKER) 0.56 mg/dL 0.57-1.25 L (test code = 358) GLUCOSE RANDOM 92 mg/dL 70-105 (BEAKER) (test code = 652) CALCIUM (BEAKER) 7.9 mg/dL 8.4-10.2 L (test code = 697) EGFR (BEAKER) (test 111 mL/min/1.73 ESTIM ATED GFR IS code = 1092) sq m NOT ACCURATE CREATININE CLEARANCE IN PREDICTING GLOMERULAR FILTRATION RATE . ESTIMATED GFR I S NOT APPLICABLE FOR DIALYSIS PATIEN TS. [id number] 10:51:00 Test Item Value Reference Range Interpretation Comments MAGNESIUM (BEAKER) (test code = 2.3 mg/dL 1.6-2.6 627) CREATINE KINASE (CK)2018-04-18 10:51:00 Test Item Value Reference Range Interpretation Comments CREATINE KINASE TOTAL (BEAKER) (test 2419 U/L 29-200 H code = 380) VANCOMYCIN LEVEL, [id number] 08:57:00 Test Item Value Reference Range Interpretation Comments VANCOMYCIN TROUGH (BEAKER) (test 14.4 ug/mL 10.0-20.0 code = 522) CBC W/PLT COUNT & AUTO [id number] 07:07:00 Test Item Value Reference Range Interpretation Comments WHITE BLOOD CELL COUNT (BEAKER) 10.8 K/ L 3.5-10.5 H (test code = 775) RED BLOOD CELL COUNT (BEAKER) 2.29 M/ L 3.93-5.22 L (test code = 761) HEMOGLOBIN (BEAKER) (test code = 7.8 GM/DL 11.2-15.7 L 410) HEMATOCRIT (BEAKER) (test code = 23.1 % 34.1-44.9 L 411) MEAN CORPUSCULAR VOLUME (BEAKER) 100.9 fL 79.4-94.8 H (test code = 753) MEAN CORPUSCULAR HEMOGLOBIN 34.1 pg 25.6-32.2 H (BEAKER) (test code = 751) MEAN CORPUSCULAR HEMOGLOBIN CONC 33.8 GM/DL 32.2-35.5 (BEAKER) (test code = 752) RED CELL DISTRIBUTION WIDTH 15.1 % 11.7-14.4 H (BEAKER) (test code = 412) PLATELET COUNT (BEAKER) (test 208 K/CU MM 150-450 code = 756) MEAN PLATELET VOLUME (BEAKER) 10.2 fL 9.4-12.3 (test code = 754) NUCLEATED RED BLOOD CELLS 0 /100 WBC 0-0 (BEAKER) (test code = 413) NEUTROPHILS RELATIVE PERCENT 80 % (BEAKER) (test code = 429) LYMPHOCYTES RELATIVE PERCENT 11 % (BEAKER) (test code = 430) MONOCYTES RELATIVE PERCENT 9 % (BEAKER) (test code = 431) EOSINOPHILS RELATIVE PERCENT 0 % (BEAKER) (test code = 432) BASOPHILS RELATIVE PERCENT 0 % (BEAKER) (test code = 437) NEUTROPHILS ABSOLUTE COUNT 8.61 K/ L 1.56-6.13 H (BEAKER) (test code = 670) LYMPHOCYTES ABSOLUTE COUNT 1.16 K/ L 1.18-3.74 L (BEAKER) (test code = 414) MONOCYTES ABSOLUTE COUNT (BEAKER) 0.94 K/ L 0.24-0.36 H (test code = 415) EOSINOPHILS ABSOLUTE COUNT 0.01 K/ L 0.04-0.36 L (BEAKER) (test code = 416) BASOPHILS ABSOLUTE COUNT (BEAKER) 0.03 K/ L 0.01-0.08 (test code = 417) IMMATURE GRANULOCYTES-RELATIVE 1 % 0-1 PERCENT (BEAKER) (test code = 2801) POCT-GLUCOSE [id number] 06:59:00 Test Item Value Reference Range Interpretation Comments POC-GLUCOSE METER 88 mg/dL 70-110 TESTED AT [facility] 67[address] (BEAKER) (test code = [place] [address] 1538) [id number] 06:01:00 Test Item Value Reference Range Interpretation Comments MAGNESIUM (BEAKER) (test code = 1.8 mg/dL 1.6-2.6 627) BASIC METABOLIC [id number] 06:01:00 Test Item Value Reference Range Interpretation Comments SODIUM (BEAKER) 141 meq/L 136-145 (test code = 381) POTASSIUM (BEAKER) 3.4 meq/L 3.5-5.1 L (test code = 379) CHLORIDE (BEAKER) 112 meq/L 98-107 H (test code = 382) CO2 (BEAKER) (test 23 meq/L 22-29 code = 355) BLOOD UREA NITROGEN 7 mg/dL 7-21 (BEAKER) (test code = 354) CREATININE (BEAKER) 0.59 mg/dL 0.57-1.25 (test code = 358) GLUCOSE RANDOM 85 mg/dL 70-105 (BEAKER) (test code = 652) CALCIUM (BEAKER) 8.0 mg/dL 8.4-10.2 L (test code = 697) EGFR (BEAKER) (test 105 mL/min/1.73 ESTIM ATED GFR IS code = 1092) sq m NOT ACCURATE CREATININE CLEARANCE IN PREDICTING GLOMERULAR FILTRATION RATE . ESTIMATED GFR I S NOT APPLICABLE FOR DIALYSIS PATIEN TS. CREATINE KINASE (CK)2018-04-18 06:01:00 Test Item Value Reference Range Interpretation Comments CREATINE KINASE TOTAL (BEAKER) (test 1530 U/L 29-200 H code = 380) POCT-GLUCOSE [id number] 00:30:00 Test Item Value Reference Range Interpretation Comments POC-GLUCOSE METER 83 mg/dL 70-110 TESTED AT [facility] 6720 (BEAKER) (test code = [facility] [address] 1538) BASIC METABOLIC [id number] 22:03:00 Test Item Value Reference Range Interpretation Comments SODIUM (BEAKER) 140 meq/L 136-145 (test code = 381) POTASSIUM (BEAKER) 3.7 meq/L 3.5-5.1 (test code = 379) CHLORIDE (BEAKER) 111 meq/L 98-107 H (test code = 382) CO2 (BEAKER) (test 21 meq/L 22-29 L code = 355) BLOOD UREA NITROGEN 8 mg/dL 7-21 (BEAKER) (test code = 354) CREATININE (BEAKER) 0.61 mg/dL 0.57-1.25 (test code = 358) GLUCOSE RANDOM 101 mg/dL 70-105 (BEAKER) (test code = 652) CALCIUM (BEAKER) 7.7 mg/dL 8.4-10.2 L (test code = 697) EGFR (BEAKER) (test 101 mL/min/1.73 ESTIM ATED GFR IS code = 1092) sq m NOT ACCURATE CREATININE CLEARANCE IN PREDICTING GLOMERULAR FILTRATION RATE . ESTIMATED GFR I S NOT APPLICABLE FOR DIALYSIS PATIEN TS. [id number] 22:02:00 Test Item Value Reference Range Interpretation Comments MAGNESIUM (BEAKER) (test code = 2.1 mg/dL 1.6-2.6 627) CREATINE KINASE (CK)2018-04-17 22:02:00 Test Item Value Reference Range Interpretation Comments CREATINE KINASE TOTAL (BEAKER) (test 1124 U/L 29-200 H code = 380) CBC W/PLT COUNT & AUTO [id number] 22:00:00 Test Item Value Reference Range Interpretation Comments WHITE BLOOD CELL COUNT (BEAKER) 11.9 K/ L 3.5-10.5 H (test code = 775) RED BLOOD CELL COUNT (BEAKER) 2.24 M/ L 3.93-5.22 L (test code = 761) HEMOGLOBIN (BEAKER) (test code = 7.8 GM/DL 11.2-15.7 L 410) HEMATOCRIT (BEAKER) (test code = 22.6 % 34.1-44.9 L 411) MEAN CORPUSCULAR VOLUME (BEAKER) 100.9 fL 79.4-94.8 H (test code = 753) MEAN CORPUSCULAR HEMOGLOBIN 34.8 pg 25.6-32.2 H (BEAKER) (test code = 751) MEAN CORPUSCULAR HEMOGLOBIN CONC 34.5 GM/DL 32.2-35.5 (BEAKER) (test code = 752) RED CELL DISTRIBUTION WIDTH 15.2 % 11.7-14.4 H (BEAKER) (test code = 412) PLATELET COUNT (BEAKER) (test 204 K/CU MM 150-450 code = 756) MEAN PLATELET VOLUME (BEAKER) 9.6 fL 9.4-12.3 (test code = 754) NUCLEATED RED BLOOD CELLS 0 /100 WBC 0-0 (BEAKER) (test code = 413) NEUTROPHILS RELATIVE PERCENT 80 % (BEAKER) (test code = 429) LYMPHOCYTES RELATIVE PERCENT 10 % (BEAKER) (test code = 430) MONOCYTES RELATIVE PERCENT 9 % (BEAKER) (test code = 431) EOSINOPHILS RELATIVE PERCENT 0 % (BEAKER) (test code = 432) BASOPHILS RELATIVE PERCENT 0 % (BEAKER) (test code = 437) NEUTROPHILS ABSOLUTE COUNT 9.52 K/ L 1.56-6.13 H (BEAKER) (test code = 670) LYMPHOCYTES ABSOLUTE COUNT 1.19 K/ L 1.18-3.74 (BEAKER) (test code = 414) MONOCYTES ABSOLUTE COUNT (BEAKER) 1.12 K/ L 0.24-0.36 H (test code = 415) EOSINOPHILS ABSOLUTE COUNT 0.00 K/ L 0.04-0.36 L (BEAKER) (test code = 416) BASOPHILS ABSOLUTE COUNT (BEAKER) 0.03 K/ L 0.01-0.08 (test code = 417) IMMATURE GRANULOCYTES-RELATIVE 1 % 0-1 PERCENT (BEAKER) (test code = 2801) [id number] 20:09:00 Test Item Value Reference Range Interpretation Comments HEMOGLOBIN (BEAKER) (test code = 7.8 GM/DL 11.2-15.7 L 410) POCT-GLUCOSE [id number] 18:45:00 Test Item Value Reference Range Interpretation Comments POC-GLUCOSE METER 120 mg/dL 70-110 H TESTED AT [facility] 67[address] (BEAKER) (test code = [place] [address]) [id number] 16:19:00 Test Item Value Reference Range Interpretation Comments MAGNESIUM (BEAKER) (test code = 2.4 mg/dL 1.6-2.6 627) BASIC METABOLIC [id number] 16:19:00 Test Item Value Reference Range Interpretation Comments SODIUM (BEAKER) 138 meq/L 136-145 (test code = 381) POTASSIUM (BEAKER) 3.9 meq/L 3.5-5.1 (test code = 379) CHLORIDE (BEAKER) 111 meq/L 98-107 H (test code = 382) CO2 (BEAKER) (test 21 meq/L 22-29 L code = 355) BLOOD UREA NITROGEN 10 mg/dL 7-21 (BEAKER) (test code = 354) CREATININE (BEAKER) 0.64 mg/dL 0.57-1.25 (test code = 358) GLUCOSE RANDOM 123 mg/dL 70-105 H (BEAKER) (test code = 652) CALCIUM (BEAKER) 8.0 mg/dL 8.4-10.2 L (test code = 697) EGFR (BEAKER) (test 95 mL/min/1.73 ESTIMA MARTA GFR IS code = 1092) sq m NOT ACCURATE CREATININE CLEARANCE IN PREDICTING GLOMERULAR FILTRATION RATE . ESTIMATED GFR I S NOT APPLICABLE FOR DIALYSIS PATIVANITA TS. CREATINE KINASE (CK)2018-04-17 16:19:00 Test Item Value Reference Range Interpretation Comments CREATINE KINASE TOTAL (BEAKER) (test 1032 U/L 29-200 H code = 380) CBC W/PLT COUNT & AUTO [id number] 13:20:00 Test Item Value Reference Range Interpretation Comments WHITE BLOOD CELL 15.8 K/ L 3.5-10.5 H COUNT (BEAKER) (test code = 775) RED BLOOD CELL COUNT 2.45 M/ L 3.93-5.22 L (BEAKER) (test code = 761) HEMOGLOBIN (BEAKER) 8.5 GM/DL 11.2-15.7 L Signific antly (test code = 410) different than previous result s HEMATOCRIT (BEAKER) 24.2 % 34.1-44.9 L (test code = 411) MEAN CORPUSCULAR 98.8 fL 79.4-94.8 H VOLUME (BEAKER) (test code = 753) MEAN CORPUSCULAR 34.7 pg 25.6-32.2 H HEMOGLOBIN (BEAKER) (test code = 751) MEAN CORPUSCULAR 35.1 GM/DL 32.2-35.5 HEMOGLOBIN CONC (BEAKER) (test code = 752) RED CELL DISTRIBUTION 14.7 % 11.7-14.4 H WIDTH (BEAKER) (test code = 412) PLATELET COUNT 229 K/CU MM 150-450 (BEAKER) (test code = 756) MEAN PLATELET VOLUME 9.3 fL 9.4-12.3 L (BEAKER) (test code = 754) NUCLEATED RED BLOOD 0 /100 WBC 0-0 CELLS (BEAKER) (test code = 413) (CELLAVISION MANUAL DIFF)2018-04-17 13:20:00 Test Item Value Reference Range Interpretation Comments NEUTROPHILS - REL 87 % (CELLAVISION)(BEAKER) (test code = 2816) LYMPHOCYTES - REL 7 % (CELLAVISION)(BEAKER) (test code = 2817) MONOCYTES - REL 5 % (CELLAVISION)(BEAKER) (test code = 2818) BANDS - REL (CELLAVISION)(BEAKER) 1 % 0-10 (test code = 2826) NEUTROPHILS - ABS 13.75 K/ul 1.56-6.13 H (CELLAVISION)(BEAKER) (test code = 2830) LYMPHOCYTES - ABS 1.11 K/ul 1.18-3.74 L (CELLAVISION)(BEAKER) (test code = 2831) MONOCYTES - ABS 0.79 K/uL 0.24-0.36 H (CELLAVISION)(BEAKER) (test code = 2832) BANDS - ABS (CELLAVISION)(BEAKER) 0.16 K/uL 0.00-0.80 (test code = 2840) TOTAL COUNTED (BEAKER) (test code 100 = 1351) MANUAL NRBC PER 100 CELLS (BEAKER) 1 /100 WBC 0-0 H (test code = 1353) WBC MORPHOLOGY (BEAKER) (test code Normal = 487) GIANT PLATELETS (BEAKER) (test Present code = 313) HYPOCHROMIA (BEAKER) (test code = 1+ few 963) ANISOCYTOSIS (BEAKER) (test code = 1+ few 961) MACROCYTES (BEAKER) (test code = 1+ few 964) POIKILOCYTES (BEAKER) (test code = 1+ few 966) OVALOCYTES (BEAKER) (test code = 1+ few 477) ARTIFACT (CELLAVISION)(BEAKER) Present (test code = 3432) PLATELET CONCENTRATION Adequate (CELLAVISION)(BEAKER) (test code = 3438) Received comment: User comments: Slide comments:HEMOGLOBIN AND HEMATOCRIT 2018-04-17 11:53:00 Test Item Value Reference Range Interpretation Comments HEMOGLOBIN (BEAKER) (test code = 8.1 GM/DL 11.2-15.7 L 410) HEMATOCRIT (BEAKER) (test code = 22.8 % 34.1-44.9 L 411) POCT-GLUCOSE [id number] 11:43:00 Test Item Value Reference Range Interpretation Comments POC-GLUCOSE METER 126 mg/dL 70-110 H TESTED AT [facility] [address] (BEAKER) (test code = NELL JASMINE 1538) [address] [id number] 10:49:00 Test Item Value Reference Range Interpretation Comments MAGNESIUM (BEAKER) (test code = 1.7 mg/dL 1.6-2.6 627) BASIC METABOLIC [id number] 10:49:00 Test Item Value Reference Range Interpretation Comments SODIUM (BEAKER) 137 meq/L 136-145 (test code = 381) POTASSIUM (BEAKER) 3.8 meq/L 3.5-5.1 (test code = 379) CHLORIDE (BEAKER) 110 meq/L 98-107 H (test code = 382) CO2 (BEAKER) (test 20 meq/L 22-29 L code = 355) BLOOD UREA NITROGEN 11 mg/dL 7-21 (BEAKER) (test code = 354) CREATININE (BEAKER) 0.64 mg/dL 0.57-1.25 (test code = 358) GLUCOSE RANDOM 119 mg/dL 70-105 H (BEAKER) (test code = 652) CALCIUM (BEAKER) 8.0 mg/dL 8.4-10.2 L (test code = 697) EGFR (BEAKER) (test 95 mL/min/1.73 ESTIMA MARTA GFR IS code = 1092) sq m NOT ACCURATE CREATININE CLEARANCE IN PREDICTING GLOMERULAR FILTRATION RATE . ESTIMATED GFR I S NOT APPLICABLE FOR DIALYSIS PATIEN TS. CREATINE KINASE (CK)2018-04-17 10:49:00 Test Item Value Reference Range Interpretation Comments CREATINE KINASE TOTAL (BEAKER) (test 983 U/L 29-200 H code = 380) EEG MONITORING WITH VIDEO RECORDING EACH 24 [id number] 10:35:00status epilepticusNeurophysiology Continuous Video Electroencephalogram Report DATE OF REPORT: 04/17/18 Date(s) of Study: 04/17/2018 ACC: [id number] Start time: 0304 hrs Stop time: 0704 hrs ICD-10: R56.9 Choose an item. CPT Code: 31934 Choose an item. HISTORY: 57 yo female with PMHx of HTN, COPD found down at home with concern for seizures. MEDICATIONS THAT COULD AFFECT EEG: Levetiracetam TECHNICAL SUMMARY: This is a digital video EEG recorded with 32 input channels reviewed with bipolar and referential montages using the modified combinatorial system nomenclature. DESCRIPTION OF RECORD: There was no posterior dominant rhythm and the frequency-amplitude gradient was moderately disorganized. The background rhythms consisted of 5-8 Hz and 3-4 Hz activities, with 14-16 Hz activity seen frontally. There was abackground asymmetry with intermittent periods of diffuse voltage attenuation seen over the right hemisphere, lasting up to 2.5 seconds. There was also 1 Hz lateralized, frontally predominant, periodicdischarges seen on the right as well, with a broad field to the left frontal region at times. There were no stage-II sleep architecture features seen. HV: Not performed. PHOTIC STIMULATION: Not performed EVENTS: No electrographic seizures seen. IMPRESSION: Abnormal 4-hour EEG due to: 1. Continuous slowing, generalized 2. Background discontinuity, focal (right hemisphere) 3. Lateralized periodic discharges (LPDs) with frontal predominance, right hemisphere CLINICAL CORRELATION: This study is consistent with a nonspecific moderate encephalopathy, compounded by a focal right hemispheric dysfunction with evidence of cortical irritability. The lateralized periodic discharges are a part of the ictal-interictal spectrum and could indicate a propensity for epileptic seizures. There were no electrographic seizures seen during this recording, which is an improvement from the baseline record the day prior. Humera Sellers MD Epilepsy Fellow Toney Cruz MD ClinicalNeurophysiology Attending [facility] Neurophysiology RAD, CHEST, 1 VIEW, NON [id number] 09:40:00Reason for exam:->Resp FailureShould this be performed at the bedside?->YesFINAL REPORT CHEST ONE VIEW HISTORY: Respiratory failure, status post intubation COMPARISON: 04/16/2018 at 1127 hours FINDINGS: Single portable AP examination of the chest was performed. Since the prior study, the endotracheal tube has been advanced. Its tip is now 2 cm proximal to the juan. Right jugular catheter tip is in the SVC region. There is subsegmental atelectasis versus scar at the medial right lung base, similar to the prior study. Lungs otherwise clear. No pleural effusions or pneumothorax are identified. Cardiac shadow normal in size. Signed: Dona Ornelas MDReport Verified Date/Time: 04/17/2018 09:40:13 Reading Location: [facility] C0[facility] Transitional Reading Room OSMOLALITY, [id number] 09:04:00 Test Item Value Reference Range Interpretation Comments OSMOLALITY, SERUM (BEAKER) (test 287 mOsm/kg 275-295 code = 615) VANCOMYCIN LEVEL, [id number] 08:16:00 Test Item Value Reference Range Interpretation Comments VANCOMYCIN TROUGH (BEAKER) (test 13.8 ug/mL 10.0-20.0 code = 522) [id number] 07:03:00 Test Item Value Reference Range Interpretation Comments PARTIAL THROMBOPLASTIN TIME 52.6 seconds 22.5-36.0 H (BEAKER) (test code = 760) TROPONIN [id number] 06:45:00 Test Item Value Reference Range Interpretation Comments TROPONIN I (BEAKER) (test code = 0.80 ng/mL 0.00-0.03 HH 397) Troponin I (TnI) levels must be interpreted in the context of the presenting symptoms and the clinical findings. Elevated TnI levels indicate myocardial damage, but are not specific for ischemic heart disease. Elevated TnI levels are seen in patients with other cardiac conditions (including myocarditis and congestive heart failure), and slight TnI elevations occur in patients with other conditions, including sepsis, renal failure, acidosis, acute neurological disease, and persistent tachyarrhythmia.BASIC METABOLIC [id number] 06:20:00 Test Item Value Reference Range Interpretation Comments SODIUM (BEAKER) 139 meq/L 136-145 (test code = 381) POTASSIUM (BEAKER) 3.4 meq/L 3.5-5.1 L (test code = 379) CHLORIDE (BEAKER) 110 meq/L 98-107 H (test code = 382) CO2 (BEAKER) (test 20 meq/L 22-29 L code = 355) BLOOD UREA NITROGEN 13 mg/dL 7-21 (BEAKER) (test code = 354) CREATININE (BEAKER) 0.60 mg/dL 0.57-1.25 (test code = 358) GLUCOSE RANDOM 138 mg/dL 70-105 H (BEAKER) (test code = 652) CALCIUM (BEAKER) 7.1 mg/dL 8.4-10.2 L (test code = 697) EGFR (BEAKER) (test 103 mL/min/1.73 ESTIM ATED GFR IS code = 1092) sq m NOT ACCURATE CREATININE CLEARANCE IN PREDICTING GLOMERULAR FILTRATION RATE . ESTIMATED GFR I S NOT APPLICABLE FOR DIALYSIS PATIEN TS. POCT-GLUCOSE [id number] 06:19:00 Test Item Value Reference Range Interpretation Comments POC-GLUCOSE METER 151 mg/dL 70-110 H TESTED AT [facility] 6720 (BEAKER) (test code = [place] 1538) [id number] 05:57:00 Test Item Value Reference Range Interpretation Comments MAGNESIUM (BEAKER) (test code = 1.9 mg/dL 1.6-2.6 627) CREATINE KINASE (CK)2018-04-17 05:57:00 Test Item Value Reference Range Interpretation Comments CREATINE KINASE TOTAL (BEAKER) (test 599 U/L 29-200 H code = 380) CALCIUM, [id number] 02:36:00 Test Item Value Reference Range Interpretation Comments CALCIUM IONIZED (BEAKER) (test 1.04 mmol/L 1.12-1.27 L code = 698) PH, BLOOD (BEAKER) (test code = 7.40 1810) BASIC METABOLIC [id number] 01:55:00 Test Item Value Reference Range Interpretation Comments SODIUM (BEAKER) 139 meq/L 136-145 (test code = 381) POTASSIUM (BEAKER) 2.4 meq/L 3.5-5.1 LL (test code = 379) CHLORIDE (BEAKER) 115 meq/L 98-107 H (test code = 382) CO2 (BEAKER) (test 17 meq/L 22-29 L code = 355) BLOOD UREA NITROGEN 13 mg/dL 7-21 (BEAKER) (test code = 354) CREATININE (BEAKER) 0.54 mg/dL 0.57-1.25 L (test code = 358) GLUCOSE RANDOM 125 mg/dL 70-105 H (BEAKER) (test code = 652) CALCIUM (BEAKER) 5.7 mg/dL 8.4-10.2 LL (test code = 697) EGFR (BEAKER) (test 116 mL/min/1.73 ESTIM ATED GFR IS code = 1092) sq m NOT ACCURATE CREATININE CLEARANCE IN PREDICTING GLOMERULAR FILTRATION RATE . ESTIMATED GFR I S NOT APPLICABLE FOR DIALYSIS PATIEN TS. TROPONIN [id number] 01:54:00 Test Item Value Reference Range Interpretation Comments TROPONIN I (BEAKER) (test code = 0.90 ng/mL 0.00-0.03 HH 397) Troponin I (TnI) levels must be interpreted in the context of the presenting symptoms and the clinical findings. Elevated TnI levels indicate myocardial damage, but are not specific for ischemic heart disease. Elevated TnI levels are seen in patients with other cardiac conditions (including myocarditis and congestive heart failure), and slight TnI elevations occur in patients with other conditions, including sepsis, renal failure, acidosis, acute neurological disease, and persistent tachyarrhythmia.[id number] 00:56:00 Test Item Value Reference Range Interpretation Comments MAGNESIUM (BEAKER) (test code = 1.6 mg/dL 1.6-2.6 627) POCT-GLUCOSE [id number] 00:34:00 Test Item Value Reference Range Interpretation Comments POC-GLUCOSE METER 156 mg/dL 70-110 H TESTED AT [facility] 6720 ([place]) (test code = [place] 1538) [id number] CREATINE KINASE (CK)2018-04-16 23:34:00 Test Item Value Reference Range Interpretation Comments CREATINE KINASE TOTAL (BEAKER) (test 630 U/L 29-200 H code = 380) MR, BRAIN, WITHOUT [id number] 20:50:00FINAL REPORT MRI brain without contrast 04/16/2018 8:45 PM CLINICAL INDICATION: Eval for CVA TECHNIQUE: Multiplanar, multisequence MR imaging of the brain was performed utilizingthe following imaging sequences: Axial T1, T2, FLAIR, GRE, and DWI; sagittal and coronal T1-weightedimages. COMPARISON: None available FINDINGS: There is an acute nonhemorrhagic infarct in the adjacent mesial right temporal lobe and thalamus. There is no hematoma, mass, hydrocephalus, or extra-axialcollection. 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 There are rare chronic microvascular changes in the supratentorial white matter. There is generalized parenchymal volume loss. Normal appearing flow-voids are present in the major intracranial vascular structures.The sellar and pineal regions, craniocervical junction, orbits, face, and skull base are without worrisome finding. IMPRESSION: 1. 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 2. Chronic findings as discussed. Signed: Ana Cabello Verified Date/Time: 04/16/2018 20:50:25 Reading Location: [facility] Radiology Reading Room PHENYTOIN LEVEL, [id number] 20:45:00 Test Item Value Reference Range Interpretation Comments PHENYTOIN (DILANTIN) (BEAKER) 11.8 ug/mL 10.0-20.0 (test code = 605) Please obtain 2 hours after getting phenytoinPOCT-GLUCOSE [id number] 19:01:00 Test Item Value Reference Range Interpretation Comments POC-GLUCOSE METER 139 mg/dL 70-110 H TESTED AT [facility] [address] [facility] (test code = [place] 1538) [id number] 18:50:00 Test Item Value Reference Range Interpretation Comments PARTIAL THROMBOPLASTIN TIME 92.6 seconds 22.5-36.0 H (BEAKER) (test code = 760) TROPONIN [id number] 18:01:00 Test Item Value Reference Range Interpretation Comments TROPONIN I (BEAKER) (test code = 1.72 ng/mL 0.00-0.03 HH 397) Troponin I (TnI) levels must be interpreted in the context of the presenting symptoms and the clinical findings. Elevated TnI levels indicate myocardial damage, but are not specific for ischemic heart disease. Elevated TnI levels are seen in patients with other cardiac conditions (including myocarditis and congestive heart failure), and slight TnI elevations occur in patients with other conditions, including sepsis, renal failure, acidosis, acute neurological disease, and persistent tachyarrhythmia.[id number] 17:38:00 Test Item Value Reference Range Interpretation Comments MAGNESIUM (BEAKER) (test code = 1.4 mg/dL 1.6-2.6 L 627) BASIC METABOLIC [id number] 17:38:00 Test Item Value Reference Range Interpretation Comments SODIUM (BEAKER) 135 meq/L 136-145 L (test code = 381) POTASSIUM (BEAKER) 3.0 meq/L 3.5-5.1 L (test code = 379) CHLORIDE (BEAKER) 101 meq/L 98-107 (test code = 382) CO2 (BEAKER) (test 19 meq/L 22-29 L code = 355) BLOOD UREA NITROGEN 19 mg/dL 7-21 (BEAKER) (test code = 354) CREATININE (BEAKER) 0.76 mg/dL 0.57-1.25 (test code = 358) GLUCOSE RANDOM 126 mg/dL 70-105 H (BEAKER) (test code = 652) CALCIUM (BEAKER) 8.2 mg/dL 8.4-10.2 L (test code = 697) EGFR (BEAKER) (test 78 mL/min/1.73 ESTIMA MARTA GFR IS code = 1092) sq m NOT ACCURATE CREATININE CLEARANCE IN PREDICTING GLOMERULAR FILTRATION RATE . ESTIMATED GFR I S NOT APPLICABLE FOR DIALYSIS PATIEN TS. CREATINE KINASE (CK)2018-04-16 17:38:00 Test Item Value Reference Range Interpretation Comments CREATINE KINASE TOTAL (BEAKER) (test 844 U/L 29-200 H code = 380) [id number] 15:49:00 Test Item Value Reference Range Interpretation Comments PARTIAL THROMBOPLASTIN TIME > seconds 22.5-36.0 HH (BEAKER) (test code = 760) EEG AWAKE AND [id number] 14:47:00Reason for exam:->Seizures Should this be performed at the bedside?[facility] DATE OF TEST: 04-16-18 START TIME: 04/16 at 08:33 END TIME: 04/16 at 08:56 DATE OF REPORT: 04-16-2018 [id number]: R56.9 CPT Code: 48696 HISTORY: 57 y o female with PMHx of HTN, COPD found down at home with concern for seizures. MEDICATIONS THAT COULD AFFECT EEG: Levetiracetam TECHNICAL SUMMARY: This is a digital video EEG recorded with 32 input channels reviewed with bipolar and referential montages using the modified combinatorial system nomenclature. DESCRIPTION OF RECORD: During the maximally awake state there is a poorly sustained 6-7 Hz posterior dominant and anterior to posterior voltage/frequency gradient noted over the left hemisphere. The background is composed primarily of 5-7 Hz with admixed 8-13 Hz. Over the right hemisphere there are slower 3-4 Hz frequencies as well as 1-3 Hz frontal predominant spike and wave discharges lateralized to right hemisphere (Fp2/F4; LPDs lateralized right hemisphere) at times with a field to the left frontal region. LPDs are time locked with clonic movements of the left lower extremity, at times evolving into discrete events as described below, consistent with electroclinical seizures, lasting up to 30 seconds in duration. HV: Not performed. PHOTIC STIMULATION: Not performed Events: at 08:38:32, 08:41:32, 08:45:49, 08:47:44, the patient has more frequent left-sided clonic leg movements associated with an evolution of R-sided PLEDs into 5-6 Hz rhythmic discharges, maximal at F4, slowing over 15-30 seconds to ~1 Hz discharges before returning to baseline LPDs.IMPRESSION:Abnormal awake & drowsy EEG 1. Lateralized periodic discharges over the right hemisphere (maximal Fp2/F4) with clinical correlate of left lower extremity clonic movements, occasionally evolving into brief focal seizures.2. Generalized theta range slowing3. Focal right hemispheric delta slowing CLINICAL CORRELATION: Diffuse slowing as seen in this record supports an underlying mild-moderate encephalopathy of nonspecific etiology (hypoxia, infectious, metabolic/toxic). Focal righthemispheric slowing is a nonspecific finding which can be associated with underlying structural abnormality of the involved region. Laterlized periodic discharges over the right hemisphere with clinical correlate of left lower extremity clonic movement, evolving in frequency over time, are consistent with intermittent electroclinical seizures. These findings were discussed with the NeuroICU team andthe patient was hooked up to continuous bedside monitoring. Savannah Soria MD Neurophysiology Fellow & amp;#[id number]; Toney Cruz MDClinical Neurophysiology Attending [facility] [id number] 14:03:00 Test Item Value Reference Range Interpretation Comments PARTIAL THROMBOPLASTIN TIME > seconds 22.5-36.0 HH ([facility]) (test code = 760) HEMOGLOBIN [id number] 12:34:00 Test Item Value Reference Range Interpretation Comments HEMOGLOBIN A1C ([facility]) (test code = 5.6 % 4.3-6.1 368) POCT-GLUCOSE [id number] 12:14:00 Test Item Value Reference Range Interpretation Comments POC-GLUCOSE METER 139 mg/dL 70-110 H TESTED AT [facility] 6720 ([facility]) (test code = [place] 1538) [address] RAD, CHEST, 1 VIEW, NON [id number] 12:10:00Reason for exam:->CVC placementShould this be performed at the bedside?->YesFINAL REPORT CLINICAL HISTORY: CVC placement TECHNIQUE: 1 view of the chest. C OMPARISON: 04/15/2018 IMPRESSION: There is a right jugular line in the SVC. The ETT projects 4 cm above the juan. There are no infiltrates or effusions. The heart is not enlarged. A chronic right ribfracture deformity is again seen. Signed: Polina Rubi MDReport Verified Date/Time: 04/16/2018 12:10:39 Reading Location: [facility] Radiology Reading Room LACTIC ACID, ARTERIAL, WHOLE BLOOD 2018-04-16 10:33:00 Test Item Value Reference Range Interpretation Comments LACTATE BLOOD 0.9 mmol/L 0.5-2.2 Specimen sligh tly ARTERIAL (2) (BEAKER) hemoly zed (test code = 2874) Effective 10/31/2015: Units/Reference Range ChangeNew: 0.5-2.2 mmol/L Previous: 5-20 mg/dLBLOOD GAS, [id number] 10:18:00 Test Item Value Reference Range Interpretation Comments PH ARTERIAL (BEAKER) (test code = 7.41 7.35-7.45 383) PCO2 ARTERIAL (BEAKER) (test code 29 mmHg 35-45 L = 384) PO2 ARTERIAL (BEAKER) (test code 214 mmHg 80-90 H = 385) O2 SATURATION ARTERIAL (BEAKER) 99.5 % 96.0-97.0 H (test code = 386) HCO3 ARTERIAL (BEAKER) (test code 18 mmol/L 21-29 L = 388) BASE EXCESS ARTERIAL (BEAKER) -5.5 mmol/L -2.0-3.0 L (test code = 387) PATIENT TEMPERATURE (BEAKER) 38.0 C (test code = 1818) FIO2 (BEAKER) (test code = 1819) 50.0 % TROPONIN [id number] 09:22:00 Test Item Value Reference Range Interpretation Comments TROPONIN I (BEAKER) (test code = 2.47 ng/mL 0.00-0.03 HH 397) Troponin I (TnI) levels must be interpreted in the context of the presenting symptoms and the clinical findings. Elevated TnI levels indicate myocardial damage, but are not specific for ischemic heart disease. Elevated TnI levels are seen in patients with other cardiac conditions (including myocarditis and congestive heart failure), and slight TnI elevations occur in patients with other conditions, including sepsis, renal failure, acidosis, acute neurological disease, and persistent tachyarrhythmia.POCT-GLUCOSE [id number] 06:41:00 Test Item Value Reference Range Interpretation Comments POC-GLUCOSE METER 141 mg/dL 70-110 H TESTED AT [facility] [address] [facility] (test code = [place] 1538) [address] [id number] 04:30:00 Test Item Value Reference Range Interpretation Comments PARTIAL THROMBOPLASTIN TIME 34.7 seconds 22.5-36.0 (BEAKER) (test code = 760) Prior to initiating heparinVITAMIN [id number] 03:15:00 Test Item Value Reference Range Interpretation Comments VITAMIN B12 (BEAKER) (test code = 283 pg/mL 213-816 774) TROPONIN [id number] 02:29:00 Test Item Value Reference Range Interpretation Comments TROPONIN I (BEAKER) (test code = 2.03 ng/mL 0.00-0.03 397) Troponin I (TnI) levels must be interpreted in the context of the presenting symptoms and the clinical findings. Elevated TnI levels indicate myocardial damage, but are not specific for ischemic heart disease. Elevated TnI levels are seen in patients with other cardiac conditions (including myocarditis and congestive heart failure), and slight TnI elevations occur in patients with other conditions, including sepsis, renal failure, acidosis, acute neurological disease, and persistent tachyarrhythmia.BASIC METABOLIC [id number] 02:07:00 Test Item Value Reference Range Interpretation Comments SODIUM (BEAKER) 132 meq/L 136-145 L (test code = 381) POTASSIUM (BEAKER) 3.8 meq/L 3.5-5.1 (test code = 379) CHLORIDE (BEAKER) 98 meq/L 98-107 (test code = 382) CO2 (BEAKER) (test 18 meq/L 22-29 L code = 355) BLOOD UREA NITROGEN 16 mg/dL 7-21 (BEAKER) (test code = 354) CREATININE (BEAKER) 0.74 mg/dL 0.57-1.25 (test code = 358) GLUCOSE RANDOM 139 mg/dL 70-105 H (BEAKER) (test code = 652) CALCIUM (BEAKER) 8.8 mg/dL 8.4-10.2 (test code = 697) EGFR (BEAKER) (test 81 mL/min/1.73 ESTIMA MARTA GFR IS code = 1092) sq m NOT ACCURATE CREATININE CLEARANCE IN PREDICTING GLOMERULAR FILTRATION RATE . ESTIMATED GFR I S NOT APPLICABLE FOR DIALYSIS PATIEN TS. CBC W/PLT COUNT & AUTO [id number] 01:35:00 Test Item Value Reference Range Interpretation Comments WHITE BLOOD CELL COUNT (BEAKER) 26.7 K/ L 3.5-10.5 H (test code = 775) RED BLOOD CELL COUNT (BEAKER) 3.59 M/ L 3.93-5.22 L (test code = 761) HEMOGLOBIN (BEAKER) (test code = 12.3 GM/DL 11.2-15.7 410) HEMATOCRIT (BEAKER) (test code = 35.6 % 34.1-44.9 411) MEAN CORPUSCULAR VOLUME (BEAKER) 99.2 fL 79.4-94.8 H (test code = 753) MEAN CORPUSCULAR HEMOGLOBIN 34.3 pg 25.6-32.2 H (BEAKER) (test code = 751) MEAN CORPUSCULAR HEMOGLOBIN CONC 34.6 GM/DL 32.2-35.5 (BEAKER) (test code = 752) RED CELL DISTRIBUTION WIDTH 14.4 % 11.7-14.4 (BEAKER) (test code = 412) PLATELET COUNT (BEAKER) (test 282 K/CU MM 150-450 code = 756) MEAN PLATELET VOLUME (BEAKER) 9.8 fL 9.4-12.3 (test code = 754) NUCLEATED RED BLOOD CELLS 0 /100 WBC 0-0 (BEAKER) (test code = 413) NEUTROPHILS RELATIVE PERCENT 92 % (BEAKER) (test code = 429) LYMPHOCYTES RELATIVE PERCENT 3 % (BEAKER) (test code = 430) MONOCYTES RELATIVE PERCENT 3 % (BEAKER) (test code = 431) EOSINOPHILS RELATIVE PERCENT 0 % (BEAKER) (test code = 432) BASOPHILS RELATIVE PERCENT 0 % (BEAKER) (test code = 437) NEUTROPHILS ABSOLUTE COUNT 24.65 K/ L 1.56-6.13 H (BEAKER) (test code = 670) LYMPHOCYTES ABSOLUTE COUNT 0.81 K/ L 1.18-3.74 L (BEAKER) (test code = 414) MONOCYTES ABSOLUTE COUNT (BEAKER) 0.92 K/ L 0.24-0.36 H (test code = 415) EOSINOPHILS ABSOLUTE COUNT 0.02 K/ L 0.04-0.36 L (BEAKER) (test code = 416) BASOPHILS ABSOLUTE COUNT (BEAKER) 0.03 K/ L 0.01-0.08 (test code = 417) IMMATURE GRANULOCYTES-RELATIVE 1 % 0-1 PERCENT (BEAKER) (test code = 2801) LIPID [id number] 23:55:00 Test Item Value Reference Range Interpretation Comments TRIGLYCERIDES (BEAKER) (test code = 102 mg/dL 540) CHOLESTEROL (BEAKER) (test code = 182 mg/dL 631) HDL CHOLESTEROL (BEAKER) (test code 48 mg/dL = 976) LDL CHOLESTEROL CALCULATED (BEAKER) 114 mg/dL (test code = 633) Triglyceride Reference Range: Low Risk <150 Borderline 150-199 High Risk 200-499 Very High Risk >=500Cholesterol Reference Range: Low Risk <200 Borderline 200-239 High Risk >240HDL Cholesterol Reference Range: Low Risk >=60 High Risk <40LDL Cholesterol Reference Range: Optimal <100 Near Optimal 100-129 Borderline 130-159 High 160-189 Very High >=190TSH/FREE T4 IF [id number] 23:16:00 Test Item Value Reference Range Interpretation Comments THYROID STIMULATING HORMONE 1.73 uIU/mL 0.35-4.94 (BEAKER) (test code = 772) HEPATIC FUNCTION [id number] 22:57:00 Test Item Value Reference Range Interpretation Comments TOTAL PROTEIN (BEAKER) (test code = 5.9 gm/dL 6.0-8.3 L 770) ALBUMIN (BEAKER) (test code = 1145) 3.3 g/dL 3.5-5.0 L BILIRUBIN TOTAL (BEAKER) (test code 0.5 mg/dL 0.2-1.2 = 377) BILIRUBIN DIRECT (BEAKER) (test 0.3 mg/dL 0.1-0.5 code = 706) ALKALINE PHOSPHATASE (BEAKER) (test 68 U/L 40-150 code = 346) AST (SGOT) (BEAKER) (test code = 36 U/L 5-34 H 353) ALT (SGPT) (BEAKER) (test code = 16 U/L 6-55 347) CREATINE KINASE (CK)2018-04-15 22:57:00 Test Item Value Reference Range Interpretation Comments CREATINE KINASE TOTAL (BEAKER) (test 356 U/L 29-200 H code = 380) [id number] 22:53:00 Test Item Value Reference Range Interpretation Comments ETHANOL (BEAKER) (test code = 400) < mg/dL <=10 [id number] 22:48:00 Test Item Value Reference Range Interpretation Comments AMMONIA (BEAKER) (test code = 348) 38 mol/L 18-72 POCT-LACTIC ACID, [id number] 22:36:00 Test Item Value Reference Range Interpretation Comments POC-LACTIC ACID, 1.7 mmol/L 0.9-1.7 TESTED AT [facility] [address] (BEAKER) [facility] [place] code = 2805) [id number] 21:24:00 Test Item Value Reference Range Interpretation Comments PROCALCITONIN (BEAKER) (test code 2.11 ng/mL <0.05 H = 3036) SEPSIS RISK (ng/mL)Low: 0.05-0.50Intermediate: 0.51-2.00High: >=2.01POCT-LACTIC ACID, [id number] 20:31:00 Test Item Value Reference Range Interpretation Comments POC-LACTIC ACID, 1.3 mmol/L 0.9-1.7 TESTED AT [facility] [address] (BEAKER) ([facility] [place] [place] code = 2805) [address] URINALYSIS W/ [id number] 20:15:00 Test Item Value Reference Range Interpretation Comments COLOR (BEAKER) (test code = 470) Light Yellow CLARITY (BEAKER) (test code = Clear 469) SPECIFIC GRAVITY UA (BEAKER) 1.009 1.001-1.035 (test code = 468) PH UA (BEAKER) (test code = 467) 6.5 5.0-8.0 PROTEIN UA (BEAKER) (test code = 30 mg/dL Negative A 464) GLUCOSE UA (BEAKER) (test code = Negative Negative 365) KETONES UA (BEAKER) (test code = Negative Negative 371) BILIRUBIN UA (BEAKER) (test code Negative Negative = 462) BLOOD UA (BEAKER) (test code = Small Negative A 461) NITRITE UA (BEAKER) (test code = Negative Negative 465) LEUKOCYTE ESTERASE UA (BEAKER) Negative Negative (test code = 466) UROBILINOGEN UA (BEAKER) (test 0.2 mg/dL 0.2-1.0 code = 463) RBC UA (BEAKER) (test code = 0 /HPF 519) WBC UA (BEAKER) (test code = < /HPF 520) MUCUS (BEAKER) (test code = Rare 1574) SQUAMOUS EPITHELIAL (BEAKER) < /HPF (test code = 516) YEAST (BEAKER) (test code = Occasional 1585) SOURCE(BEAKER) (test code = 6225) RAD, CHEST, 1 VIEW, NON [id number] 20:12:00Reason for exam:->iontubatedIs the patient ?->N/AFINAL REPORT History: Intubation. Comparison: None. Findings: A single view of the chest is submitted. The tip of an endotracheal tube is between the clavicles and juan. The ca rdiomediastinal contours are unremarkable. There is no focal consolidation, pneumothorax, large pleural effusion or evidence of overt pulmonary edema. There are deformities of the posterior right ninth and 10th ribs, age indeterminate. Please correlate to exclude the possibility of acute fracture. S igned: Serina Ngo MDReport Verified Date/Time: 04/15/2018 20:12:16 Reading Location: [address] Reading Room POCT-GLUCOSE [id number] 20:00:00 Test Item Value Reference Range Interpretation Comments POC-GLUCOSE METER 124 mg/dL 70-110 H TESTED AT [facility] 6720 (BEAKER) (test code = BERTNE R [place] 1538) [address] TROPONIN [id number] 19:59:00 Test Item Value Reference Range Interpretation Comments TROPONIN I (BEAKER) (test code = 1.70 ng/mL 0.00-0.03 397) Troponin I (TnI) levels must be interpreted in the context of the presenting symptoms and the clinical findings. Elevated TnI levels indicate myocardial damage, but are not specific for ischemic heart disease. Elevated TnI levels are seen in patients with other cardiac conditions (including myocarditis and congestive heart failure), and slight TnI elevations occur in patients with other conditions, including sepsis, renal failure, acidosis, acute neurological disease, and persistent tachyarrhythmia.CBC W/PLT COUNT & AUTO DIFFERENTIAL 2018-04-15 19:55:00 Test Item Value Reference Range Interpretation Comments WHITE BLOOD CELL COUNT (BEAKER) 30.1 K/ L 3.5-10.5 H (test code = 775) RED BLOOD CELL COUNT (BEAKER) 3.55 M/ L 3.93-5.22 L (test code = 761) HEMOGLOBIN (BEAKER) (test code = 12.2 GM/DL 11.2-15.7 410) HEMATOCRIT (BEAKER) (test code = 36.3 % 34.1-44.9 411) MEAN CORPUSCULAR VOLUME (BEAKER) 102.3 fL 79.4-94.8 H (test code = 753) MEAN CORPUSCULAR HEMOGLOBIN 34.4 pg 25.6-32.2 H (BEAKER) (test code = 751) MEAN CORPUSCULAR HEMOGLOBIN CONC 33.6 GM/DL 32.2-35.5 (BEAKER) (test code = 752) RED CELL DISTRIBUTION WIDTH 14.4 % 11.7-14.4 (BEAKER) (test code = 412) PLATELET COUNT (BEAKER) (test 314 K/CU MM 150-450 code = 756) MEAN PLATELET VOLUME (BEAKER) 9.4 fL 9.4-12.3 (test code = 754) NUCLEATED RED BLOOD CELLS 0 /100 WBC 0-0 (BEAKER) (test code = 413) (CELLAVISION MANUAL DIFF)2018-04-15 19:55:00 Test Item Value Reference Range Interpretation Comments NEUTROPHILS - REL 91 % (CELLAVISION)(BEAKER) (test code = 2816) MONOCYTES - REL 2 % (CELLAVISION)(BEAKER) (test code = 2818) BASOPHILS - REL 1 % (CELLAVISION)(BEAKER) (test code = 2820) BANDS - REL (CELLAVISION)(BEAKER) 6 % 0-10 (test code = 2826) NEUTROPHILS - ABS 27.39 K/ul 1.56-6.13 H (CELLAVISION)(BEAKER) (test code = 2830) MONOCYTES - ABS 0.60 K/uL 0.24-0.36 H (CELLAVISION)(BEAKER) (test code = 2832) BASOPHILS - ABS 0.30 K/uL 0.01-0.08 H (CELLAVISION)(BEAKER) (test code = 2835) BANDS - ABS (CELLAVISION)(BEAKER) 1.81 K/uL 0.00-0.80 H (test code = 2840) TOTAL COUNTED (BEAKER) (test code 100 = 1351) WBC MORPHOLOGY (BEAKER) (test code Normal = 487) PLT MORPHOLOGY (BEAKER) (test code Normal = 486) ANISOCYTOSIS (BEAKER) (test code = 1+ few 961) MACROCYTES (BEAKER) (test code = 1+ few 964) ARTIFACT (CELLAVISION)(BEAKER) Present (test code = 3432) PLATELET CONCENTRATION Adequate (CELLAVISION)(BEAKER) (test code = 3438) Received comment: User comments: Slide comments:BASIC METABOLIC [id number] 19:46:00 Test Item Value Reference Range Interpretation Comments SODIUM (BEAKER) 130 meq/L 136-145 L (test code = 381) POTASSIUM (BEAKER) 4.4 meq/L 3.5-5.1 (test code = 379) CHLORIDE (BEAKER) 98 meq/L 98-107 (test code = 382) CO2 (BEAKER) (test 20 meq/L 22-29 L code = 355) BLOOD UREA NITROGEN 18 mg/dL 7-21 (BEAKER) (test code = 354) CREATININE (BEAKER) 0.81 mg/dL 0.57-1.25 (test code = 358) GLUCOSE RANDOM 115 mg/dL 70-105 H (BEAKER) (test code = 652) CALCIUM (BEAKER) 9.0 mg/dL 8.4-10.2 (test code = 697) EGFR (BEAKER) (test mL/min/1.73 INSUFFIC IENT CLINICAL code = 1092) sq m DATA TO CALCULA TE ESTIMATED GFR. [id number] 19:43:00 Test Item Value Reference Range Interpretation Comments MAGNESIUM (BEAKER) (test code = 1.5 mg/dL 1.6-2.6 L 627) [id number] 19:38:00 Test Item Value Reference Range Interpretation Comments PROTIME (BEAKER) (test code = 14.1 seconds 11.7-14.7 759) INR (BEAKER) (test code = 370) 1.1 <=5.9 PARTIAL THROMBOPLASTIN TIME 26.2 seconds 22.5-36.0 (BEAKER) (test code = 760) RECOMMENDED COUMADIN/WARFARIN INR THERAPY RANGESSTANDARD DOSE: 2.0 - 3.0 Includes: PROPHYLAXIS forvenous thrombosis, systemic embolization; TREATMENT for venous thrombosis and/or pulmonary embolus.HIGH RISK: Target INR is 2.5-3.5 for patients with mechanical heart valves.BLOOD GAS, [id number] 19:27:00 Test Item Value Reference Range Interpretation Comments PH ARTERIAL (BEAKER) (test code = 7.27 7.35-7.45 L 383) PCO2 ARTERIAL (BEAKER) (test code 42 mmHg 35-45 = 384) PO2 ARTERIAL (BEAKER) (test code 452 mmHg 80-90 H = 385) O2 SATURATION ARTERIAL (BEAKER) 99.8 % 96.0-97.0 H (test code = 386) HCO3 ARTERIAL (BEAKER) (test code 19 mmol/L 21-29 L = 388) BASE EXCESS ARTERIAL (BEAKER) -7.5 mmol/L -2.0-3.0 L (test code = 387) PATIENT TEMPERATURE (BEAKER) 36.0 C (test code = 1818) FIO2 (BEAKER) (test code = 1819) 100.0 % [id number] 19:27:00 Test Item Value Reference Range Interpretation Comments CARBOXYHEMOGLOBIN (BEAKER) (test code = 2.5 % 0.0-5.0 695) CT, CTANGIO [id number] 19:02:00Reason for exam:->Symptoms onset less than 6 hours and NIHSS 6 or greaterFINAL REPORT CTA carotids and brain 04/15/2018 6:57 PM CLINICAL INDICATION: Symptoms onset less than 6 hours and NIHSS 6 or greaterStroke evaluation COMPARISON: None available TECHNIQUE: Axial CT angiographic images of the upper chest, neck, and head were obtained, from which three-dimensional reconstructed images were created. Additional imaging series were created on an independent workstation using maximum intensity projection and volume rendered technique. This examinationwas performed according to our departmental dose optimization program, which includes automated exposure control, adjustment of the mA and/or kV according to patient size, and/or use of iterated reconstruction technique. FINDINGS: There is no vessel occlusion in the intracranial or extracranial arterial vasculature. There is high-grade stenosis at the origins of both vertebral arteries. The remainderof the intracranial and extracranial vertebrobasilar circulation is unremarkable. There is atherosclerotic plaque deposition in both carotid bifurcations and carotid siphons, without NASCET quantifiable cervical internal carotid artery stenosis or unremarkable intracranial ICA stenosis. There is no stenosis in either anterior, middle, or posterior cerebral artery. There is a left parietotemporal scalp hematoma. 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 The visualized skeleton is without worrisome finding. IMPRESSION: 1. No evidence for acute vascular compromise. 2. Severe bilateral vertebral artery origin stenosis. 3. Additional findings as discussed. IMPRESSION: Signed: Ana Cabello Verified Date/Time: 04/15/2018 19:02:43 Reading Location: [facility] Reading Room [facility], CAROTID, [id number] 19:02:00Reason for exam:- >Symptoms onset less than 6 hours and NIHSS 6 or greaterFINAL REPORT CTA carotids and brain 04/15/2018 6:57 PM CLINICAL INDICATION: Sy mptoms onset less than 6 hours and NIHSS 6 or greaterStroke evaluation COMPARISON: None available TECHNIQUE: Axial CT angiographic images of the upper chest, neck, and head were obtained, from which three-dimensional reconstructed images were created. Additional imaging series were created on an independent workstation using maximum intensity projection and volume rendered technique. This examinationwas performed according to our departmental dose optimization program, which includes automated exposure control, adjustment of the mA and/or kV according to patient size, and/or use of iterated reconstruction technique. FINDINGS: There is no vessel occlusion in the intracranial or extracranial arterial vasculature. There is high-grade stenosis at the origins of both vertebral arteries. The remainderof the intracranial and extracranial vertebrobasilar circulation is unremarkable. There is atherosclerotic plaque deposition in both carotid bifurcations and carotid siphons, without NASCET quantifiable cervical internal carotid artery stenosis or unremarkable intracranial ICA stenosis. There is no stenosis in either anterior, middle, or posterior cerebral artery. There is a left parietotemporal scalp hematoma. 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 The visualized skeleton is without worrisome finding. IMPRESSION: 1. No evidence for acute vascular compromise. 2. Severe bilateral vertebral artery origin stenosis. 3. Additional findings as discussed. IMPRESSION: Signed: Ana Cabello Verified Date/Time: 04/15/2018 19:02:43 Reading Location: [facility] Reading Room [facility], BRAIN/STROKE [id number] 18:30:00Reason for exam:->strokeFINAL REPORT CT head without contrast 04/15/2018 6:26 PM CLINICAL HISTORY: stroke TECHNIQUE: Axial noncontrast CT images through the head were obtained. This examination was performed according to our departmental dose optimization program, which includes automated exposure control, adjustment of the mA and/or kV according to patient size, and/or use of iterated reconstruction technique. COMPARISON: None available FINDINGS: There is no hemorrhage, extra-axial collection, mass,hydrocephalus, or midline shift. 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 There are rare microvascular changes in the supratentorial white matter. There is atherosclerotic calcification of the intracranialarterial vasculature. There is generalized parenchymal volume loss. The visualized paranasal sinuses and mastoid air cells are well aerated. There is a left parietotemporal scalp hematoma. The skull is intact. IMPRESSION: No intracranial hemorrhage or mass effect. Chronic appearing findings as discussed. If concern for acute pathology persists, further evaluation with MRI is recommended. Findings were discussed with Dr. Wharton on 04/15/2018 at 1825. Signed: Ana Cabello Verified Date/Time: 04/15/2018 18:30:59 Reading Location: [facility] Reading Room
[2021-07-03 19:20] LABS: Protime INR 0.84
[2021-07-03 19:21] LABS: Absolute Lymphocytes (CBC) 0.9 K/uL (0.7-4.9); Hematocrit 37.8 % (36.0-45.0); Lymphocytes % 4.6 % (15.3-44.8); MPV 7.6 fL (7.6-11.3); RBC Red Blood Cell Count 3.77 M/uL (3.86-4.86)
[2021-07-03 19:53] LABS: Urine Blood 1+ (Negative); Urine Glucose Negative (Negative); Urine Protein 2+ (Negative); Urine Specific Gravity >=1.030 (1.005-1.030); Urine pH 6.5 (5.0-7.0)
[2021-07-03 19:59] LABS: BUN Blood Urea Nitrogen 18 mg/dL (7-18); Bicarbonate 20 mmol/L (21-32); Glucose Level 104 mg/dL (74-106); Potassium 3.7 mmol/L (3.5-5.1); Sodium Level 129 mmol/L (136-145)
[2021-07-03] MEDS ORDERED: ONDANSETRON 4 MG/2 ML VIAL ONE (20:11)
[2021-07-03 20:17] LABS: Barbiturates NEGATIVE (NEGATIVE); Benzodiazepines POSITIVE (NEGATIVE); Cocaine NEGATIVE (NEGATIVE); METHAMPHETAM NEGATIVE (NEGATIVE); Methadone NEGATIVE (NEGATIVE); Opiates NEGATIVE (NEGATIVE); Phencyclidine NEGATIVE (NEGATIVE); THC Cannibis POSITIVE (NEGATIVE)
[2021-07-03 20:31] LABS: Blood Morphology Comment NOT SEEN (NOT SEEN); Platelet Estimate ADEQ
[2021-07-03 20:38] LABS: ALT/SGPT 40 U/L (12-78); AST/SGOT 55 U/L (15-37); Albumin 3.6 g/dL (3.4-5.0); Alkaline Phosphatase 134 U/L (45-117); Bilirubin Direct < 0.1 mg/dL (0-0.2); Bilirubin Total 0.2 mg/dL (0.2-1.0); Protein, Total 7.3 g/dL (6.4-8.2); Troponin (Emerg Dept Use Only) 0.39 ng/mL (0.0-0.045)
--- NOTE | 2021-07-03 20:49 | RAD REPORT ---
EXAM DESCRIPTION: CT - Head C Spine Mpr Wo Con - 07/03/2021 8:25 pm CLINICAL HISTORY: Head and neck injury status post fall. Head and neck pain . Seizure COMPARISON: None. TECHNIQUE: Computed axial tomography of the head and cervical spine was obtained. Sagittal and coronal reconstruction was performed. All CT scans are performed using dose optimization technique as appropriate and may include automated exposure control or mA/KV adjustment according to patient size. FINDINGS: An intracranial bleed is not seen. Prominent cerebral atrophy. The lateral and ventricles are moderately dilated. . . An extra-axial fluid collection is not noted.Fluid within the visualized sinuses and mastoids is not seen A cervical fracture is not visualized. No dislocation is noted. Mild posterior subluxation C5 on C6 w ith disc space narrowing and osteophytes. IMPRESSION: Moderate dilatation of the third and lateral ventricles probably related to white matter atrophy. Hydrocephalus is probably less likely and should be correlated clinically. A cervical fracture is not visualized. If the patient continues to have symptoms to suggest intracra nial /spinal cord pathology then MRI would be recommended
--- NOTE | 2021-07-03 21:10 | RAD REPORT ---
EXAM DESCRIPTION: Abundio Angio07/03/2021 8:36 pm CLINICAL HISTORY: Left arm weakness/numbness COMPARISON: None TECHNIQUE: 50 cc Isovue 370 was administered intravenously. 3D MIP reconstruction performed All CT scans are performed using dose optimization technique as appropriate and may include automated exposure control or mA/KV adjustment according to patient size. FINDINGS: Moderate calcified plaque within the distal right carotid artery/proximal right carotid bu lb/ proximal right external carotid artery Mild calcified plaque within the remainder of common carotid, internal carotid and external carotid a rteries bilaterally High-grade stenosis proximal left vertebral artery. Right vertebral artery unremarkable. Distal left vertebral artery terminates into the PICA IMPRESSION: Moderate calcified plaque within the distal right carotid artery/proximal right carotid bulb/ proximal right external carotid artery results in an approximately 50% stenosis. High-grade stenosis proximal left vertebral artery. NASCET criteria used. Mild 0-49% stenosis Moderate 50-69% stenosis Severe 70-99% stenosis
--- NOTE | 2021-07-03 21:15 | RAD REPORT ---
EXAM DESCRIPTION: CTHead angio07/03/2021 8:36 pm CLINICAL HISTORY: Left arm weakness/numbness COMPARISON: None TECHNIQUE: CT angiogram of the head was obtained. 3D MIPS reconstruction performed. All CT scans are performed using dose optimization technique as appropriate and may include automated exposure control or mA/KV adjustment according to patient size. FINDINGS: Mild calcified plaque in the distal internal carotid arteries. The basilar, anterior cerebral, middle cerebral and posterior cerebral arteries are normal caliber. An aneurysm is not seen. A significant stenosis is not noted. IMPRESSION: No significant abnormality is displayed
[2021-07-03] MEDS ORDERED: LEVETIRACETAM 500 MG/5 ML VIAL IV ONE (21:17)
[2021-07-03] MEDS ORDERED: NA CHLORIDE 0.9% 1,000 ML ONE (21:17)
[2021-07-03] MEDS ORDERED: ASPIRIN 81 MG CHEWABLE TABLET ONE (21:17)
[2021-07-03] MEDS ORDERED: NA CHLORIDE 0.9% 100 ML ONE (21:17)
[2021-07-03] MEDS ORDERED: ALTEPLASE 100 ML IV ONE (21:18)
[2021-07-03] MEDS ORDERED: FOLIC ACID 5 MG/ML VIAL ONE (21:18)
[2021-07-03] MEDS ORDERED: NA CHLORIDE 0.9% 50 ML ONE ×2 (22:36→23:10)
[2021-07-03] MEDS ORDERED: CEFTRIAXONE 1000 MG/VIAL ONE (22:36)
--- NOTE | 2021-07-03 23:28 | P.HP ---
Certification for Inpatient With expected LOS: >2 Midnights Patient will require the following post-hospital care: None Practitioner: I am a practitioner with admitting privileges, knowledge of patient current condition, hospital course, and medical plan of care. Services: Services provided to patient in accordance with Admission requirements found in Title 42 Section 412.3 of the Code of Federal Regulations Patient History Date of Service: 07/03/21 Reason for admission: Prolonged seizure activity History of Present Illness: 60-year-old female with past medical history of hypertension, CAD status post PCI about a year ago, history of recurrent seizure activity on escalating medications follows with Dr. Hernandez, on phenytoin, Vimpat and Xcopri; history of chronic tobacco use admitted after developing what spouse described as a seizure activity. He states patient was mainly shaking her upper extremities but she was awake during the episode and able to talk to him. Event lasted for about 30 -40 minutes before arrival of EMS. The activity was aborted with administration of Versed. Patient was transferred to the emergency room. On arrival in the emergency room she was noted with inability to move left upper and lower extremity. Head CT initially done was negative, CT of the neck shows no evidence of cervical fracture. Patient had a CTA head and neck done with findings of high grade left proximal vertebral artery stenosis, moderate stenosis of the distal proximal and distal right carotid vessels. There was also dilatation of the third and lateral ventricles. Neurology evaluation was consulted and possibility of Cb's paralysis post seizure versus acute CVA was considered. Decision made to administer TPA. Prior to administration of TPA patient weakness started to improve. At the time of evaluation during end of IV TPA administration. Patient power and strength of the extremities have returned back to normal. Patient is complaining of cough and chest congestion. She is vaccinated against Covid. She denies any fever or chills. She states she has been having recurrent UTI symptoms despite chronic nitrofurantoin use. She states she has a CVA 3 years ago and was managed at [facility]. History supplemented by spouse sitting at bedside. Spouse states she is adherent with her medication. Has UA was positive for UTI. Her urine drug screen was positive for THC. She has been admitted for presumed acute CVA with UTI. Covid screen is pending Allergies codeine Allergy (Verified 06/16/13 10:23) Nausea/Vomiting Home Medications: Losartan Potassium [Cozaar*] 50 mg PO DAILY #30 tablet 06/17/13 Atorvastatin Calcium [Lipitor] 40 mg PO DAILY 01/22/21 Budesonide/Formoterol Fumarate [Symbicort 160-4.5 Mcg Inhaler] 2 puff IH BID 01/22/21 Carvedilol [Coreg] 3.125 mg PO BID 01/22/21 Lacosamide [Vimpat*] 50 mg PO BID 01/22/21 Levetiracetam [Keppra] 1,500 mg PO DAILY 01/22/21 Levetiracetam [Keppra] 2,000 mg PO DAILY 01/22/21 Magnesium Oxide [Magnesium] 500 mg PO BID 01/22/21 Montelukast [Singulair] 10 mg PO DAILY 01/22/21 Phenytoin Sodium Extended [Dilantin] 100 mg PO TID 01/22/21 Potassium Chloride 10 meq PO DAILY 01/22/21 Ticagrelor [Brilinta] 90 mg PO DAILY 01/22/21 - Past Medical/Surgical History Diabetic: No -: COPD -: HTN -: High Cholesterol -: osteoprena -: Recurrent UTI -: CAD status post PCI -: History of chronic seizure activity -: History of CVA -: Chronic tobacco use -: back surgery -: - Family History Family History: Reviewed- Non-Contributory - Social History Smoking Status: Heavy Tobacco smoker (>10 cigarettes/day) Smoking therapy provided: Yes Patient receptive to therapy: No Alcohol use: Yes CD- Drugs: No Caffeine use: No Place of Residence: Home Review of Systems 10-point ROS is otherwise unremarkable General: Weakness ENT: Nose Congestion Respiratory: Cough Cardiovascular: Unremarkable Gastrointestinal: Unremarkable Genitourinary: Dysuria, Urgency Neurological: Weakness, Seizures Physical Examination - Physical Exam General: Alert, Oriented x3, Cooperative (on ) HEENT: Atraumatic, Normocephalic, PERRLA Neck: Supple, 2+ carotid pulse no bruit, JVD not distended Respiratory: Normal air movement, Diminished Cardiovascular: No edema, Normal pulses, Regular rate/rhythm, Normal S1 S2 Gastrointestinal: Normal bowel sounds, Soft and benign, Non-distended Musculoskeletal: No clubbing, No swelling Integumentary: No rashes, No breakdown, No significant lesion Neurological: Normal gait, Normal speech, Normal strength at 5/5 x4 extr, Cranial nerves 3-12 intact (no pr) External genitalia: No edema, No lesions - Studies Laboratory Data (last 24 hrs) 07/03/21 19:06: PT 9.6, INR 0.84, APTT 22.1 L 07/03/21 19:06: WBC 19.90 H, Hgb 12.6, Hct 37.8, Plt Count 336 07/03/21 19:06: Sodium 129 L, Potassium 3.7, BUN 18, Creatinine 0.55, Glucose 104, Total Bilirubin 0.2, AST 55 H, ALT 40, Alkaline Phosphatase 134 H Imagings Data: RADIOLOGY SERVICES REPORT (Continued) Name: LEBRON OLIVAS CC: CRISTIAN RIVERA; LEBRON PATTERSON / Report: [id number] Radiology Services Report Page 1 of RADIOLOGY SERVICES REPORT CC: CRISTIAN RIVERA; LEBRON PATTERSON / Report: [id number] Radiology Services Report Page 1 of 1 FINDINGS: Moderate calcified plaque within the distal right carotid artery/proximal right carotid bulb/ proximal right external carotid artery Mild calcified plaque within the remainder of common carotid, internal carotid and external carotid arteries bilaterally High-grade stenosis proximal left vertebral artery. Right vertebral artery unremarkable. Distal left vertebral artery terminates into the PICA IMPRESSION: Moderate calcified plaque within the distal right carotid artery/proximal right carotid bulb/ proximal right external carotid artery results in an approximately 50% stenosis. High-grade stenosis proximal left vertebral artery. NASCET criteria used. Mild 0-49% stenosis Moderate 50-69% stenosis Severe 70-99% stenosis Dictated By: Jorge Maradiaga MD 07/03/212109 Signed By: Jorge Maradiaga MD 07/03/212109 [employer]: YISSEL 07/03/212109 Assessment and Plan - Problems (Diagnosis) (1) TIA (transient ischemic attack) Current Visit: Yes Status: Acute (2) Seizure-like activity Current Visit: Yes Status: Acute (3) UTI (urinary tract infection) Current Visit: Yes Status: Acute (4) Polysubstance (excluding opioids) dependence Current Visit: Yes Status: Acute (5) Tobacco use Current Visit: Yes Status: Acute (6) COPD (chronic obstructive pulmonary disease) Current Visit: Yes Status: Acute (7) CAD (coronary artery disease) Current Visit: Yes Status: Acute - Plan Presumed left-sided CVA/TIA versus Cb's paralysismay be due to TIA versus Cb's paralysis Resolution of symptoms prior to and start of TPA administration not consistent with acute CVA -We will obtain MRI in the a.m. Start aspirin/Plavix Obtain lipid panel/TSH/homocystine/ Neurology eval in a.m. Plan for transfer to higher level of care given significant left proximal vertebral artery as well as moderate right carotid artery stenosis. Will initiate transfer now however if unable to do transfer then will admit here for close monitoring and management Recurrent seizure activitystatus post Keppra loading Continue Keppra/phenytoin Follow Keppra phenytoin level and adjust Defer to neurology Ativan as needed recurrent activity For seizure precaution UTIfollow urine culture/blood culture Start empirical Rocephin Hold nitrofurantoin for now CADhistory of status post PCI, stable, mild elevation in troponin noted We will trend troponin Follow with aspirin use Chronic tobacco usecessation advised, start nicotine patch History of polysubstance abuseTHC noted on urine tox, cessation advised COPDstable, as needed duo nebs DVT prophylaxissubcutaneous Lovenox post TPA window Advance directivefull code After discussion with neurology, ER team discussed with to facilitate transfer - Advance Directives Does patient have a Living Will: No Does patient have a Durable POA for Healthcare: No Time Spent Managing Pts Care (In Minutes): 65
--- NOTE | 2021-07-03 23:58 | ER ---
Nurse's Notes [facility] Name: Cathy Giraldo Age: 60 yrs Sex: Female : 1960 Arrival Date: 07/03/2021 Time: 18:24 Bed 4 Private MD: Diagnosis: Cerebral infarction, unspecified;VERTEBROBASILAR SYNDROME Presentation: 07/03 18:32 Chief complaint: EMS states: "the called us reporting that the pt was having jd3 seizures. one the scene we found out that she had been seizing for about 45 min and had accouple more after we started working on her. she has a history of seizures and the tries not to call EMS, but he said with how long she had been seizing that he needed to call. we started a 22 G IV tot he right AC and gave 4 of Zofran and 2 mg of Versed which generally works in the past to help her stop seizing. we then had to put an nonrebreather on her because her oxygen saturation dropped.". Coronavirus screen: At this time, the client does not indicate any symptoms associated with coronavirus-19. Ebola Screen: Patient negative for fever greater than or equal to 101.5 degrees Fahrenheit, and additional compatible Ebola Virus Disease symptoms. Initial Sepsis Screen: Does the patient meet any 2 criteria? No. Patient's initial sepsis screen is negative. Does the patient have a suspected source of infection? No. Patient's initial sepsis screen is negative. Risk Assessment: Do you want to hurt yourself or someone else? Patient reports no desire to harm self or others. Onset of symptoms was July 03, 2021. 18:32 Method Of Arrival: EMS: [facility] jd3 18:32 Acuity: RACHEL 2 jd3 Historical: - Allergies: 18:37 ACETAMINOPHEN; jd3 18:37 Hydrocodone-Acetaminophen; jd3 - Home Meds: 18:37 Aspirin Oral [Active]; Lipitor Oral [Active]; Claritin Oral [Active]; losartan oral jd3 [Active]; Phenytoin Oral [Active]; atorvastatin oral [Active]; montelukast oral [Active]; carvedilol oral [Active]; Keppra Oral [Active]; - PMHx: 18:37 Seizure; CVA; Hypertensive disorder; COPD; epilepsy; jd3 - Immunization history:: Adult Immunizations unknown. - Social history:: Smoking status: Patient reports the use of cigarette tobacco products. Screenin:41 Abuse screen: Denies threats or abuse. Denies injuries from another. Nutritional as6 screening: No deficits noted. Tuberculosis screening: No symptoms or risk factors identified. Fall Risk Fall in past 12 months (25 points). Secondary diagnosis (15 points) seizures, IV access (20 points). Gait- Impaired (20 pts.). Mental Status- Oriented to own ability (0 pts). Total Del Toro Fall Scale indicates High Risk Score (45 or more points). Side Rails Up X 2 Frequent Obs/Assessments Occuring Family Present and informed to notify staff if the need to leave the bedside As available patient and family educated on Fall Prevention Program and Strategies. 20:46 The patient has not been NPO before screening. The patient is currently on the as6 following diet: regular The patient is alert, able to follow commands. The patient exhibits slurred or garbled speech. The patient is exhibiting difficulty speaking. The patient is exhibiting difficulty understanding words. The patient is unable to swallow own secretions without drooling or the need for suction. Bedside swallow screening discontinued. Patient kept NPO until cleared by Speech Therapy or Physician. The patient failed the bedside swallow screening. The patient will be kept NPO until cleared by Speech Therapy or Physician. Provider notified of bedside swallow screening results: Herbie SINGH. Assessment: 19:42 General: Appears uncomfortable, Behavior is cooperative, anxious, drowsy. Pain: as6 Complains of pain in headache. Neuro: Level of Consciousness is obeys commands, post ictal, Oriented to person, place, time, situation, Reports headache numbness in left hand. Cardiovascular: Capillary refill < 3 seconds Patient's skin is warm and dry. Respiratory: Airway is patent Trachea midline Respiratory effort is even, unlabored, Respiratory pattern is regular, symmetrical, Breath sounds with crackles bilaterally. Derm: Skin is intact. Musculoskeletal:. 20:11 General: pt unable to move l arm, no sensory perception to l arm, provider notified . as6 07/04 00:17 General: pt coughing up mild amounts of blood, provider notified . as6 Vital Signs: 07/03 18:41 BP 131 / 92; Pulse 95; Resp 28 S; Temp 97.3(A); Pulse Ox 92% on 95% Non-rebreather jd3 mask; Weight 52.16 kg (R); Height 5 ft. 2 in. (157.48 cm) (R); Pain 0/10; 19:40 BP 114 / 86; Pulse 99; Resp 22 S; Pulse Ox 98% on Non-rebreather mask; as6 20:40 BP 114 / 75; Pulse 96; Resp 20 S; Pulse Ox 96% on 5 lpm NC; as6 21:09 Weight 35.24 kg; as6 22:00 BP 113 / 83; Pulse 97; Resp 22 S; Pulse Ox 98% on 3 lpm NC; as6 22:56 BP 113 / 75; Pulse 92; Resp 18 S; Pulse Ox 95% on Non-rebreather mask; as6 07/04 00:00 BP 142 / 102; Pulse 103; Resp 20 S; Pulse Ox 93% on 3 lpm NC; as6 07/03 21:09 Body Mass Index 14.21 (35.24 kg, 157.48 cm) as6 Mallorie Coma Score: 07/03 22:54 Eye Response: to voice(3). Verbal Response: oriented(5). Motor Response: obeys as6 commands(6). Total: 14. NIH Stroke Scale Scores: 20:30 NIHSS Score: 11 jmm 20:44 NIHSS Score: 13 as6 ED Course: 18:24 Patient arrived in ED. ds1 18:25 Herbie Snider PA is PHCP. jmm 18:25 Yang Muñoz MD is Attending Physician. [facility] 18:32 Marty Mary, RN is Primary Nurse. jd3 18:37 Triage completed. jd3 18:43 Arm band placed on. jd3 19:06 Paras Tavarez, LANCE is Primary Nurse. as6 19:41 Bed in low position. Call light in reach. Side rails up X2. Adult w/ patient. Cardiac as6 monitor on. Pulse ox on. NIBP on. 20:25 CT Head C Spine In Process Unspecified. EDMS 20:36 CT Head Angio In Process Unspecified. EDMS 20:36 CT Neck Angio In Process Unspecified. EDMS 21:00 Vaz cath inserted, using sterile technique, 16 Fr., by az, balloon inflated, to as6 gravity drainage. 21:53 Inserted saline lock: 22 gauge in left hand, using aseptic technique. as6 21:53 Maintain EMS IV. Dressing intact. Good blood return noted. Site clean \\T\\ dry. Gauge \\T\\ as 6 site: 22 r forearm . 07/04 00:43 CT Head Brain wo Cont In Process Unspecified. EDMS 02:35 No provider procedures requiring assistance completed. Patient transferred, IV remains as6 in place. 02:36 Seizure precautions initiated. as6 Administered Medications: 07/03 20:16 Drug: Zofran (Ondansetron) 4 mg Route: IVP; Site: right antecubital; as6 22:57 Follow up: Response: No adverse reaction as6 21:49 Drug: Keppra (levETIRAcetam) 20 mg/kg Route: IV; Rate: calculated rate; Site: right as6 forearm; 23:05 Follow up: Response: No adverse reaction; IV Status: Completed infusion; IV Intake: as6 100ml 21:49 Drug: NS 0.9% 1000 ml Route: IV; Rate: 1 bolus; Site: left forearm; as6 21:50 Drug: Aspirin Chewable Tablet 324 mg Route: PO; as6 22:58 Follow up: Response: No adverse reaction as6 21:53 Drug: foLIC Acid 1 mg Route: IVPB; Site: right forearm; as6 23:05 Follow up: Response: No adverse reaction; IV Status: Completed infusion; IV Intake: 21nnua3 22:10 Drug: Alteplase {Co-Signature: tk1 (Odessa Wade).} Route: IV Thrombolytics; Rate: as6 calculated rate; 07/04 03:10 Follow up: Response: No adverse reaction as6 07/03 22:40 Drug: Rocephin (cefTRIAXone) 1 grams Route: IV; Rate: calculated rate; Site: left hand; as6 23:05 Follow up: Response: No adverse reaction; IV Status: Completed infusion; IV Intake: [id number] 07/04 00:09 Drug: ProTONIX (pantoprazole) 40 mg Route: IVP; Site: right forearm; as6 03:10 Follow up: Response: No adverse reaction as6 Intake: 07/03 23:05 IV: 100ml; Total: 100ml. as6 23:05 IV: 50ml; Total: 150ml. as6 23:05 IV: 50ml; Total: 200ml. as6 Outcome: 23:58 ER care complete, transfer ordered by MD. suárez 07/04 02:35 Transferred by ground EMS to [facility], Transfer form completed. X-rays sent as6 w/ patient. Condition: stable 03:10 Patient left the ED. as6 NIH Stroke Scale - NIH Stroke Score Date: 07/03/2021 Time: 20:30 Total Score = 11 1a. Level of Consciousness (LOC) - 0(Alert) 1b. Level of Consciousness (LOC) (Month \\T\\ Age) - 0(Both) 1c. LOC Commands (Open \\T\\ Closes Eyes/Time Piece Repairer) - 0(Both) 2. Best Gaze (Lateral Gaze Paresis) - 0(Normal) 3. Visual Field Loss - 1(Partial hemianopia) 4. Facial Palsy - 0(Normal) 5a. Left Arm: Motor (10-second hold) - 4(No movement) 5b. Right Arm: Motor (10-second hold) - 0(No drift) 6a. Left Leg: Motor (5-second hold - always test supine) - 1(Drift) 6b. Right Leg: Motor (5-second hold - always test supine) - 0(No drift) 7. Limb Ataxia (finger/nose \\T\\ heel/iglesias - test with eyes open) - 1(Present in one limb) 8. Sensory Loss (pinprick arms/legs/face) - 1(Mild to moderate loss) 9. Best Language: Aphasia (description/naming/reading) - 1(Mild to moderate aphasia) 10. Dysarthria (speech clarity - read or repeat words) - 1(Mild to Moderate) 11. Extinction and Inattention (visual/tactile/auditory/spatial/personal) - 1(Present) Initials: kamini NIH Stroke Scale - NIH Stroke Score Date: 07/03/2021 Time: 20:44 Total Score = 13 1a. Level of Consciousness (LOC) - 1(Not Alert) 1b. Level of Consciousness (LOC) (Month \\T\\ Age) - 0(Both) 1c. LOC Commands (Open \\T\\ Closes Eyes/Time Piece Repairer) - 0(Both) 2. Best Gaze (Lateral Gaze Paresis) - 0(Normal) 3. Visual Field Loss - 1(Partial hemianopia) 4. Facial Palsy - 0(Normal) 5a. Left Arm: Motor (10-second hold) - 4(No movement) 5b. Right Arm: Motor (10-second hold) - 0(No drift) 6a. Left Leg: Motor (5-second hold - always test supine) - 1(Drift) 6b. Right Leg: Motor (5-second hold - always test supine) - 0(No drift) 7. Limb Ataxia (finger/nose \\T\\ heel/iglesias - test with eyes open) - 1(Present in one limb) 8. Sensory Loss (pinprick arms/legs/face) - 1(Mild to moderate loss) 9. Best Language: Aphasia (description/naming/reading) - 1(Mild to moderate aphasia) 10. Dysarthria (speech clarity - read or repeat words) - 1(Mild to Moderate) 11. Extinction and Inattention (visual/tactile/auditory/spatial/personal) - 2(Profound) Initials: as6 Signatures: Dispatcher [employer] EDHerbie Mackey PA PA jmm Sanford, Demi ds1 Marty Mary RN RN jParas Parr RN RN as6 Odessa Wade tk1 Corrections: (The following items were deleted from the chart) 07/03 18:41 18:37 PMHx: Chronic obstructive lung disease; jd3 jd3 18:43 18:41 BP 131 / 92; Pulse 95bpm; Resp 28bpm; Spontaneous; Pulse Ox 92% 02 60% jd3 Non-rebreather mask; Temp 97.3F Axillary; 52.16 kg Reported; Height 5 ft. 2 in. Reported; BMI: 21.0; Pain 0/10; jd3
--- NOTE | 2021-07-03 23:58 | EDPHYS ---
Physician Documentation [facility] Name: Cathy Giraldo Age: 60 yrs Sex: Female : 1960 Arrival Date: 07/03/2021 Time: 18:24 Bed 4 Private MD: ED Physician Yang Muñoz HPI: 07/03 18:35 This 60 yrs old Female presents to ER via EMS with complaints of Seizure. jmm 18:35 This is a 60-year-old female with a history of epilepsy, CVA, hypertension, COPD that jm presents emergency department after a 45-minute long seizure which occurred at home. Patient arrived EMS after being administered 2 mg of Versed. Patient denies chest pain. Patient was administered nonrebreather after administration of Versed due to respiratory depression.. Historical: - Allergies: 18:37 ACETAMINOPHEN; jd3 18:37 Hydrocodone-Acetaminophen; jd3 - Home Meds: 18:37 Aspirin Oral [Active]; Lipitor Oral [Active]; Claritin Oral [Active]; losartan oral jd3 [Active]; Phenytoin Oral [Active]; atorvastatin oral [Active]; montelukast oral [Active]; carvedilol oral [Active]; Keppra Oral [Active]; - PMHx: 18:37 Seizure; CVA; Hypertensive disorder; COPD; epilepsy; jd3 - Immunization history:: Adult Immunizations unknown. - Social history:: Smoking status: Patient reports the use of cigarette tobacco products. ROS: 18:35 Constitutional: Negative for fever, chills, and weight loss, Cardiovascular: Negative jm for chest pain, palpitations, and edema, Respiratory: Negative for shortness of breath, cough, wheezing, and pleuritic chest pain. 18:35 Neuro: Positive for seizure activity. 18:35 All other systems are negative. Exam: 18:35 Head/Face: atraumatic. Eyes: EOMI, no conjunctival erythema appreciated ENT: Moist jmm Mucus Membranes Neck: Trachea midline, Supple Chest/axilla: Normal chest wall appearance and motion. Cardiovascular: Regular rate and rhythm. No edema appreciated Respiratory: Normal respirations, no respiratory distress appreciated Abdomen/GI: Non distended, soft Back: Normal ROM Skin: General appearance color normal 18:35 Constitutional: The patient appears in no acute distress, alert, awake. 18:35 Neuro: Orientation: is normal, Mentation: is normal, Memory: is normal. Vital Signs: 18:41 BP 131 / 92; Pulse 95; Resp 28 S; Temp 97.3(A); Pulse Ox 92% on 95% Non-rebreather jd3 mask; Weight 52.16 kg (R); Height 5 ft. 2 in. (157.48 cm) (R); Pain 0/10; 19:40 BP 114 / 86; Pulse 99; Resp 22 S; Pulse Ox 98% on Non-rebreather mask; as6 20:40 BP 114 / 75; Pulse 96; Resp 20 S; Pulse Ox 96% on 5 lpm NC; as6 21:09 Weight 35.24 kg; as6 22:00 BP 113 / 83; Pulse 97; Resp 22 S; Pulse Ox 98% on 3 lpm NC; as6 22:56 BP 113 / 75; Pulse 92; Resp 18 S; Pulse Ox 95% on Non-rebreather mask; as6 07/04 00:00 BP 142 / 102; Pulse 103; Resp 20 S; Pulse Ox 93% on 3 lpm NC; as6 07/03 21:09 Body Mass Index 14.21 (35.24 kg, 157.48 cm) as6 NIH Stroke Scale Scores: 07/03 20:30 NIHSS Score: 11 [facility] 20:44 NIHSS Score: 13 as6 Keymar Coma Score: 22:54 Eye Response: to voice(3). Verbal Response: oriented(5). Motor Response: obeys as6 commands(6). Total: 14. MDM: 18:35 Patient medically screened. [facility] 23:54 Data reviewed: vital signs, nurses notes. Counseling: I had a detailed discussion with [facility] the patient and/or guardian regarding: the historical points, exam findings, and any diagnostic results supporting the discharge/admit diagnosis, lab results, radiology results, the need for further work-up and treatment in the hospital, the need to transfer to another facility. Consent for treatment: Risk, benefits, and alternatives discussed with Pt/guardian concerning: TPA. ED course: I discussed the patient with Dr. Lloyd. Recommended TPA. I discussed the patient with Dr. Estelita spann whom accepted the patient for admission. After evaluation by Dr. Dolly spann and discussion with Dr. Almanza and evaluation of the CTA, recommended transfer for intra-arterial angiography.. 23:56 ED course: I discussed the patient with [facility] Stroke unit whom accepted the [facility] patient for transfer. . 07/03 18:35 Order name: Acetaminophen [facility] 07/03 18:35 Order name: Basic Metabolic Panel [facility] 07/03 18:35 Order name: CBC with Diff [facility] 07/03 18:35 Order name: ETOH Level; Complete Time: 19:43 [facility] 07/03 18:35 Order name: Hepatic Function; Complete Time: 20:40 [facility] 07/03 18:35 Order name: PT-INR; Complete Time: 19:43 [facility] 07/03 18:35 Order name: Ptt, Activated; Complete Time: 19:43 [facility] 07/03 18:35 Order name: Salicylate; Complete Time: 20:40 [facility] 07/03 18:35 Order name: Urine Drug Screen; Complete Time: 20:19 [facility] 07/03 18:35 Order name: Acetaminophen Level; Complete Time: 20:40 [facility] 07/03 18:35 Order name: Troponin (emerg Dept Use Only); Complete Time: 20:40 [facility] 07/03 18:35 Order name: Basic Metabolic Panel; Complete Time: 20:40 [facility] 07/03 18:35 Order name: CBC with Automated Diff; Complete Time: 20:40 [facility] 07/03 19:53 Order name: Urine Dipstick-Ancillary; Complete Time: 19:54 [facility] 07/03 19:58 Order name: Manual Differential; Complete Time: 20:40 [facility] 07/03 20:09 Order name: CT Head C Spine; Complete Time: 20:57 [facility] 07/03 20:16 Order name: SARS-COV-2 RT PCR (Document "Date of Onset" if Symptomatic) [facility] 07/03 20:17 Order name: SARS-COV-2 RT PCR; Complete Time: 01:43 [facility] 07/03 20:20 Order name: CT Head Angio; Complete Time: 21:18 [facility] 07/03 20:20 Order name: CT Neck Angio; Complete Time: 21:18 [facility] 07/04 00:04 Order name: CT Head Brain wo Cont [facility] 07/03 18:35 Order name: EKG; Complete Time: 18:35 [facility] 07/03 18:35 Order name: EKG - Nurse/Tech; Complete Time: 19:12 [facility] 07/03 18:35 Order name: IV Saline Lock; Complete Time: 19:12 [facility] 07/03 18:35 Order name: Labs collected and sent; Complete Time: 19:12 [facility] 07/03 18:35 Order name: Urine Dipstick-Ancillary (obtain specimen); Complete Time: 19:54 [facility] Administered Medications: 20:16 Drug: Zofran (Ondansetron) 4 mg Route: IVP; Site: right antecubital; as6 22:57 Follow up: Response: No adverse reaction as6 21:49 Drug: Keppra (levETIRAcetam) 20 mg/kg Route: IV; Rate: calculated rate; Site: right as6 forearm; 23:05 Follow up: Response: No adverse reaction; IV Status: Completed infusion; IV Intake: as6 100ml 21:49 Drug: NS 0.9% 1000 ml Route: IV; Rate: 1 bolus; Site: left forearm; as6 21:50 Drug: Aspirin Chewable Tablet 324 mg Route: PO; as6 22:58 Follow up: Response: No adverse reaction as6 21:53 Drug: foLIC Acid 1 mg Route: IVPB; Site: right forearm; as6 23:05 Follow up: Response: No adverse reaction; IV Status: Completed infusion; IV Intake: [id number] 22:10 Drug: Alteplase {Co-Signature: tk1 (Odessa Wade).} Route: IV Thrombolytics; Rate: as6 calculated rate; 07/04 03:10 Follow up: Response: No adverse reaction as6 07/03 22:40 Drug: Rocephin (cefTRIAXone) 1 grams Route: IV; Rate: calculated rate; Site: left hand; as6 23:05 Follow up: Response: No adverse reaction; IV Status: Completed infusion; IV Intake: [id number] 07/04 00:09 Drug: ProTONIX (pantoprazole) 40 mg Route: IVP; Site: right forearm; as6 03:10 Follow up: Response: No adverse reaction as6 Disposition Summary: 07/03/21 23:58 Transfer Ordered Transfer Location: [facility] Reason: Higher level of care jm Condition: Stable jmm Problem: new jmm Symptoms: have improved jmm Accepting Physician: Dr. Boucher(07/04/21 03:10) as6 Diagnosis - Cerebral infarction, unspecified [facility] - VERTEBROBASILAR SYNDROME [facility] Forms: - Medication Reconciliation Form [facility] - SBAR form [facility] NIH Stroke Scale - NIH Stroke Score Date: 07/03/2021 Time: 20:30 Total Score = 11 1a. Level of Consciousness (LOC) - 0(Alert) 1b. Level of Consciousness (LOC) (Month \\T\\ Age) - 0(Both) 1c. LOC Commands (Open \\T\\ Closes Eyes/Truck Driver Supervisor) - 0(Both) 2. Best Gaze (Lateral Gaze Paresis) - 0(Normal) 3. Visual Field Loss - 1(Partial hemianopia) 4. Facial Palsy - 0(Normal) 5a. Left Arm: Motor (10-second hold) - 4(No movement) 5b. Right Arm: Motor (10-second hold) - 0(No drift) 6a. Left Leg: Motor (5-second hold - always test supine) - 1(Drift) 6b. Right Leg: Motor (5-second hold - always test supine) - 0(No drift) 7. Limb Ataxia (finger/nose \\T\\ heel/iglesias - test with eyes open) - 1(Present in one limb) 8. Sensory Loss (pinprick arms/legs/face) - 1(Mild to moderate loss) 9. Best Language: Aphasia (description/naming/reading) - 1(Mild to moderate aphasia) 10. Dysarthria (speech clarity - read or repeat words) - 1(Mild to Moderate) 11. Extinction and Inattention (visual/tactile/auditory/spatial/personal) - 1(Present) Initials: [facility] NIH Stroke Scale - NIH Stroke Score Date: 07/03/2021 Time: 20:44 Total Score = 13 1a. Level of Consciousness (LOC) - 1(Not Alert) 1b. Level of Consciousness (LOC) (Month \\T\\ Age) - 0(Both) 1c. LOC Commands (Open \\T\\ Closes Eyes/Truck Driver Supervisor) - 0(Both) 2. Best Gaze (Lateral Gaze Paresis) - 0(Normal) 3. Visual Field Loss - 1(Partial hemianopia) 4. Facial Palsy - 0(Normal) 5a. Left Arm: Motor (10-second hold) - 4(No movement) 5b. Right Arm: Motor (10-second hold) - 0(No drift) 6a. Left Leg: Motor (5-second hold - always test supine) - 1(Drift) 6b. Right Leg: Motor (5-second hold - always test supine) - 0(No drift) 7. Limb Ataxia (finger/nose \\T\\ heel/iglesias - test with eyes open) - 1(Present in one limb) 8. Sensory Loss (pinprick arms/legs/face) - 1(Mild to moderate loss) 9. Best Language: Aphasia (description/naming/reading) - 1(Mild to moderate aphasia) 10. Dysarthria (speech clarity - read or repeat words) - 1(Mild to Moderate) 11. Extinction and Inattention (visual/tactile/auditory/spatial/personal) - 2(Profound) Initials: as6 Addendum: 07/08/2021 07:02 Co-signature as Attending Physician, Yang Muñoz MD. rn 07:02 I agree with the assessment and plan of care. Attestation: The patient's rn history, exam findings, diagnostics, and a summary of any interventions or procedures was reviewed in detail with Herbie SINGH. Signatures: Dispatcher [employer] EDHerbie Mackey PA PA jmm Nieto, Roman, MD MD rn Davies, Jonathon, RN RN jd3 Slawson, Ashby, RN RN as6 Odessa Wade tk1 Corrections: (The following items were deleted from the chart) 07/03 18:41 18:37 PMHx: Chronic obstructive lung disease; raul carter 19:12 18:35 Suicide Screening ([place]) ordered. [facility] mattie 20:12 18:36 Head Brain Wo Cont+CT.RAD.BRZ ordered. [facility] 21:01 20:17 NIHSS Score: 4 kamini suárez 07/04 03:10 07/03 23:58 Dr. Boucher [facility] as6
[2021-07-04] MEDS ORDERED: PANTOPRAZOLE 40 MG INJ ONE (00:06)
--- NOTE | 2021-07-04 03:04 | P.CNS ---
Date of Consult: 07/04/21 history and phsyical earlier dictated - chnaged to consult note patient transferred to [facility]
[2021-07-04 03:20] VITALS: TEMP 97.3
[2021-07-04 03:28] VITALS: BP 142/102; O2SAT 93
--- NOTE | 2021-07-04 17:58 | RAD REPORT ---
EXAM DESCRIPTION: CT - Head Brain Wo Cont - 07/04/2021 4:37 am CLINICAL HISTORY: 60 years Female headache, post tpa TECHNIQUE: Axial noncontrast CT head with coronal and sagittal reformats. All CT scans at this [facility] ity use dose modulation, iterative reconstruction, and/or weight based dosing when appropriate to red uce radiation dose to as low as reasonably achievable. COMPARISON: 07/03/2021. FINDINGS: Brain: Parenchymal volume loss. 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 No ob vious large acute territorial infarction. No intracranial hemorrhage, midline shift, mass or mass eff ect. Ventricles: No hydrocephalus. Orbits: Unremarkable. Sinuses: Visualized portions are clear. Mastoid: Clear. Osseous: Unremarkable. Soft tissues: Unremarkable. IMPRESSION: No acute findings. 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 The interpreting radiologist is fully responsible for the content of the report.
== END 2021-07-04 03:10 | disposition short-term general hospital (02) ==
LOC: ER 18:23
DX: I63.9 Cerebral infarction, unspecified (principal); G45.0 Vertebro-basilar artery syndrome; R29.711 NIHSS score 11; I10 Essential (primary) hypertension; Z72.0 Tobacco use; Z79.82 Long term (current) use of aspirin; Z86.73 Personal history of transient ischemic attack (TIA), and cerebral infarction without residual deficits; Z20.822 Contact with and (suspected) exposure to COVID-19; Z88.5 Allergy status to narcotic agent; Z88.6 Allergy status to analgesic agent
CPT/HCPCS: 92977; 93005; 85025; 80048; 36415; 80320; 80329 ×2; 85610; 80076; 85730; 81003; 84484; 80307; 70450 ×2; 72125; 70496; 70498; 51702; 99291; 99292; U0003; Q9967; J2997; C9113; J1953; J7030; J2405

== ENCOUNTER 2021-10-10 14:49 | Emergency (ER) | payer OTHER ==
--- OUTSIDE RECORDS SUMMARY | 2021-10-10 15:06 | XMS REPORT | Continuity of Care Document ---
:1960 Author Organization [facility] t Address [address] [place] [address] Care Team Providers Name Role Phone CARNES Primary Care Physician Unavailable Lani Attending Clinician Unavailable [id number] Attending Clinician Unavailable Darron, P Attending Clinician Unavailable Pb Villegas Attending Clinician Unavailable MARITO Attending Clinician Unavailable MIKEY Attending Clinician Unavailable Mikey LOREDO Attending Clinician NAM REECE Attending Clinician Unavailable Andie Azul Attending Clinician Radiology Attending Clinician Unavailable RADIOLOGY Attending Clinician Unavailable Charlee Vines MD Attending Clinician Charlee Hammond DO Attending Clinician Trice Attending Clinician TRICE Attending Clinician Unavailable Doctor Unassigned, Name Attending Clinician Unavailable ANDIE HAYS Attending Clinician Unavailable Cabral EMNP, R Attending Clinician Pob, Lab Main Attending Clinician Unavailable 1, Lab Attending Clinician Unavailable Vaz PAC, S Attending Clinician KILO Attending Clinician Unavailable Poncho Carnes Admitting Clinician Unavailable [id number] Admitting Clinician Unavailable Tonja Villegas Admitting Clinician Unavailable MARITO Admitting Clinician Unavailable MIKEY Admitting Clinician Unavailable Jennifer MERCEDES Admitting Clinician Unavailable Charlee Vines MD Admitting Clinician ANDIE HAYS Admitting Clinician Unavailable Charlee VINES Admitting Clinician Unavailable TRICE Admitting Clinician Unavailable LAKISHA ROSENBAUM Admitting Clinician Unavailable Payers Payer Name Policy Type Policy Number Effective Date Expiration Date S ource [employer] [place] [id number] 2019 00:00:00 AET AET [id number] [employer]ET[employer] COMMERCIAL [id number] 2021 OUT OF NETWORK 00:00:00 CIGNA HMO/POS/OPEN [id number] 2017 ACCESS 00:00:00 CIGNA II [id number] 2017 2019 00:00:00 00:00:00 Problems Condition Condition Condition Status Onset Resolution Last Treating Co mments Source Name Details Category Date Date Treatment Clinician Date Acute Acute Disease Active 2019-06 Univers cystitis cystitis 06-30 ity of without without 00:00: [place] hematuria hematuria 00 [facility] Seizures Seizures Disease Active 2019-06 Unive rs 06-29 ity of 00:00: [place] [address] [place] [address] Branch CVA Diagnosis Active 2018-11-16 Mem oria 11-16 14:48:00 l CVA 00:00: [place] 00 Active 11/16/2018 [facility] NSTEMI, Diagnosis Active 2018-12-01 Me moria SEIZURES 11-16 22:12:00 l NSTEMI, 00:00: [place] SEIZURES 00 Active 11/16/2018 [facility] MICHEAL Diagnosis Active 2018-11-17 Memoria BILLING 11-16 08:14:00 l 00:00: [place] MICHEAL 00 BILLING Active 11/16/2018 [facility] Cerebral Problem Active 2020-10-28 Mem oria infarction 00:56:47 l (disorder) Cerebral He rmann infarction (disorder) Active Problem 10/28/2020 [facility] Epilepsy Problem Active 2020-10-28 Mem oria characteri 00:56:47 l zed by Epilepsy Eddie n intractabl characteri e complex zed by partial intractabl seizures e complex (disorder) partial seizures (disorder) Active Problem 10/28/2020 [facility] Hypertensi Problem Active 2020-10-28 M emoria ve 00:56:47 l disorder, [place] systemic Hypertensi arterial ve (disorder) disorder, systemic arterial (disorder) [facility] Hyperlipid Problem Active 2020-10-28 M emoria emia 00:56:47 l (disorder) Eddie n Hyperlipid emia (disorder) Active Problem 10/28/2020 [facility] Hyponatrem Problem Active 2020-10-28 M emoria ia 00:56:47 l (disorder) Eddie n Hyponatrem ia (disorder) Active Problem 10/28/2020 [facility] NON-ST Diagnosis Active 2018-12-01 Mem oria ELEVATION 22:12:00 l (NSTEMI) NON-ST Eddie n MYOCARDIAL ELEVATION INF (NSTEMI) MYOCARDIAL INF Active [facility] UNSPECIFIE Diagnosis Active 2018-12-01 Memoria D 22:12:00 l CONVULSION Eddie n S UNSPECIFIE D CONVULSION S Active [facility] No known No known Disease Unive rs active active ity of problems problems [facility] Allergies, Adverse Reactions, Alerts Allergy Allergy Status Severity Reaction(s) Onset Inactive Treating Comm ents Source Name Type Date Date Clinician Hydrocod Propensi Active Nausea Univer s one ty to and/or 1-10 ity of adverse Vomiting 00:00: [place] reaction 00 Medical s Branch HYDROCOD DRUG Active N/V Univers ONE INGREDI 1-10 ity of 00:00: [place] 00 Medical Branch codeine DA Active SV 2019-06 [facility] 2[facility]30 [place] 00:00: d 00 [facility] hydrocod DA Active MO 2019-06 [facility] one 2-30 [place] 00:00: d 00 [facility] codeine DA Active SV NAUSEA 2019-06 [facility] 2-30 [place] 00:00: d 00 [facility] hydrocod DA Active MO NAUSEA 2020-1 [facility] one 2-30 [place] 00:00: d 00 [facility] [place] Codeine Drug Active Nausea 2018- Univers Allergy and/or 0-23 ity of Vomiting 00:00: [place] 00 Medical Branch CODEINE DRUG Active N/V 2019- Univers INGREDI 0-23 ity of 00:00: [place] 00 Medical Branch [place] Propensi Active Other - See 2018- Coughing, Univers Derivati ty to comments 0-18 sneezingC ity of ves adverse 00:00: oughing, [place] reaction 00 sneezing Medica l s Branch Ragweed Propensi Active Other - See 2017- Coughing, Univers ty to comments 0-18 sneezingC ity o f adverse 00:00: oughing, [place] reaction 00 sneezing Medica l s Branch OAK Drug Active High Other-Cmnt 2017- Univer s DERIVATI Class 0-18 ity of VES 00:00: [place] 00 Medical Branch RAGWEED Drug Active High Other-Cmnt 2017- Unive rs Class 0-18 ity of 00:00: [place] 00 [facility] OAK Allergy Active High Other 2017- [facility] RAGWEED Allergy Active High Other 2017[facility] - [facility]: Medical [address] [place] [address] No Known DA Active U 2017- [facility] Allergie 0-08 [place] s 00:00: d 00 [facility] No Known DA Active U 2017-06 [facility] Allergie 0-08 [place] s 00:00: d 00 [facility] codeine codeine Active Nima Das Social History Social Habit Start Date Stop Date Quantity Comments Source History [facility] o f Alcohol Std Drinks [place] [facility] History [facility] o f Alcohol Binge [facility] al Branch Exposure to Not sure University of SARS-CoV-2 (event) [facility] Branch History [facility] o f Alcohol Comment [place] Med ical Branch Alcohol intake 2020-04-30 2020-04-30 .71 /d University of 00:00:00 00:00:00 [facility] Branch Education 2020-04-30 2020-04-30 17 [facility] 00:00:00 00:00:00 [place] [facility] History SDOH 2020-04-30 2020-04-30 5 University o f Financial 00:00:00 00:00:00 [facility] History [facility] Food 2020-04-30 2020-04-30 1 Univers ity of Worry 00:00:00 00:00:00 [place] [facility] History [facility] Food 2020-04-30 2020-04-30 1 Univers ity of Scarcity 00:00:00 00:00:00 [place] [facility] History [facility] 2020-04-30 2020-04-30 2 University o f Transport Med 00:00:00 00:00:00 [place] Medic al Branch History [facility] 2020-04-30 2020-04-30 2 University o f Transport Non-Med 00:00:00 00:00:00 [facility] Social History 2019-09-09 2019-09-09 [facility] 19:21:28 19:21:28 History [facility] 2019-04-20 2019-04-20 5 University o f Alcohol Frequency 00:00:00 00:00:00 [facility] Tobacco Comment 2019-04-20 2019-04-20 prn 1 a week Univer sity of 00:00:00 00:00:00 [facility] Tobacco use and 2019-04-20 2019-04-20 Never used Universit y of exposure 00:00:00 00:00:00 [facility] Sex [birth year] Universit y of 00:00:00 00:00:00 [facility] Smoking Status Start Date Stop Date Source Current some 2019-04-20 00:00:00 [facility] smoker [facility] [place] [facility] Social History 2018-11-17 04:21:27 2018-11-17 04:21:27 [facility] Medications Ordered Filled Start Stop Current Ordering Indication Dosage Frequency Signature Comments Components Source Medication Medication Date Date Medication? Clinician (SIG) Name Name NaCl 0.9% 2021- No 500mL at 999 Univ ers (NS) bolus 08-26- mL/hr, 500 it y of infusion 09:15: 08:30 mL, IV [place] 500 mL 00 :00 Infusion, Medical ONCE, 1 Branch dose, On Thu08/26/21 at 0315, STAT dexmedeTOMI 2021- No 1ug/kg 49.9 mcg Univers Dine 08-26 (1 mcg/kg ity of (PRECEDEX) 07:15: 06:45 ?49.9 kg), [place] 49.9 mcg in 00 :00 IV Medical NaCl 0.9% Piggyback, Bran ch (NS) ONCE, 1 piggyback dose, On Thu08/26/21 at 0115, Administer over 10 Minutes, 50 mL ceFEPIme 2021- No 1000mg 1,000 mg, U nivers (MAXIPIME) 08-26 IV ity of injection 07:15: 06:17 Piggyback, [place] 1,000 mg 00 :00 ONCE, 1 Medical dose, On Branch Thu08/26/21 at 0115, STAT
Re ason for Anti-Infec tive: Empiric Therapy for Suspected Infection< br>Empiric Therapy Site: Blood
D uration of therapy: 72 hours Vancomycin 2021- No 15mg/kg 750 mg U nivers 750 mg in 08-26 (rounded ity o f NaCl 0.9% 07:15: 08:00 from 748.5 [place] (NS) 250 mL 00 :00 mg = 15 Medic al VIAL-MATE mg/kg Branch ?49.9 kg), IV Piggyback, ONCE, 1 dose, On Thu08/26/21 at 0115, Administer over 60 Minutes, 250 mL
Reas on for Anti-Infec tive: Empiric Therapy for Suspected Infection< br>Empiric Therapy Site: Blood
D uration of therapy: 72 hours dexMEDEtomi Yes .2ug/kg 0.2-1.5 Univers dine 400 08-26 /h mcg/kg/hr ity of mcg in 0.9 07:08: ?49.9 kg Matthew as % NaCl 100 06 (2.495-18. Med ical mL 7125 Branch (PRECEDEX) mL/hr, RTU IV rounded to infusion 2.5-18.71 mL/hr), IV Infusion, TITRATE, Sedation-R ASS score (0 to -1), Starting on Thu08/26/21 at 0108
In itiate infusion at 0.2 mcg/kg/hr and titrate by 0.1 mcg/kg/hr every 30 minutes to goal sedation score. Maximum dose = 1.5 mcg/kg/hr. If goal not maintained at maximum allowed dose, contact prescriber .
glycopyrrol 0 2021- No .2mg 0.2 mg, Un susana ate 08-26 Slow IV ity of (ROBINUL) 07:00: 06:14 Push, [place] injection 00 :00 ONCE, 1 Medical 0.2 mg dose, On Branch 08/26/21 at 0100, EZIO propofoL IV Yes 5ug/kg/ 5-50 Uni vers infusion 2-28 min mcg/kg/min ity o f 04:25: ?49.9 kg (1.497-14. Medical 97 mL/hr, Branch rounded to 1.5-14.97 mL/hr), IV Infusion, TITRATE, Sedation-R ASS score (0 to -1), Starting on 08/25/21 at 2225
In itiate infusion at 5 mcg/kg/min and titrate by 5 mcg/kg/min every 30 seconds to 10 minutes to goal sedation score. Maximum dose = 50 mcg/kg/min . If goal not maintained at maximum allowed dose, contact prescriber . &nbs p;Tubing and unused portions of vials should be discarded after 12 hours.
methocarbam Yes [id number] 500mg Take 1 Univers oL 500 mg 5-21 tablet by ity o f tablet 00:00: mouth [place] 00 every 6 Medical (six) Branch hours as needed for Pain (scale 4-6) for up to 15 doses. traMADoL 50 Yes [id number] 50mg Take 1 Univ ers mg tablet 5-21 tablet by ity o f 00:00: mouth [place] every 8 Medical (eight) Branch hours as needed for Pain (scale 7-10) for up to 15 doses. Indication s: acute pain Levetiracet Yes 1,500 mg = Memoria am 750 MG 4-29 2 tab, PO, l Oral Tablet 19:26: BID, # 360 Thiago [Keppra] 00 tab, 3 Refill(s), Pharmacy: [facility] #[id number], 154.94, cm, 04/20/20 10:48:00 CDT, Height, 39.545, kg, 10/25/20 14:07:00 CDT, Weight phenytoin 2020-0 Yes See Memoria 100 mg oral 4-29 Instructio l capsule, 19:26: ns, 300mg Herm elda extended 00 alternatin release g with 400mg, # 120 cap, 6 Refill(s), Pharmacy: [facility] #[id number], 154.94, cm, 04/20/20 10:48:00 CDT, Height, 39.545, kg, 10/25/20 14:07:00 CDT, Weight Levetiracet 2020-0 Yes 1,500 mg = Memoria am 750 MG 429 2 tab, PO, l Oral Tablet 19:26: BID, # 360 Thiago [Keppra] 00 tab, 3 Refill(s), Pharmacy: [id number], 154.94, cm, 04/20/20 10:48:00 CDT, Height, 39.545, kg, 10/25/20 14:07:00 CDT, Weight phenytoin 2020-0 Yes See Memoria 100 mg oral 4-29 Instructio l capsule, 19:26: ns, 300mg Herm elda extended 00 alternatin release g with 400mg, # 120 cap, 6 Refill(s), [id number], 154.94, cm, 04/20/20 10:48:00 CDT, Height, 39.545, kg, 10/25/20 14:07:00 CDT, Weight naproxen 2020-0 2020- No 500mg 500 mg, Univ ers (NAPROSYN) 07-08-10 Oral, ity of tablet 500 23:00: 22:19 ONCE, 1 [place] as mg 00 :00 dose, [facility] 07/08/20 at Branch 1700, Routine naproxen 2020-0 Yes [id number] 500mg Take 1 U nivers (NAPROSYN) 1-10 tablet by ity of 500 mg 00:00: mouth 2 [place] tablet 00 (two) Medical times Branch daily with meals. naproxen 2020-0 Yes [id number] 500mg Take 1 U nivers (NAPROSYN) 1-10 tablet by ity of 500 mg 00:00: mouth 2 [place] tablet 00 (two) Medical times Branch daily with meals. iohexol 2019-06 No 100mL 100 mL, Unive rs (OMNIPAQUE 205-29 Intravenou it y of 350 00:15: 00:11 s, ONCE, 1 [place] BULK-100 00 :00 dose, [facility] mL) 05/28/20 Branch injection at 1815, 100 mL Routine atorvastati 2019-06 Yes 40mg 40 mg, Univ ers n (LIPITOR) 03 Oral, QHS, it y of tablet 40 03:00: First dose [place] mg 00 on [facility] 04/30/20 at Branch 2100, Until Discontinu ed, Routine cefTRIAXone 2019-06- No 1000mg 1,000 mg, Univers (ROCEPHIN) 07-01 IV ity of 1,000 mg in 00:00: 23:59 Piggyback, [place] NaCl 0.9% 00 :00 Q24H ABX, Medic al (NS) 50 mL 6 doses, Branc h MINI-BAG First dose (after last modificati on) on [facility] 04/30/20 at 1800, Last dose on [facility] 05/05/20 at 1800, 50 mL
Reas on for Anti-Infec tive: Empiric Therapy for Suspected Infection< br>Empiric Therapy Site: Urine
D uration of therapy: 72 hours aspirin 81 2019-06 Yes 81mg Take 81 mg U nivers mg EC 02 by mouth. ity of tablet 23:07: [address] azelastine 2019-06 Yes 1{spray Use 1 Uni vers 137 mcg 1-02 } [place] in ity of (0.1 %) 23:07: each [place] nasal spray 05 nostril. [facility] budesonide- 2019-06 Yes 2{puff} Inhale 2 Univers formoterol 1-02 Puffs. ity of (SYMBICORT) 23:07: [place] 160-4.[address] [place] [address]/actuati [place] on inhaler carvedilol 2019-06 Yes 3.125mg Take 3.125 Univers 3.125 mg 1-02 mg by ity of tablet 23:07: mouth. [address] melatonin 2019-06 Yes Take by [facility] ers 10 mg Cap 1-02 mouth. ity of 23:07: [address] ticagrelor 2019-06 Yes 90mg Take 90 mg U nivers (BRILINTA) 02 by mouth. ity of 90 mg 23:07: [place] tablet [address] [place] [address] Branch cyanocobala 2019-[address] Uni vers min, -02 2,500 mcg ity of vitamin 23:07: under the [place] B-12, 5,000 05 tongue Medica l mcg Subl daily. Branch ipratropium 2019-06 Yes 2{spray Use 2 Un susana 0.03 % 02 } Sprays in ity of nasal spray 23:07: each [place] 05 nostril 2 Medical (two) Branch times daily. losartan 50 2019-06 Yes 50mg Take 50 mg Univers mg tablet 02 by mouth ity of 23:07: daily. [address] Lacosamide 2019-06 Yes 1{tbl} Take 1 Uni vers (VIMPAT) 06-30 tablet by ity of 200 mg 23:07: mouth 2 [place] tablet (two) Medical times Branch daily. montelukast 2019-06 Yes 10mg Take 10 mg Univers (SINGULAIR) 02 by mouth ity of 10 mg 23:07: daily. [address] phenytoin 2019-06 Yes 100mg Take 100 Uni vers sodium 1-02 mg by ity of extended 23:07: mouth 4 [place] (DILANTIN 05 (four) Medical ORAL) times Branch daily. aspirin 81 2019-06 Yes 81mg Take 81 mg U nivers mg EC 02 by mouth. ity of tablet 23:07: [address] azelastine 2019-06 Yes 1{spray Use 1 Uni vers 137 mcg 06-30 } [place] in ity of (0.1 %) 23:07: each [place] nasal spray 05 nostril. [facility] Branch budesonide- 2019-06 Yes 2{puff} Inhale 2 Univers formoterol 1-02 Puffs. ity of (SYMBICORT) 23:07: [place] 160-4.5 Medical [facility]/actuati Branch on inhaler carvedilol 2019-06 Yes 3.125mg Take 3.125 Univers 3.125 mg 1-02 mg by ity of tablet 23:07: mouth. [address] melatonin 2019-06 Yes Take by Univ ers 10 mg Cap 1-02 mouth. ity of 23:07: [address] ticagrelor 2019-06 Yes 90mg Take 90 mg U nivers (BRILINTA) 02 by mouth. ity of 90 mg 23:07: [place] tablet [address] [place] [address] Branch cyanocobala 2019-[address] Uni vers min, -02 2,500 mcg ity of vitamin 23:07: under the [place] B-12, 5,000 05 tongue Medica l mcg Subl daily. Branch ipratropium 2019-06 Yes 2{spray Use 2 Un susana 0.03 % 06-30 } Sprays in ity of nasal spray 23:07: each [place] 05 nostril 2 Medical (two) Branch times daily. losartan 50 2019-06 Yes 50mg Take 50 mg Univers mg tablet 02 by mouth ity of 23:07: daily. [address] Lacosamide 2019-06 Yes 1{tbl} Take 1 Uni vers (VIMPAT) 06-30 tablet by ity of 200 mg 23:07: mouth 2 [place] tablet (two) Medical times Branch daily. montelukast 2019-06 Yes 10mg Take 10 mg Univers (SINGULAIR) 02 by mouth ity of 10 mg 23:07: daily. [place] tablet [address] [place] [address] phenytoin 2019-06 Yes 100mg Take 100 Uni vers sodium 1-02 mg by ity of extended 23:07: mouth 4 [place] (DILANTIN 05 (four) Medical ORAL) times Branch daily. aspirin 81 2019-06 Yes 81mg Take 81 mg U nivers mg EC 02 by mouth. ity of tablet 23:07: [address] azelastine 2019-06 Yes 1{spray Use 1 Uni vers 137 mcg 02 } [place] in ity of (0.1 %) 23:07: each [place] nasal spray 05 nostril. [facility] Branch budesonide- 2019-06 Yes 2{puff} Inhale 2 Univers formoterol -02 Puffs. ity of (SYMBICORT) 23:07: [place] 160-4.5 Medical mcg/actuati Branch on inhaler carvedilol 2019-06 Yes 3.125mg Take 3.125 Univers 3.125 mg 1-02 mg by ity of tablet 23:07: mouth. [address] melatonin 2019-06 Yes Take by Univ ers 10 mg Cap -02 mouth. ity of 23:07: [address] ticagrelor 2019-06 Yes 90mg Take 90 mg U nivers (BRILINTA) -02 by mouth. ity of 90 mg 23:07: [place] tablet [address] [place] [address] cyanocobala 2019-[address] Uni vers min, -02 2,500 mcg ity of vitamin 23:07: under the [place] B-12, 5,000 05 tongue Medica l mcg Subl daily. Branch ipratropium 2019-06 Yes 2{spray Use 2 Un susana 0.03 % 02 } Sprays in ity of nasal spray 23:07: each [place] [address] nostril 2 Medical (two) Branch times daily. losartan 50 2019-06 Yes 50mg Take 50 mg Univers mg tablet 02 by mouth ity of 23:07: daily. [address] Lacosamide 2019-06 Yes 1{tbl} Take 1 Uni vers (VIMPAT) 1-02 tablet by ity of 200 mg 23:07: mouth 2 [place] tablet (two) Medical times Branch daily. montelukast 2019-06 Yes 10mg Take 10 mg Univers (SINGULAIR) 02 by mouth ity of 10 mg 23:07: daily. [address] phenytoin 2019-06 Yes 100mg Take 100 Uni vers sodium 1-02 mg by ity of extended 23:07: mouth 4 [place] (DILANTIN 05 (four) Medical ORAL) times Branch daily. aspirin 81 2019-06 Yes 81mg Take 81 mg U nivers mg EC 02 by mouth. ity of tablet 23:07: [address] azelastine 2019-06 Yes 1{spray Use 1 Uni vers 137 mcg -02 } [place] in ity of (0.1 %) 23:07: each [place] nasal spray 05 nostril. [facility] Branch budesonide- 2019-06 Yes 2{puff} Inhale 2 Univers formoterol 1-02 Puffs. ity of (SYMBICORT) 23:07: [place] 160-4.5 05 Medical mcg/actuati Branch on inhaler carvedilol 2019-06 Yes 3.125mg Take 3.125 Univers 3.125 mg 1-02 mg by ity of tablet 23:07: mouth. [address] melatonin 2019-06 Yes Take by Univ ers 10 mg Cap 02 mouth. ity of 23:07: [address] Branch ticagrelor 2019-06 Yes 90mg Take 90 mg U nivers (BRILINTA) 02 by mouth. ity of 90 mg 23:07: [place] tablet Medical Branch cyanocobala 2019-[address] Uni vers min, -02 2,500 mcg ity of vitamin 23:07: under the [place] B-12, 5,000 05 tongue Medica l mcg Subl daily. Branch ipratropium 2019-06 Yes 2{spray Use 2 Un susana 0.03 % 06-30 } Sprays in ity of nasal spray 23:07: each [place] 05 nostril 2 Medical (two) Branch times daily. losartan 50 2019-06 Yes 50mg Take 50 mg Univers mg tablet 02 by mouth ity of 23:07: daily. [address] Branch Lacosamide 2019-06 Yes 1{tbl} Take 1 Uni vers (VIMPAT) 06-30 tablet by ity of 200 mg 23:07: mouth 2 [place] tablet 05 (two) Medical times Branch daily. montelukast 2019-06 Yes 10mg Take 10 mg Univers (SINGULAIR) 02 by mouth ity of 10 mg 23:07: daily. [place] tablet [address] [place] [address] Branch phenytoin 2019-06 Yes 100mg Take 100 Uni vers sodium 1-02 mg by ity of extended 23:07: mouth 4 [place] (DILANTIN 05 (four) Medical ORAL) times Branch daily. ibuprofen 2019-06 2020- No 200mg Take 200 Un susana 200 mg 06-30 11-02 mg by ity of tablet 19:13: 00:00 mouth. [place] 22 :00 [facility] aspirin 81 2019-06 Yes 81mg Take 81 mg U nivers mg EC 06-30 by mouth. ity of tablet 17:07: [address] azelastine 2019-06 Yes 1{spray Use 1 Uni vers 137 mcg 02 } [place] in ity of (0.1 %) 17:07: each [place] nasal spray 05 nostril. [facility] Branch budesonide- 2019-06 Yes 2{puff} Inhale 2 Univers formoterol -02 Puffs. ity of (SYMBICORT) 17:07: [place] 160-4.5 05 Medical mcg/actuati Branch on inhaler carvedilol 2019-06 Yes 3.125mg Take 3.125 Univers 3.125 mg 1-02 mg by ity of tablet 17:07: mouth. [address] melatonin 2019-06 Yes Take by Univ ers 10 mg Cap 02 mouth. ity of 17:07: [address] ticagrelor 2019-06 Yes 90mg Take 90 mg U nivers (BRILINTA) 06-30 by mouth. ity of 90 mg 17:07: [place] tablet [address] [place] [address] cyanocobala 2019-[address] Uni vers min, 06-30 2,500 mcg ity of vitamin 17:07: under the [place] B-12, 5,000 05 tongue Medica l mcg Subl daily. Branch ipratropium 2019-06 Yes 2{spray Use 2 Un susana 0.03 % 06-30 } Sprays in ity of nasal spray 17:07: each [place] [address] nostril 2 Medical (two) Branch times daily. losartan 50 2019-06 Yes 50mg Take 50 mg Univers mg tablet 06-30 by mouth ity of 17:07: daily. [address] Lacosamide 2019-06 Yes 1{tbl} Take 1 Uni vers (VIMPAT) 06-30 tablet by ity of 200 mg 17:07: mouth 2 [place] tablet (two) Medical times Branch daily. montelukast 2019-06 Yes 10mg Take 10 mg Univers (SINGULAIR) 02 by mouth ity of 10 mg 17:07: daily. [address] phenytoin 2019-06 Yes 100mg Take 100 Uni vers sodium 1-02 mg by ity of extended 17:07: mouth 4 [place] (DILANTIN 05 (four) Medical ORAL) times Branch daily. ticagrelor 2019-06 Yes 90mg 90 mg, Unive rs (BRILINTA) 06-30 Oral, ity of tablet 90 15:00: DAILY, [place] mg 00 First dose Medical on Thu Branch 04/30/20 at 0900, Until Discontinu ed, Routine losartan 2019-06 Yes 50mg 50 mg, Univers (COZAAR) 06-30 Oral, ity of tablet 50 15:00: DAILY, [place] mg 00 First dose Medical on Thu [place] 04/30/20 at 0900, Until Discontinu ed, Routine montelukast 2019-06 Yes 10mg 10 mg, Univ ers (SINGULAIR) 02 Oral, ity of tablet 10 15:00: DAILY, [place] mg 00 First dose Medical on Thu04/30/20 at 0900, Until Discontinu ed, Routine aspirin EC 2019-06 Yes 81mg 81 mg, Unive rs tablet 81 02 Oral, ity of mg 15:00: DAILY, [place] 00 First dose Medical on Thu04/30/20 at 0900, Until Discontinu ed, Routine thiamine 2019-06 Yes 100mg 100 mg, Unive rs (VITAMIN 02 Oral, ity of B1) tablet 15:00: DAILY, [place] 100 mg 00 First dose Medical on Thu04/30/20 at 0900, Until Discontinu ed, Routine foLIC acid 2019-06 Yes 1mg 1 mg, Univer s (FOLATE) 06-30 Oral, ity of tablet 1 mg 15:00: DAILY, [place] 00 First dose Medical on [facility] 04/30/20 at 0900, Until Discontinu ed, Routine pantoprazol 2019-06 Yes 40mg 40 mg, Univ ers e 06-30 Oral, ity of (PROTONIX) 15:00: DAILY, [place] EC tablet 00 First dose Medi zach 40 mg on Thu04/30/20 at 0900, Until Discontinu ed, Routine levETIRAcet 2019-06 Yes 2000mg 2,000 mg, Univers am (KEPPRA) 06-30 Oral, BID, it y of tablet 14:00: First dose [place] 2,000 mg 00 (after Medical last Branch modificati on) on Thu04/30/20 at 0800, Until Discontinu ed, Routine phenytoin 2019-06 Yes 100mg 100 mg, Univ ers Extended 02 Oral, QID, ity o f (DILANTIN 14:00: First dose [place] KAPSEAL) 00 on Thu Medical capsule 100 04/30/20 at [facility] mg 0800, Until Discontinu ed carvediloL 2019-06 Yes 3.125mg 3.125 mg, Univers (COREG) 06-30 Oral, BID ity of tablet 14:00: MEALS, [place] 3.125 mg 00 First dose Medic al on Thu04/30/20 at 0800, Until Discontinu ed, Routine enoxaparin 2019-06 Yes 30mg 30 mg, Unive rs (LOVENOX) 06-30 Subcutaneo ity of injection 04:30: us, Q24H, [place] as 30 mg 00 First dose Medical on [facility] 04/29/20 at 2230, Until Discontinu ed, Routine budesonide- 2019-06 Yes 2{puff} 2 Puff, Univers formoteroL 06-30 Inhalation ity of (SYMBICORT) 04:15: , [place], [place] 160-4.5 00 First dose Medica l mcg/actuati on [facility] on inhaler 04/29/20 at 2 Puff 2215, Until Discontinu ed, Routine clonazePAM 2019-06- No .5mg Take 0.5 [place] 0.5 mg 06-30 mg by ity of tablet 04:01: 00:00 mouth. [place] 50 :00 [facility] lisinopril 2019-06- No 5mg Take 5 mg U nivers 5 mg tablet 06-30 by mouth. it y of 04:01: 00:00 [place] 50 :00 [facility] furosemide 2019-06- No 20mg Take 20 mg Univers 20 mg 06-30 by mouth ity of tablet 04:01: 00:00 daily. [place] 50 :00 [facility] oxazepam 2019-06 Yes 15mg 15 mg, Univers (SERAX) 06-30 Oral, ity of capsule 15 03:35: Q4HPRN, [place] mg 47 Starting [facility] 04/29/20 at 2135, Until Discontinu ed, Routine, Only while awake for DBP equal to or greater than 100, HR equal to or greater than 100. acetaminoph 2019-06 Yes 650mg 650 mg, Un [place] en 06-30 Oral, ity of (TYLENOL) 03:07: Q6HPRN, [place] tablet 650 17 Starting Medic al mg [facility] 04/29/20 at 2107, Until Discontinu ed, Routine, Pain (scale 4-6) docusate 2019-06 Yes 100mg 100 mg, Unive rs (COLACE) 06-30 Oral, ity of capsule 100 03:07: QDAILYPRN, [place] mg 17 Starting Medical [facility] 04/29/20 at 2107, Until Discontinu ed, Routine, Constipati on levETIRAcet 2019-06- No [id number] 1500mg Take 2 Univers am 750 mg 06-30 tablets by ity of tablet 00:00: 05:59 mouth [place] 00 :00 every Medical morning Branch for 90 days. levETIRAcet 2019-06- No [id number] 2000mg Take 2 Univers am 1,000 mg 06-30 tablets by i ty of tablet 00:00: 05:59 mouth at [place] 00 :00 bedtime Medical for 90 Branch days. levETIRAcet 2019-06- No [id number] 1500mg Take 2 Univers am 750 mg 06-30 tablets by ity of tablet 00:00: 05:59 mouth [place] 00 :00 every Medical morning Branch for 90 days. levETIRAcet 2019-06- No [id number] 2000mg Take 2 Univers am 1,000 mg 06-30 tablets by i ty of tablet 00:00: 05:59 mouth at [place] 00 :00 bedtime Medical for 90 Branch days. levETIRAcet 2019-06- No [id number] 1500mg Take 2 Univers am 750 mg 06-30 tablets by ity of tablet 00:00: 05:59 mouth [place] 00 :00 every Medical morning Branch for 90 days. levETIRAcet 2019-06- No [id number] 2000mg Take 2 Univers am 1,000 mg 06-30 tablets by i ty of tablet 00:00: 05:59 mouth at [place] 00 :00 bedtime Medical for 90 Branch days. levETIRAcet 2019-06- No [id number] 1500mg Take 2 Univers am 750 mg 06-30 tablets by ity of tablet 00:00: 05:59 mouth [place] 00 :00 every Medical morning Branch for 90 days. levETIRAcet 2019-06- No [id number] 2000mg Take 2 Univers am 1,000 mg 06-30 tablets by i ty of tablet 00:00: 05:59 mouth at [place] 00 :00 bedtime Medical for 90 Branch days. cefdinir 2019-06 No [id number] 300mg Take 1 U nivers 300 mg 06-30 capsule by ity of capsule 00:00: 05:59 mouth 2 [place] 00 :00 (two) Medical times Branch daily for 5 days. cefTRIAXone 2019-06- No 1000mg 1,000 mg, Univers (ROCEPHIN) 06-30 IV ity of 1,000 mg in 00:00: 23:32 [place], [place] NaCl 0.9% 00 :00 ONCE, 1 Medical (NS) 50 mL dose, [place] ch MINI-BAG 04/29/20 at 1800, 50 mL
Reas on for Anti-Infec tive: Empiric Therapy for Suspected Infection< br>Empiric Therapy Site: Urine
D uration of therapy: 72 hours levETIRAcet 2019-06- No 1000mg 1,000 mg, Univers am (KEPPRA) 06-29 IV ity of in NACL 22:15: 21:32 [place]fusion, [place] (ISO-OS) 00 :00 ONCE, 1 Medical 1,000 dose, [place] Branch mg/100 mL 04/29/20 at RTU 1615, 100 mL NaCl 0.9% 2019-06- No 1000mL at 999 Uni vers (NS) bolus 06-29 mL/hr, ity of infusion 21:15: 22:21 1,000 mL, [place] as 1,000 mL 00 :00 IV Medical Infusion, Branch ONCE, 1 dose, 04/29/20 at 1515, EZIO phenytoin 2019-06 Yes See Memoria 100 mg oral 0-23 Instructio l capsule, 16:05: ns, 300mg Herm elda extended 00 alternatin release g with 400mg, # 120 cap, 6 Refill(s), Pharmacy: [facility] #[id number], 154.94, cm, 04/20/20 10:48:00 CDT, Height, 44.091, kg, 04/20/20 10:48:00 CDT, Weight lacosamide 2019-06 Yes 200 mg = 1 M emoria 200 MG Oral 0-23 tab, PO, l Tablet 16:05: BID, # 60 Eddie n [Vimpat] 00 tab, 4 Refill(s), Pharmacy: [facility] #[id number], 154.94, cm, 04/20/20 10:48:00 CDT, Height, 44.091, kg, 04/20/20 10:48:00 CDT, Weight phenytoin 2019-1 Yes See Memoria 100 mg oral 0-23 Instructio l capsule, 16:05: ns, 300mg Herm elda extended 00 alternatin release g with 400mg, # 120 cap, 6 Refill(s), Pharmacy: [facility] #[id number], 154.94, cm, 04/20/20 10:48:00 CDT, Height, 44.091, kg, 04/20/20 10:48:00 CDT, Weight lacosamide 2019-1 Yes 200 mg = 1 M emoria 200 MG Oral 0-23 tab, PO, l Tablet 16:05: BID, # 60 Eddie n [Vimpat] 00 tab, 4 Refill(s), Pharmacy: [facility] #[id number], 154.94, cm, 04/20/20 10:48:00 CDT, Height, 44.091, kg, 04/20/20 10:48:00 CDT, Weight lacosamide 2020-0 Yes 100 mg = 1 M emoria 100 MG Oral 5-26 tab, PO, l Tablet 21:08: BID, # 60 Eddie n [Vimpat] 00 tab, 2 Refill(s), Pharmacy: [facility] #[id number] lacosamide 2020-0 Yes 100 mg = 1 M emoria 100 MG Oral 5-26 tab, PO, l Tablet 21:08: BID, # 60 Eddie n [Vimpat] 00 tab, 2 Refill(s), Pharmacy: [facility] #[id number] lacosamide 2020-0 Yes 50 mg = 1 Me moria 50 MG Oral 4-20 tab, PO, l Tablet 22:01: BID, # 60 Eddie n [Vimpat] 00 tab, 2 Refill(s), Pharmacy: [facility] #[id number] lacosamide 2020-0 Yes 50 mg = 1 Me moria 50 MG Oral 4-20 tab, PO, l Tablet 22:01: BID, # 60 Eddie n [Vimpat] 00 tab, 2 Refill(s), Pharmacy: [facility] #[id number] phenytoin 2020-0 2020- No 18mg/kg 898 mg Un [place] (DILANTIN) 4-20 04-20 (rounded ity of injection 01:00: 01:17 from 898.2 [place] 898 mg 00 :00 mg = 18 Medical mg/kg Branch ?49.9 kg), IV Piggyback, Administer over 20 Minutes, ONCE, 1 dose, 10/16/19 at 2000, STAT Levetiracet 2020-0 Yes 1,500 mg = Memoria am 750 MG 4-03 2 tab, PO, l Oral Tablet 20:20: BID, # 360 [place] [Keppra] 00 tab, 3 Refill(s), Pharmacy: [facility] #[id number] Levetiracet 2020-0 Yes 1,500 mg = Memoria am 750 MG 4-03 2 tab, PO, l Oral Tablet 20:20: BID, # 360 [place] [Keppra] 00 tab, 3 Refill(s), [id number] lamotrigine 2020-0 Yes 25 mg = 1 M emoria 25 MG Oral 3-13 tab, PO, l Tablet 19:16: BID, # 60 Eddie n [Lamictal] 00 tab, 3 Refill(s), [id number] lamotrigine 2020-0 Yes 25 mg = 1 M emoria 25 MG Oral 3-13 tab, PO, l Tablet 19:16: BID, # 60 Eddie n [Lamictal] 00 tab, 3 Refill(s), [id number] losartan 50 2020-0 Yes 50 mg = 1 M emoria mg oral 3-13 tab, PO, l tablet 18:54: Daily, 0 [place] 00 Refill(s) Potassium 2020-0 Yes 10 mEq, Memor ia Chloride 3-13 PO, ONCE, l 18:54: 0 [place] 00 Refill(s) montelukast 2020-0 Yes 10 mg = 1 M emoria 10 mg oral 3-13 tab, PO, l tablet 18:54: Daily, 0 [place] 00 Refill(s) Ipratropium 2020-0 Yes 500 Memori a 3-13 microgram, l 18:54: NEB, BID, [place] 00 0 Refill(s) losartan 50 2020-0 Yes 50 mg = 1 M emoria mg oral 3-13 tab, PO, l tablet 18:54: Daily, 0 [place] 00 Refill(s) Potassium 2019-0 Yes 10 mEq, Memor ia Chloride 3-13 PO, ONCE, l 18:54: 0 [place] 00 Refill(s) montelukast 2019-0 Yes 10 mg = 1 M emoria 10 mg oral 3-13 tab, PO, l tablet 18:54: Daily, 0 [place] 00 Refill(s) Ipratropium 0 Yes 500 Memori a 3-13 microgram, l 18:54: NEB, BID, [place] 00 0 Refill(s) aspirin 81 2018-06 Yes 81mg Take 81 mg U nivers mg EC 1-14 by mouth. ity of tablet 16:50: [address] azelastine 2018-06 Yes 1{spray Use 1 Uni vers 137 mcg 1-14 } [place] in ity of (0.1 %) 16:50: each [place] nasal spray 54 nostril. [facility] budesonide- 2018-06 Yes 2{puff} Inhale 2 Univers formoterol 1-14 Puffs. ity of (SYMBICORT) 16:50: [place] 160-4.[address] [place] [address]/actuati Branch on inhaler carvedilol 2018-06 Yes 3.125mg Take 3.125 Univers 3.125 mg 1-14 mg by ity of tablet 16:50: mouth. [address] clonazePAM 2018-06 Yes .5mg Take 0.5 Uni vers 0.5 mg 1-14 mg by ity of tablet 16:50: mouth. [address] ibuprofen 2018-06 Yes 200mg Take 200 Uni vers 200 mg 1-14 mg by ity of tablet 16:50: mouth. [address] lisinopril 2018-06 Yes 5mg Take 5 mg [place] 5 mg tablet 1-14 by mouth. ity of 16:50: [address] melatonin 2018-06 Yes Take by Univ ers 10 mg Cap 1-14 mouth. ity of 16:50: [address] ticagrelor 2018-06 Yes 90mg Take 90 mg U nivers (BRILINTA) 1-14 by mouth. ity of 90 mg 16:50: [address] cyanocobala 2018-[address] Uni vers min, 1-14 2,500 mcg ity of vitamin 16:50: under the [place] B-12, 5,000 54 tongue Medica l mcg Subl daily. Branch furosemide 2018-06 Yes 20mg Take 20 mg U nivers 20 mg 1-14 by mouth ity of tablet 16:50: daily. [address] ipratropium 2018-06 Yes 2{spray Use 2 Un [place] 0.03 % 1-14 } Sprays in ity of nasal spray 16:50: each [place] [address] nostril 2 Medical (two) Branch times daily. losartan 2018-06 Yes 100mg Take 100 Univ ers 100 mg 1-14 mg by ity of tablet 16:50: mouth [place] [address] daily. Medical Branch aspirin 81 2018-06 Yes 81mg Take 81 mg U nivers mg EC 1-14 by mouth. ity of tablet 16:50: [address] azelastine 2018-06 Yes 1{spray Use 1 Uni vers 137 mcg 1-14 } [place] in ity of (0.1 %) 16:50: each [place] nasal spray 54 nostril. [facility] Branch budesonide- 2018-06 Yes 2{puff} Inhale 2 Univers formoterol 1-14 Puffs. ity of (SYMBICORT) 16:50: [place] 160-4.5 Medical [facility]/actuati Branch on inhaler carvedilol 2018-06 Yes 3.125mg Take 3.125 Univers 3.125 mg 1-14 mg by ity of tablet 16:50: mouth. [address] clonazePAM 2018-06 Yes .5mg Take 0.5 Uni vers 0.5 mg 1-14 mg by ity of tablet 16:50: mouth. [address] ibuprofen 2018- Yes 200mg Take 200 Uni vers 200 mg 1-14 mg by ity of tablet 16:50: mouth. [address] lisinopril 2018-06 Yes 5mg Take 5 mg Un [place] 5 mg tablet 1-14 by mouth. ity of 16:50: [address] melatonin 2018-06 Yes Take by Univ ers 10 mg Cap 1-14 mouth. ity of 16:50: [address] ticagrelor 2018- Yes 90mg Take 90 mg U nivers (BRILINTA) 1-14 by mouth. ity of 90 mg 16:50: [place] tablet [address] [place] [address] Branch cyanocobala 2018-[address] Uni vers min, 1-14 2,500 mcg ity of vitamin 16:50: under the [place] B-12, 5,000 54 tongue Medica l mcg Subl daily. Branch furosemide 2018-06 Yes 20mg Take 20 mg U nivers 20 mg 1-14 by mouth ity of tablet 16:50: daily. [address] Branch ipratropium 2018-06 Yes 2{spray Use 2 Un sus[place] 0.03 % 1-14 } Sprays in ity of nasal spray 16:50: each [place] [address] nostril 2 Medical (two) Branch times daily. losartan 2018-06 Yes 100mg Take 100 Univ ers 100 mg 1-14 mg by ity of tablet 16:50: mouth [place] [address] daily. Medical Branch aspirin 81 2018-06 Yes 81mg Take 81 mg U nivers mg EC 1-14 by mouth. ity of tablet 16:50: [address] azelastine 2018-06 Yes 1{spray Use 1 Uni vers 137 mcg 1-14 } [place] in ity of (0.1 %) 16:50: each [place] nasal spray 54 nostril. [facility] Branch budesonide- 2018-06 Yes 2{puff} Inhale 2 Univers formoterol 1-14 Puffs. ity of (SYMBICORT) 16:50: [place] 160-4.5 Medical mcg/actuati Branch on inhaler carvedilol 2018-06 Yes 3.125mg Take 3.125 Univers 3.125 mg 1-14 mg by ity of tablet 16:50: mouth. [address] Branch clonazePAM 2018- Yes .5mg Take 0.5 Uni vers 0.5 mg 1-14 mg by ity of tablet 16:50: mouth. [address] Branch ibuprofen 2018- Yes 200mg Take 200 Uni vers 200 mg 1-14 mg by ity of tablet 16:50: mouth. [address] Branch lisinopril 2018- Yes 5mg Take 5 mg Un [place] 5 mg tablet 1-14 by mouth. ity of 16:50: [address] melatonin 2018- Yes Take by Univ ers 10 mg Cap 1-14 mouth. ity of 16:50: [address] ticagrelor 2018- Yes 90mg Take 90 mg U nivers (BRILINTA) 1-14 by mouth. ity of 90 mg 16:50: [place] tablet [address] [place] [address] Branch cyanocobala 2018-[address] Uni vers min, 1-14 2,500 mcg ity of vitamin 16:50: under the [place] B-12, 5,000 54 tongue Medica l mcg Subl daily. Branch furosemide 2018-06 Yes 20mg Take 20 mg U nivers 20 mg 1-14 by mouth ity of tablet 16:50: daily. [address] Branch ipratropium 2018- Yes 2{spray Use 2 Un [place] 0.03 % 1-14 } Sprays in ity of nasal spray 16:50: each [place] [address] nostril 2 Medical (two) Branch times daily. losartan 2018-06 Yes 100mg Take 100 Univ ers 100 mg 1-14 mg by ity of tablet 16:50: mouth [place] [address] daily. Medical Branch aspirin 81 2018-06 Yes 81mg Take 81 mg U nivers mg EC 1-14 by mouth. ity of tablet 16:50: [address] Branch azelastine 2018-06 Yes 1{spray Use 1 Uni vers 137 mcg 1-14 } [place] in ity of (0.1 %) 16:50: each [place] nasal spray 54 nostril. [facility] Branch budesonide- 2018-06 Yes 2{puff} Inhale 2 Univers formoterol 1-14 Puffs. ity of (SYMBICORT) 16:50: [place] 160-4.[address] [place] [address]/actuati Branch on inhaler carvedilol 2018-06 Yes 3.125mg Take 3.125 Univers 3.125 mg 1-14 mg by ity of tablet 16:50: mouth. [address] Branch clonazePAM 2018- Yes .5mg Take 0.5 Uni vers 0.5 mg 1-14 mg by ity of tablet 16:50: mouth. [address] ibuprofen 2018- Yes 200mg Take 200 Uni vers 200 mg 1-14 mg by ity of tablet 16:50: mouth. [address] Branch lisinopril 2018- Yes 5mg Take 5 mg [place] 5 mg tablet 1-14 by mouth. ity of 16:50: [address] melatonin 2018- Yes Take by Univ ers 10 mg Cap 1-14 mouth. ity of 16:50: [address] ticagrelor 2018-06 Yes 90mg Take 90 mg U nivers (BRILINTA) 1-14 by mouth. ity of 90 mg 16:50: [address] Branch cyanocobala 2018-[address] Uni vers min, 1-14 2,500 mcg ity of vitamin 16:50: under the [place] B-12, 5,000 54 tongue Medica l mcg Subl daily. Branch furosemide 2018-06 Yes 20mg Take 20 mg U nivers 20 mg 1-14 by mouth ity of tablet 16:50: daily. [address] Branch ipratropium 2018-06 Yes 2{spray Use 2 Un [place] 0.03 % 1-14 } Sprays in ity of nasal spray 16:50: each [place] [address] nostril 2 Medical (two) Branch times daily. losartan 2018-06 Yes 100mg Take 100 Univ ers 100 mg 1-14 mg by ity of tablet 16:50: mouth [place] [address] daily. Medical Branch aspirin 81 2018-06 Yes 81mg Take 81 mg U nivers mg EC 1-14 by mouth. ity of tablet 16:50: [address] azelastine 2018-06 Yes 1{spray Use 1 Uni vers 137 mcg 1-14 } [place] in ity of (0.1 %) 16:50: each [place] nasal spray 54 nostril. [facility] Branch budesonide- 2018-06 Yes 2{puff} Inhale 2 Univers formoterol 1-14 Puffs. ity of (SYMBICORT) 16:50: [place] 160-4.[address] [place] [address]/actuati Branch on inhaler carvedilol 2018-06 Yes 3.125mg Take 3.125 Univers 3.125 mg 1-14 mg by ity of tablet 16:50: mouth. [address] Branch clonazePAM 2018- Yes .5mg Take 0.5 Uni vers 0.5 mg 1-14 mg by ity of tablet 16:50: mouth. [address] ibuprofen 2018- Yes 200mg Take 200 Uni vers 200 mg 1-14 mg by ity of tablet 16:50: mouth. [address] lisinopril 2018- Yes 5mg Take 5 mg [place] 5 mg tablet 1-14 by mouth. ity of 16:50: [place] 54 Medical Branch melatonin 2018-06 Yes Take by Univ ers 10 mg Cap 1-14 mouth. ity of 16:50: [address] Branch ticagrelor 2018-06 Yes 90mg Take 90 mg U nivers (BRILINTA) 1-14 by mouth. ity of 90 mg 16:50: [place] tablet [address] [place] [address] Branch cyanocobala 2018-[address] Uni vers min, 1-14 2,500 mcg ity of vitamin 16:50: under the [place] B-12, 5,000 54 tongue Medica l mcg Subl daily. Branch furosemide 2018-06 Yes 20mg Take 20 mg U nivers 20 mg 1-14 by mouth ity of tablet 16:50: daily. [address] Branch ipratropium 2018-06 Yes 2{spray Use 2 Un [place] 0.03 % 1-14 } Sprays in ity of nasal spray 16:50: each [place] [address] nostril 2 Medical (two) Branch times daily. losartan 2018-06 Yes 100mg Take 100 Univ ers 100 mg 1-14 mg by ity of tablet 16:50: mouth [place] [address] daily. Medical Branch aspirin 81 2018-06 Yes 81mg Take 81 mg U nivers mg EC 1-14 by mouth. ity of tablet 16:50: [address] Branch azelastine 2018-06 Yes 1{spray Use 1 Uni vers 137 mcg 1-14 } [place] in ity of (0.1 %) 16:50: each [place] nasal spray 54 nostril. [facility] Branch budesonide- 2018-06 Yes 2{puff} Inhale 2 Univers formoterol 1-14 Puffs. ity of (SYMBICORT) 16:50: [place] 160-4.5 Medical [facility]/actuati Branch on inhaler carvedilol 2018-06 Yes 3.125mg Take 3.125 Univers 3.125 mg 1-14 mg by ity of tablet 16:50: mouth. [address] Branch clonazePAM 2018-06 Yes .5mg Take 0.5 Uni vers 0.5 mg 1-14 mg by ity of tablet 16:50: mouth. [address] ibuprofen 2018-06 Yes 200mg Take 200 Uni vers 200 mg 1-14 mg by ity of tablet 16:50: mouth. [address] Branch lisinopril 2018-06 Yes 5mg Take 5 mg [place] 5 mg tablet 1-14 by mouth. ity of 16:50: [place] [address] Medical Branch melatonin 2018-06 Yes Take by [facility] ers 10 mg Cap 1-14 mouth. ity of 16:50: [address] Branch ticagrelor 2018-06 Yes 90mg Take 90 mg U nivers (BRILINTA) 1-14 by mouth. ity of 90 mg 16:50: [place] tablet Medical Branch cyanocobala 2018-[address] Uni vers min, 1-14 2,500 mcg ity of vitamin 16:50: under the [place] B-12, 5,000 tongue Medica l mcg Subl daily. Branch furosemide 2018-06 Yes 20mg Take 20 mg U nivers 20 mg 1-14 by mouth ity of tablet 16:50: daily. [address] Branch ipratropium 2018-06 Yes 2{spray Use 2 Un [place] 0.03 % 1-14 } Sprays in ity of nasal spray 16:50: each [place] [address] nostril 2 Medical (two) Branch times daily. losartan 2018-06 Yes 100mg Take 100 [facility] ers 100 mg 1-14 mg by ity of tablet 16:50: mouth [place] [address] daily. Medical Branch melatonin Yes Take by [facility] ers 10 mg Cap 7-27 mouth. ity of 21:03: [address] ticagrelor Yes 90mg Take 90 mg U nivers (BRILINTA) 7-27 by mouth. ity of 90 mg 21:03: [place] tablet [address] [place] [address] Branch albuterol Yes 2{puff} Inhale 2 U nivers (PROVENTIL 7-27 Puffs. ity of HFA) 90 21:03: [place] mcg/actuati Medical on inhaler Branch aspirin 81 Yes 81mg Take 81 mg U nivers mg EC 7-27 by mouth. ity of tablet 21:03: [address] azelastine Yes 1{spray Use 1 Uni vers 137 mcg 7-27 } [place] in ity of (0.1 %) 21:03: each [place] nasal spray 54 nostril. [facility] Branch budesonide- Yes 2{puff} Inhale 2 Univers formoterol 7-27 Puffs. ity of (SYMBICORT) 21:03: [place] 160-4.5 54 Medical mcg/actuati Branch on inhaler carvedilol Yes 3.125mg Take 3.125 Univers 3.125 mg 7-27 mg by ity of tablet 21:03: mouth. [address] clonazePAM Yes .5mg Take 0.5 Uni vers 0.5 mg 7-27 mg by ity of tablet 21:03: mouth. [address] ibuprofen Yes 200mg Take 200 Uni vers 200 mg 7-27 mg by ity of tablet 21:03: mouth. [address] lisinopril Yes 5mg Take 5 mg [place] 5 mg tablet 7-27 by mouth. ity of 21:03: [address] melatonin Yes Take by Univ ers 10 mg Cap 7-27 mouth. ity of 21:03: [address] ticagrelor Yes 90mg Take 90 mg U nivers (BRILINTA) 7-27 by mouth. ity of 90 mg 21:03: [address] albuterol Yes 2{puff} Inhale 2 U nivers (PROVENTIL 7-27 Puffs. ity of HFA) 90 21:03: [place] [address] Medical on inhaler Branch aspirin 81 Yes 81mg Take 81 mg U nivers mg EC 7-27 by mouth. ity of tablet 21:03: [address] azelastine Yes 1{spray Use 1 Uni vers 137 mcg 7-27 } [place] in ity of (0.1 %) 21:03: each [place] nasal spray 54 nostril. [facility] budesonide- Yes 2{puff} Inhale 2 Univers formoterol 7-27 Puffs. ity of (SYMBICORT) 21:03: [place] 160-4.[address] [place] [address]/actuati [place] on inhaler carvedilol Yes 3.125mg Take 3.125 Univers 3.125 mg 7-27 mg by ity of tablet 21:03: mouth. [address] clonazePAM Yes .5mg Take 0.5 Uni vers 0.5 mg 7-27 mg by ity of tablet 21:03: mouth. [address] ibuprofen Yes 200mg Take 200 Uni vers 200 mg 7-27 mg by ity of tablet 21:03: mouth. [address] lisinopril Yes 5mg Take 5 mg [place] 5 mg tablet 7-27 by mouth. ity of 21:03: [address] melatonin Yes Take by [facility] ers 10 mg Cap 7-27 mouth. ity of 21:03: [address] ticagrelor Yes 90mg Take 90 mg U nivers (BRILINTA) 7-27 by mouth. ity of 90 mg 21:03: [address] albuterol Yes 2{puff} Inhale 2 U nivers (PROVENTIL 7-27 Puffs. ity of HFA) 90 21:03: [facility] Branch aspirin 81 Yes 81mg Take 81 mg U nivers mg EC 7-27 by mouth. ity of tablet 21:03: [address] azelastine Yes 1{spray Use 1 Uni vers 137 mcg 7-27 } [place] in ity of (0.1 %) 21:03: each [place] nasal spray nostril. [facility] Branch budesonide- Yes 2{puff} Inhale 2 Univers formoterol 7-27 Puffs. ity of (SYMBICORT) 21:03: [place] 160-4.[address] [place] [address]/[facility] on inhaler carvedilol Yes 3.125mg Take 3.125 Univers 3.125 mg 7-27 mg by ity of tablet 21:03: mouth. [address] clonazePAM Yes .5mg Take 0.5 Uni vers 0.5 mg 7-27 mg by ity of tablet 21:03: mouth. [address] ibuprofen Yes 200mg Take 200 Uni vers 200 mg 7-27 mg by ity of tablet 21:03: mouth. [address] lisinopril Yes 5mg Take 5 mg [place] 5 mg tablet 7-27 by mouth. ity of 21:03: [address] melatonin Yes Take by [facility] ers 10 mg Cap 7-27 mouth. ity of 21:03: [address] ticagrelor Yes 90mg Take 90 mg U nivers (BRILINTA) 7-27 by mouth. ity of 90 mg 21:03: [address] albuterol 2018- Yes 2{puff} Inhale 2 U nivers (PROVENTIL 7-27 Puffs. ity of HFA) 90 21:03: [facility]/actuati Medical on inhaler Branch aspirin 81 Yes 81mg Take 81 mg U nivers mg EC 7-27 by mouth. ity of tablet 21:03: [address] azelastine Yes 1{spray Use 1 Uni vers 137 mcg 7-27 } [place] in ity of (0.1 %) 21:03: each [place] nasal spray nostril. [facility] budesonide- Yes 2{puff} Inhale 2 Univers formoterol 7-27 Puffs. ity of (SYMBICORT) 21:03: [place] 160-4.[address] [place] [address]/actuati [place] on inhaler carvedilol Yes 3.125mg Take 3.125 Univers 3.125 mg 7-27 mg by ity of tablet 21:03: mouth. [address] clonazePAM Yes .5mg Take 0.5 Uni vers 0.5 mg 7-27 mg by ity of tablet 21:03: mouth. [address] ibuprofen Yes 200mg Take 200 Uni vers 200 mg 7-27 mg by ity of tablet 21:03: mouth. [address] lisinopril Yes 5mg Take 5 mg [place] 5 mg tablet 7-27 by mouth. ity of 21:03: [address] melatonin Yes Take by Univ ers 10 mg Cap 7-27 mouth. ity of 21:03: [address] ticagrelor Yes 90mg Take 90 mg U nivers (BRILINTA) 7-27 by mouth. ity of 90 mg 21:03: [address] albuterol 2018- Yes 2{puff} Inhale 2 U nivers (PROVENTIL 7-27 Puffs. ity of HFA) 90 21:03: [facility] aspirin 81 Yes 81mg Take 81 mg U nivers mg EC 7-27 by mouth. ity of tablet 21:03: [address] azelastine Yes 1{spray Use 1 Uni vers 137 mcg 7-27 } [place] in ity of (0.1 %) 21:03: each [place] nasal spray 54 nostril. [facility] budesonide- Yes 2{puff} Inhale 2 Univers formoterol 7-27 Puffs. ity of (SYMBICORT) 21:03: [place] 160-4.5 Medical mcg/actuati [place] on inhaler carvedilol Yes 3.125mg Take 3.125 Univers 3.125 mg 7-27 mg by ity of tablet 21:03: mouth. [address] clonazePAM Yes .5mg Take 0.5 Uni vers 0.5 mg 7-27 mg by ity of tablet 21:03: mouth. [address] ibuprofen Yes 200mg Take 200 Uni vers 200 mg 7-27 mg by ity of tablet 21:03: mouth. [address] lisinopril Yes 5mg Take 5 mg Un sus[place] 5 mg tablet 7-27 by mouth. ity of 21:03: [address] melatonin Yes Take by Univ ers 10 mg Cap 7-27 mouth. ity of 21:03: [address] ticagrelor Yes 90mg Take 90 mg U nivers (BRILINTA) 7-27 by mouth. ity of 90 mg 21:03: [address] albuterol Yes 2{puff} Inhale 2 U nivers (PROVENTIL 7-27 Puffs. ity of HFA) 90 21:03: [facility]/actuati Medical on inhaler Branch aspirin 81 Yes 81mg Take 81 mg U nivers mg EC 7-27 by mouth. ity of tablet 21:03: [address] azelastine Yes 1{spray Use 1 Uni vers 137 mcg 7-27 } [place] in ity of (0.1 %) 21:03: each [place] nasal spray 54 nostril. [facility] budesonide- Yes 2{puff} Inhale 2 Univers formoterol 7-27 Puffs. ity of (SYMBICORT) 21:03: [place] [address] [place] [address]/actuati Branch on inhaler carvedilol 2018- Yes 3.125mg Take 3.125 Univers 3.125 mg 7-27 mg by ity of tablet 21:03: mouth. [address] clonazePAM 2018- Yes .5mg Take 0.5 Uni vers 0.5 mg 7-27 mg by ity of tablet 21:03: mouth. [address] ibuprofen 2019- Yes 200mg Take 200 Uni vers 200 mg 7-27 mg by ity of tablet 21:03: mouth. [address] lisinopril Yes 5mg Take 5 mg [place] 5 mg tablet 01-22 by mouth. ity of 21:03: [address] levETIRAcet 2019- No 1000mg 1,000 mg, Univers am (KEPPRA) 01-22 IV ity of in NACL 18:15: 17:55 Piggyback, Matthew as (ISO-OS) 00 :00 ONCE, 1 Medical 1,000 dose, [facility] mg/100 mL 01/22/19 at RTU 1315, 100 mL fosphenytoi 2019- No 1000mg{ 1,000 mg Univers n (CEREBYX) 01-22 phenyto PE, Slow ity of injection 18:15: 17:59 in'equi IV Push, [place] 1,000 mg PE 00 :00 valent} ONCE, 1 Me dical dose, [facility] 01/22/19 at 1315, EZIO NaCl 0.9% 2019- No 1000mL at 999 Uni vers (NS) bolus 01-22 mL/hr, ity of infusion 18:00: 20:38 1,000 mL, Matthew as 1,000 mL 00 :00 IV Medical Infusion, [place] ONCE, 1 dose, [facility] 01/22/19 at 1300, STAT LORazepam 2019- No 2mg 2 mg, Slow U nivers (ATIVAN) 01-22 IV Push, ity of injection 2 16:45: 15:32 [place]CE, 1 [place] 00 :00 dose, [facility] Medical 01/22/19 at Branch 1145, STAT fluconazole 2019- No [id number] 150mg Take 1 Univers 150 mg 01-22 tablet by ity of tablet 00:00: 04:59 mouth once [place] 00 :00 now for 1 Medical dose. Branch Ticagrelor 2019-0 Yes 90 mg = 1 Me moria 90 MG Oral 5-31 tab, PO, l Tablet 17:48: BID, # 60 Eddie n [Brilinta] 00 tab, 2 Refill(s), Pharmacy: [facility] Levetiracet 2019-0 Yes 1,500 mg = Memoria am 750 MG 5-31 2 tab, PO, l Oral Tablet 17:48: BID, # 120 [place] [Keppra] 00 tab, 2 Refill(s), Pharmacy: [facility] Aspirin 81 2018-0 Yes 81 mg = 1 Me moria MG Chewable 5-31 tab, CHEW, l Tablet 17:48: Daily, # 1 Renita nn 00 tab, 3 Refill(s), Pharmacy: [facility] [place] [id number] lisinopril 2019-0 Yes 5 mg = 1 Mem oria 5 mg oral 5-31 tab, PO, l tablet 17:48: Daily, # [place] 00 30 tab, 2 Refill(s), Pharmacy: [facility] [place] [id number] carvedilol 2019-0 Yes 3.125 mg = M emoria 3.125 mg 5-31 1 tab, PO, l oral tablet 17:48: Q12H, # 60 [place] 00 tab, 2 Refill(s), Pharmacy: [facility] [place] [id number] Ticagrelor 2019-0 Yes 90 mg = 1 Me moria 90 MG Oral 5-31 tab, PO, l Tablet 17:48: BID, # 60 Eddie n [Brilinta] 00 tab, 2 Refill(s), Pharmacy: [facility] [id number] Levetiracet 2019-0 Yes 1,500 mg = Memoria am 750 MG 5-31 2 tab, PO, l Oral Tablet 17:48: BID, # 120 [place] [Keppra] 00 tab, 2 Refill(s), [facility] [id number] Aspirin 81 2019-0 Yes 81 mg = 1 Me moria MG Chewable 5-31 tab, CHEW, l Tablet 17:48: Daily, # 1 Renita nn 00 tab, 3 Refill(s), Pharmacy: [facility] [id number] lisinopril Yes 5 mg = 1 Mem oria 5 mg oral 5-31 tab, PO, l tablet 17:48: Daily, # [place] 00 30 tab, 2 Refill(s), Pharmacy: [facility] [id number] carvedilol Yes 3.125 mg = M emoria 3.125 mg 5-31 1 tab, PO, l oral tablet 17:48: Q12H, # 60 [place] 00 tab, 2 Refill(s), Pharmacy: [facility] [id number] potassium No Notes: Memori a phosphate 5-31 [...] phosphate 5-31 Infuse l 10:36: over 4 [place] 00 hour. Do not infuse phosphorou s concurrent ly in the same line as TPN or IVF that contains calcium. For double lumen central lines, phosphorou s may be infused in a separate lumen from TPN. Potassium No Notes: Memori a Chloride 5-31 (Same as: l 10:36: KCL) 00 Infuse over 2 hours. potassium No Notes: Memori a phosphate-s -31 (Same as: l odium 10:36: Phos-NaK) [place] phosphate 00 Each 1.5 250 mg-280 gm pkt has mg-160 mg 250mg oral powder phosphorou for s. Mix reconstitut w/2.5oz ion water and stir. Calcium No Notes: Memoria Gluconate 5-31 WASTE: F/P l 10:36: - Sink; E [place] - [facility] Trash Bin Magnesium No Notes: Memori a Sulfate 5-31 WASTE: F/P l 10:36: - Sink; E [place] - [facility] Trash [facility] Magnesium No Notes: Memori a Oxide 5-31 (Same as: l 10:36: Mag-Ox [place] 00 400) Magnesium oxide [id number] g elemental magnesium Dose=____m g magnesium oxide (___mg elemental magnesium) potassium No Notes: Memori a phosphate -31 (Same as: l 10:36: K [place] 00 Phosphate. ) Do not infuse phosphorou s concurrent ly in the same line as TPN or IVF that contains calcium. For double lumen central lines, phosphorou s may be infused in a separate lumen from TPN. 1 mMol phoshate has 1.47 mEq potassium Infuse over 4 hours sodium No Notes: Memoria phosphate 5-31 Infuse l 10:36: over 4 [place] 00 hour. Do not infuse phosphorou s concurrent ly in the same line as TPN or IVF that contains calcium. For double lumen central lines, phosphorou s may be infused in a separate lumen from TPN. Potassium No Notes: Memori a Chloride - (Same as: l 10:36: KCL) Infuse over 2 hours. potassium No Notes: Memori a phosphate-s 11-26 (Same as: l odium 10:36: Phos-NaK) phosphate 00 Each 1.5 250 mg-280 gm pkt has mg-160 mg 250mg oral powder phosphorou for s. Mix reconstitut w/2.5oz ion water and stir. Calcium No Notes: Memoria Gluconate 11-26 WASTE: F/P l 10:36: - Sink; E [place] 00 - [facility] Trash Bin Magnesium No Notes: Memori a Sulfate 11-26 WASTE: F/P l 10:36: - Sink; E - [facility] Trash [facility] Magnesium No Notes: Memori a Oxide - (Same as: l 10:36: Mag-Ox 400) Magnesium oxide [id number] g elemental magnesium Dose=____m g magnesium oxide (___mg elemental magnesium) Lisinopril No Notes: Memor ia -29 (Same as: l 19:03: Prinivil, [place] Zestril) Lisinopril No Notes: Memor ia - (Same as: l 19:03: Prinivil, [place] Zestril) sodium No Notes: Memoria phosphate -28 Infuse l 14:20: over 4 [place] 00 hour. Do not infuse phosphorou s concurrent ly in the same line as TPN or IVF that contains calcium. For double lumen central lines, phosphorou s may be infused in a separate lumen from TPN. potassium No Notes: Memori a phosphate -28 (Same as: l 14:20: K [place] 00 Phosphate. ) Do not infuse phosphorou s concurrent ly in the same line as TPN or IVF that contains calcium. For double lumen central lines, phosphorou s may be infused in a separate lumen from TPN. 1 mMol phoshate has 1.47 mEq potassium Infuse over 4 hours sodium No Notes: Memoria phosphate - Infuse l 14:20: over 4 [place] 00 hour. Do not infuse phosphorou s concurrent ly in the same line as TPN or IVF that contains calcium. For double lumen central lines, phosphorou s may be infused in a separate lumen from TPN. potassium No Notes: Memori a phosphate - (Same as: l 14:20: K [place] 00 [...] 11-23 (Same as: l odium 14:20: Phos-NaK) [place] phosphate 00 Each 1.5 250 mg-280 gm pkt has mg-160 mg 250mg oral powder phosphorou for s. Mix reconstitut w/2.5oz ion water and stir. Magnesium No Notes: Memori a Sulfate 11-23 WASTE: F/P l 14:20: - Sink; E - [facility] Trash Bin Magnesium No Notes: Memori a Oxide 11-23 (Same as: l 14:20: Mag-Ox [place] 00 400) Magnesium oxide [id number] g elemental magnesium Dose=____m g magnesium oxide (___mg elemental magnesium) Calcium No Notes: Memoria Gluconate 11-23 WASTE: F/P l 14:20: - Sink; E [place] - [facility] Trash Bin Calcium No Notes: Memoria Carbonate 11-23 (Same As: l 500 MG 14:20: Tums) [place] Chewable 00 Calcium Tablet Carbonate 500 mg = 200 mg elemental calcium Dose = mg calcium carbonate ( mg elemental calcium) Potassium No Notes: Memori a Chloride 11-23 (Same as: l 14:20: KCL) [place] Infuse over 2 hours. potassium No Notes: Memori a phosphate-s 11-23 (Same as: l odium 14:20: Phos-NaK) [place] phosphate 00 Each 1.5 250 mg-280 gm pkt has mg-160 mg 250mg oral powder phosphorou for s. Mix reconstitut w/2.5oz ion water and stir. Magnesium No Notes: Memori a Sulfate 11-23 WASTE: F/P l 14:20: - Sink; E [place] - [facility] Tr[facility] Magnesium No Notes: Memori a Oxide 11-23 (Same as: l 14:20: Mag-Ox [place] 00 400) Magnesium oxide [id number] g elemental magnesium Dose=____m g magnesium oxide (___mg elemental magnesium) Calcium No Notes: Memoria Gluconate 11-23 WASTE: F/P l 14:20: - Sink; E - [facility] Tr[facility] Bin Calcium No Notes: Memoria Carbonate 11-23 (Same As: l 500 MG 14:20: Tums) [place] Chewable 00 Calcium Tablet Carbonate 500 mg = 200 mg elemental calcium Dose = mg calcium carbonate ( mg elemental calcium) Potassium No Notes: Memori a Chloride 11-23 (Same as: l 14:20: KCL) [place] 00 Infuse over 2 hours. Lasix No Notes: Memoria 11-23 (Same as: l 14:00: Lasix) [place] 00 MEDICATION WASTE Product Size: 40 mg Product Wasted: ___ mg carvedilol No Notes: Memor ia 11-23 Give with l 14:00: food. [place] 00 (Same As: Coreg) Lasix No Notes: Memoria -28 (Same as: l 14:00: Lasix) MEDICATION WASTE Product Size: 40 mg Product Wasted: ___ mg carvedilol No Notes: Memor ia 5-28 Give with l 14:00: food. (Same As: Coreg) Budesonide No Notes: Memor ia 5-28 (Same As: l 01:00: Pulmicort) Budesonide No Notes: Memor ia 5-28 (Same As: l 01:00: Pulmicort) Calcium 2018- No 1,000 mg, Memor ia Gluconate 11-22 Route: l 21:45: IVPB, Drug [place] 00 form: INJ, ONCE, Dosing Weight 50.5, kg, Start date: 11/22/18 16:45:00 CDT, Stop date: 11/22/18 16:45:00 CDT Calcium No 1,000 mg, Memor ia Gluconate 11-22 Route: l 21:45: IVPB, Drug form: INJ, ONCE, Dosing Weight 50.5, kg, Start date: 11/22/18 16:45:00 CDT, Stop date: 11/22/18 16:45:00 CDT iodixanol No 70 mL, Memori a 11-22 Route: l 17:50: IVP, Drug Form: SOLN, Dosing Weight 50.5, kg, ONCALL, STAT, Start date: 11/22/18 12:50:00 CDT, Duration: 1 doses or times, Dose = 2.2ml/kg, Max dose = 100ml -- "To be infused by Radiology Staff ONLY" iodixanol No 70 mL, Memori a 11-22 Route: l 17:50: IVP, Drug [place] 00 Form: SOLN, Dosing Weight 50.5, kg, ONCALL, STAT, Start date: 11/22/18 12:50:00 CDT, Duration: 1 doses or times, Dose = 2.2ml/kg, Max dose = 100ml -- "To be infused by Radiology Staff ONLY" Levofloxaci No Notes: Do M emoria n 5-27 not give l 14:00: w/antacids [place] 00 , dairy pdt & minerals Take 1 hr before or 2 hr after dairy products Levofloxaci 2019-0 No Notes: Do iGanna gonsalezria n 5-27 not give l 14:00: w/antacids [place] 00 , dairy pdt & minerals Take 1 hr before or 2 hr after dairy products Omeprazole 2019-0 No 20 mg, Memor ia 5-27 Route: PO, l 12:30: Drug form: [place] 00 ECCAP, Before Breakfast, Dosing Weight 50.5, kg, Start date: 11/22/18 7:30:00 CDT, Duration: 30 day, Stop date: 12/21/18 7:30:00 CDT Protonix 2018-0 No Notes: Memoria 5-27 Tablet l 12:30: should not [place] 00 be chewed or crushed. (Same as: Protonix) Omeprazole 2019-0 No 20 mg, Memor ia 5-27 Route: PO, l 12:30: Drug form: [place] 00 ECCAP, Before Breakfast, Dosing Weight 50.5, kg, Start date: 11/22/18 7:30:00 CDT, Duration: 30 day, Stop date: 12/21/18 7:30:00 CDT Protonix 2018-0 No Notes: Memoria 5-27 Tablet l 12:30: should not [place] 00 be chewed or crushed. (Same as: [...] Rate: To l 0.9% 12:10: prime line [place] (titrate) 00 and flush 250 mL remaining blood products., Dosing Weight 50.5, kg, Route: IV, Total Volume: 250, Start Date: 11/22/18 7:10:00 CDT, Duration: 1 day, Stop date: 11/23/18 7:09:00 CDT, Replace Every: 24 hr Sodium 2019-0 No 250 mL, Memoria Chloride 5-27 Rate: To l 0.9% 11:02: prime line [place] (titrate) 00 and flush 250 mL remaining blood products., Dosing Weight 50.5, kg, Route: IV, Total Volume: 250, Priority: Routine, Start Date: 11/22/18 6:02:00 CDT, Duration: 30 day, Stop date: 12/22/18 6:01:00 CDT, Replace Every: 24 hr Sodium 2019-0 No 250 mL, Memoria Chloride 5-27 Rate: To l 0.9% 11:02: prime line [place] (titrate) 00 and flush 250 mL remaining blood products., Dosing Weight 50.5, kg, Route: IV, Total Volume: 250, Priority: Routine, Start Date: 11/22/18 6:02:00 CDT, Duration: 30 day, Stop date: 12/22/18 6:01:00 CDT, Replace Every: 24 hr NS (Bolus) 0 No 250 mL, Neil paulo IV 5-27 1000 l 04:55: ml/hr, [place] 00 Infuse Over: 15 minutes, Route: IV, 250, Drug form: INJ, ONCE, Priority: STAT, Dosing Weight 50.5 kg, Start date: 11/21/18 23:55:00 CDT, Stop date: 11/21/18 23:55:00 CDT NS (Bolus) 2019-0 No 250 mL, Neil paulo IV 5-27 1000 l 04:55: ml/hr, [place] 00 Infuse Over: 15 minutes, Route: IV, 250, Drug form: INJ, ONCE, Priority: STAT, Dosing Weight 50.5 kg, Start date: 11/21/18 23:55:00 CDT, Stop date: 11/21/18 23:55:00 CDT nxstage 2019-0 No Notes: Memoria pureflow 5-27 NxStage l rfp-401 04:19: RFP-401 = Renita nn 5000ml SOLN 00 K4/Ca3 5,000 mL Total ingredient s in bag Na 140meq/L; K 4meq/L; HCO 35meq/L; Ca 3meq/L; Magnesium 1meq/L; CL 113meq/L; Glucose 100mg/dL; "Break seal Between compartmen ts and mix before hanging" nxstage No Notes: Memoria pureflow 5- NxStage l rfp-401 04:19: RFP-401 = Renita [...] CDT, Stop date: 11/21/18 22:51:00 CDT Calcium No 250 mL, Memoria Chloride 5-27 250 ml/hr, l 0.0014 03:51: Infuse [place] MEQ/ML / 00 Over: 1 Potassium hr, Route: Chloride IV, 250, 0.004 Drug form: MEQ/ML / INJ, ONCE, Sodium Priority: Chloride STAT, 0.103 Dosing MEQ/ML / Weight Sodium 50.5 kg, Lactate Start 0.028 date: MEQ/ML 11/21/18 Injectable 22:51:00 Solution CDT, Stop date: 11/21/18 22:51:00 CDT Flagyl No Notes: Memoria 5-26 (Same as: l 16:00: Flagyl) [place] 00 Take with food/ avoid alcohol Flagyl No Notes: Memoria 5-26 (Same as: l 16:00: Flagyl) [place] 00 Take with food/ avoid alcohol Melatonin No Notes: Memori a - (Same as: l 15:34: Melatonin) [place] 00 Melatonin No Notes: Memori a 5-26 (Same as: l 15:34: Melatonin) Levofloxaci No Notes: Do M emoria n 5- not give l 15:24: w/antacids 00 , dairy pdt & minerals Take 1 hr before or 2 hr after dairy products Levofloxaci No Notes: Do M emoria n 5-26 not give l 15:24: w/antacids 00 , dairy pdt & minerals Take [...] moria 5-26 infuse l 15:00: over 2.5 [place] 00 hours For adult patients only: Round to nearest 250 mg per Medical Staff approval MEDICATION WASTE Product Size: 1000 mg Product Wasted: ___ mg potassium No Notes: Memori a phosphate-s - (Same as: l odium 14:54: Phos-NaK) Each 1.5 250 mg-280 gm pkt has mg-160 mg 250mg oral powder phosphorou for s. Mix reconstitut w/2.5oz ion water and stir. potassium No Notes: Memori a phosphate -26 (Same as: l 14:54: K Phosphate. ) Do not infuse phosphorou s concurrent ly in the same line as TPN or IVF that contains calcium. For double lumen central lines, phosphorou s may be infused in a separate lumen from TPN. 1 mMol phoshate has 1.47 mEq potassium Infuse over 4 hours Potassium No Notes: Memori a Chloride -26 (Same as: l 14:54: K-Dur 20) "Do Not Crush" Give with food and full glass of water For patients unable to swallow tablet, dissolve in one half glass of water. Allow about 2 minutes for the tablets to disintegra te. Stir before giving to prepare slurry and administer . Please exclude Patient s with feeding tube less than 14 [place] (Dobhoff, J-tube etc) and pediatric and patients. sodium No Notes: Memoria phosphate 5-26 Infuse l 14:54: over 4 [place] 00 hour. Do not infuse phosphorou s concurrent ly in the same line as TPN or IVF that contains calcium. For double lumen central lines, phosphorou s may be infused in a separate lumen from TPN. Magnesium No Notes: Memori a Sulfate 5- WASTE: F/P l 14:54: - Sink; E [place] 00 - Municipal Trash Bin Magnesium No Notes: Memori a Oxide 5-26 (Same as: l 14:54: Mag-Ox [place] 00 400) Magnesium oxide [id number] g elemental magnesium Dose=____m g magnesium oxide (___mg elemental magnesium) Calcium No Notes: Memoria Chloride - WASTE: F/P l 14:54: - Sink; E [place] 00 - [facility] Trash Bin potassium No Notes: Memori a phosphate-s - (Same as: l odium 14:54: Phos-NaK) [place] phosphate 00 Each 1.5 250 mg-280 gm pkt has mg-160 mg 250mg oral powder phosphorou for s. Mix reconstitut w/2.5oz ion water and stir. potassium No Notes: Memori a phosphate 5-26 (Same as: l 14:54: K [place] 00 Phosphate. ) Do not infuse phosphorou s concurrent ly in the same line as TPN or IVF that contains calcium. For double lumen central lines, phosphorou s may be infused in a separate lumen from TPN. 1 mMol phoshate has 1.47 mEq potassium Infuse over 4 hours Potassium No Notes: Memori a Chloride 5-26 (Same as: l 14:54: K-Dur 20) [place] 00 "Do Not Crush" Give with food and full glass of water For patients unable to swallow tablet, dissolve in one half glass of water. Allow about 2 minutes for the tablets to disintegra te. Stir before giving to prepare slurry and administer . Please exclude Patient s with feeding tube less than 14 [place] (Dobhoff, J-tube etc) and pediatric and patients. sodium No Notes: Memoria phosphate 5-26 Infuse l 14:54: over 4 [place] 00 hour. Do not infuse phosphorou s concurrent ly in the same line as TPN or IVF that contains calcium. For double lumen central lines, phosphorou s may be infused in a separate lumen from TPN. Magnesium No Notes: Memori a Sulfate 11-21 WASTE: F/P l 14:54: - Sink; E [place] 00 - [facility] Trash Bin Magnesium No Notes: Memori a Oxide 11-21 (Same as: l 14:54: Mag-Ox [place] 00 400) Magnesium oxide 033sa=600d g elemental magnesium Dose=____m g magnesium oxide (___mg elemental magnesium) Calcium No Notes: Memoria Chloride 11-21 WASTE: F/P l 14:54: - Sink; E [place] 00 - [facility] Trash Bin nxstage No Notes: Memoria pureflow -26 NxStage l rfp-400 14:53: RFP-400 = Renita nn 5000ml SOLN 00 K2/Ca3 5,000 mL Total ingredient s in bag Na 140meq/L; K 2meq/L; HCO 35meq/L; Ca 3meq/L; Magnesium 1meq/L; CL 111meq/L; Glucose 100mg/dL; "Break seal Between compartmen ts and mix before hanging" nxstage No Notes: Memoria pureflow -26 NxStage l rfp-400 14:53: RFP-400 = Renita nn 5000ml SOLN 00 K2/Ca3 5,000 mL Total ingredient s in bag Na 140meq/L; K 2meq/L; HCO 35meq/L; Ca 3meq/L; Magnesium 1meq/L; CL 111meq/L; Glucose 100mg/dL; "Break seal Between compartmen ts and mix before hanging" Fentanyl No Notes: Memoria 5-26 (Same as: l 14:44: Sublimaze) [place] 00 Preservat bong free. Fentanyl No Notes: Memoria 5-26 (Same as: l 14:44: Sublimaze) [place] 00 Preservat bong free. heparin No Notes: Memoria 5-26 porcine l 13:00: heparin [place] 00 heparin No Notes: Memoria 5-26 porcine l 13:00: heparin Lasix No Notes: Memoria 5-26 (Same as: l 12:13: Lasix) MEDICATION WASTE Product Size: 40 mg Product Wasted: ___ mg Lasix No Notes: Memoria 5-26 (Same as: l 12:13: Lasix) MEDICATION WASTE Product Size: 40 mg Product Wasted: ___ mg Keppra No Notes: Memoria 5-26 Same as l 03:00: Keppra Keppra No Notes: Memoria 5-26 Same as l 03:00: Keppra Seroquel No Notes: Memoria 5-26 (Same as: l 02:00: SEROquel) Seroquel No Notes: Memoria 5-26 (Same as: l 02:00: SEROquel) Vancomycin No 2001 mg: Me moria 5-26 infuse l 01:24: over 2.5 [place] 00 hours For adult patients only: Round to nearest 250 mg per Medical Staff approval MEDICATION WASTE Product Size: 1000 mg Product Wasted: ___ mg Vancomycin No 2001 mg: Me moria 5-26 infuse l 01:24: over 2.5 [place] 00 hours For adult patients only: Round to nearest 250 mg per Medical Staff approval MEDICATION WASTE Product Size: 1000 mg Product Wasted: ___ mg Ativan Yes Notes: Memoria 5-25 (Same as: l 23:43: Ativan) Ativan Yes Notes: Memoria 5-25 (Same as: [...] CDT, Stop date: 11/20/18 17:06:00 CDT Calcium 2019-0 No 1,000 mL, Memor ia Chloride 5-25 1,000 l 0.0014 22:06: ml/hr, [place] MEQ/ML / 00 Infuse Potassium Over: 1 Chloride hr, Route: 0.004 IV, 1,000, MEQ/ML / Drug form: Sodium INJ, ONCE, Chloride Priority: 0.103 STAT, MEQ/ML / Dosing Sodium Weight Lactate 50.5 kg, 0.028 Start MEQ/ML date: Injectable 11/20/18 Solution 17:06:00 CDT, Stop date: 11/20/18 17:06:00 CDT Phenytoin No Notes: Memori a 5-25 (Same as: l 22:00: Dilantin) [place] 00 Do not open, crush, or chew. Phenytoin No Notes: Memori a 5-25 (Same as: l 22:00: Dilantin) [place] 00 Do not open, crush, or chew. [...] 11:15:00 CDT Ipratropium No Notes: SEE Memoria [place] 0.2 5-25 RT l MG/ML 16:10: DOCUMENTAT Eddie n Inhalant 00 ION (Same Solution as:Atroven t) Xopenex No Notes: SEE Neil paulo 5-25 RT l 16:10: DOCUMENTAT [place] 00 ION (Same as:Xopenex ) Non-Formul steff Ipratropium No Notes: SEE Memoria [place] 0.2 5-25 RT l MG/ML 16:10: DOCUMENTAT Eddie n Inhalant 00 ION (Same Solution as:Atroven t) Xopenex No Notes: SEE Neil paulo 5-25 RT l 16:10: DOCUMENTAT [place] 00 ION (Same as:Xopenex ) Non-Formul steff Sodium No Notes: Memoria Chloride 5-25 Same as: l 1.2 MEQ/ML 16:09: HYPER-JOAN He [place] Inhalant 00 Solution Sodium No Notes: Memoria Chloride 5-25 Same as: l 1.2 MEQ/ML 16:09: HYPER-JOAN [place] Inhalant 00 Solution Losartan No Notes: Memoria 5-25 (Same as: l 14:00: Cozaar) [place] 00 Losartan No Notes: Memoria 5-25 (Same as: l 14:00: Cozaar) [place] 00 Protonix No Notes: Memoria 5-25 Tablet l 12:30: should not [place] 00 be chewed or crushed. (Same as: Protonix) Omeprazole No 20 mg, Memor ia 5-25 Route: PO, l 12:30: Drug form: [place] 00 ECCAP, Before Breakfast, Dosing Weight 50.5, kg, Start date: 11/20/18 7:30:00 CDT, Duration: 30 day, Stop date: 12/19/18 7:30:00 CDT Protonix No Notes: Memoria 5-25 Tablet l 12:30: should not [place] 00 be chewed or crushed. (Same as: Protonix) Omeprazole No 20 mg, Memor ia 5-25 Route: PO, l 12:30: Drug form: [place] 00 ECCAP, Before Breakfast, Dosing Weight 50.5, kg, Start date: 11/20/18 7:30:00 CDT, Duration: 30 day, Stop date: 12/19/18 7:30:00 CDT vancomycin 0 No 2000 mg: Me moria + Sodium 5-25 infuse l Chloride 10:00: over 2.5 Renita nn 0.9% IV 250 00 hours For mL adult patients only: Round to nearest 250 mg per Medical Staff approval MEDICATION WASTE Product Size: 1000 mg Product Wasted: ___ mg vancomycin 2019-0 No 2000 mg: Me moria + Sodium 5-25 infuse l Chloride 10:00: over 2.5 Renita nn 0.9% IV 250 00 hours For mL adult patients only: Round to nearest 250 mg per Medical Staff approval MEDICATION WASTE Product Size: 1000 mg Product Wasted: ___ mg Calcium 2018-0 No 1,000 mL, Memor ia Chloride 5-25 1,000 l 0.0014 09:37: ml/hr, [place] MEQ/ML / 00 Infuse Potassium Over: 1 Chloride hr, Route: 0.004 IV, 1,000, MEQ/ML / Drug form: Sodium INJ, ONCE, Chloride Priority: 0.103 STAT, MEQ/ML / Dosing Sodium Weight Lactate 50.5 kg, 0.028 Start MEQ/ML date: Injectable 11/20/18 Solution 4:37:00 CDT, Stop date: 11/20/18 4:37:00 CDT Calcium 2018-0 No 1,000 mL, Memor ia Chloride 5-25 1,000 l 0.0014 09:37: ml/hr, [place] MEQ/ML / 00 Infuse Potassium Over: 1 Chloride hr, Route: 0.004 IV, 1,000, MEQ/ML / Drug form: Sodium INJ, ONCE, Chloride Priority: 0.103 STAT, MEQ/ML / Dosing Sodium Weight Lactate 50.5 kg, 0.028 Start MEQ/ML date: Injectable 11/20/18 Solution 4:37:00 CDT, Stop date: 11/20/18 4:37:00 CDT NS (Bolus) 2018-0 No 1,000 mL, Me moria IV 5-25 1,000 l 09:35: ml/hr, [place] 00 Infuse Over: 1 hr, Route: IV, 1,000, Drug form: INJ, ONCE, Priority: STAT, Dosing Weight 50.5 kg, Start date: 11/20/18 4:35:00 CDT, Stop date: 11/20/18 4:35:00 CDT NS (Bolus) No 1,000 mL, Me moria IV 5-25 1,000 l 09:35: ml/hr, [place] 00 Infuse Over: 1 hr, Route: IV, 1,000, Drug form: INJ, ONCE, Priority: STAT, Dosing Weight 50.5 kg, Start date: 11/20/18 4:35:00 CDT, Stop date: 11/20/18 4:35:00 CDT NS (Bolus) No 500 mL, Neil paulo IV 5-25 2000 l 09:32: ml/hr, [place] 00 Infuse Over: 15 minutes, Route: IV, 500, Drug form: INJ, ONCE, Dosing Weight 50.5 kg, Start date: 11/20/18 4:32:00 CDT, Stop date: 11/20/18 4:32:00 CDT NS (Bolus) No 500 mL, Neil paulo IV 5-25 2000 l 09:32: ml/hr, [place] 00 Infuse Over: 15 minutes, Route: IV, 500, Drug form: INJ, ONCE, Dosing Weight 50.5 kg, Start date: 11/20/18 4:32:00 CDT, Stop date: 11/20/18 4:32:00 CDT heparin No Notes: Memoria additive 5-25 Total l 25,000 unit 03:35: Concentrat [place] [12 00 ion = 50 unit/kg/hr] unit/ ml + Premix Total Diluent volume = Sodium 500 ml Chloride Send Med 0.45% 500 Request 2 mL hours prior to next bag Heparin 30 No Route: Memor ia unit/kg 5-25 IVP, PRN, l Bolus 03:35: 1,500 [place] (Heparin 00 unit, 1.5 Dosing mL, Drug Weight) form: INJ, PRN, Heparin Protocol, Start date: 11/19/18 22:35:00 CDT Stop date: 12/19/18 22:34:00 CDT, 30 day Heparin 60 No Route: Memor ia unit/kg 5-25 IVP, PRN, l Bolus 03:35: 3,000 [place] (Heparin 00 unit, 3 Dosing mL, Drug Weight) form: INJ, PRN, Heparin Protocol, Start date: 11/19/18 22:35:00 CDT Stop date: 12/19/18 22:34:00 CDT, 30 day Heparin - 2018- No 3,000 Memoria one time 5-25 unit, 3 l bolus for 03:35: mL, Route: He rmann ACS 00 IVP, Drug form: INJ, ONCE, Dosing Weight 50.5, kg, Priority: STAT, Start date: 11/19/18 22:35:00 CDT, Stop date: 11/19/18 22:35:00 CDT heparin 2018- No Notes: Memoria additive 5-25 Total l 25,000 unit 03:35: Concentrat [place] [12 00 ion = 50 unit/kg/hr] unit/ ml + Premix Total Diluent volume = Sodium 500 ml Chloride Send Med 0.45% 500 Request 2 mL hours prior to next bag Heparin 30 No Route: Memor ia unit/kg 5-25 IVP, PRN, l Bolus 03:35: 1,500 [place] (Heparin 00 unit, 1.5 Dosing mL, Drug Weight) form: INJ, PRN, Heparin Protocol, Start date: 11/19/18 22:35:00 CDT Stop date: 12/19/18 22:34:00 CDT, 30 day Heparin 60 No Route: Memor ia unit/kg 5-25 IVP, PRN, l Bolus 03:35: 3,000 [place] (Heparin 00 unit, 3 Dosing mL, Drug Weight) form: INJ, PRN, Heparin Protocol, Start date: 11/19/18 22:35:00 CDT Stop date: 12/19/18 22:34:00 CDT, 30 day Heparin - 2018-0 No 3,000 Memoria one time 5-25 unit, [...] IV 5-25 500 ml/hr, l 02:25: Infuse Over: 1 hr, Route: IV, 500, Drug [...] moria 5-25 infuse l 01:42: over 2.5 [place] 00 hours pantoprazol No Notes: For Memoria [...] 5-24 250 ml/hr, l 23:39: Infuse [place] Over: 2 hr, Route: IV, 500, Drug form: INJ, ONCE, Priority: STAT, Dosing Weight 50.5 kg, Start date: 11/19/18 18:39:00 CDT, Stop date: 11/19/18 18:39:00 CDT NS (Bolus) No 500 mL, Neil paulo IV 5-24 250 ml/hr, l 23:39: Infuse [place] 00 Over: 2 hr, Route: IV, 500, Drug form: INJ, ONCE, Priority: STAT, Dosing Weight 50.5 kg, Start date: 11/19/18 18:39:00 CDT, Stop date: 11/19/18 18:39:00 CDT Ondansetron No Notes: Neil paulo 2 MG/ML 5-24 (Same as: l Injectable 18:55: Zofran) Herm elda Solution 00 [Zofran] MEDICATION WASTE Product Size: 4 mg Product Wasted: ___ mg Ondansetron No Notes: Neil paulo 2 MG/ML 5-24 (Same as: l Injectable 18:55: Zofran) Herm elda Solution 00 [Zofran] MEDICATION WASTE Product Size: 4 mg Product Wasted: ___ mg heparin No Notes: Memoria 5-23 porcine l 21:00: heparin [place] 00 heparin No Notes: [facility]oria 5-23 porcine l 21:00: heparin [place] 00 Losartan No Notes: Memoria 5-23 (Same as: l 17:57: Cozaar) [place] Losartan No Notes: [facility]oria 5-23 (Same as: l 17:57: Cozaar) [place] 00 Brilinta No Notes: [facility]oria 5-23 (Same as: l 14:00: Brilinta) [place] 00 Plavix No Notes: [facility]oria 5-23 (Same As: l 14:00: Plavix) [place] 00 Flagyl No Notes: [facility]oria 5-23 (Same as: l 14:00: Flagyl) Avoid alcohol. Brilinta No Notes: [facility]oria 5-23 (Same as: l 14:00: Brilinta) Plavix No Notes: [facility]oria 5-23 (Same As: l 14:00: Plavix) Flagyl No Notes: [facility] 5-23 (Same as: l 14:00: Flagyl) Avoid alcohol. Ondansetron No Notes: Neil paulo 5-23 (Same as: l 13:56: Zofran) MEDICATION WASTE Product Size: 4 mg Product Wasted: ___ mg Ondansetron No Notes: Neil paulo 5-23 (Same as: l 13:56: Zofran) MEDICATION WASTE Product Size: 4 mg Product Wasted: ___ mg Lactated No 1,000 mL, Neil paulo Ringers IV 5-23 Rate: 75 l 1,000 mL 06:10: ml/hr, Infuse over: 13.3 hr, Route: IV, Dosing Weight 50.5 kg, Total Volume: 1,000, Start date: 11/18/18 1:10:00 CDT, Duration: 30 day, Stop date: 12/18/18 1:09:00 CDT, 1.51, m2 Lactated No 1,000 mL, Neil paulo Ringers IV 5-23 Rate: 75 l 1,000 mL 06:10: ml/hr, Infuse over: 13.3 hr, Route: IV, Dosing Weight 50.5 kg, Total Volume: 1,000, Start date: 11/18/18 1:10:00 CDT, Duration: 30 day, Stop date: 12/18/18 1:09:00 CDT, 1.51, m2 normal No 1,000 mL, Memori a saline 0.9% 5-23 Rate: 75 l IV 1,000 mL 03:37: ml/hr, Infuse over: 13.3 hr, Route: IVPB, Dosing Weight 50.5 kg, Total Volume: 1,000, Start date: 11/17/18 22:37:00 CDT, Duration: 30 day, Stop date: 12/17/18 22:36:00 CDT, 1.51, m2 normal 2019 No 1,000 mL, Memori a saline 0.9% - Rate: 75 l IV 1,000 mL 03:37: ml/hr, Infuse over: 13.3 hr, Route: IVPB, Dosing Weight 50.5 kg, Total Volume: 1,000, Start date: 11/17/18 22:37:00 CDT, Duration: 30 day, Stop date: 12/17/18 22:36:00 CDT, 1.51, m2 NS (Bolus) No 500 mL, Neil paulo IV 5-23 500 ml/hr, l 03:13: Infuse Over: 1 hr, Route: IV, 500, Drug form: INJ, ONCE, Priority: STAT, Dosing Weight 50.5 kg, Start date: 11/17/18 22:13:00 CDT, Stop date: 11/17/18 22:13:00 CDT NS (Bolus) No 500 mL, Neil paulo IV 5-23 500 ml/hr, l 03:13: Infuse Over: 1 hr, Route: IV, 500, Drug form: INJ, ONCE, Priority: STAT, Dosing Weight 50.5 kg, Start date: 11/17/18 22:13:00 CDT, Stop date: 11/17/18 22:13:00 CDT Lipitor No Notes: Memoria 5-23 (Same as: l 02:00: Lipitor) Lipitor No Notes: [facility]oria 5-23 (Same as: l 02:00: Lipitor) Versed No Notes: Memoria 5-23 (Same as: l 01:16: Versed) MEDICATION WASTE Product Size: 2 mg Product Wasted: ___ mg Versed No Notes: Memoria 5-23 (Same as: l 01:16: Versed) MEDICATION WASTE Product Size: 2 mg Product Wasted: ___ mg Brilinta No Notes: Memoria 5-23 (Same as: l 00:26: Brilinta) Brilinta No Notes: [facility]oria 5-23 (Same as: l 00:26: Brilinta) Brilinta No Notes: [facility]oria 11-17 (Same as: l 22:29: Brilinta) Brilinta No Notes: [facility]oria 11-17 (Same as: l 22:29: Brilinta) Nitroglycer No Notes: Neil paulo in 11-17 (Same l 22:15: as:Nitroqu [place] ick, Nitrostat) "Do Not Crush" Sublingual tablet [...] paulo in 11-17 (Same l 22:15: as:Nitroqu [place] ick, Nitrostat) "Do Not Crush" Sublingual tablet [...] being intubated (unless the nurse is a INDUSTRIAL X RAY OPERATOR). Same as: Diprivan Vecuronium Yes Notes: Memor ia 11-17 (Same As: l 21:26: Norcuron) propofol No Notes: If M emoria mg/mL 11-17 Diprivan - l (Titrate.) 21:26: change Renita nn IV 1,000 mg 00 bottle & tubing every 12 hr Per state nursing law propofol can only be given by a nurse if patient is intubated or being intubated (unless the nurse is a INDUSTRIAL X RAY OPERATOR). Same as: Diprivan Vecuronium Yes Notes: Memor ia -22 (Same As: l 21:26: Norcuron) [place] Plavix No Notes: Memoria 5-22 (Same As: l 20:00: Plavix) [place] Plavix No Notes: [facility]oria 5-22 (Same As: l 20:00: Plavix) [place] Dexmedetomi No Notes: Use Memoria dine 5-22 the l 19:05: following [place] 00 cdm for [id number]. Dexmedetomi No Notes: Use Memoria dine 5-22 the l 19:05: following [place] 00 cdm for [id number]. Aspirin No Notes: Do Memor ia -22 not crush l 14:00: or chew. [place] 00 (Same As: Ecotrin) pantoprazol No Notes: For Memoria e 5-22 IV push l 14:00: reconstitu [place] 00 te with 10 ml 0.9% sodium chloride and push over 2 minutes. (Same as: Protonix) Aspirin No Notes: Do Memor ia 5-22 not crush l 14:00: or chew. [place] 00 (Same As: Ecotrin) pantoprazol No Notes: For Memoria e 5-22 IV push l 14:00: reconstitu [place] 00 te with 10 ml 0.9% sodium chloride and push over 2 minutes. (Same as: Protonix) Heparin 30 No Route: Memor ia unit/kg - IVP, PRN, l Bolus 05:58: 1,500 [place] (Heparin 00 unit, 1.5 Dosing mL, Drug [...] l bolus for 05:58: mL, Route: He ann ACS 00 IVP, Drug form: INJ, ONCE, Dosing Weight 50.5, kg, Priority: STAT, Start date: 11/17/18 0:58:00 CDT, Stop date: 11/17/18 0:58:00 CDT Heparin 60 No Route: Memor ia unit/kg 5-22 IVP, PRN, l Bolus 05:58: 3,000 [place] (Heparin 00 unit, 3 Dosing mL, Drug [...] 30 day ocular No Notes: Memoria lubricant -22 (Same as: l 05:00: Lacri-Lube [place] 00 , Puralube, Duratears Naturale, Artificial Tears, and Tears Again ) heparin No Notes: Memoria sodium, 5-22 porcine l porcine 05:00: heparin [place] 2500 UNT/ML 00 Injectable Solution ocular No Notes: Memoria lubricant -22 (Same as: l 05:00: Lacri-Lube [place] 00 , Puralube, Duratears Naturale, Artificial Tears, and Tears Again ) heparin No Notes: Memoria sodium, 5-22 porcine l porcine 05:00: heparin [place] 2500 UNT/ML 00 Injectable Solution Albuterol No Notes: Memori a 0.833 MG/ML -22 (Same as: l / 04:47: Duoneb) [place] Ipratropium 00 [place] 0.167 MG/ML Inhalant Solution [DuoNeb] Albuterol No Notes: Memori a 0.833 MG/ML 5-22 (Same as: l / 04:47: Duoneb) [place] Ipratropium 00 [place] 0.167 MG/ML Inhalant Solution [DuoNeb] Budesonide No [...] as: l 03:01: Potassium [place] 00 Chloride) Keppra No Notes: Memoria 5-22 Same as l 02:00: Keppra Mix with 100 mL NS, LR or D5W MEDICATION WASTE Product Size: 500 mg Product Wasted: ___ mg chlorhexidi No Notes: Neil paulo ne 5-22 (Same As: l gluconate 02:00: Peridex) Herm elda 1.2 MG/ML 00 Mouthwash Saline No Notes: [facility]oria Flush 0.9% 5-22 (Same as: l 02:00: BD [place] 00 Posiflush) Keppra No Notes: Memoria 5-22 Same as l 02:00: ppra Mix with 100 mL NS, LR or D5W MEDICATION WASTE Product Size: 500 mg Product Wasted: ___ mg chlorhexidi No Notes: Neil paulo ne 5-22 (Same As: l gluconate 02:00: Peridex) Herm elda 1.2 MG/ML Mouthwash Saline No Notes: [facility]oria Flush 0.9% 5-22 (Same as: l 02:00: BD [place] 00 Posiflush) Vitamin B12 Yes 100 Memori a 100 [...] tab, PO, l tablet 00:35: Daily, # [place] 00 30 tab, 0 Refill(s) Furosemide No 20 mg = 1 Me moria 20 MG Oral 5-22 tab, PO, l Tablet 00:35: Daily, # [place] [Lasix] 00 30 tab, 0 Refill(s) clonazePAM Yes 0.5 mg = 1 M emoria 0.5 mg oral 5-22 tab, PO, l tablet 00:35: BID, PRN [place] 00 anxiety, # 60 tab, 0 Refill(s) bisoprolol No 5 mg = 1 Mem oria 5 mg oral 5-22 tab, PO, l tablet 00:35: Daily, # [place] 00 30 tab, 0 Refill(s) atorvastati Yes 40 mg = 1 M emoria n 40 MG 5-22 tab, PO, l Oral Tablet 00:35: Bedtime, # [place] [Lipitor] 00 30 tab, 0 Refill(s) Albuterol [...] tab, PO, l tablet 00:35: Daily, # [place] 00 30 tab, 0 Refill(s) Furosemide No 20 mg = 1 Me moria 20 MG Oral 5-22 tab, PO, l Tablet 00:35: Daily, # [place] [Lasix] 00 30 tab, 0 Refill(s) clonazePAM Yes 0.5 mg = 1 M emoria 0.5 mg oral 5-22 tab, PO, l tablet 00:35: BID, PRN [place] 00 anxiety, # 60 tab, 0 Refill(s) bisoprolol No 5 mg = 1 Mem oria 5 mg oral 5-22 tab, PO, l tablet 00:35: Daily, # [place] 00 30 tab, 0 Refill(s) atorvastati Yes [...] tablet 00:35: Daily, 0 [place] 00 Refill(s) Ceftriaxone No Notes: Neil paulo 5-22 (Same As: l 00:34: Rocephin). [place] 00 MEDICATION WASTE Product Size: 1000 mg Product Wasted: ___ mg Ceftriaxone No Notes: Neil paulo 5-22 (Same As: l 00:34: Rocephin). [place] 00 MEDICATION WASTE Product Size: 1000 mg Product Wasted: ___ mg chlorhexidi No Notes: Neil paulo ne 5-22 (Same As: l gluconate 00:19: Peridex) Herm elda 1.2 MG/ML 00 Mouthwash potassium No Notes: Memori a phosphate 5-22 (Same as: l 00:19: K [place] 00 Phosphate. ) Do not infuse phosphorou s concurrent ly in the same line as TPN or IVF that contains calcium. For double lumen central lines, phosphorou s may be infused in a separate lumen from TPN. 1 mMol phoshate has 1.47 mEq potassium Infuse over 4 hours Magnesium No Notes: Memori a Oxide 5-22 (Same as: l 00:19: Mag-Ox [place] 00 400) Magnesium oxide [id number] g elemental magnesium Dose=____m g magnesium oxide (___mg elemental magnesium) potassium No Notes: Memori a phosphate-s -22 (Same as: l odium 00:19: Phos-NaK) [place] phosphate 00 Each 1.5 250 mg-280 gm pkt has mg-160 mg 250mg oral powder phosphorou for s. Mix reconstitut w/2.5oz ion water and stir. Magnesium No Notes: Memori a Sulfate - WASTE: F/P l 00:19: - Sink; E [place] 00 - Municipal Trash Bin Calcium No Notes: Memoria Carbonate - (Same As: l 500 MG 00:19: Tums) [place] Chewable 00 Calcium Tablet Carbonate 500 mg = 200 mg elemental calcium Dose = mg calcium carbonate ( mg elemental calcium) Calcium No Notes: [facility] Gluconate 11-17 WASTE: F/P l 00:19: - Sink; E [place] 00 - Municipal Trash Bin Potassium No Notes: Memori a Chloride -22 (Same as: l 00:19: KCL) [place] 00 Infuse over 2 hours. sodium No Notes: Memoria phosphate -22 Infuse l 00:19: over 4 [place] 00 hour. Do not infuse phosphorou s concurrent ly in the same line as TPN or IVF that contains calcium. For double lumen central lines, phosphorou s may be infused in a separate lumen from TPN. Saline No Notes: [facility]oria Flush 0.9% -22 (Same as: l 00:19: BD [place] 00 Posiflush) Nystatin No Notes: Memoria 100 UNT/MG -22 (Same l Topical 00:19: as:Mycosta Herm elda Powder 00 tin, Nilstat) for external use only. chlorhexidi No Notes: Neil paulo ne -22 (Same As: l gluconate 00:19: Peridex) Herm elda 1.2 MG/ML 00 Mouthwash potassium No Notes: Memori a phosphate 5-22 (Same as: l 00:19: K [place] 00 Phosphate. ) Do not infuse phosphorou s concurrent ly in the same line as TPN or IVF that contains calcium. For double lumen central lines, phosphorou s may be infused in a separate lumen from TPN. 1 mMol phoshate has 1.47 mEq potassium Infuse over 4 hours Magnesium No Notes: Memori a Oxide 5-22 (Same as: l 00:19: Mag-Ox [place] 00 400) Magnesium oxide [id number] g elemental magnesium Dose=____m g magnesium oxide (___mg elemental magnesium) potassium No Notes: Memori a phosphate-s -22 (Same as: l odium 00:19: Phos-NaK) [place] phosphate 00 Each 1.5 250 mg-280 gm pkt has mg-160 mg 250mg oral powder phosphorou for s. Mix reconstitut w/2.5oz ion water and stir. Magnesium No Notes: Memori a Sulfate 11-17 WASTE: F/P l 00:19: - Sink; E [place] 00 - Municipal Trash Bin Calcium No Notes: Memoria Carbonate - (Same As: l 500 MG 00:19: Tums) [place] Chewable 00 Calcium Tablet Carbonate 500 mg = 200 mg elemental calcium Dose = mg calcium carbonate ( mg elemental calcium) Calcium No Notes: [facility]oria Gluconate 11-17 WASTE: F/P l 00:19: - Sink; E [place] 00 - Municipal Trash Bin Potassium No Notes: Memori a Chloride -22 (Same as: l 00:19: KCL) [place] 00 Infuse over 2 hours. sodium No Notes: Memoria phosphate -22 Infuse l 00:19: over 4 [place] 00 hour. Do not infuse phosphorou s concurrent ly in the same line as TPN or IVF that contains calcium. For double lumen central lines, phosphorou s may be infused in a separate lumen from TPN. Saline No Notes: [facility]oria Flush 0.9% -22 (Same as: l 00:19: BD [place] 00 Posiflush) Nystatin No Notes: Memoria 100 [...] n 5-21 (Same as: l 21:56: Lipitor) atorvastati No Notes: Neil paulo n 5-21 (Same as: l 21:56: Lipitor) Aspirin No Notes: Memoria 5-21 Refrigerat l 18:34: e. Aspirin No Notes: Memoria 5-21 Refrigerat l 18:34: e. Midazolam No Notes: Memori a 5-21 (Same as: l 18:07: Versed) Midazolam No Notes: Memori a 5-21 (Same as: l 18:07: Versed) Fentanyl No 50 Memoria 5-21 microgram, l 18:04: Route: IVP, ONCE, Dosing Weight 50.5, kg, Priority: STAT, Start date: 11/16/18 13:04:00 CDT, Stop date: 11/16/18 13:04:00 CDT Midazolam No 2 mg, Memoria 5-21 Route: l 18:04: IVP, ONCE, Dosing Weight 50.5, kg, Priority: STAT, Start date: 11/16/18 13:04:00 CDT, Stop date: 11/16/18 13:04:00 CDT Fentanyl No 50 Memoria 5-21 microgram, l 18:04: Route: IVP, ONCE, Dosing Weight 50.5, kg, Priority: STAT, Start date: 11/16/18 13:04:00 CDT, Stop date: 11/16/18 13:04:00 CDT Midazolam 2019-0 No 2 mg, Memoria 5-21 Route: l 18:04: IVP, ONCE, Dosing Weight 50.5, kg, Priority: STAT, Start date: 11/16/18 13:04:00 CDT, Stop date: 11/16/18 13:04:00 CDT Isolyte S 2019-0 No Notes: Memori a PH 7.4 -21 (Same as: l 1,000 mL 17:50: Isolyte S Herm el[place] 00 PH 7.4) Isolyte S 2019-0 No Notes: Memori a PH 7.4 5-21 (Same as: l 1,000 mL 17:50: Isolyte S Herm el[place] 00 PH 7.4) Fentanyl 2019-0 No 1,000 Memoria 5-21 microgram, l 17:49: 20 mL, Rate: Titrate, Start Dose: 50 microgram/ hr, Titration: 25 microgram/ hour every 15 minutes, Goal(s): BPS 3, Max Dose: 300 microgram/ hr, Route: IV, Dosing Weight 50.5 kg, Total Volume: 20, Start date: 11/16/18 12:49:00 CDT, Durat... Fentanyl 2019-0 No 1,000 Memoria 5-21 microgram, l 17:49: 20 mL, Rate: Titrate, Start Dose: 50 microgram/ hr, Titration: 25 microgram/ hour every 15 minutes, Goal(s): BPS 3, Max Dose: 300 microgram/ hr, Route: IV, Dosing Weight 50.5 kg, Total Volume: 20, Start date: 11/16/18 12:49:00 CDT, Durat... Iohexol 2019-0 No 60 mL, Memoria 5-21 Route: l 17:31: IVP, Drug Form: SOLN, Dosing Weight 50.5, kg, ONCALL, STAT, Start date: 11/16/18 12:31:00 CDT, Duration: 1 doses or times, Dose = 2.2ml/kg, Max dose = 100ml -- "To be infused by Radiology Staff ONLY" Iohexol 2019-0 No 60 mL, Memoria 5-21 Route: l 17:31: IVP, Drug Form: SOLN, Dosing Weight 50.5, kg, ONCALL, STAT, Start date: 11/16/18 12:31:00 CDT, Duration: 1 doses or times, Dose = 2.2ml/kg, Max dose = 100ml -- "To be infused by Radiology Staff ONLY" Saline No Notes: Memoria Flush 0.9% 5-21 Same as: l 16:52: BD [place] Posiflush Sterile Keppra No Notes: Memoria 5-21 Same as l 16:52: Keppra [place] 00 Mix with 100 mL NS, LR or D5W MEDICATION WASTE Product Size: 500 mg Product Wasted: ___ mg Saline No Notes: Memoria Flush 0.9% 5-21 Same as: l 16:52: BD [place] 00 Posiflush Sterile Keppra No Notes: Memoria 5-21 Same as l 16:52: Keppra [place] 00 Mix with 100 mL NS, LR or D5W MEDICATION WASTE Product Size: 500 mg Product Wasted: ___ mg phenytoin 2017-06 Yes 100mg Take 100 Uni vers Extended 0-26 mg by ity of 100 mg 00:00: mouth. [place] capsule [address] [place] [address] atorvastati 2017-06 Yes 40mg Take 40 mg Univers n 40 mg 0-26 by mouth. ity of tablet 00:00: [address] levETIRAcet 2017-06 Yes 750mg Take 750 U nivers am 750 mg 0-26 mg by ity of tablet 00:00: mouth. [address] phenytoin 2017-06 Yes 100mg Take 100 Uni vers Extended 0-26 mg by ity of 100 mg 00:00: mouth. [place] capsule [facility] atorvastati 2017-06 Yes 40mg Take 40 mg Univers n 40 mg 0-26 by mouth. ity of tablet 00:00: [address] levETIRAcet 2017-06 Yes 750mg Take 750 U nivers am 750 mg 0-26 mg by ity of tablet 00:00: mouth. [address] phenytoin 2017-06 Yes 100mg Take 100 Uni vers Extended 0-26 mg by ity of 100 mg 00:00: mouth. [place] [facility] atorvastati 2017-06 Yes 40mg Take 40 mg Univers n 40 mg 0-26 by mouth. ity of tablet 00:00: [facility] levETIRAcet 2017-06 Yes 750mg Take 750 U nivers am 750 mg 0-26 mg by ity of tablet 00:00: mouth. [facility] phenytoin 2017- Yes 100mg Take 100 Uni vers Extended 0-26 mg by ity of 100 mg 00:00: mouth. [place] capsule [facility] atorvastati 2017-06 Yes 40mg Take 40 mg Univers n 40 mg 0-26 by mouth. ity of tablet 00:00: [place] [facility] levETIRAcet 2017-06 Yes 750mg Take 750 U nivers am 750 mg 0-26 mg by ity of tablet 00:00: mouth 2 [place] (two) Medical times Branch daily. phenytoin 2017-06 Yes 100mg Take 100 Uni vers Extended 0-26 mg by ity of 100 mg 00:00: mouth 4 [place] capsule (four) Medical times Branch daily. atorvastati 2017-06 Yes 40mg Take 40 mg Univers n 40 mg 0-26 by mouth. ity of tablet 00:00: [place] [facility] levETIRAcet 2017-06 Yes 750mg Take 750 U nivers am 750 mg 0-26 mg by ity of tablet 00:00: mouth 2 [place] (two) Medical times Branch daily. phenytoin 2017-06 Yes 100mg Take 100 Uni vers Extended 0-26 mg by ity of 100 mg 00:00: mouth 4 [place] capsule (four) Medical times Branch daily. atorvastati 2017-06 Yes 40mg Take 40 mg Univers n 40 mg 0-26 by mouth. ity of tablet 00:00: [place] [facility] levETIRAcet 2017-06 Yes 750mg Take 750 U nivers am 750 mg 0-26 mg by ity of tablet 00:00: mouth 2 [place] (two) Medical times Branch daily. phenytoin 2017-06 Yes 100mg Take 100 Uni vers Extended 0-26 mg by ity of 100 mg 00:00: mouth 4 [place] capsule (four) Medical times Branch daily. atorvastati 2017-06 Yes 40mg Take 40 mg Univers n 40 mg 0-26 by mouth. ity of tablet 00:00: [place] [facility] levETIRAcet 2017-06 Yes 750mg Take 750 U nivers am 750 mg 0-26 mg by ity of tablet 00:00: mouth 2 [place] (two) Medical times [place] daily. phenytoin 2017-06 Yes 100mg Take 100 Uni vers Extended 0-26 mg by ity of 100 mg 00:00: mouth 4 [place] capsule ([facility]) Medical times [place] daily. atorvastati 2017-06 Yes 40mg Take 40 mg Univers n 40 mg 0-26 by mouth. ity of tablet 00:00: [place] [facility] atorvastati 2017-06 Yes 40mg Take 40 mg Univers n 40 mg 0-26 by mouth. ity of tablet 00:00: [place] [facility] levETIRAcet 2017-06 Yes 750mg Take 750 U nivers am 750 mg 0-26 mg by ity of tablet 00:00: mouth 2 [place] (two) Medical times [place] daily. phenytoin 2017-06 Yes 100mg Take 100 Uni vers Extended 0-26 mg by ity of 100 mg 00:00: mouth 4 [facility] ([facility]) Medical times [place] daily. atorvastati 2017-06 Yes 40mg Take 40 mg Univers n 40 mg 0-26 by mouth. ity of tablet 00:00: [place] [facility] levETIRAcet 2017-06 Yes 750mg Take 750 U nivers am 750 mg 0-26 mg by ity of tablet 00:00: mouth 2 [place] (two) Medical times [place] daily. phenytoin 2017-06 Yes 100mg Take 100 Uni vers Extended 0-26 mg by ity of 100 mg 00:00: mouth 4 [place] capsule (four) Medical times [place] daily. atorvastati 2017-06 Yes 40mg Take 40 mg Univers n 40 mg 0-26 by mouth. ity of tablet 00:00: [place] [facility] levETIRAcet 2017-06 Yes 750mg Take 750 U nivers am 750 mg 0-26 mg by ity of tablet 00:00: mouth. [address] Branch phenytoin 2017-06 Yes 100mg Take 100 Uni vers Extended 0-26 mg by ity of 100 mg 00:00: mouth. [facility] atorvastati 2017-06 Yes 40mg Take 40 mg Univers n 40 mg 0-26 by mouth. ity of tablet 00:00: [place] [facility] atorvastati 2017-06 Yes 40mg Take 40 mg Univers n 40 mg 0-26 by mouth. ity of tablet 00:00: [place] [facility] atorvastati 2017-06 Yes 40mg Take 40 mg Univers n 40 mg 0-26 by mouth. ity of tablet 00:00: [place] [facility] atorvastati 2017-06 Yes 40mg Take 40 mg Univers n 40 mg 0-26 by mouth. ity of tablet 00:00: [place] [facility] atorvastati 2017-06 Yes 40mg Take 40 mg Univers n 40 mg 0-26 by mouth. ity of tablet 00:00: [place] [facility] levETIRAcet 2017-06 Yes 750mg Take 750 U nivers am 750 mg 0-26 mg by ity of tablet 00:00: mouth. [address] Branch phenytoin 2017-06 Yes 100mg Take 100 Uni vers Extended 0-26 mg by ity of 100 mg 00:00: mouth. [place] capsule [facility] atorvastati 2017-06 Yes 40mg Take 40 mg Univers n 40 mg 0-26 by mouth. ity of tablet 00:00: [place] [facility] levETIRAcet 2017-06 Yes 750mg Take 750 U nivers am 750 mg 0-26 mg by ity of tablet 00:00: mouth. [address] Branch levETIRAcet 2017-06 2020- No 1500mg Take 1,500 Univers am 750 mg 0-26 11-02 mg by ity of tablet 00:00: 00:00 mouth 2 [place] 00 :00 (two) Medical times Branch daily. phenytoin 2017-06 2020- No 100mg Take 100 [facility] [place] Extended 0-26 11-01 mg by ity of 100 mg 00:00: 00:00 mouth 4 [place] capsule 00 :00 (four) Medical times Branch daily. Immunizations Ordered Filled Immunization Date Status Comments [facility] e Immunization Name Name Pneumococcal 2020-03-28 Completed University o f Polysaccharide, 00:00:00 [place] [facility] PPSV23 (PNEUMOVAX) Branch Pneumococcal 2020-03-28 Completed University o f Polysaccharide, 00:00:00 [place] [facility] PPSV23 (PNEUMOVAX) Branch Pneumococcal 2020-03-28 Completed University o f Polysaccharide, 00:00:00 [place] [facility] ical PPSV23 (PNEUMOVAX) Branch Pneumococcal 2020-03-28 Completed University o f Polysaccharide, 00:00:00 [place] [facility] ical PPSV23 (PNEUMOVAX) Branch Pneumococcal 2020-03-28 [...] Universit y of Conjugate, PCV13 00:00:00 [facility] dical (Prevnar 13) Branch Pneumococcal 13 2018-03-24 Completed Universit y of Conjugate, PCV13 00:00:00 [facility] dical (Prevnar 13) Branch Pneumococcal 13 2018-03-24 Completed Universit y of Conjugate, PCV13 00:00:00 [facility] dical (Prevnar 13) Branch Pneumococcal 13 2018-03-24 Completed Universit y of Conjugate, PCV13 00:00:00 [facility] dical (Prevnar 13) Branch Pneumococcal 13 2018-03-24 Completed Universit y of Conjugate, PCV13 00:00:00 [facility] dical (Prevnar 13) [place] Vital Signs Vital Name Observation Time Observation Value Comments Source Systolic blood 2021-08-26 111 mm[Hg] [place] of pressure 08:20:00 [facility] Diastolic blood 2021-08-26 95 mm[Hg] [place] o f pressure 08:20:00 [facility] Heart rate 2021-08-26 90 /min [facility] 08:20:00 [facility] Respiratory rate 2021-08-26 23 /min [facility] 08:20:00 [facility] Oxygen saturation 2021-08-26 100 /min [facility] in Arterial blood 08:20:00 [facility] by Pulse oximetry Branch Body temperature 2021-08-26 36.67 Connie [facility] 04:46:00 [facility] Body height 2021-08-26 157.5 cm [facility] 04:46:00 [facility] Body weight 2021-08-26 49.896 kg [facility] 04:46:00 [facility] BMI 2021-08-26 20.12 kg/m2 [facility] 04:46:00 [facility] WEIGHT 2021-02-20 45.3 kg 04:45:00 HEIGHT 2021-02-19 152.4 cm 07:00:00 WEIGHT 2021-02-19 44.3 kg 07:00:00 HEIGHT 2021-02-18 152.4 cm 21:45:00 WEIGHT 2021-02-18 45.36 kg 21:45:00 WEIGHT 2021-02-20 45.3 kg 04:45:00 HEIGHT 2021-02-19 152.4 cm 07:00:00 WEIGHT 2021-02-19 44.3 kg 07:00:00 HEIGHT 2021-02-18 152.4 cm 21:45:00 WEIGHT 2021-02-18 45.36 kg 21:45:00 Systolic blood 2020-07-09 157 mm[Hg] University of pressure 02:00:00 [facility] Diastolic blood 2020-07-09 86 mm[Hg] University o f pressure 02:00:00 [facility] Heart rate 2020-07-09 82 /min [facility] 02:00:00 [facility] Body temperature 2020-07-09 37.06 Connie [facility] 02:00:00 [facility] Respiratory rate 2020-07-09 25 /min [facility] 02:00:00 [facility] Oxygen saturation 2020-07-09 96 /min [facility] in Arterial blood 02:00:00 [facility] by Pulse oximetry [place] Body weight 2020-07-08 43.092 kg [facility] 21:16:00 [facility] BMI 2020-07-08 17.38 kg/m2 [facility] 21:16:00 [facility] Systolic blood 2020-04-30 99 mm[Hg] University of pressure 17:54:00 [facility] Diastolic blood 2020-04-30 69 mm[Hg] University o f pressure 17:54:00 [facility] Heart rate 2020-04-30 77 /min University of 17:54:00 [facility] Body temperature 2020-04-30 37 Connie University of 17:54:00 [facility] Respiratory rate 2020-04-30 15 /min University of 17:54:00 [facility] Oxygen saturation 2020-04-30 91 /min notified nurse Universi ty of in Arterial blood 17:54:00 [facility] by Pulse oximetry [place] Body height 2020-04-29 157.5 cm University of 20:52:00 [facility] Body weight 2020-04-29 45.36 kg University of 20:52:00 [facility] BMI 2020-04-29 18.29 kg/m2 University of 20:52:00 [facility] Systolic blood 2020-04-30 99 mm[Hg] University of pressure 17:54:00 [facility] Diastolic blood 2020-04-30 69 mm[Hg] University o f pressure 17:54:00 [facility] Heart rate 2020-04-30 77 /min University of 17:54:00 [facility] Body temperature 2020-04-30 37 Connie University of 17:54:00 [facility] Respiratory rate 2020-04-30 15 /min University of 17:54:00 [facility] Oxygen saturation 2020-04-30 91 /min notified nurse Universi ty of in Arterial blood 17:54:00 [facility] by Pulse oximetry [place] Body height 2020-04-29 157.5 cm University of 20:52:00 [facility] Body weight 2020-04-29 45.36 kg University of 20:52:00 [facility] BMI 2020-04-29 18.29 kg/m2 University of 20:52:00 [facility] Systolic blood 2019-11-17 107 mm[Hg] University of pressure 00:24:12 [facility] Diastolic blood 2019-11-17 81 mm[Hg] University o f pressure 00:24:12 [facility] Heart rate 2019-11-17 89 /min University of 00:24:12 [facility] Respiratory rate 2019-11-17 16 /min University of 00:24:12 [facility] Body temperature 2019-11-16 37.22 Connie University of 23:45:26 [facility] Body height 2019-11-16 157.5 cm University of 23:12:00 [facility] Body weight 2019-11-16 45.36 kg University of 23:12:00 [facility] BMI 2019-11-16 18.29 kg/m2 University of 23:12:00 [facility] Oxygen saturation 2019-11-16 93 /min University of in Arterial blood 23:12:00 [facility] by Pulse oximetry Branch Systolic blood 2019-11-17 107 mm[Hg] University of pressure 00:24:12 [facility] Diastolic blood 2019-11-17 81 mm[Hg] University o f pressure 00:24:12 [facility] Heart rate 2019-11-17 89 /min University of 00:24:12 [facility] Respiratory rate 2019-11-17 16 /min University of 00:24:12 [facility] Body temperature 2019-11-16 37.22 Connie University of 23:45:26 [facility] Body height 2019-11-16 157.5 cm University of 23:12:00 [facility] Body weight 2019-11-16 45.36 kg University of 23:12:00 [facility] BMI 2019-11-16 18.29 kg/m2 University of 23:12:00 [facility] Oxygen saturation 2019-11-16 93 /min [place] of in Arterial blood 23:12:00 [facility] by Pulse oximetry Branch Systolic blood 2019-10-16 111 mm[Hg] University of pressure 23:00:00 [facility] Diastolic blood 2019-10-16 83 mm[Hg] University o f pressure 23:00:00 [facility] Heart rate 2019-10-16 100 /min University of 23:00:00 [facility] Respiratory rate 2019-10-16 29 /min University of 23:00:00 [facility] Oxygen saturation 2019-10-16 97 /min University of in Arterial blood 23:00:00 [facility] by Pulse oximetry Branch Body weight 2019-10-16 49.896 kg University of 22:09:00 [facility] BMI 2019-10-16 19.49 kg/m2 University of 22:09:00 [facility] Body temperature 2019-10-16 36.56 Connie University of 22:08:00 [facility] Systolic blood 2019-10-16 111 mm[Hg] University of pressure 23:00:00 [facility] Diastolic blood 2019-10-16 83 mm[Hg] University o f pressure 23:00:00 [facility] Heart rate 2019-10-16 100 /min University of 23:00:00 [facility] Branch Respiratory rate 2019-10-16 29 /min University 23:00:00 [facility] Oxygen saturation 2019-10-16 97 /min [facility] in Arterial blood 23:00:00 [facility] by Pulse oximetry [place] Body weight 2019-10-16 49.896 kg [facility] 22:09:00 [facility] BMI 2019-10-16 19.49 kg/m2 University 22:09:00 [facility] Body temperature 2019-10-16 36.56 Connie [facility] 22:08:00 [facility] Systolic blood 2019-01-22 113 mm[Hg] University of pressure 20:40:00 [facility] Diastolic blood 2019-01-22 88 mm[Hg] [place] o f pressure 20:40:00 [facility] Heart rate 2019-01-22 93 /min [facility] 20:40:00 [facility] Respiratory rate 2019-01-22 24 /min University 20:40:00 [facility] Oxygen saturation 2019-01-22 100 /min [facility] in Arterial blood 20:30:00 [facility] by Pulse oximetry [place] Body temperature 2019-01-22 36.94 Connie [facility] 16:30:00 [facility] Body weight 2019-01-22 47.628 kg [facility] 15:30:00 [facility] Systolic (mm Hg) 2020-10-25 [facility] rmann 19:07:00 Diastolic (mm Hg) 2020-10-25 [facility] ermann 19:07:00 Heart Rate 2020-10-25 [facility] 19:07:00 Respitory Rate 2020-10-25 [facility] 19:07:00 Weight 2020-10-25 [facility] 19:07:00 Systolic (mm Hg) 2020-04-20 [facility] rmann 15:48:00 Diastolic (mm Hg) 2020-04-20 [facility] ermann 15:48:00 Heart Rate 2020-04-20 [facility] 15:48:00 Respitory Rate 2020-04-20 [facility] 15:48:00 Height 2020-04-20 154.94 cm [facility] 15:48:00 Weight 2020-04-20 [facility] 15:48:00 BMI Calculated 2020-04-20 [facility] 15:48:00 Systolic (mm Hg) 2019-09-09 [facility] rmann 18:44:00 Diastolic (mm Hg) 2019-09-09 [facility] [...] 16:00:00 Temperature Oral 2018-11-26 97.9 F [facility] (F) 13:00:00 Temperature Oral 2018-11-26 98.0 F [facility] (F) 10:39:00 Height 2018-11-20 160.02 cm [...] Date / Time Performing Clinician Source Performed XR CHEST 1 VW 2021-08-26 05:50:08 Jensen, Ramon [facility] URINALYSIS 2021-08-26 05:47:00 Ramon Jensen [facility] URINE DRUG (IMMUNOASSAY) - 2021-08-26 05:47:00 Ramon Jensen [facility] COMPREHENSIVE DRUG SCREEN [facility] W/O REFLEX CT HEAD WO CONTRAST 2021-08-26 05:13:59 Ramon Jensen [facility] XR CHEST 1 VW 2021-08-26 05:09:00 Ramon Jensen [facility] PHENYTOIN 2021-08-26 04:59:00 Ramon Jensen [facility] TROPONIN I 2021-08-26 04:53:00 Ramon Jensen [facility] COMP. METABOLIC PANEL 2021-08-26 04:53:00 Ramon Jensen [facility] ([id number]) Medical Branch ETHANOL 2021-08-26 04:53:00 Ramon Jensen [facility] CBC WITH DIFF 2021-08-26 04:53:00 Ramon Jensen [facility] PROTHROMBIN TIME / INR 2021-08-26 04:53:00 Ramon Jensen [facility] ACTIVATED PARTIAL THRMPLAS 2021-08-26 04:53:00 [facility] N-TERMINAL PRO-BNP 2021-08-26 04:53:[address] [facility] COVID-19 (ID NOW RAPID 2021-08-26 04:53:00 Ramon Jensen [facility] TESTING) [facility] AC PANEL 21 + LACTIC ACID 2021-08-26 04:50:00 [facility] NOTICE OF PRIVACY 2021-08-26 04:39:18 Doctor Unassigned, [facility] PRACTICES [place] [facility] [place] CONSENT/REFUSAL FOR 2021-08-26 04:38:57 Doctor [place], [facility] DIAGNOSIS AND TREATMENT [place] [facility] [place] POCT GLUCOSE (AUTOMATED) 2021-08-26 04:37:00 Ramon Jensen [facility] CT PELVIS WO CONTRAST 2020-07-09 00:57:34 Judit Hays [facility] COVID-19 (ID NOW RAPID 2020-07-08 23:39:00 Judit Hays [facility] TESTING) Medical Branch XR LUMBAR SPINE 3 VW 2020-07-08 23:13:[address] [facility] XR FEMUR 2 VW LEFT 2020-07-08 22:39:[address] [facility] XR HIPS 2 VW LEFT 2020-07-08 22:39:58 Judit Hays [facility] CONSENT/REFUSAL FOR 2020-07-08 21:05:48 Doctor Unassigned, [facility] DIAGNOSIS AND TREATMENT [place] [facility] OSMOLALITY SERUM 2020-04-30 10:41:00 Storm Barker [facility] PHENYTOIN FREE 2020-04-30 10:41:00 Storm Barker [facility] SEDIMENTATION RATE 2020-04-30 10:41:00 Storm Barker [facility] BASIC METABOLIC PANEL (NA, 2020-04-30 10:40:[address] [facility] K, CL, CO2, GLUCOSE, BUN, [facility] CREATININE, CA) CBC WITH DIFF 2020-04-30 10:40:00 Storm Barker [facility] OSMOLALITY URINE 2020-04-30 04:10:00 Storm Barker [facility] GALV/CLC ONLY - URINE DRUG 2020-04-30 04:10:[address] [facility] (IMMUNOASSAY) - [facility] COMPREHENSIVE DRUG SCREEN CREATININE, URINE RANDOM 2020-04-30 04:10:00 Storm Barker [facility] UREA NITROGEN, URINE 2020-04-30 04:10:00 Storm Barker [facility] SODIUM, URINE RANDOM 2020-04-30 04:10:00 Storm Barker [facility] CT HEAD WO CONTRAST 2020-04-29 23:16:27 Caridad Hammond [facility] AC PANEL 21 + LACTIC ACID 2020-04-29 22:56:00 Caridad Hammond [facility] XR CHEST 1 VW 2020-04-29 21:43:[address] [facility] CREATINE KINASE 2020-04-29 21:13:[address] [facility] LIPASE 2020-04-29 21:13:[address] [facility] HEPATIC FUNCTION PANEL 2020-04-29 21:13:[address] [facility] ([id number]) (ALB,T.PRO,BILI Medical Branch T,BU/BC,ALT,AST,ALK PHOS) BASIC METABOLIC PANEL (NA, 2020-04-29 21:13:[address] [facility] K, CL, CO2, GLUCOSE, BUN, Medica l Branch CREATININE, CA) PHENYTOIN 2020-04-29 21:13:[address] [facility] CBC WITH DIFF 2020-04-29 21:12:[address] [facility] URINALYSIS 2020-04-29 21:12:[address] [facility] COVID-19 (ID NOW RAPID 2020-04-29 21:12:[address] [facility] TESTING) Medical [place] LACTIC ACID WHOLE BLOOD 2020-04-29 21:03:00 Caridad Hammond [facility] 2020-04-29 05:01:00 Doctor Unassigned, [facility] DOCUMENTS [place] [facility] US RETROPERITONEAL 2020-04-16 17:30:11 Requisition, Paper [facility] COMPLETE Medical Branch ASSIGNMENT OF BENEFITS 2020-04-16 15:54:32 Doctor Unassigned, [facility] [place] [facility] CBC WITH DIFFERENTIAL 2019-10-16 22:22:00 Ramon Jensen [facility] HEPATIC FUNCTION PANEL 2019-10-16 22:21:00 Ramon Jensen [facility] ([id number]) (ALB,T.PRO,BILI Medical Branch T,BU/BC,ALT,AST,ALK PHOS) BASIC METABOLIC PANEL (NA, 2019-10-16 22:21:00 Ramon Jensen [facility] K, CL, CO2, GLUCOSE, BUN, Medica l Branch CREATININE, CA) PHENYTOIN 2019-10-16 22:21:00 Ramon Jensen [facility] POCT GLUCOSE (AUTOMATED) 2019-10-16 22:15:00 Ramon Jensen [facility] PHYSICIAN ORDERS 2019-08-19 06:01:00 Doctor Unassigned, [facility] Name [facility] ASSIGNMENT OF BENEFITS 2019-02-01 15:21:26 Doctor Unassigned, [facility] Name [facility] URINALYSIS 2019-01-22 17:51:00 Miranda Vaz [facility] BLOOD CULTURE SCREEN 2019-01-22 17:40:[address] [facility] LACTIC ACID WHOLE BLOOD 2019-01-22 17:40:00 Miranda Vaz [facility] CT HEAD WO CONTRAST 2019-01-22 15:53:02 Miranda Vaz [facility] XR CHEST 1 VW 2019-01-22 15:52:21 Miranda Vaz [facility] TROPONIN I 2019-01-22 15:33:00 Miranda Vaz [facility] COMP. METABOLIC PANEL 2019-01-22 15:33:00 Miranda Vaz [facility] ([id number]) [facility] PHENYTOIN 2019-01-22 15:33:00 Miranda Vaz [facility] PROTHROMBIN TIME / INR 2019-01-22 15:33:00 Miranda Vaz [facility] ACTIVATED PARTIAL THRMPLAS 2019-01-22 15:33:00 Miranda Vaz [facility] BLOOD CULTURE SCREEN 2019-01-22 15:32:[address] [facility] CBC WITH DIFFERENTIAL 2019-01-22 15:32:00 Miranda Vaz [facility] Hip replacement [facility] Operation on lumbar spine [facility] Encounters Start End Encounter Admission Attending Care Care Encounter Source Date/Time Date/Time Type Type Clinicians Facility Department ID 2021-09-04 Outpatient Hunter Garibay HCAPM HCAPM [id number] [facility] 12:57:[address] [facility] 2021-08-30 Outpatient 3 [id number] ENCPL REF [id number] ENCPL 21:56:57 0304 2021-08-28 Outpatient 3 [id number] ENCPL REF [id number] ENCPL 12:28:24 0302021-04-28 Emergency [facility] [id number] Univers 20:34:59 ity of [facility] 2021-04-27 Emergency [facility] [id number] Univers 16:18:49 ity [facility] 2021-04-27 Emergency [facility] [id number] Univers 02:17:58 ity [facility] 2021-04-25 Emergency [facility] [id number] Univers 21:46:44 ity [facility] 2021-04-25 Emergency [facility] [id number] Univers [facility] Alan Rob HCAPM JOSEFA [id number] [facility] 08:30:00 [facility] 2020-06-27 Inpatient EL Alan Rob HCAPM DAYS [id number] [facility] 13:00:00 [facility] 2021-09-02 2021-09-10 Inpatient 3 [facility] ENCPL CVA [id number] ENCPL 18:03:00 13:08:00 cris, 0307 Pb 2021-09-04 2021-09-04 Outpatient Hunter Garibay HCAPM RADI [id number] [facility] 12:12:00 12:12:00 [id number] [facility] 2021-08-26 2021-09-02 Inpatient U MARITO, [id number] 03:23:00 17:11:00 MALIA 2021-08-25 2021-08-26 Emergency X MIKEY [facility] ERT [id number] Univers 22:40:00 03:02:00 RAMON [facility] 2021-08-25 2021-08-26 Emergency Mikey [facility] [id number] Univers 22:40:00 03:02:00 Ramon [place] [id number] i ty of [place] [id number] [place] [facility] [id number] [address] 2021-04-26 2021-04-26 Outpatient MHIE MHIE [id number] Memoria 13:45:00 13:45:00 08 l Thiago 2021-02-18 2021-02-18 Emergency ER [facility] Emergency [id number] [facility] 21:27:00 21:27:00 2020-10-25 2020-10-26 Outpatient nullFlavo MNA [id number] Memoria 18:45:00 04:59:59 r Neurology 07 l Emily Billyann 2020-07-24 2020-07-24 Ambulatory nullFlavo MNA [id number] Memoria 16:45:00 16:45:00 Pre-Reg r Neurology 06 l Emily [place] 2020-07-08 2020-07-08 Emergency Lis, K [facility] [id number] Univers 15:14:00 20:16:00 Andie [place] [id number] i ty of [place] [id number] [facility] [id number] [address] 2020-05-28 2020-05-28 [facility] Radiology [facility] [id number] Univers 17:10:00 23:59:00 Encounter [place] [id number] ity of [place] 4.2.7.2.686 [facility] [id number] [address] 2020-05-28 2020-05-28 [facility] Radiology [facility] [id number] 17:10:00 23:59:00 Encounter [place] [id number] [place] [address] [place] [address] [id number] [facility] 2020-05-28 2020-05-28 Outpatient R RADIOLOGY [facility] [id number] Univers 17:10:00 17:10:00 [id number] ity of [facility] 2020-05-28 2020-05-28 Outpatient R RADIOLOGY [facility] [id number] Univers 00:00:00 00:00:00 ity of [facility] 2020-05-08 2020-05-08 Refill Kathleen Vines [facility] 1.2.840.114 [id number] Univers 00:00:00 00:00:00 Y HEALTH [id number] i ty of [facility] 4[place]2.7.2.686 [place] [id number] [address] 2020-05-08 2020-05-08 Refill Kathleen Vines [facility] 1.2.840.114 [id number] 00:00:00 00:00:00 Y HEALTH [id number] CLINICS 4.2.7.2.686 [id number] [facility] 2020-04-29 2020-04-30 Emergency Caridad Hammond 1.2.8 40.114 [id number] [facility] 14:48:00 17:06:00 Kathleen [place]ines [id number] ity [facility] 4.2.7.2.686 Matthew as [id number] [address] 2020-04-29 2020-04-30 Emergency Caridad Hammond 1.2.8 40.114 [id number] 14:48:00 17:06:00 Kathleen Vines [id number] [facility] 4.2.7.2.686 [id number] [facility] 2020-04-20 2020-04-21 Outpatient nullFlavo [facility] [id number] Memoria 15:15:00 04:59:59 r Neurology 05 l [place] 2020-04-16 2020-04-16 [facility] 1.2.840.114 [id number] [facility] 10:45:00 23:59:00 Encounter Lona Lin [id number] ity [facility] 4[place]2.7.2.[place] [id number] [address] 2020-04-16 2020-04-16 [facility] 1.2.840.114 [id number] 10:45:00 23:59:00 Encounter Lona Lin [id number] [place] 4.2.7.2.686 Anita [id number] 2020-04-16 2020-04-16 Outpatient R TRICE, [facility] [id number] Univers 10:45:00 10:45:00 LONA [id number] ity of [facility] 2020-04-16 2020-04-16 Outpatient R TRICE [facility] [id number] Univers 00:00:00 00:00:00 LONA ity [facility] 2020-04-16 2020-04-16 Orders Doctor EDGAR 1.2.840.114 [id number] Univers 00:00:00 00:00:00 Only Unassigned, BHAKTI [id number] [place] [facility] 4.2.7.2.686 [facility] [id number] [facility] 009 [place] 2020-04-16 2020-04-16 Orders Doctor EDGAR 1.2.840.114 [id number] 00:00:00 00:00:00 Only Unassigned, BHAKTI [id number] [place] [facility] 4.2.7.2.686 [id number] 2020-01-20 2020-01-21 Outpatient nullFlavo MNA [id number] Memoria 15:00:00 04:59:59 r Neurology 04 l [facility] 2020-01-20 2020-01-20 Ambulatory nullFlavo MNA [id number] Memoria 15:00:00 15:00:00 Pre-Reg r Neurology 03 l [place] 2019-11-28 2019-11-28 Emergency X Judit HAYS [facility] ERT [id number] Univers 10:20:43 12:42:00 ity of [facility] 2019-11-16 2019-11-16 Emergency Judit Hays [facility] 1.2.840.114 [id number] Univers 18:10:43 19:50:00 Andie Lin [id number] i ty of [place] 4.2.7.2.686 [facility] [id number] [facility] 084 [place] 2019-11-16 2019-11-16 Emergency Judit Hays [facility] 1.2.840.114 [id number] 18:10:43 19:50:00 Andie Lin [id number] [place] 4.2.7.2.686 [place] [id number] [facility] 2019-10-21 2019-10-22 Outpatient nullFlavo MNA [id number] Memoria 18:15:00 04:59:59 r Neurology 01 l [place] 2019-10-16 2019-10-16 Emergency Joann Cabral R [place] 1.2.840. 114 [id number] [facility] 17:07:29 21:14:00 Ramon Jensen [id number] ity of [place] 4.2.7.2.686 [facility] [id number] [address] 2019-10-16 2019-10-16 Emergency Joann Cabral R [facility] 1.2.840. 114 [id number] 17:07:29 21:14:00 Ramon Jensen [id number] [place] 4.2.7.2.686 [place] [id number] [facility] 2019-09-14 2019-09-15 Outpatient nullFlavo MNA [id number] Memoria 20:30:00 04:59:59 r Neurology 02 l [place] 2019-09-09 2019-09-10 Outpatient nullFlavo MNA [id number] Memoria 18:30:00 04:59:59 r Neurology 00 l [facility] 2019-08-19 2019-08-19 [employer]inee Bonita Champagne [facility] 1.2.840.114 [id number] 12:41:09 12:56:09 Visit Lab Main [place] 350.1.13.10 [place] 4.2.7.2.686 Professio [phone] [address] 2019-08-19 2019-08-19 Retail Management Trainee Bonita Champagne Lab Main [facility] 1.2.8 40.114 [id number] [facility] 12:41:09 12:56:09 Visit Lona Carnes 350.1.13.10 ity of [place] 4.2.7.2.686 [facility] Professio [phone] Nv dical [address] 2019-08-19 2019-08-19 Orders Doctor HERNÁNDEZ 1.2.840.114 [id number] 00:00:00 00:00:00 Only Unassigned, BHAKTI 350.1.13.10 [place] [facility] 4.2.7.2.686 [id number] 009 2019-08-19 2019-08-19 Orders Doctor EDGAR 1.2.840.114 [id number] Univers 00:00:00 00:00:00 Only Unassigned, BHAKTI 350.1.13.10 ity of [place] [facility] 4.2.7.2.686 Matthew as [phone] [place] [address] [address] 2019-06-28 2019-06-29 Emergency X JENESN, [facility] ERT [id number] Univers 21:56:59 02:36:00 RAMON [facility] 2019-05-30 2019-05-30 [id number] [facility] 11:44:11 11:44:00 LONA [facility] 2019-02-08 2019-02-08 Retail Management Trainee 1, Adc Lab [facility] 1.2.840.114 [id number] 12:34:19 13:04:45 Visit Riley 350.1.13.10 [place] 4.2.7.2.686 Anita [id number] [id number] 2019-02-08 2019-02-08 Retail Management Trainee 1, Adc Lab [facility] 1.2.840.114 [id number] [facility] 12:34:19 13:04:45 Visit Lona Carnes 350.1.13.10 ity of [place] 4.2.7.2.686 [facility] [phone] [address] 2019-02-01 2019-02-01 Retail Management Trainee 1, Adc Lab [facility] 1.2.840.114 [id number] [facility] 10:21:56 10:36:56 Visit Lona Carnes 350.1.13.10 ity of [place] 4.2.7.2.686 [facility] [phone] [address] 2019-02-01 2019-02-01 Orders Doctor HERNÁNDEZ 1.2.840.114 [id number] Univers 00:00:00 00:00:00 Only Unassigned, BHAKTI 350.1.13.10 ity of [place] [facility] 4.2.7.2.686 Matthew as [phone] [facility] [address] 2019-01-22 2019-01-22 Emergency Татьяна [facility] 1.2.375.629 [id number] Univers 10:22:50 16:11:00 Miranda Lin 350.1.13.10 i maggy [place]7.2.[place] [phone] [facility] [address] 2018-11-16 2018-11-26 Inpatient [facility] [id number] [place] 16:38:00 21:00:00 [facility] 67 l [facility] 2018-11-16 2018-11-16 Outpatient [facility] JOSEFA 9370 [facility] 13:09:00 13:09:00 2018-11-16 2018-11-16 Inpatient E [facility] CAR 9367 [facility] 19:19:00 11:28:00 Results Test Description Test Time Test Comments Results Result [facility] e Comments - CT HEAD/BRAIN 2021-09-04 W/O CONT 12:54:00 [facility] 1960 Sex: F Name: CATHY GIRALDOIONAROSA ELENA [facility] : 1960 Age/S: 60 / F [id number] [address] [employer] Unit #: [id number] Loc: [place] [address] Phys: Hunter Garibay MD Acct: [id number] Dis Date: Status: REG REF PHONE #: [phone] Exam Date: 09/04/2021 1248 FAX #: Reason: CHANGE IN VISION EXAMS: CPT: [id number] CT HEAD/BRAIN W/O CONT 39792 EXAM: - CT HEAD/BRAIN W/O CONT LOCATION: T18 HISTORY: 60 years-year old Female with CHANGE IN VISION TECHNIQUE: Computerized tomography images from the skull base to the vertex were obtained. Coronal and sagittal reformatted images are provided. This exam was performed according to our departmental dose-optimization program, which includes automated exposure control, adjustment of the mA and/or kV according to patient size and/or use of iterative reconstruction technique COMPARISON: None FINDINGS: Brain: The brain parenchymal architecture is unremarkable. There is severe diffuse cerebral atrophy and periventricular/subco rtical white matter hypodensities that likely represent sequelae of chronic microvascular ischemia. There is no evidence of an acute territorial infarct. There are multiple punctate hypodensities of the right basal ganglia from remote infarcts. Hemorrhage: There is no CT evidence of acute intracranial hemorrhage. Mass/edema: There is no CT evidence of mass effect, midline shift, or parenchymal edema. 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 Bones: There is no evidence of acute displaced calvarial fracture. Sinuses: The visualized portions of the paranasal sinuses and mastoid air cells are free of significant opacification. Other/Soft Tissues: Unremarkable. IMPRESSION: 1. No CT evidence of acute intracranial abnormality. PAGE 1 Signed Report (CONTINUED) Name: CATHY GIRALDO [facility] : 1960 Age/S: 60 / F [id number] [address] [employer] [employer] Unit #: [id number] Loc: [place] [address] Phys: Hunter Garibay MD Acct: [id number] Dis Date: Status: REG REF PHONE #: [phone] Exam Date: 09/04/2021 1248 FAX #: Reason: CHANGE IN VISION EXAMS: CPT: [id number] CT HEAD/BRAIN W/O CONT 78164 <Continued> There are multiple punctate hypodensities of the right basal ganglia from remote infarcts as well as extensive parenchymal changes from chronic microvascular disease.. at 1254 Reported and signed by: Steven Alcazar M.D. CC: Jazlyn Carnes MD; Hunter Garibay MD Technologist:Jose Banda, RT(R)(CT) CTDI: DLP: Trnscb Date/Time: 09/04/2021 (9372) RadhaR.[email or web address] Orig Print D/T: S: 09/04/2021 (4219) PAGE 2 Signed Report PHENYTOIN 2021-08-26 06:39:21 Test Item Value Reference Range Interpretation Comme nts PHENYTOIN (test code = <3.0 10.0-20.0 L Sligh t hemolysis 3674929635) QUANG (test code = QUANG) Toxic Range: ? 0-3 Months ? Greater than 14 ug/mL ? ? 3 Months - 150 Years ? ? Greater than 20 ug/mL Lab Interpretation (test code = Abnormal 73313-2) [facility]. METABOLIC PANEL (58609)2021-08-26 05:57:53 Test Item Value Reference Range Interpretation Comments NA (test code = 123 mmol/L 135-145 L 5428520714) K (test code = 4.4 mmol/L 3.5-5.0 9062965359) CL (test code = 90 mmol/L 98-108 L 9123332846) CO2 TOTAL (test code = 10 mmol/L 23-31 L 5158616018) AGAP (test code = 2-16 H 9125701141) BUN (test code = 9 mg/dL 7-23 6551358685) GLUCOSE (test code = 207 mg/dL 70-110 H 0788480617) CREATININE (test code = 0.62 mg/dL 0.50-1.04 8162171117) TOTAL BILI (test code = 0.7 mg/dL 0.1-1.8 2205345323) CALCIUM (test code = 8.3 mg/dL 8.6-10.6 L 9490895980) T PROTEIN (test code = 7.0 g/dL 6.3-8.2 0767127379) ALBUMIN (test code = 4.5 g/dL 3.5-5.0 6470978327) ALK PHOS (test code = 106 U/L 34-122 5015034592) ALTv (test code = 150 U/L 5-35 H 1742-6) AST(SGOT) (test code = 41 U/L 13-40 H 4143460475) eGFR (test code = mL/min/1.73m2 0074995578) QUANG (test code = QUANG) Association of [...] tests). Lab Interpretation Abnormal (test code = 13044-0) [facility] [id number] 05:49:32 Test Item Value Reference Interpretation Comments Range TROPONIN I (test 0.042 ng/mL See_Comment H [Automated code = 7998129162) message] The system which generated this result transmitted reference range : <=0.034. The reference range was not used to interpret this result as normal/abnormal . QUANG (test code = Reference (Normal) QUANG) Range (defined by the 99th percentile reference limit): <= 0.034 ng/mL Note: Cardiac troponin begins to rise 3-4 hours after the onset of ischemia. Repeat in 4-6 hours if the sample was drawn within 3-4 hours of the onset of the symptom and found normal. Diagnosis of myocardial injury is made with acute changes in cTn concentrations with at least one serial sample above the 99th percentile upper reference limit (URL), taken together with the patient's clinical presentation. Biotin has been reported to cause a negative bias, interpret results relative to patient's use of biotin. Lab Interpretation Abnormal (test code = 44163-4) [facility] Rock[facility]-TERMINAL [id number] 05:44:51 Test Item Value Reference Range Interpretation Comments NT-proBNP (test code 6600 pg/mL See_Comment H [Autom ated = 1092550489) message] The system which generated this result transmitted reference range : <=125. The reference range was not used to interpret this result as normal/abnormal . QUANG (test code = QUANG) Biotin has been reported to cause a negative bias, interpret results relative to patient's use of biotin. 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 The reference range was not used to interpret this result as normal/abnormal . RBC (test code = See_Comment [Automated 679-8) message] The system which generated this result transmit marta reference range : 3.93 - 5.25 10*6/?L. The reference range was not used to interpret this result as normal/abnormal . HGB (test code = 14.7 g/dL 11.6-15.0 718-7) HCT (test code = 43.1 % 35.7-45.2 4544-3) MCV (test code = 100.0 fL 80.6-95.5 H 787-2) MCH (test code = 34.1 pg 25.9-32.8 H 785-6) MCHC (test code = 34.1 g/dL 31.6-35.1 786-4) RDW-SD (test code = 49.1 fL 39.0-49.9 97384-0) RDW-CV (test code = 13.3 % 12.0-15.5 788-0) PLT (test code = See_Comment H [Automated 777-3) message] The system which generated this result transmit marta reference range : 166 - 358 10*3/ ?L. The reference range was not u sed to interpret th is result as normal/abnormal . MPV (test code = 9.6 fL 9.5-12.9 19308-1) NRBC/100 WBC (test See_Comment [Automat ed code = 8272363011) message] The system which generated this result transmit marta reference range : 0.0 - 10.0 /100 WBCs. The reference range was not used to interpret this result as normal/abnormal . NRBC x10^3 (test code <0.01 See_Comment [Auto mated = 3943943528) message] The system which generated this result transmit marta reference range : 10*3/?L. The reference range was not used to interpret this result as normal/abnormal . GRAN MAT (NEUT) % 83.9 % (test code = 770-8) IMM GRAN % (test code 0.90 % = 9570624386) LYMPH % (test code = 8.5 % 736-9) MONO % (test code = 6.4 % 5905-5) EOS % (test code = 0.0 % 713-8) BASO % (test code = 0.3 % 706-2) GRAN MAT x10^3(ANC) 20.24 10*3/uL 1.88-7.09 H (test code = 8070729839) IMM GRAN x10^3 (test 0.21 10*3/uL 0.00-0.06 H code = 6655023383) LYMPH x10^3 (test code 2.04 10*3/uL 1.32-3.29 = 731-0) MONO x10^3 (test code 1.54 10*3/uL 0.33-0.92 H = 742-7) EOS x10^3 (test code = <0.03 0.03-0.39 L 711-2) BASO x10^3 (test code 0.08 10*3/uL 0.01-0.07 H = 704-7) Lab Interpretation Abnormal (test code = 19320-2) [facility] RockACTIV[facility] PARTIAL THRMPLAS [id number] 05:23:27 Test Item Value Reference Range Interpretation Comments APTT Patient (test See_Comment [Automat ed code = 3173-2) message] The system which generated this result transmitted reference range : 23 - 38 Seconds . The reference range was not used to interpr et this result as normal/abnormal . QUANG (test code = QUANG) The [facility] patient population mean normal value for aPTT is 30 seconds. Lab Interpretation Normal (test code = 57010-7) [facility] RockPROTHROMBIN TIME / [id number] 05:21:07 Test Item Value Reference Range Interpretation Comments [...] tions. Lab Interpretation (test Normal code = 34734-2) [facility] RockPOCT GLUCOSE (AUTOMATED)2021-08-26 05:03:09 Test Item Value Reference Range Interpretation Comments POCT GLU (test code = 7082959351) 211 mg/dL 70-110 H Lab Interpretation (test code = Abnormal 03915-4) [facility] RockFUNGUS CULTURE, BLOOD (ISOLATOR)2021-03-03 06:27:00 Test Item Value Reference Range Interpretation Comments CULTURE (MARTAKER) (test No fungus isolated code = 1095) POCT-GLUCOSE [id number] 11:44:00 Test Item Value Reference Range Interpretation Comments POC-GLUCOSE METER 111 mg/dL 70-110 H : Notified RN/MD: (CARLOTTA) (test code = TESTED AT [facility] 1415 9896) [facility], [address]: Human Resources Temp/Techni jose ID = [id number] for Dale Blue BLOOD [id number] 09:00:00 Test Item Value Reference Range Interpretation Comments CULTURE (BEAKER) (test No growth in 5 days code = 1095) The specimen volume collected for this blood culture was below the optimum (10 mL per bottle or 20 mL total). Use of lower volumes may adversely affect recovery and/or detection times of some organisms.BLOOD [id number] 09:00:00 Test Item Value Reference Range Interpretation Comments CULTURE (BEAKER) (test No growth in 5 days code = 1095) The specimen volume collected for this blood culture was below the optimum (10 mL per bottle or 20 mL total). Use of lower volumes may adversely affect recovery and/or detection times of some organisms.POCT-GLUCOSE [id number] 08:29:00 Test Item Value Reference Range Interpretation Comments POC-GLUCOSE METER 76 mg/dL 70-110 : TESTED A T [facility] 6720 (BEAKER) (test code = [place], 1538) [address]: Human Resources Temp/Techni jose ID = [id number] for Dale Warner BASIC METABOLIC [id number] 05:44:00 Test Item Value Reference Range Interpretation [...] S NOT APPLICABLE FOR DIALYSIS PATIEN TS. Human Resources Temp ID - PIAYA [id number] 05:44:00 Test Item Value Reference Range Interpretation Comments MAGNESIUM (BEAKER) (test code = 1.5 mg/dL 1.6-2.6 L 627) Human Resources Temp ID - GAIL [id number] 05:44:00 Test Item Value Reference Range Interpretation Comments PHOSPHORUS (BEAKER) (test code = 2.7 mg/dL 2.3-4.7 604) Human Resources Temp ID - GAIL LPOCT-GLUCOSE [id number] 22:07:00 Test Item Value Reference Range Interpretation Comments POC-GLUCOSE METER 117 mg/dL 70-110 H : TESTED A T [facility] 6720 (BEAKER) (test code = [facility] [employer] [facility], 1538) [address]: Human Resources Temp/Techni jose ID = [id number] for DE NNIS, AROLDO POCT-GLUCOSE [id number] 17:55:00 Test Item Value Reference Range Interpretation Comments POC-GLUCOSE METER 105 mg/dL 70-110 : TESTED A T [facility] 6720 (BEAKER) (test code = [employer] [facility], 1538) [address]: Human Resources Temp/Techni jose ID = [id number] for AK INSONU, GILDA CORTISOL,60 [id number] 13:19:00 Test Item Value Reference Range Interpretation [...] (<34 mcg/dL) and low response to ACTH (&l t;or=9 mcg/dL) OR High basal cortisol (>34 mcg/dL) or high ACTH response (>9 mcg/dL) 3.Poor Survival: High basal cortisol (>34 mcg/dL) and low ACTH response (<or=9 mcg/dL).Treatment of patients with relative adrenal dysfunction may be indicated based on test results and the clinical condition of the patient. Additional information, including treatment recommendations, is available in critically ill patients, approved by the Pharmacy, Nutrition, and Therapeutics Committee on 06/07/2004 and available through the Pharmacy Policy and Procedure Section on The Source.Human Resources Temp ID - DONI MCORTISOL,30 MIN 2021-02-23 13:18:00 Test Item Value Reference Range Interpretation [...] (<34 mcg/dL) and low response to ACTH (&l t;or=9 mcg/dL) OR High basal cortisol (>34 mcg/dL) or high ACTH response (>9 mcg/dL) 3.Poor Survival: High basal cortisol (>34 mcg/dL) and low ACTH response (<or=9 mcg/dL).Treatment of patients with relative adrenal dysfunction may be indicated based on test results and the clinical condition of the patient. Additional information, including treatment recommendations, is available in critically ill patients, approved by the Pharmacy, Nutrition, and Therapeutics Committee on 06/07/2004 and available through the Pharmacy Policy and Procedure Section on The Source.Human Resources Temp ID - EMERSONCORTISOL,BASELINE 2021-02-23 12:15:00 Test Item Value Reference Range Interpretation [...] (<34 mcg/dL) and low response to ACTH (&l t;or=9 mcg/dL) OR High basal cortisol (>34 mcg/dL) or high ACTH response (>9 mcg/dL) 3.Poor Survival: High basal cortisol (>34 mcg/dL) and low ACTH response (<or=9 mcg/dL).Treatment of patients with relative adrenal dysfunction may be indicated based on test results and the clinical condition of the patient. Additional information, including treatment recommendations, is available in critically ill patients, approved by the Pharmacy, Nutrition, and Therapeutics Committee on 06/07/2004 and available through the Pharmacy Policy and Procedure Section on The Source.Human Resources Temp ID - DONI MPOCT-GLUCOSE METER 2021-02-23 12:00:00 Test Item Value Reference Range Interpretation Comments POC-GLUCOSE METER 95 mg/dL 70-110 : TESTED A T [facility] 6720 (MARTMESSI) (test code = [place], 1538) [address]: Human Resources Temp/Techni jose ID = [id number] for GILDA VILLANUEVA BASIC METABOLIC [id number] 08:39:00 Test Item Value Reference Range Interpretation [...] S NOT APPLICABLE FOR DIALYSIS PATIEN TS. Human Resources Temp ID - DONI [id number] 08:39:00 Test Item Value Reference Range Interpretation Comments MAGNESIUM (BEAKER) (test code = 1.7 mg/dL 1.6-2.6 627) Human Resources Temp ID - DONI [id number] 08:39:00 Test Item Value Reference Range Interpretation Comments PHOSPHORUS (BEAKER) (test code = 3.1 mg/dL 2.3-4.7 604) Human Resources Temp ID - DONI MHEMOGLOBIN AND [id number] 08:20:00 Test Item Value Reference Range Interpretation Comments HEMOGLOBIN (BEAKER) (test code = 11.2 GM/DL 11.2-15.7 410) HEMATOCRIT (BEAKER) (test code = 31.8 % 34.1-44.9 L 411) Human Resources Temp ID - 6000POCT-GLUCOSE [id number] 08:07:00 Test Item Value Reference Range Interpretation Comments POC-GLUCOSE METER 89 mg/dL 70-110 : TESTED A T [facility] 6720 (BEAKER) (test code = [place], 1538) [address]: Human Resources Temp/Techni jose ID = [id number] for GILDA VILLANUEVA [id number] 07:39:00 Test Item Value Reference Range Interpretation Comments CORTISOL, TOTAL (BEAKER) (test code 9.8 ug/dL 3.7-19.4 = 2755) Human Resources Temp CASSI MARION MCBC W/PLT COUNT & AUTO [id number] 07:05:00 Test Item Value Reference Range Interpretation [...] (BEAKER) (test code = 2801) BASIC METABOLIC [id number] 00:32:00 Test Item Value Reference Range Interpretation [...] S NOT APPLICABLE FOR DIALYSIS PATIEN TS. Human Resources Temp ID - DONI MPOCT-GLUCOSE [id number] 21:23:00 Test Item Value Reference Range Interpretation Comments POC-GLUCOSE METER 138 mg/dL 70-110 H : TESTED A T [facility] 6720 (BEAKER) (test code = [employer] [facility], 1538) [address]: Human Resources Temp/Techni jose ID = [id number] for An sah, Lola POCT-GLUCOSE [id number] 17:58:00 Test Item Value Reference Range Interpretation Comments POC-GLUCOSE METER 123 mg/dL 70-110 H : TESTED A T [facility] 6720 (BEAKER) (test code = [facility] [employer] [facility], 1538) [address]: Human Resources Temp/Techni jose ID = [id number] for Ca vitt, Eminae OSMOLALITY, [id number] 16:27:00 Test Item Value Reference Range Interpretation Comments OSMOLALITY, SERUM (BEAKER) (test 260 mOsm/kg 275-295 L code = 615) BASIC METABOLIC [id number] 16:01:00 Test Item Value Reference Range Interpretation [...] S NOT APPLICABLE FOR DIALYSIS PATIEN TS. Human Resources Temp ID - [id number] 16:01:00 Test Item Value Reference Range Interpretation Comments MAGNESIUM (BEAKER) (test code = 2.4 mg/dL 1.6-2.6 627) Human Resources Temp ID - [id number] 16:01:00 Test Item Value Reference Range Interpretation Comments PHOSPHORUS (BEAKER) (test code = 2.2 mg/dL 2.3-4.7 L 604) Human Resources Temp ID - [id number] 15:13:00 Test Item Value Reference Range Interpretation Comments FERRITIN (BEAKER) (test code = 351.59 ng/mL 5.00-275.00 H 361) Human Resources Temp ID - RMPOCT-GLUCOSE [id number] 13:25:00 Test Item Value Reference Range Interpretation Comments POC-GLUCOSE METER 134 mg/dL 70-110 H : TESTED A T [facility] 6720 (BEAKER) (test code = [place] [facility], 1538) [address]: Human Resources Temp/Techni jose ID = [id number] for Ca vitt, Eminae IRON, TIBC, % SAT. (WITHOUT FERRITIN)2021-02-22 12:33:00 Test Item Value Reference Range Interpretation Comments IRON (BEAKER) (test code = 547) 37.0 ug/dL 40.0-160.0 L TOTAL IRON BINDING CAPACITY 196 ug/dL 250-450 L (BEAKER) (test code = 769) IRON % SATURATION (2) (BEAKER) 19 % 20-55 L (test code = 2590) Human Resources Temp ID - PIAYA LCT, CHEST, WITH [id number] 12:30:00Unlisted Reason for Exam - Click Yes and Enter Reason Below->YesUnlisted Reason for Exam->smoker with weight loss, hyponatremia; eval for lung malignancy [facility] KEITHSuzan : 1960 Sex: FFINAL REPORT TECHNIQUE: CT [...] mild focal thickening of the left lateral urinarybladder wall. A urology consultation is recommended for [...] is occlusion of both superficial femoral arteries. 6.Age-indeterminate compression fractures of T10 and L1. There is mild retropulsion at L1. Signed: Georgie Arboleda MDReport Verified Date/Time: 02/22/2021 12:30:56 Reading Location: [facility] C013Y CT Body Reading Room CT, [id number] 12:30:00Unlisted Reason for Exam - Click Yes and Enter Reason Below->YesUnlisted Reason for Exam->unexplained weight loss, hyponatremia, history of alcohol abuse; evaluate for occult malignancy, pancreaetiitsWill this procedure require oral contrast?->No[facility] : 1960 Sex: FFINAL REPORT TECHNIQUE: CT of the chest, abdomen, and pelvis W ITH intravenous contrast and WITHOUT oral contrast. Dose [...] mild focal thickening of the left lateral urinarybladder wall. A urology consultation is recommended for [...] is occlusion of both superficial femoral arteries. 6.Age-indeterminate compression fractures of T10 and L1. There is mild retropulsion at L1. Signed: Georgie Arboleda MDReport Verified Date/Time: 02/22/2021 12:30:56 Reading Location: [facility] C013Y CT Body Reading Room BASIC METABOLIC [id number] 08:56:00 Test Item Value Reference Range Interpretation [...] S NOT APPLICABLE FOR DIALYSIS PATIEN TS. Human Resources Temp ID - PIAYA [id number] 08:56:00 Test Item Value Reference Range Interpretation Comments MAGNESIUM (BEAKER) (test code = 1.4 mg/dL 1.6-2.6 L 627) Human Resources Temp ID - GAIL [id number] 08:56:00 Test Item Value Reference Range Interpretation Comments PHOSPHORUS (BEAKER) (test code = 2.2 mg/dL 2.3-4.7 L 604) Human Resources Temp ID Mili REYNOLDS LHEPATIC FUNCTION [id number] 08:56:00 Test Item Value Reference Range Interpretation [...] (test code = 22 U/L 6-55 347) Human Resources Temp ID - GAIL [id number] 08:56:00 Test Item Value Reference Range Interpretation Comments LIPASE (BEAKER) (test code = 749) 37 U/L 8-78 Human Resources Temp ID - GAIL COURTNEYMOLALITY, [id number] 07:33:00 Test Item Value Reference Range Interpretation Comments OSMOLALITY URINE 366 mOsm/kg See_Comment [Automated message] (BEAKER) (test code = The sy stem which 614) generated this result transmitted ref erence range: 50-1,200 mOsm/kg. The reference range was not used to int erpret this result as normal/abnormal . CBC W/PLT COUNT & AUTO [id number] 05:51:00 Test Item Value Reference Range Interpretation [...] (BEAKER) (test code = 2801) CREATININE, RANDOM [id number] 04:29:00 Test Item Value Reference Range Interpretation Comments CREATININE URINE (BEAKER) (test 32.5 mg/dL code = 375) Reference Range: No NormalsOperator ID - PIAYA LSODIUM, RANDOM [id number] 04:29:00 Test Item Value Reference Range Interpretation Comments SODIUM URINE (BEAKER) (test code = 111 meq/L 243) Reference Range: No NormalsOperator ID - GAIL LPOCT-GLUCOSE [id number] 22:15:00 Test Item Value Reference Range Interpretation Comments POC-GLUCOSE METER 124 mg/dL 70-110 H : TESTED A T [facility] 6720 (BEAKER) (test code = [place], 1538) [address]: Human Resources Temp/Techni jose ID = [id number] for MIRYAM EVANS VITAMIN D, [id number] 19:16:00 Test Item Value Reference Range Interpretation Comments VITAMIN D 25-OH (BEAKER) (test 24.3 ng/mL 6.6-49.9 code = 2764) Effective 04/08/2017: Reference Range ChangeNew: 6.6-49.9 ng/mL Previous: 13.0-47.8 ng/mLRecommended Vitamin D Target Range: 30.0-40.0 ng/mLOperator ID - DBHIV-1 ANTIGEN WITH HIV-1/2 [id number] 19:16:00 Test Item Value Reference Range Interpretation Comments HIV-1 ANTIGEN WITH HIV 1\\T\\2 Nonreactive Nonreactive ANTIBODY (2) (iClinicalAKER) (test code = 2586) Human Resources Temp ID - DBVITAMIN [id number] 18:03:00 Test Item Value Reference Range Interpretation Comments VITAMIN B12 (BEAKER) (test code = > pg/mL 213-816 H 774) Human Resources Temp ID - DBOSMOLALITY, [id number] 17:38:00 Test Item Value Reference Range Interpretation Comments OSMOLALITY, SERUM (BEAKER) (test 259 mOsm/kg 275-295 L code = 615) HEPARIN ASSAY - LOW MOLECULAR [id number] 17:16:00 Test Item Value Reference Range Interpretation Comments LOVENOX-ANTI 10A (BEAKER) (test 0.29 u/ml 0.60-2.00 L code = 1605) Anti-Factor 10-A Level (Heparin Assay for Low Molecular Weight Heparin)Monitoring Guidelines: Blood samples should be obtained 4 hours post subcutaneous injection (time of Peak level) Therapeutic Peak Levels: 0.6-1.0 units/mL twice daily enoxaparin 1.0-2.0 units/mL once daily enoxaparinRef: CHEST 2012;141:[id number]-ICMDJFY [id number] 12:04:00 Test Item Value Reference Range Interpretation Comments POC-GLUCOSE METER 81 mg/dL 70-110 : TESTED A T [facility] 6720 (BEAKER) (test code = [place], 1538) [address]: Human Resources Temp/Techni jose ID = [id number] for Ninfa Van CBC W/PLT COUNT & AUTO [id number] 09:21:00 Test Item Value Reference Range Interpretation [...] CONCENTRATION Adequate (CELLAVISION)(BEAKER) (test code = 3438) Human Resources Temp ID - Romina OverholtUser comments: Slide comments:POCT-GLUCOSE METER 2021-02-21 09:13:00 Test Item Value Reference Range Interpretation Comments POC-GLUCOSE METER 87 mg/dL 70-110 : TESTED A T [facility] 6720 (BEAKER) (test code = [place], 1538) [address]: Human Resources Temp/Techni jose ID = [id number] for Ninfa Van MR, BRAIN, [id number] 08:27:00Unlisted Reason for Exam - Click Yes and Enter Reason Below->No Deos the patient have an implanted electronic device?->No [facility] 1960 Sex: FFINAL REPORT MR, BRAIN, [...] explain seizure activity. Signed: JR Trevizo Robert MDReport Verified Date/Time: 02/21/2021 08:27:21 Reading Location: [address] Neuro Reading Room Electronically signed by: CHARLIE TORIBIO [facility] on 02/21/2021 08:27 AMPOCT-GLUCOSE [id number] 05:44:00 Test Item Value Reference Range Interpretation Comments POC-GLUCOSE METER 91 mg/dL 70-110 : TESTED A T [facility] 6720 (BEAKER) (test code = [place] [facility], 1538) [address]: Human Resources Temp/Techni jose ID = [id number] for MIRYAM ARAMBULA BASIC METABOLIC [id number] 05:36:00 Test Item Value Reference Range Interpretation [...] 8.4-10.2 L (test code = 697) EGFR ([place]) (test 149 mL/min/1.73 ESTIM ATED GFR IS code = 1092) sq m NOT ACCURATE CREATININE CLEARANCE IN PREDICTING GLOMERULAR FILTRATION RATE . ESTIMATED GFR I S NOT APPLICABLE FOR DIALYSIS PATIEN TS. Human Resources Temp ID - DONI MPOCT-GLUCOSE [id number] 18:27:00 Test Item Value Reference Range Interpretation Comments POC-GLUCOSE METER 81 mg/dL 70-110 : TESTED A T [facility] 6720 (CARLOTTA) (test code = [place], 1538) [address]: Human Resources Temp/Techni jose ID = [id number] for CAITLINYULI WATSON EEG W VID 12-26 HR CONTINUOUS MONITORING (VEEG)2021-02-20 15:39:00Reason for exam:->status epilepticus [facility] SHAE : 1960 [facility] REPORT NAME: Cathy Giraldo DATE(s) OF TEST: 02/19/2021- 02/20/2021 DATE OF REPORT: 02/20/2021 ACC: [id number] EE Start time/date: 9:49 AM, 02/19/2021 Stop time/date: 9:42 AM, 02/20/2021 ICD-10: R56.9 CPT Code: 79128 HISTORY: 60 F with PMH of epilepsy, HTN, HFrEF, tobacco and alcohol use, prior R temporal stroke admitted with status epilepticus on 02/18. MEDICATIONS THAT COULD AFFECT EEG: Keppra, dilantin, vimpat TECHNICAL SUMMARY: This is a [facility] digital video EEG recorded with 32 input [...] Clinical Neurophysiology/Epilepsy Attending PHENYTOIN LEVEL, TOTAL AND [id number] 14:59:00 Test Item Value Reference Range Interpretation Comments PHENYTOIN (DILANTIN) 31.0 ug/mL 10.0-20.0 H Test pe rformed at ([facility]) (test code Machelle Das = 605) [facility] PHENYTOIN FREE 1.77 mcg/ml 1.00-2.00 (BEAKER) (test code = 847) POCT-GLUCOSE [id number] 12:22:00 Test Item Value Reference Range Interpretation Comments POC-GLUCOSE METER 150 mg/dL 70-110 H : TESTED A T [facility] 6720 ([facility]) (test code [facility], = 1538) [address]: Human Resources Temp/Techni jose ID = [id number] for Rafael sprague 9pca2), Meryem [id number] 09:29:00 Test Item Value Reference Range Interpretation Comments MAGNESIUM (AKER) (test code = 2.1 mg/dL 1.6-2.6 627) Human Resources Temp ID - KEYANA [id number] 09:29:00 Test Item Value Reference Range Interpretation Comments POTASSIUM ([facility]) (test code = 4.0 meq/L 3.5-5.1 379) Human Resources Temp ID - KEYANA CRAD, CHEST, 1 VIEW, NON [id number] 09:00:00Reason for exam:->intubationShould this be performed at the bedside?->Yes [facility] KEITHSuzan : 1960 Sex: FFINAL REPORT Chest one view. Clinical history: intubation Comparison: February 18, 2021 Discussion: A frontal chest is provided. Cardiomediastinal contours are unchanged. Lines and tubes are in stable position. There are left greater than right bibasilar opacities, which may reflect atelectasis or consolidation. No pneumothorax or large effusion. Signed: Elda Lui MDReport Verified Date/Time: 02/20/2021 09:00:01 Reading Location: [facility] B1 C013X Ortho Consult Reading Room PHENYTOIN LEVEL, [id number] 05:02:00 Test Item Value Reference Range Interpretation Comments PHENYTOIN (DILANTIN) (BEAKER) 19.0 ug/mL 10.0-20.0 (test code = 605) Human Resources Temp ID - GAIL LBASIC METABOLIC [id number] 04:36:00 Test Item Value Reference Range Interpretation [...] S NOT APPLICABLE FOR DIALYSIS PATIEN TS. Human Resources Temp ID - GAIL [id number] 04:27:00 Test Item Value Reference Range Interpretation Comments MAGNESIUM (BEAKER) (test code = 1.6 mg/dL 1.6-2.6 627) Human Resources Temp ID - GAIL [id number] 04:27:00 Test Item Value Reference Range Interpretation Comments PHOSPHORUS (BEAKER) (test code = 3.0 mg/dL 2.3-4.7 604) Human Resources Temp ID - PIHILL LHIGH SENSITIVITY TROPONIN [id number] 04:15:00 Test Item Value Reference Range Interpretation Comments HIGH SENSITIVITY 366 pg/ml See_Comment H [Automated message] TROPONIN I (test code The sy stem which = 5761370) generated this result transmitted ref erence range: <=17. Th e reference range was not used to int erpret this result as normal/abnormal . Human Resources Temp ID - PIHILL LThe TOWN JUSTICE STAT High Sensitivity Troponin-I results should be used in conjunction with other diagnostic information such as ECG, clinical observations and information, and patient symptoms to aid in the diagnosis of WI.BLOOD GAS, [id number] 04:01:00 Test Item Value Reference Range Interpretation [...] 1819) 70.0 CBC W/PLT COUNT & AUTO [id number] 03:56:00 Test Item Value Reference Range Interpretation [...] PERCENT (BEAKER) (test code = 2801) POCT-GLUCOSE [id number] 21:25:00 Test Item Value Reference Range Interpretation Comments POC-GLUCOSE METER 126 mg/dL 70-110 H : TESTED A T [facility] 6720 (BEAKER) (test code = NELL [place], 1538) [address]48[address]: Human Resources Temp/Techni jose ID = [id number] for JACKIE DIALLO POCT-GLUCOSE [id number] 17:56:00 Test Item Value Reference Range Interpretation Comments POC-GLUCOSE METER 126 mg/dL 70-110 H : TESTED A T [facility] 6720 (BEAKER) (test code [facility], = 1538) [address]: Human Resources Temp/Techni jose ID = [id number] for Lili herman (pca2)Carla RAPID DRUG SCREEN, [id number] 17:04:00 Test Item Value Reference Range Interpretation [...] situations. Chain of custody not maintained. Some ljyx-hsr-zhauhmm medications, as well as adulterants, may cause inaccurate results. Clinical correlation should be applied. A more comprehensivedrug screen or confirmation of a detected drug may be performed upon request.Human Resources Temp ID - CDPMAGNESIUM 2021-02-19 15:59:00 Test Item Value Reference Range Interpretation Comments MAGNESIUM (BEAKER) 2.0 mg/dL 1.6-2.6 Specimen slightly (test code = 627) hemolyzed Human Resources Temp ID - GAIL LHIGH SENSITIVITY TROPONIN [id number] 15:20:00 Test Item Value Reference Range Interpretation Comments HIGH SENSITIVITY 694 pg/ml See_Comment HH [Automated message] TROPONIN I (test code The sy stem which = [id number]) generated this result transmitted ref erence range: <=17. Th e reference range was not used to int erpret this result as normal/abnormal . Human Resources Temp ID - GAIL LThe TOWN JUSTICE STAT High Sensitivity Troponin-I results should be used in conjunction with other diagnostic information such as ECG, clinical observations and information, and patient symptoms to aid in the diagnosis of WI.[id number] 15:18:00 Test Item Value Reference Range Interpretation Comments SODIUM ([place]) (test code = 381) 129 meq/L 136-145 L Human Resources Temp ID - GAIL LPOCT-GLUCOSE [id number] 12:30:00 Test Item Value Reference Range Interpretation Comments POC-GLUCOSE METER 126 mg/dL 70-110 H : TESTED A T [facility] 6720 ([place]) (test code [facility], = 1538) 72[address]: Human Resources Temp/Techni ojse ID = [id number] for Llii herman ([facility])Carla SARS-COV2/RT-PCR ([facility])2021-02-19 12:13:00 Test Item Value Reference Range Interpretation Comments SARS-COV2/RT-PCR (test Negative Not Detected, Negative, code = 2866164) See external report for linked test SARS-COV-2 PERFORMING LAB [facility] NICOLASA (test code = 9859164) Negative result for this test determines that [...] 564(g) of the Act.Fact Sheet for Healthcare Providers:https://www.YYzhaoche/sites/default/files/product/documents/Fact_Shee y_SG_Gbsqrkmxj_Dlxn_DQAP-ZaJ-8.pdfFact Sheet for Healthcare Patients:https://www.YYzhaoche/sites/default/files/product/ documents/Jtyr_Dqhdz_Bchgdiek_Meqj_AXDN-BjD-7.pdfPerforming Laboratory:[facility], [place] [address]OXXGGXQZPR W/ REFLEX URINE [id number] 11:01:00 Test Item Value Reference Range Interpretation [...] = 1521) SOURCE(BEAKER) (test code = 2795) Human Resources Temp ID - [auto]Human Resources Temp ID - [auto]Human Resources Temp ID - techPROCALCITONIN 2021-02-19 09:32:00 Test Item Value Reference Range Interpretation Comments PROCALCITONIN (BEAKER) (test code 0.09 ng/mL <0.05 H = 3036) SEPSIS RISK (ng/mL)Low: 0.05-0.50Intermediate: 0.51-2.00High: >=2.01TSH/FREE T4 IF [id number] 09:17:00 Test Item Value Reference Range Interpretation Comments THYROID STIMULATING HORMONE 4.395 uIU/mL 0.350-4.940 (BEAKER) (test code = 772) Human Resources Temp ID - PIHILL LHIGH SENSITIVITY TROPONIN [id number] 09:10:00 Test Item Value Reference Range Interpretation Comments HIGH SENSITIVITY 976 pg/ml See_Comment HH [Automated message] TROPONIN I (test code The sy stem which = 5551467) generated this result transmitted ref erence range: <=17. Th e reference range was not used to int erpret this result as normal/abnormal . Human Resources Temp ID - GAIL LThe TOWN JUSTICE STAT High Sensitivity Troponin-I results should be used in conjunction with other diagnostic information such as ECG, clinical observations and information, and patient symptoms to aid in the diagnosis of WI.PHENYTOIN LEVEL, [id number] 09:01:00 Test Item Value Reference Range Interpretation Comments PHENYTOIN (DILANTIN) (BEAKER) 25.3 ug/mL 10.0-20.0 H (test code = 605) Human Resources Temp ID - PIHILL [id number] 08:55:00 Test Item Value Reference Range Interpretation Comments PREALBUMIN (BEAKER) (test code = 17 mg/dL 1445 586) Human Resources Temp ID - GAIL [id number] 08:52:00 Test Item Value Reference Range Interpretation Comments ETHANOL (BEAKER) < mg/dL See_Comment [Automated message] The (test code = 400) system whi ch generated this result tra nsmitted reference range : <=10. The reference r kian was not used to int erpret this result as normal/abnormal . Human Resources Temp ID Mili REYNOLDS LLACTIC ACID, [id number] 08:51:00 Test Item Value Reference Range Interpretation Comments LACTATE BLOOD ARTERIAL (2) 0.8 mmol/L 0.5-2.2 (BEAKER) (test code = 2874) Human Resources Temp ID Mili REYNOLDS LCBC W/PLT COUNT & AUTO [id number] 08:33:00 Test Item Value Reference Range Interpretation [...] (BEAKER) (test code = 964) 1+ few [id number] 07:32:00 Test Item Value Reference Range Interpretation Comments MAGNESIUM (BEAKER) (test code = 1.6 mg/dL 1.6-2.6 627) Human Resources Temp ID - GAIL [id number] 07:32:00 Test Item Value Reference Range Interpretation Comments PHOSPHORUS (BEAKER) (test code = 4.7 mg/dL 2.3-4.7 604) Human Resources Temp ID - GAIL LB-TYPE NATRIURETIC FACTOR (BNP)2021-02-19 07:27:00 Test Item Value Reference Range Interpretation Comments B-TYPE NATRIURETIC PEPTIDE (BEAKER) 251 pg/mL 0-100 H (test code = 700) Human Resources Temp ID - PIHILL [id number] 07:13:00 Test Item Value Reference Range Interpretation Comments SODIUM (BEAKER) (test code = 381) 129 meq/L 136-145 L Human Resources Temp ID - PIAYA LCALCIUM, [id number] 06:47:00 Test Item Value Reference Range Interpretation Comments CALCIUM IONIZED (BEAKER) (test 1.05 mmol/L 1.12-1.27 L code = 698) PH, BLOOD (BEAKER) (test code = 7.37 1810) BLOOD GAS, [id number] 06:46:00 Test Item Value Reference Range Interpretation [...] (test code = 1819) 70.0 COMPREHENSIVE METABOLIC [id number] 05:01:00 Test Item Value Reference Range Interpretation [...] S NOT APPLICABLE FOR DIALYSIS PATIEN TS. Human Resources Temp ID - PIAYA [id number] 04:44:00 Test Item Value Reference Range Interpretation Comments PARTIAL THROMBOPLASTIN TIME 33.1 seconds 22.5-36.0 (BEAKER) (test code = 760) PROTHROMBIN TIME/[id number] 04:43:00 Test Item Value Reference Range Interpretation Comments PROTIME (BEAKER) 13.1 seconds 11.9-14.2 (test code = 759) INR (BEAKER) (test 1.01 See_Comment [Automat ed message] code = 370) The system Nephros generated this result transmitted ref erence range: <=5.90. The reference range was not used to int erpret this result as normal/abnormal . RECOMMENDED COUMADIN/WARFARIN INR THERAPY RANGESSTANDARD DOSE: 2.0 - 3.0 Includes: PROPHYLAXIS forvenous thrombosis, systemic embolization; TREATMENT for venous thrombosis and/or pulmonary embolus.HIGH RISK: Target INR is 2.5-3.5 for patients with mechanical heart valves.RAD, ABDOMEN/KUB, 1 VIEW [id number] 00:33:00Reason for exam:->feeding tube placementShould this be performed at the bedside?->Yes [facility] SHAE : 1960 Sex: FFINAL REPORT Abdomen one [...] may represent atelectasis and/or pneumonia. Signed: Jo-Ann Meadows MDReport Verified Date/Time: 02/19/2021 00:33:31 RAD, CHEST, 1 VIEW, NON [id number] 00:00:00Reason for exam:->CEREBROVASCULAR ACCIDENTShould this be performed at the bedside?->Yes [facility] : 1960 Sex: FFINAL REPORT [...] MDReport Verified Date/Time: 02/19/2021 00:00:35 BLOOD GAS, [id number] 23:22:00 Test Item Value Reference Range Interpretation [...] (test code = 1819) 70.0 CT, BRAIN/STROKE [id number] 22:15:00 [facility] : 1960 Sex: FFINAL REPORT [...] approximately 10:14 PM 02/18/2021. Signed: Jo-Ann Meadows MDReport Verified Date/Time: 02/18/2021 22:15:30 COVID-19 (ID NOW RAPID TESTING)2020-07-09 00:20:00 Test Item Value Reference Range Interpretation Comments SARS-CoV-2 Rapid ID NOW Not Detected Not Detected (test code = 33258-2) QUANG (test code = QUANG) ID NOW COVID-19 Assay is an isothermal nucleic acid amplification test intended for the qualitative detection of nucleic acid from SARS-CoV-2 viral RNA in nasopharyngeal (PERSONAL CARER) specimens. It is used under Emergency Use [...] indicated. Lab Interpretation Normal (test code = 26332-6) [facility] 15:43:00 Test Item Value Reference Range Interpretation Comments SURG (test code = SURG) RUN DATE: 07/04/20 [facility] S[facility] - LAB PAGE 1 RUN TIME: 1544 Specimen Inquiry RUN USER: INTERFACE PATIENT: CATHY GIRALDO LOC: [place] U #: [id number] AGE/SX: 59/F ROOM: RE07/03/20[facility] DR: Alan Rob MD : 58 BED: DIS: STATUS: [place] [facility] [place]: SPEC #: [id number] RECD: 07/03/20 STATUS: JEANNETTE REQ #: [id number] SHANNON: 07/03/[address]: Alan Rob MD ENTERED: 07/03/20 SP TYPE: SURG OTHR DR: Jazlyn Carnes MD ORDERED: SURG PATH LVL 5 COPIES TO: Jazlyn Carnes MD [address] [place] [address] [place] [phone] [address] HISTOLOGY: TISSUE ID BLK PCS PB LEV PROCEDURE DISPOSITION ____ ___ ___ ___ URINARY BLADDER A 1 2 PROCEDURES: SURG PATH LVL 5 (07/03/20-1043) TISSUES: A. URINARY BLADDER, NOS - BLADDER MASS BIOPSY CLINICAL HISTORY HEMATURIA - R31.29 CPT CODES CPT CODE(S): 30636 , , , , , , FINAL DIAGNOSIS Urinary bladder, biopsy: URINARY PAPILLOMA GROSS DESCRIPTION Bladder mass biopsy. Received in formalin are nine fragments of soft pink-gauthier tissue, together measuring 1.3 x 0.9 x 0.4 cm. The entire specimen is submitted as A. william/danielle Grossing performed at [facility] Pathology, [facility], [address], CONTINUED ON NEXT PAGE RUN DATE: 07/04/20 [facility] - LAB PAGE 2 RUN TIME: 1544 Specimen Inquiry RUN USER: INTERFACE SPEC #: [id number] PATIENT: CATHY GIRALDO #[id number] (Continued) GROSS DESCRIPTION (Continued) [place], [place] [address]. Animal Care Specialist: Diego Sevilla M.D. MICROSCOPIC DESCRIPTION Bladder mass biopsy. Sections a mixture of urothelial and squamous mucosa. The biopsy demonstrates a papillary appearance. No dysplasia or malignancy is identified. 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 Signed SIGNATURE ON FILE Abhay Smyth 07/04/20 1543 END OF REPORT COVID 19 INHOUSE [id number] 08:21:00 Test Item Value Reference Range Interpretation Comments COVID 19 INHOUSE AG NEGATIVE Negative Per manu facturer, (test code = negative result s should [id number]) be treated aspr esumptive and, if inconsi [...] nsistent with COVID-19. - XR CHEST 1 [id number] 08:21:00 [facility] 1960 Sex: F Name: CATHY GIRALDO [facility] : 0 1960 Age/S: 59 / F [address] [address] [employer] Unit #: [id number] Loc: [place] [address] Phys: Alan Rob MD Acct: [id number] Dis Date: Status: [place] [facility] [place] #: [phone] Exam Date: 07/03/2020805 FAX #: Reason: SURGERY EXAMS: CPT: [id number] XR CHEST 1 V 74010 Fluoro Time: DAP (Gy m2): Air Kerma [...] PAGE 1 Signed Report Name: CATHY GIRALDO [facility] : 1960 Age/S: 59 / F [address] [address] [employer] Unit #: [id number] Loc: [place] [address] Phys: Alan Rob MD Acct: [id number] Dis Date: Status: REG DIRK #: [phone] Exam Date: 07/03/2020805 FAX #: Reason: SURGERY EXAMS: CPT: [id number] XR CHEST 1 V 68728 FluoroTime: DAP (Gy m2): Air Kerma (mGy): <Continued> Technologist: Clarissa Chatterjee, RT(R) Trnscb Date/Time: 07/03/2020 (820) [id number] Orig Print D/T: S: 07/03/2020 (823) PAGE 2 Signed ReportBASIC METABOLIC PANEL 2020-07-03 [...] CA) 8.8 MG/DL 8.5-10.1 N BASIC METABOLIC [id number] 15:40:00 Test Item Value Reference Range Interpretation [...] = CA) 9.0 MG/DL 8.5-10.1 N PROTHROMBIN [id number] 14:15:00 Test Item Value Reference Range Interpretation Comments PT PATIENT (test code = PTP) 9.5 SECONDS 9.3-12.9 N INTERNATIONAL NORMAL RATIO 0.84 INR Unit 0.8-1.2 N (test code = INR) THROMBOPLASTIN TIME [id number] 14:15:00 Test Item Value Reference Range Interpretation Comments THROMBOPLASTIN TIME PARTIAL 29.5 SECONDS 26-35 N (test code = PTT) CBC W/AUTO [id number] 14:03:00 Test Item Value Reference Range Interpretation [...] DIFF/SCN CRITERIA = MDIFF) CT Head W/O [id number] 14:07:21 No acute intracranial hemorrhage or mass [...] are intact. High riding right jugular bulb. [facility], Radiant Results Inft User - 04/30/2020 8:08 [...] report.[facility] RockPHENYTOIN [id number] 13:55:00 Test Item Value Reference Range Interpretation Comments PHENY FREE (test code 1.1 ug/mL 1-2 = 1668116116) QUANG (test code = QUANG) Toxic Range: ? Greater than 2.5 ug/mL Test developed and characteristics determined by [facility] Laboratory Services. Lab Interpretation Normal (test code = 47590-4) [facility] RockCB WITH [id number] 12:39:00 Test Item Value Reference Range Interpretation [...] RDW-SD (test code = 45.0 fL 39-49.9 11140-0) RDW-CV (test code = 13.2 % 12-15.5 788-0) PLT (test code = See_Comment [Automated 777-3) message] The system which generated this result transmit marta reference range : 166 - 358 10*3/ ?L. The reference range was not u sed to interpret th is result as normal/abnormal . MPV (test code = 9.4 fL 9.5-12.9 L 59478-4) NRBC/100 WBC (test See_Comment [Automat ed code = 3524401105) message] The system which generated this result transmit marta reference range : 0.0 - 10.0 /100 WBCs. The reference range was not used to interpret this result as normal/abnormal . NRBC x10^3 (test code <0.01 See_Comment [Auto mated = 0665130083) message] The system which generated this result transmit marta reference range : 10*3/?L. The reference range was not used to interpret this result as normal/abnormal . GRAN MAT (NEUT) % 84.1 % (test code = 770-8) IMM GRAN % (test code 0.50 % = 9322860607) LYMPH % (test code = 7.1 % 736-9) MONO % (test code = 8.0 % 5905-5) EOS % (test code = 0.1 % 713-8) BASO % (test code = 0.2 % 706-2) GRAN MAT x10^3(ANC) 18.51 10*3/uL 1.88-7.09 H (test code = 9134946765) IMM GRAN x10^3 (test 0.12 10*3/uL 0-0.06 H code = 0980441868) LYMPH x10^3 (test code 1.56 10*3/uL 1.32-3.29 = 731-0) MONO x10^3 (test code 1.75 10*3/uL 0.33-0.92 H = 742-7) EOS x10^3 (test code = <0.03 0.03-0.39 L 711-2) BASO x10^3 (test code 0.05 10*3/uL 0.01-0.07 = 704-7) EVIE CELLS (test code 2+ See_Comment A [Auto mated = 7790-9) message] The system which generated this result transmit marta reference range : (none). The reference range was not used to interpret this result as normal/abnormal . Lab Interpretation Abnormal (test code = 66119-4) [facility] RockOSMOLALITY [id number] 12:21:00 Test Item Value Reference Range Interpretation Comments OSMOLALITY (test code = See_Comment L [Au tomated message] 7277766811) The system Nephros generated this result transmitted ref erence range: 278 - 30 5 mOsm/kg. The reference range was not used to int erpret this result as normal/abnormal . Lab Interpretation (test Abnormal code = 21107-7) [facility] RockSedimentation Rate - [id number] 12:09:00 Test Item Value Reference Range Interpretation Comments ESR (test code = See_Comment [Automated message] 9083860633) The system Nephros generated this result transmitted ref erence range: 0 - 20 m m/HR. The reference r kian was not used to interpret this result as normal/abnor mal. Lab Interpretation (test Normal code = 10819-2) [facility] METABOLIC PANEL (NA, K, CL, CO2, GLUCOSE, BUN, CREATININE, CA)2020-04-30 11:24:00 Test Item Value Reference Range Interpretation Comments NA (test code = 128 mmol/L 135-145 L 1630187872) K (test code = 3.3 mmol/L 3.5-5 L 0323159735) CL (test code = 99 mmol/L 98-108 5117272774) CO2 TOTAL (test code = 16 mmol/L 23-31 L 3061468217) AGAP (test code = 2-16 2405745463) BUN (test code = 8 mg/dL 7-23 5916598679) GLUCOSE (test code = 76 mg/dL 70-110 5352217716) CREATININE (test code = 0.35 mg/dL 0.5-1.04 L 1113222634) CALCIUM (test code = 8.4 mg/dL 8.6-10.6 L 8375621120) eGFR Calculation mL/min/1.73m2 (Non-) (test code = 1285796903) eGFR Calculation mL/min/1.73m2 () (test code = 2260664775) QUANG (test code = QUANG) Association of [...] tests). Lab Interpretation Abnormal (test code = 68779-9) [facility] RockGALV/CLC ONLY - URINE DRUG (IMMUNOASSAY) - COMPREHENSIVE DRUG [id number] 05:25:00 Test Item Value Reference Range Interpretation Comments AMPHET (test code = Negative Negative 4585563039) ESTHER U (test code = Negative Negative 4943807378) BENZO U (test code = Negative Negative 4203219960) Cocaine Metabolite (test Negative Negative code = 1924893552) METHADONE (test code = Negative Negative 5849598865) OPIATES (test code = Negative Negative 1799832203) PCP (test code = Negative Negative 7273979322) THC (test code = Presumptive Positive Negative A 3137256845) QUANG (test code = QUANG) Urine Drug [...] testing). Lab Interpretation (test Abnormal code = 21053-6) [facility] RockCREATININE, URINE [id number] 05:04:00 Test Item Value Reference Range Interpretation Comments CREAT U (test code = 7670127871) 29.2 mg/dL [facility] RockSODIUM, URINE [id number] 05:04:00 Test Item Value Reference Range Interpretation Comments NA URINE (test code = 7728657450) 103 mmol/L [facility] RockUREA NITROGEN, URINE [id number] 05:04:00 Test Item Value Reference Range Interpretation Comments UREA N UR (test code = 2342496172) 324 mg/dL [facility] RockOSMOLALITY [id number] 04:57:00 Test Item Value Reference Range Interpretation Comments OSMO U (test code = See_Comment [Automa marta message] 3518120427) The system whic h generated this result transmitted ref erence range: 50-1,100 mOsm/kg. The re ference range was not u sed to interpret this result as normal/abnor mal. Lab Interpretation (test Normal code = 74127-5) [facility] 1 [id number] 23:40:22 No acute cardiopulmonary process. Bibasilar atelectasis. [...] report.[facility] RockAC PANEL 21 + LACTIC [id number] 23:02:00 Test Item Value Reference Range Interpretation Comments PH (test code = 7.32-7.42 3649231048) PCO2 DEIRDRE (test code = See_Comment L [Auto mated 9886027356) message] The sy stem which generated this result transmitted reference range : 41 - 51 mmHg. The reference range was not used to interpret this result as normal/abnormal . PO2 DEIRDRE (test code = See_Comment [Autom ated 6608784383) message] The sy stem which generated this result transmitted reference range : 25 - 40 mmHg. The reference range was not used to interpret this result as normal/abnormal . HCO3 DEIRDRE (test code = See_Comment L [Auto mated 8955550283) message] The sy stem which generated this result transmitted reference range : 24 - 28 mEq/L. The reference range was not used to interpret this result as normal/abnormal . AC VBE(BEAKER) (test mEq/L code = 5555552190) THB DEIRDRE (test code = 15.4 g/dL 12-16 9963142473) %O2HB DEIRDRE (test code = 66.0 % 52-63 H 5527047490) %COHB DEIRDRE (test code = 2.6 % 0-1.5 H 9251673662) %METHB DEIRDRE (test code = 0.3 % 0.4-1.5 L 5883591056) VOL%O2 DEIRDRE (test code = 14.2 % 6-12 H 5934549085) NA (test code = 130 mmol/L 135-145 L 5027504776) K+ (test code = 4.5 mmol/L 3.5-5 5686740069) AC CA IONZ (test code = 4.10 mg/dL 4.5-5.3 L 7239338219) GLUCOSE (test code = 131 mg/dL 70-110 H 3467800056) LACTIC ACID (test code 3.39 mmol/L = 2317903134) Lab Interpretation Abnormal (test code = 91395-2) [facility] RockPHENYTOIN2020-11-01 22:25:00 Test Item Value Reference Range Interpretation Comments PHENYTOIN (test code = 10.5 ug/mL 10-20 7704354348) QUANG (test code = QUANG) Toxic Range: ? 0-3 Months ? Greater than 14 ug/mL ? ? 3 Months - 150 Years ? ? Greater than 20 ug/mL Lab Interpretation (test Normal code = 84663-6) [facility] RockCOVID-19 (ID NOW RAPID TESTING)2020-04-29 22:07:00 Test Item Value Reference Range Interpretation Comments SARS-CoV-2 Rapid ID NOW Not Detected Not Detected (test code = 95091-8) QUANG (test code = QUANG) ID NOW COVID-19 Assay is an isothermal nucleic acid amplification test intended for the qualitative detection of nucleic acid from SARS-CoV-2 viral RNA in nasopharyngeal (PERSONAL CARER) specimens. It is used under Emergency Use [...] indicated. Lab Interpretation Normal (test code = 98124-0) [facility] RockHepatic Function Panel (ALB, T.PRO, BILI T, BU/BC, ALT, AST, ALK PHOS)2020-04-29 21:54:00 Test Item Value Reference Range Interpretation Comments TOTAL BILI (test code = 6416482589) 0.5 mg/dL 0.1-1.1 BILI UNCON (test code = 5160060855) 0.4 mg/dL 0.1-1.1 BILI CONJ (test code = 8783009376) 0.0 mg/dL 0-0.3 T PROTEIN (test code = 6143217984) 7.6 g/dL 6.3-8.2 ALBUMIN (test code = 8607471216) 4.4 g/dL 3.5-5 ALK PHOS (test code = 9891904369) 171 U/L 34-122 H ALTv (test code = 1742-6) 37 U/L 5-35 H AST(SGOT) (test code = 6893838007) 90 U/L 13-40 H Lab Interpretation (test code = Abnormal 27711-6) [facility] RockBasic Metabolic Panel (NA, K, CL, CO2, GLUCOSE, BUN, CREATININE, CA)2020-04-29 21:47:00 Test Item Value Reference Range Interpretation Comments NA (test code = 126 mmol/L 135-145 L 0914047580) K (test code = 3.6 mmol/L 3.5-5 6740242698) CL (test code = 94 mmol/L 98-108 L 4040536169) CO2 TOTAL (test code = 11 mmol/L 23-31 L 3433654885) AGAP (test code = 2-16 H 3130737438) BUN (test code = 13 mg/dL 7-23 9081533961) GLUCOSE (test code = 219 mg/dL 70-110 H 6858963655) CREATININE (test code = 0.53 mg/dL 0.5-1.04 6943443819) CALCIUM (test code = 8.9 mg/dL 8.6-10.6 5396968632) eGFR Calculation mL/min/1.73m2 (Non-) (test code = 5970469735) eGFR Calculation mL/min/1.73m2 () (test code = 0550702729) QUANG (test code = QUANG) Association of [...] tests). Lab Interpretation Abnormal (test code = 12714-7) [facility] RockLipase [id number] 21:47:00 Test Item Value Reference Range Interpretation Comments LIPASE (test code = 1245359094) 122 U/L 0-220 Lab Interpretation (test code = Normal 35616-8) [facility] RockCREATINE [id number] 21:47:00 Test Item Value Reference Range Interpretation Comments CK (test code = 9777302840) 45 U/L 33-194 Lab Interpretation (test code = Normal 64249-1) [facility] RockUrinalysis2020-11-01 21:45:00 Test Item Value Reference Range Interpretation Comments APPEARANCE (test code = Hazy Clear A 2803273781) COLOR (test code = Yellow Yellow 1668833912) PH (test code = 4.8-8.0 7172600803) SP GRAVITY (test code = 1.003-1.030 8885372739) GLU U QUAL (test code = 50 mg/dL Normal A 4570374762) BLOOD (test code = 1+ Negative A 9940437505) KETONES (test code = 5 mg/dL Negative A 7818349465) PROTEIN (test code = 100 mg/dL Negative A 2887-8) UROBILIN (test code = Normal Normal 2846799319) BILIRUBIN (test code = Negative Negative 0112188563) NITRITE (test code = Negative Negative 6679686135) LEUK KARINA (test code = 500/uL Negative A 5051591249) RBC/HPF (test code = See_Comment [Autom ated message] 4213081291) The system Nephros generated this result transmit marta reference range : 0 - 3 HPF. The refe rence range was not u sed to interpret th is result as normal/abnormal . WBC/HPF (test code = See_Comment H [Autom ated message] 3354227430) The system Nephros generated this result transmit marta reference range : 0 - 5 HPF. The refe rence range was not u sed to interpret th is result as normal/abnormal . BACTERIA (test code = Few Negative A 2036304289) SQ EPITH (test code = <1 HPF 2118046816) WBC CLUMPS (test code = See_Comment H [Au tomated message] 4098146493) The system Nephros generated this result transmit marta reference range : <=1 HPF. The refere nce range was not u sed to interpret th is result as normal/abnormal . HYAL CAST (test code = See_Comment [Aut omated message] 2040629435) The system Nephros generated this result transmit marta reference range : <=2 LPF. The refere nce range was not u sed to interpret th is result as normal/abnormal . Lab Interpretation (test Abnormal code = 37520-2) [facility] with Ildzigpivwgk9330-23-35 21:24:00 Test Item Value Reference Range Interpretation Comments WBC (test code = See_Comment H [Automated 7790-2) message] The system which generated this result [...] RDW-SD (test code = 47.7 fL 39-49.9 95382-4) RDW-CV (test code = 13.5 % 12-15.5 788-0) PLT (test code = See_Comment H [Automated 777-3) message] The system which generated this result transmit marta reference range : 166 - 358 10*3/ ?L. The reference range was not u sed to interpret th is result as normal/abnormal . MPV (test code = 9.3 fL 9.5-12.9 L 21051-9) NRBC/100 WBC (test See_Comment [Automat ed code = 1907969736) message] The system which generated this result transmit marta reference range : 0.0 - 10.0 /100 WBCs. The reference range was not used to interpret this result as normal/abnormal . NRBC x10^3 (test code <0.01 See_Comment [Auto mated = 7710603641) message] The system which generated this result transmit marta reference range : 10*3/?L. The reference range was not used to interpret this result as normal/abnormal . GRAN MAT (NEUT) % 68.6 % (test code = 770-8) IMM GRAN % (test code 0.50 % = 9626077066) LYMPH % (test code = 22.1 % 736-9) MONO % (test code = 8.0 % 5905-5) EOS % (test code = 0.4 % 713-8) BASO % (test code = 0.4 % 706-2) GRAN MAT x10^3(ANC) 10.30 10*3/uL 1.88-7.09 H (test code = 0058435391) IMM GRAN x10^3 (test 0.08 10*3/uL 0-0.06 H code = 4960864629) LYMPH x10^3 (test code 3.33 10*3/uL 1.32-3.29 H = 731-0) MONO x10^3 (test code 1.21 10*3/uL 0.33-0.92 H = 742-7) EOS x10^3 (test code = 0.06 10*3/uL 0.03-0.39 711-2) BASO x10^3 (test code 0.06 10*3/uL 0.01-0.07 = 704-7) Lab Interpretation Abnormal (test code = 32324-9) [facility] RockLactic Acid Whole Goxqk1859-18-24 21:08:00 Test Item Value Reference Range Interpretation Comments LACTIC ACID (test code = 7.37 mmol/L 4052605333) [facility] RockUS RETROPERITONEAL HWSQHGPB8323-92-10 18:08:18 Bilateral nonobstructive subcentimeter 5 mm lower [...] seen bilaterally. Preserved corticomedullarydifferentiation and normal renal echogenicity.[facility] ObklqbFHUJJGXPPP7784-83-33 18:33:0066.0[facility]annTOXICOLOGY 2019-11-25 18:33:005.6[facility] UuhjouvREJRRYDIEJ9948-39-99 18:33:009.1[facility] ZqgantrNDOSZTCDEL7023-50-25 18:33:0066.0[facility] XzhkmvdOGGPFWLWUX9890-14-34 18:33:005.6[facility] PerbwrqNUPALSMBLB4447-11-66 18:33:009.1[facility] MWWYABBJK0572-99-28 23:52:00 Test Item Value Reference Range Interpretation Comments PHENYTOIN (test code = 9.2 ug/mL 10-20 L 7027508107) QUANG (test code = QUANG) Toxic Range: ? 0-3 Months ? Greater than 14 ug/mL ? ? 3 Months - 150 Years ? ? Greater than 20 ug/mL Lab Interpretation (test Abnormal code = 61114-5) [facility] Metabolic Panel (NA, K, CL, CO2, GLUCOSE, BUN, CREATININE, CA)2019-10-16 23:26:00 Test Item Value Reference Range Interpretation Comments NA (test code = 127 mmol/L 135-145 L 4906924684) K (test code = 4.0 mmol/L 3.5-5 8068658446) CL (test code = 96 mmol/L 98-108 L 0877276849) CO2 TOTAL (test code = 18 mmol/L 23-31 L 0151757205) AGAP (test code = 2-16 8922666444) BUN (test code = 14 mg/dL 7-23 5795595328) GLUCOSE (test code = 148 mg/dL 70-110 H 1428927193) CREATININE (test code = 0.57 mg/dL 0.5-1.04 1547660125) CALCIUM (test code = 8.9 mg/dL 8.6-10.6 6948690786) eGFR Calculation mL/min/1.73m2 (Non-) (test code = 6291526670) eGFR Calculation mL/min/1.73m2 () (test code = 0045828311) QUANG (test code = QUANG) Association of [...] tests). Lab Interpretation Abnormal (test code = 09599-8) [facility] RockHepatic Function Panel (ALB, T.PRO, BILI T, BU/BC, ALT, AST, ALK PHOS)2019-10-16 23:26:00 Test Item Value Reference Range Interpretation Comments TOTAL BILI (test code = 1354705137) 0.3 mg/dL 0.1-1.1 BILI UNCON (test code = 0628244109) 0.4 mg/dL 0.1-1.1 BILI CONJ (test code = 1786914076) 0.0 mg/dL 0-0.3 T PROTEIN (test code = 9034600717) 7.5 g/dL 6.3-8.2 ALBUMIN (test code = 3399150517) 4.4 g/dL 3.5-5 ALK PHOS (test code = 1104274260) 189 U/L 34-122 H ALTv (test code = 1742-6) 22 U/L 5-35 AST(SGOT) (test code = 2677379608) 66 U/L 13-40 H Lab Interpretation (test code = Abnormal 97394-9) [facility] WITH QYHVPPHHTODP6887-45-44 22:33:00 Test Item Value Reference Range Interpretation [...] RDW-SD (test code = 49.3 fL 39-49.9 95831-0) RDW-CV (test code = 14.1 % 12-15.5 788-0) PLT (test code = See_Comment [Automated 777-3) message] The sy stem which generated this result transmitted reference range : 166 - 358 10*3/ ?L. The reference r kian was not used to interpret this result as normal/abnormal . MPV (test code = 9.4 fL 9.5-12.9 L 73387-4) NRBC/100 WBC (test See_Comment [Automat ed code = 7233259919) message] The system which generated this result transmitted reference range : 0.0 - 10.0 /100 WBCs. The refer ence range was not u sed to interpret th is result as normal/abnormal . NRBC x10^3 (test code <0.01 See_Comment [Auto mated = 7269819855) message] The s ystem which generated this result transmitted reference range : 10*3/?L. The reference range was not used to interpret this result as normal/abnormal . GRAN MAT (NEUT) % 70.6 % (test code = 770-8) IMM GRAN % (test code 0.60 % = 9508435656) LYMPH % (test code = 19.2 % 736-9) MONO % (test code = 9.0 % 5905-5) EOS % (test code = 0.3 % 713-8) BASO % (test code = 0.3 % 706-2) GRAN MAT x10^3(ANC) 8.16 10*3/uL 1.88-7.09 H (test code = 2730229415) IMM GRAN x10^3 (test 0.07 10*3/uL 0-0.06 H code = 2366799305) LYMPH x10^3 (test code 2.22 10*3/uL 1.32-3.29 = 731-0) MONO x10^3 (test code 1.04 10*3/uL 0.33-0.92 H = 742-7) EOS x10^3 (test code = 0.04 10*3/uL 0.03-0.39 711-2) BASO x10^3 (test code 0.04 10*3/uL 0.01-0.07 = 704-7) Lab Interpretation Abnormal (test code = 68327-0) [facility] RockPOCT GLUCOSE (AUTOMATED)2019-10-16 22:26:00 Test Item Value Reference Range Interpretation Comments POCT GLU (test code = 0772662760) 158 mg/dL 70-110 H Lab Interpretation (test code = Abnormal 74421-9) [facility] RockTOXICOLOGY2020-04-09 16:52:0013.2[facility] DptvmadYIQMGWJHGE7816-52-27 16:52:0080.0[facility] MabysntQKMFYQUAVZ1988-26-76 16:52:0013.2[facility] QxuylbvMKAHSKVJPC7379-64-92 16:52:0080.0[facility] IYQCDKKYSZ4130-41-46 18:24:00 Test Item Value Reference Range Interpretation Comments APPEARANCE (test code = Clear Clear 8248787999) COLOR (test code = Yellow Yellow 9889028049) PH (test code = 4.8-8.0 5689176016) SP GRAVITY (test code = 1.003-1.030 1416438863) GLU U QUAL (test code = Negative Negative 0495848832) BLOOD (test code = Negative Negative 0029947024) KETONES (test code = Negative Negative 4279440294) PROTEIN (test code = Negative Negative 2887-8) UROBILIN (test code = 0.2 mg/dL See_Comment [Auto mated message] 9066792416) The system Nephros generated this result transmit marta reference range : 0-1.0 mg/dL. Th e reference range was not used to interpret this result as normal/abnormal . BILIRUBIN (test code = Negative Negative 4197146235) NITRITE (test code = Negative Negative 5878011641) LEUK KARINA (test code = Negative Negative 4682730257) RBC/HPF (test code = See_Comment [Autom ated message] 3011669512) The system Nephros generated this result transmit marta reference range : 0 - 3 HPF. The refe rence range was not u sed to interpret th is result as normal/abnormal . WBC/HPF (test code = See_Comment [Autom ated message] 4463336398) The system Nephros generated this result transmit marta reference range : 0 - 5 HPF. The refe rence range was not u sed to interpret th is result as normal/abnormal . BACTERIA (test code = Negative Negative 2601498056) AMORPHOUS (test code = 1+ HPF 6611843554) SQ EPITH (test code = HPF 5752612174) YEAST BUD (test code = See_Comment H [Aut omated message] 1472273358) The system Nephros generated this result transmit marta reference range : <=1 HPF. The refere nce range was not u sed to interpret th is result as normal/abnormal . Lab Interpretation (test Abnormal code = 93790-6) [facility] RockLactic Acid Whole Muqxl9122-69-12 17:47:00 Test Item Value Reference Range Interpretation Comments LACTIC ACID (test code = 1.45 mmol/L 0.5-2.2 6899475567) Lab Interpretation (test code = Normal 26609-0) [facility] RockXR CHEST 1 [id number] 17:14:48 No acute cardiopulmonary abnormality. Aaron Mcguire MD., have reviewed this study and agree with the abovereport.EXAM: XR CHEST 1 VW HISTORY: seizure COMPARISON: Chest x-ray 02/04/2017 FINDINGS: The lungs are clear. No focal consolidation, pleural effusion orpneumothorax is seen. The cardiac silhouette is normal in size. No acute bony abnormality. Remote fracture/deformation of the rightposterior ninth rib. [facility], Radiant Results Inft User - 01/22/2019 12:14 PM CDTEXAM: XR CHEST 1 VWHISTORY: seizure COMPARISON: Chest x-ray 02/04/2017FINDINGS:The lungs are clear. No focal consolidation, pleural effusion orpneumothorax is seen. The cardiac silhouette is normal in size.No acute bony abnormality. 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 Gallo Mcguire MD., have reviewed this study and agree [...] The calvariumand central skull base are unremarkable. [facility], Radiant Results Inft User - 01/22/2019 11:43 AM CDTCT HEAD [...] this study and agree with the abovereport. [facility] WITH LGOGYEAJUAQM6355-48-07 16:22:00 Test Item Value Reference Range Interpretation [...] code = 69.0 fL 39-49.9 H Previous 77525-1) preliminary verified result was 69.6 fL on [...] (test code = 9.4 fL 9.5-12.9 L 91399-9) NRBC/100 WBC (test See_Comment [Automat ed code = 8337519775) message] The system which generated this result transmit marta reference range : 0.0 - 10.0 /100 WBCs. The reference range was not used to interpret this result as normal/abnormal . NRBC x10^3 (test code <0.01 See_Comment [Auto mated = 8573056488) message] The system which generated this result transmit marta reference range : 10*3/?L. The reference range was not used to interpret this result as normal/abnormal . GRAN MAT (NEUT) % 63.6 % (test code = 770-8) IMM GRAN % (test code 0.80 % = 9628879341) LYMPH % (test code = 26.3 % 736-9) MONO % (test code = 8.5 % 5905-5) EOS % (test code = 0.5 % 713-8) BASO % (test code = 0.3 % 706-2) GRAN MAT x10^3(ANC) 15.24 10*3/uL 1.88-7.09 H (test code = 0145330299) IMM GRAN x10^3 (test 0.18 10*3/uL 0-0.06 H code = 9389430626) LYMPH x10^3 (test code 6.29 10*3/uL 1.32-3.29 H = 731-0) MONO x10^3 (test code 2.03 10*3/uL 0.33-0.92 H = 742-7) EOS x10^3 (test code = 0.11 10*3/uL 0.03-0.39 711-2) BASO x10^3 (test code 0.06 10*3/uL 0.01-0.07 = 704-7) Lab Interpretation Abnormal (test code = 27869-5) [facility] RockTROPONIN [id number] 16:15:00 Test Item Value Reference Range Interpretation Comments TROPONIN I (test 0.004 ng/mL See_Comment [Automated code = 8550802620) message] The system which generated this result [...] ? Lab Interpretation Normal (test code = 58017-9) [facility] RockPHENYTOIN2019-07-27 16:06:00 Test Item Value Reference Range Interpretation Comments PHENYTOIN (test code = 4.4 ug/mL 10-20 L 0300632480) QUANG (test code = QUANG) Toxic Range:? 0-3 Months? Greater than 14 ug/mL? 3 Months - 150 Years? Greater than 20 ug/mL Lab Interpretation (test Abnormal code = 54630-2) [facility]. METABOLIC PANEL (26381)2019-01-22 16:04:00 Test Item Value Reference Range Interpretation Comments NA (test code = 134 mmol/L 135-145 L 9080228121) K (test code = 4.4 mmol/L 3.5-5 3093592058) CL (test code = 102 mmol/L 98-108 6560053638) CO2 TOTAL (test code = 13 mmol/L 23-31 L 1905732419) AGAP (test code = 2-16 H 2288794715) BUN (test code = 13 mg/dL 7-23 6266346654) GLUCOSE (test code = 144 mg/dL 70-110 H 8977747715) CREATININE (test code = 0.50 mg/dL 0.5-1.04 0551125829) TOTAL BILI (test code = 0.3 mg/dL 0.1-1.2 2051948687) CALCIUM (test code = 9.0 mg/dL 8.6-10.6 3633791292) T PROTEIN (test code = 7.6 g/dL 6.3-8.2 0657614672) ALBUMIN (test code = 4.3 g/dL 3.5-5 9897697160) ALK PHOS (test code = 254 U/L 34-122 H 2386060453) ALT(SGPT) (test code = 23 U/L 9-51 1882864957) AST(SGOT) (test code = 39 U/L 13-40 8507823060) eGFR Calculation mL/min/1.73m2 (Non-) (test code = 2727831760) eGFR Calculation mL/min/1.73m2 () (test code = 7089432861) QUANG (test code = QUANG) Association of [...] tests). Lab Interpretation Abnormal (test code = 72331-5) [facility] RockaPTT2019-07-27 16:03:00 Test Item Value Reference Range Interpretation Comments APTT Patient (test See_Comment [Automat ed code = 3173-2) message] The system which generated this result transmitted reference range : 23 - 38 Seconds . The reference range was not used to interpr et this result as normal/abnormal . QUANG (test code = QUANG) The [facility] patient population mean normal value for aPTT is 30 seconds. Lab Interpretation Normal (test code = 10377-8) [facility] RockPROTHROMBIN TIME / [id number] 16:01:00 Test Item Value Reference Range Interpretation [...] tions. Lab Interpretation (test Normal code = 13915-0) [facility] RockCHEM SZBWS6226-70-39 05:46:001.8[facility] HermannCHEM RTWJB5551-11-87 05:46:0088[facility] HermannCHEM QAUWK5099-29-58 05:46:004[facility] HermannCHEM SMHYZ5861-91-49 05:46:53929Qqmodsww HermannCHEM ZFZQM1161-71-90 05:46:0013.1[facility] HermannCHEM UKXYC7796-61-47 05:46:0025 [facility]annCHEM IPDDQ4495-93-70 05:46:007.2[facility] HermannCHEM PANEL 2018-11-26 05:46:004.1[facility] HermannCHEM LSECF0396-01-69 05:46:0099[facility] HermannCHEM IVPXD1024-08-74 05:46:000.52[facility] HermannCHEM BKMXT8586-86-07 05:46:77680Ostlyuhb HermannCHEM JFHEB2549-96-88 05:46:002.6[facility] YSNQAUMABR5933-04-42 05:46:000.9[facility] UavviebZBXEPQOPDR0210-61-05 05:46:000.2 [facility] FopczviBZXIDHOEMO9464-78-81 05:46:001.9[facility] HermannHEMATOLOGY 2018-11-26 05:46:007.6[facility] UjbaztuDOQVNFYCIJ7392-50-28 05:46:0071.4[facility] YawzikgSTSGBQPRTJ5145-04-26 05:46:0017.9[facility] SesyrhiBKERSDWGOA7422-04-19 05:46:000.3[facility] WqllpaoCZZRDKAONA5323-94-13 05:46:008.3[facility] OIJNHWLOXY6485-17-45 05:46:002.1[facility] SlakooaAEKFILBVTS0563-59-83 05:46:00 Test Item Value Reference Range Interpretation Comments PT (test code = PT) 12.8 s 12.0-14.7 [facility] WayhbraMRMRINRLBZ3859-56-67 05:46:00 Test Item Value Reference Range Interpretation Comments INR (test code = INR) 0.98 1 0.85-1.17 [facility] LcfaeeiKPLDZMPZRP2790-64-68 05:46:0031.6[facility]annHEMATOLOGY 2018-11-26 05:46:0089.6[facility] IjuoibiLRSWAHYQUC4225-25-31 05:46:0010.7[facility] RmkldqfCUMCHIFDHZ9161-93-35 05:46:00 Test Item Value Reference Range Interpretation Comments MCH (test code = MCH) 30.4 pg 27.0-31.0 [facility] ZdkubcbHYIPESJSLO2818-33-27 05:46:0034.0[facility]annHEMATOLOGY 2018-11-26 05:46:008.7[facility] QzqxjadSSMQMNXAMR0812-90-56 05:46:0019.4[facility] FgzydyeOIMAKDCNCW9686-09-25 05:46:03343Mnkbggqm OinggbzFWDESNTANU9192-91-37 05:46:0010.6[facility] UdofdchBWOTNBBCYD1941-89-30 05:46:003.52[facility] PARATHYROID GEWHETS7389-05-87 05:46:000.98[facility] HermannPARATHYROID PROFILE 2018-11-26 05:46:000.98[facility]annCHEM FQVTP0490-12-48 05:46:001.8[facility] HermannCHEM SEWSN3632-39-82 05:46:0088[facility]annCHEM GCZUB2170-77-13 05:46:004[facility]annCHEM TEBQC8264-73-09 05:46:98422Bhambqwq HermannCHEM UKPGM9037-73-80 05:46:0013.1[facility] HermannCHEM CUMIL4678-34-54 05:46:0025 [facility]annCHE[facility] ZUCCS3350-29-40 05:46:007.2[facility]annCHEM PANEL 2018-11-26 05:46:004.1[facility]annCHEM OPZCI1076-96-22 05:46:0099[facility]annCHEM RVNMM4246-60-56 05:46:000.52[facility]annCHEM VMGAH5663-96-98 05:46:79247Klvatdkt HermannCHEM GEYMD4092-54-95 05:46:002.6[facility] MCMWVANQUE5818-44-65 05:46:000.9[facility] HjaiwcyWBAXCPSCRW4015-32-10 05:46:000.2 [facility] HnylhmkHPLXFNPKVG8197-95-91 05:46:001.9[facility]annHEMATOLOGY 2018-11-26 05:46:007.6[facility] WyiczqwLLHKRTAPYN5952-60-28 05:46:0071.4[facility] FsmkyvyGDRAAUPKTU4274-16-61 05:46:0017.9[facility] KngizgaLIBYTARXAF6164-16-56 05:46:000.3[facility] AkggikxFVAXFFANNS7537-93-34 05:46:008.3[facility] ZOMSLAZQPB4236-84-28 05:46:002.1[facility] FqwmowiYNERJXVOEQ0929-80-00 05:46:00 Test Item Value Reference Range Interpretation Comments PT (test code = PT) 12.8 s 12.0-14.7 [facility] McvrrhqBRNZYIYGYF4284-45-87 05:46:00 Test Item Value Reference Range Interpretation Comments INR (test code = INR) 0.98 1 0.85-1.17 [facility] LquhtmrGGVPFNREWY8965-70-46 05:46:0031.6[facility]annHEMATOLOGY 2018-11-26 05:46:0089.6[facility] KptsamcMZNLHFOWLA8437-44-00 05:46:0010.7[facility] JjjsybhAPOSPYXGSX9929-99-55 05:46:00 Test Item Value Reference Range Interpretation Comments MCH (test code = MCH) 30.4 pg 27.0-31.0 [facility] XdlhqwgEFRAGBIRLG4173-73-20 05:46:0034.0[facility]annHEMATOLOGY 2018-11-26 05:46:008.7[facility] QfplvfyIIEGKSIXIP5957-95-22 05:46:0019.4[facility] GktmihaXDHSWHKYIM4424-67-89 05:46:85967Fwyvsnzo TwcdqrzMFBLUYDJAD0782-79-40 05:46:0010.6[facility] WsbapbmROKWMXPJTQ2058-67-29 05:46:003.52[facility] PARATHYROID ONABLPW0471-62-61 05:46:000.98[facility]annPARATHYROID PROFILE 2018-11-26 05:46:000.98[facility]BL[facility] ZCJSVEG0430-08-07 07:57:00 Negative (11/25/18 2:57 AM)[facility]annCHEM TRQPN4088-26-22 07:57:001.6 [facility]annCHEM ZNSKM1733-12-60 07:57:001.9[facility] HermannELECTROLYTES 2018-11-25 07:57:0010.9[facility] UueivsuXBNBKZWMDTMJ0667-99-30 07:57:54483 [facility] UoombiiEEIVMWZDQABY6000-32-45 07:57:80225Cydbokek HermannELECTROLYTES 2018-11-25 07:57:000.61[facility] UtlpovdCDAPFPJJFJUE5158-20-60 07:57:003[facility] IspkibuBJZSPLKFKLET8600-10-77 07:57:0026[facility] SuvwlxqUKANZSYVPEIX7296-41-34 07:57:0099[facility] QahzzraUKYPOYAFHEHE8932-25-96 07:57:54894Dzxkjfxd [facility] HEBOEUWQTAAM6525-17-95 07:57:007.2[facility] BsgauhqILANFDYDVLDW4469-75-81 07:57:003.9[facility] IubaupdHBOPFJFDOB1519-92-88 07:57:14881Fizuvrwb [facility] YTMVMUTQUU8609-82-70 07:57:008.7[facility] AopakvmLXOAIEYCMW1182-35-79 07:57:00 3.48[facility] AwcmlveCYKCSPWZAI8393-65-80 07:57:0011.8[facility]annHEMATOLOGY 2018-11-25 07:57:0010.6[facility] OspehciJKJVWJMYVI0898-85-77 07:57:0019.3[facility] KgkjjleIVKVPOZFNT9678-75-93 07:57:0089.7[facility] UcnntivUJRWLKZTWB2806-23-68 07:57:0031.3[facility] CrhcxwoILUPBDOCWU8757-91-01 07:57:00 Test Item Value Reference Range Interpretation Comments MCH (test code = MCH) 30.4 pg 27.0-31.0 [facility] OhggnspDBOHAGGEWT3125-19-67 07:57:0033.8[facility]annHEMATOLOGY 2018-11-25 07:57:008.8[facility] LvqzojhVXFWCBHJOH0155-40-50 07:57:001.1[facility] BpbaaorWALNTYRMQF3466-36-18 07:57:000.4[facility] XrmbyjbQKOPAPBFOE3546-40-74 07:57:001.6[facility] BeaosovHAUPACDSBX4253-19-57 07:57:003.0[facility] PEDXCOCXYH4101-67-74 07:57:000.3[facility] QkhaugvKIVLYYXIBF8294-32-04 07:57:00 74.5[facility] IsewswlIGPUKZRNKG6160-15-35 07:57:0013.2[facility]annHEMATOLOGY 2018-11-25 07:57:009.0[facility] HermannPARATHYROID CAPLFAJ3589-36-38 07:57:000.96 [facility]annPARATHYROID YWSBXPZ9688-67-37 07:57:000.94[facility]BL[facility] LIXNZCR0328-21-01 07:57:00Negative (11/25/18 2:57 AM)[facility]annCHEM MOYGC1749-90-82 07:57:001.6[facility]annCHEM UOJIU4150-65-23 07:57:001.9 [facility] BifwkgzYDFJXRWEFQMO1063-14-25 07:57:0010.9[facility] HermannELECTROLYTES 2018-11-25 07:57:99866Mtofgdto EseerdrAANPPCMHKBME8831-11-90 07:57:26840Yizqnkmv CdpxizaUBAKOSCZVVUX4425-44-91 07:57:000.61[facility] IfmofjoOIGHWVCFMYDW8655-51-27 07:57:003[facility] YkutnqbAJJCPMTRMMPT4449-18-64 07:57:0026[facility] UECHNODYCOVL0464-56-40 07:57:0099[facility] MngfjvlYGBQRMNPTZRQ6652-93-92 07:57:00 104[facility] LsmccrgCMCHPSUXSDZT7701-13-33 07:57:007.2[facility] ILTCTTYHMTQF3806-78-30 07:57:003.9[facility] CfvgfbaGJFEPKWXYE5956-31-84 07:57:00 253[facility] LbuurwxRZPATHHVXS2905-07-45 07:57:008.7[facility]annHEMATOLOGY 2018-11-25 07:57:003.48[facility] LryhzykAAFOKECOVC5598-77-35 07:57:0011.8[facility] QnqukryEZCSFHVNFB9988-13-85 07:57:0010.6[facility] PfacgnuGMWPOSRCTD2843-58-28 07:57:0019.3[facility] AfgkebkBSGSZIWXXR2851-82-61 07:57:0089.7[facility] DAADAICIKW8730-32-75 07:57:0031.3[facility] FzkbdbwWVQMKRWZTQ0795-28-23 07:57:00 Test Item Value Reference Range Interpretation Comments MCH (test code = MCH) 30.4 pg 27.0-31.0 [facility] LkcxqqyZKNIEISXID9256-12-56 07:57:0033.8[facility]annHEMATOLOGY 2018-11-25 07:57:008.8[facility] PbliouvWOWQKBNQLO2158-25-02 07:57:001.1[facility] YntowroCAQPCKUCSD5224-93-43 07:57:000.4[facility] YevaaiaOIDTYRJRGV7660-49-63 07:57:001.6[facility] CqnnungGSASEXFZYM6750-48-82 07:57:003.0[facility] WKOKOCLIGS2160-07-20 07:57:000.3[facility] HwnoahwMFXEIFONMA0935-16-43 07:57:00 74.5[facility] LtqxyfwFFFEFPUHDX6476-76-67 07:57:0013.2[facility]annHEMATOLOGY 2018-11-25 07:57:009.0[facility] HermannPARATHYROID VKSKRLM8035-17-23 07:57:000.96 [facility]annPARATHYROID HAUIZDK9028-74-12 07:57:000.94[facility] HermannCHEM EATAQ3982-92-68 22:03:002.2[facility]annCHEM SFBBF4244-72-96 22:03:003.0 [facility]annCHEM UTLAF0004-54-12 22:03:0085[facility]annCHEM PANEL 2018-11-24 22:03:76850Xbqouzhs HermannCHEM CDPUG9172-45-17 22:03:007.4[facility] HermannCHEM WLLGI7107-66-19 22:03:0027[facility]annCHEM QNKAE9093-10-64 22:03:0095[facility]annCHEM YOSHV0784-35-22 22:03:009.5[facility]annCHEM QONGR8704-21-72 22:03:000.77[facility]annCHEM QJYMR7517-39-87 22:03:52703 [facility]annCHEM LZAPJ3091-61-21 22:03:004[facility]annCHEM PANEL 2018-11-24 22:03:003.5[facility] HermannPARATHYROID KDREIXF0170-69-91 22:03:001.00 [facility]annPARATHYROID OHMQJIF9704-70-92 22:03:000.98[facility]annCHEM PCBUK9528-86-72 22:03:002.2[facility] HermannCHEM UKDZV4371-30-51 22:03:003.0 [facility]annCHE[facility] NMTML2725-37-35 22:03:0085[facility]annCHEM PANEL 2018-11-24 22:03:34665Wvkhdkwj HermannCHEM DAIYQ2894-61-44 22:03:007.4[facility] HermannCHEM HRDOT2354-74-93 22:03:0027[facility]annCHEM QGRXG2976-88-97 22:03:0095[facility]annCHEM QRRMM9456-02-16 22:03:009.5[facility]annCHEM MTZBV7187-13-61 22:03:000.77[facility]annCHEM XDUNA1669-25-03 22:03:17517 [facility]annCHEM AZNGV7957-44-99 22:03:004[facility]annCHEM PANEL 2018-11-24 22:03:003.5[facility] HermannPARATHYROID HETYYGF0319-64-26 22:03:001.00 [facility]annPARATHYROID UFOIGRZ6520-21-65 22:03:000.98[facility] LLALIAVTHB1671-43-96 14:26:0029.4[facility] YbszsdrQEJIZYAFPF9092-05-98 14:26:00 9.7[facility] XdkuhjqRIAVBHYRUB2431-14-85 14:26:0029.4[facility]annHEMATOLOGY 2018-11-24 14:26:009.7[facility] HrghxrxYLONRMBEBJ5530-42-71 13:15:00 Test Item Value Reference Range Interpretation Comments POC Activated Clotting Time (test code 271 s = POC Activated Clotting Time) [facility]BI[facility] 13:15:00 Test Item Value Reference Range Interpretation Comments POC Activated Clotting Time (test code 271 s = POC Activated Clotting Time) [facility] DsqxjrwPQJVTRJOHB5197-34-75 13:05:00 Test Item Value Reference Range Interpretation Comments POC Activated Clotting Time (test code 199 s = POC Activated Clotting Time) [facility] PufsekzZTUZVFUYBW7596-48-87 13:05:00 Test Item Value Reference Range Interpretation Comments POC Activated Clotting Time (test code 199 s = POC Activated Clotting Time) [facility] HermannCHEM ENSKV3040-39-52 06:38:002.8[facility] HermannCHEM PANEL 2018-11-24 06:38:00 Test Item Value Reference Range Interpretation Comments A/G Ratio (test code = A/G Ratio) 0.6 1 0.7-1.6 [facility]annCHEM JPYTH3326-98-99 06:38:000.2[facility] HermannCHEM PANEL 2018-11-24 06:38:000.5[facility] HermannCHEM COTLP3140-35-71 06:38:000.7[facility] HermannCHEM QHWMX6842-12-17 06:38:001.8[facility] HermannCHEM EJCFW9864-69-04 06:38:004.6[facility] HermannCHEM NEWXH7838-88-66 06:38:53279Perdqmcd HermannCHEM QQIXE8549-73-63 06:38:28390Nwnhucqt HermannCHEM GUPNN1039-04-22 06:38:0094 [facility] HtghacdHGIJAWOFKY0647-84-68 06:38:000.4[facility] HermannHEMATOLOGY 2018-11-24 06:38:000.1[facility] QdiwftjWCOFJUELCE2675-83-50 06:38:000.1[facility] GdebazjTTUWYJMQDW9381-84-69 06:38:0089.0[facility] HrlaqqoUAVZRRNURX8160-58-90 06:38:004.0[facility] TjfvldtOTPAKNIKPM9802-31-02 06:38:001.0[facility] MZYOGPJXRR9521-55-72 06:38:002.0[facility] GxusddxEQUXJMLGWD5008-67-09 06:38:001.0 [facility] CuiakfqYBLYXZHYAD5011-84-43 06:38:001.0[facility]annHEMATOLOGY 2018-11-24 06:38:001.0[facility] WbeuybrSUIJKLUDBU5731-33-88 06:38:001.0[facility] ZosxzyvWXEHGJEVTM9647-79-67 06:38:000.0[facility] JacytynILNPAWXHMK1220-94-04 06:38:001[facility] YxmlfzeXPMGGKPCLP0631-45-97 06:38:00Moderate *ABN*(11/24/18 1:38 AM)[facility] ShdxfxnJUQFTJIEHF6566-11-27 06:38:009.4[facility] AWOVMOJDNN0409-97-03 06:38:000.2[facility] CvmvmbpEAXWWXVEFS4488-92-97 06:38:53267 [facility] ChgjiscJWNAKBVQIS8696-96-34 06:38:009.2[facility]annHEMATOLOGY 2018-11-24 06:38:0019.6[facility] BhvrewgMPIBZDIIWW1738-22-02 06:38:0034.9[facility] DxjbdnaJAQBQXHRJL8992-22-55 06:38:00 Test Item Value Reference Range Interpretation Comments MCH (test code = MCH) 30.9 pg 27.0-31.0 [facility] UfnjjbbLRQUUTBDGX5018-61-75 06:38:0088.5[facility]annHEMATOLOGY 2018-11-24 06:38:0010.4[facility] OajcbiuXQITFNQIGE8333-56-02 06:38:003.06[facility] HermannCHEM SNROY1988-91-92 06:38:002.8[facility] HermannCHEM VPLMX7342-19-59 06:38:00 Test Item Value Reference Range Interpretation Comments A/G Ratio (test code = A/G Ratio) 0.6 1 0.7-1.6 [facility]annCHEM DWAFW8000-04-03 06:38:000.2[facility] HermannCHEM PANEL 2018-11-24 06:38:000.5[facility] HermannCHEM OAMKB4184-34-89 06:38:000.7[facility] HermannCHEM ARPBE7100-74-75 06:38:001.8[facility] HermannCHEM BZCCT6365-40-56 06:38:004.6[facility] HermannCHEM FDLZV3776-18-64 06:38:83517Qpzplqnn HermannCHEM QVHQM6785-47-11 06:38:28353Cvhaxxtl HermannCHEM WTJUU5061-59-99 06:38:0094 [facility] HynzreyVBHPTAMOKI4557-57-80 06:38:000.4[facility]annHEMATOLOGY 2018-11-24 06:38:000.1[facility] AludmwaFKQPKYKLGX7413-71-26 06:38:000.1[facility] FkbvsstWYQYYHYEHS2634-49-85 06:38:0089.0[facility] UncjefmWPWNIITFJG5619-35-24 06:38:004.0[facility] VhtcnuiJQAUAQDICV3236-87-48 06:38:001.0[facility] OSRPKLEVOL3173-83-32 06:38:002.0[facility] KpavuobULNEBYKJWO0076-41-77 06:38:001.0 [facility] DbrbqlkQLBOXQVUFA3313-62-41 06:38:001.0[facility]annHEMATOLOGY 2018-11-24 06:38:001.0[facility] MeogknyBJURWYXIIQ0072-83-81 06:38:001.0[facility] PhohrqyGJRDUBLFZB3067-43-28 06:38:000.0[facility] MeztwewJORBLYMZIL6714-70-94 06:38:001[facility] WholpzsIJNCCFLRPM2973-92-85 06:38:00Moderate *ABN*(11/24/18 1:38 AM)[facility] NhtujccKIGWVHBZFO8586-71-89 06:38:009.4[facility] OJPKXKFDIW1286-71-85 06:38:000.2[facility] GvxcbucWCUYPIMGEY2778-91-70 06:38:19646 [facility] ClzsjdbSUTWYGWKQT0474-29-69 06:38:009.2[facility]annHEMATOLOGY 2018-11-24 06:38:0019.6[facility] JxexrgnHWYSSFKCRK5405-04-82 06:38:0034.9[facility] UmbbafeSKFAOKHQEJ2472-16-56 06:38:00 Test Item Value Reference Range Interpretation Comments MCH (test code = MCH) 30.9 pg 27.0-31.0 [facility] ZcebnqtXXKXSTWXJK0592-95-25 06:38:0088.5[facility]annHEMATOLOGY 2018-11-24 06:38:0010.4[facility] AxjgbekEXLWJGEUZY8450-65-70 06:38:003.06[facility] HermannCHEM RFBUY9181-06-58 08:55:00 Test Item Value Reference Range Interpretation Comments A/G Ratio (test code = A/G Ratio) 0.6 1 0.7-1.6 [facility]annCHEM PXVMF3064-90-46 08:55:002.8[facility]annCHEM PANEL 2018-11-23 08:55:33315Ljwbndun HermannCHEM PNMOU9246-57-70 08:55:68558Myisjbrd [facility]annCHEM NWFWB3156-09-20 08:55:001.8[facility] HermannCHEM VCFHV8337-59-40 08:55:004.6[facility]annCHEM LLLMN6581-92-20 08:55:000.2[facility]annCHEM MWTSG2020-64-54 08:55:000.7[facility]annCHEM DDDSQ0840-44-34 08:55:43526 [facility]annCHEM NKJDE4253-27-44 08:55:000.5[facility]annCHEM PANEL 2018-11-23 08:55:00 Test Item Value Reference Range Interpretation Comments A/G Ratio (test code = A/G Ratio) 0.6 1 0.7-1.6 [facility]annCHEM FFNGM5377-72-50 08:55:002.8[facility]annCHEM PANEL 2018-11-23 08:55:48067Rdzzdivi HermannCHEM PPFBS5755-53-39 08:55:98148Jmmljhbo HermannCHEM QRAAY0897-00-66 08:55:001.8[facility]annCHEM AFVFS9976-82-10 08:55:004.6[facility]annCHEM ROKPI5110-74-49 08:55:000.2[facility]annCHEM AYGOT8341-01-67 08:55:000.7[facility]annCHEM ZWFWW1359-37-70 08:55:17820 [facility]annCHEM WGLKV0611-41-21 08:55:000.5[facility]annHEMATOLOGY 2018-11-23 08:51:002.0[facility] GbrnigdNAAUETSBJO8860-42-03 08:51:000.0[facility] BsudgntVEPLNJKYZZ2380-95-21 08:51:002.0[facility] GvltrfqLFATWKEDRQ0147-58-12 08:51:000.0[facility] ExsjbkaCUQWYQBMHP8390-21-18 02:11:007.0[facility] BGDBEVBBRG6370-32-66 02:11:001.0[facility] MhatoitJGZGQLVKCQ4288-41-55 02:11:003 [facility] MmtixueLWVDGYTOJW7362-59-02 02:11:000.0[facility]annHEMATOLOGY 2018-11-23 02:11:00Normal (11/22/18 9:11 PM)[facility] VsyclwtZNMUFNUBGQ5164-66-81 02:11:001+ *ABN*(11/22/18 9:11 PM)[facility] ImkguepLZAMKJVHYE4638-77-72 02:11:00 Test Item Value Reference Range Interpretation Comments [address] TND (test code = [address]130 1 TND) [facility] CldgclpCOBLOJBWDY6046-43-40 02:11:003.9[facility]annHEMATOLOGY 2018-11-23 02:11:007.0[facility] UuijahfWXQMCXXCLT2732-05-49 02:11:001.0[facility] BesjryzDVZBOEIAJK1992-00-81 02:11:003[facility] TbxibsgNVNHUCVFHP4704-64-48 02:11:000.0[facility] BvvssfsTUTPFCLQMJ6871-38-03 02:11:00Normal (11/22/18 9:11 PM) [facility] LicslerWOJLTTGCUI4360-35-77 02:11:001+ *ABN*(11/22/18 9:11 PM)[facility] AsnpsryZZWWVMPQLD5326-23-19 02:11:00 Test Item Value Reference Range Interpretation Comments [address] TND (test code = [address]130 1 TND) [facility] QihycjyTLTRWTBSKM9944-02-02 02:11:003.9[facility]annHEMATOLOGY 2018-11-22 21:58:24991Yfkqtpdo XpmjlpgFVUHMIZIWT1982-29-79 21:58:08474Puistjth YeyxociPYHKQZXHTW2050-80-90 21:16:002.0[facility] NsnezznKDWOFISWYC3507-89-34 21:16:005.0[facility] PghlpfvMVJIKJSTIE0988-18-49 21:16:002[facility] YJLPLHVQAE3528-47-43 21:16:00Normal (11/22/18 4:16 PM)[facility]annHEMATOLOGY 2018-11-22 21:16:001+ *ABN*(11/22/18 4:16 PM)[facility] MdxpxjpOVFNHLHGGF0546-93-43 21:16:002.0[facility] QrurxawIBPKNNTMCI5026-07-85 21:16:005.0[facility] XWULXUXLUC0252-11-76 21:16:002[facility] GqhytxeHRWNWBKBZR0916-79-12 21:16:00 Normal (11/22/18 4:16 PM)[facility] XptdtpwPVIERBBMWH0525-34-51 21:16:001+ *ABN*(11/22/18 4:16 PM)[facility] HermannCHEM OAGTQ4005-93-23 13:13:13621Wbicercw HermannCHEM VCBPE2106-95-49 13:13:0010[facility] AoiyfqnHLNBRSKQWD5052-03-93 13:13:00 Test Item Value Reference Range Interpretation Comments PTT (test code = PTT) 43.0 s 22.9-35.8 [facility] HmfeouhKZXFRGNJHR7365-38-91 13:13:00 Test Item Value Reference Range Interpretation Comments INR (test code = INR) 1.62 1 0.85-1.17 [facility]SixkuvqYMTPEUNHBK6780-17-87 13:13:00 Test Item Value Reference Range Interpretation Comments PT (test code = PT) 18.9 s 12.0-14.7 [facility] HospitalKqdhfknABUROJCGMM8274-98-57 13:13:94777FjsrnbzeTexas Health [facility] Hospital 2018-11-22 13:13:00Negative 9(11/22/18 8:13 AM)[facility] 2018-11-22 13:13:00 Test Item Value Reference Range Interpretation Comments Pat Od Value (test code = Pat Od 0.109 1 Value) [facility] HospitalIquqktkNNBEFBYGVA1357-53-11 13:13:00 Test Item Value Reference Range Interpretation Comments Pos CO Value (test code = Pos CO 0.400 1 Value) [facility] FallsFbbfgyaFWRFCFUNNF5510-85-56 13:13:19818Scgzgzdm HermannCHEM PANEL 2018-11-22 13:13:79344Bhnrrutb HermannCHEM BUVZI1130-96-14 13:13:0010[facility] HospitalStaoiulMBTSKXGJAS7041-97-83 13:13:00 Test Item Value Reference Range Interpretation Comments PTT (test code = PTT) 43.0 s 22.9-35.8 [facility] HospitalMjqllslSGGMBWBMPF4700-15-92 13:13:00 Test Item Value Reference Range Interpretation Comments INR (test code = INR) 1.62 1 0.85-1.17 [facility] HospitalHuttootCPOLSWKMCL9824-76-00 13:13:00 Test Item Value Reference Range Interpretation Comments PT (test code = PT) 18.9 s 12.0-14.7 [facility] HospitalPnvaibkZSHHTDPOOY3209-33-48 13:13:46960BllfnrmjTexas Health Arlington [facility] Hospital 2018-11-22 13:13:00Negative 9(11/22/18 8:13 AM)[facility] 2018-11-22 13:13:00 Test Item Value Reference Range Interpretation Comments Pat Od Value (test code = Pat Od 0.109 1 Value) [facility] HospitalPqkihdgLPKCZWRGOU1252-75-37 13:13:00 Test Item Value Reference Range Interpretation Comments Pos CO Value (test code = Pos CO 0.400 1 Value) [facility] GazxykdBUSKFAYFUM0155-49-28 13:13:29706Ymbplckw [facility]BL[facility] JWZUXYP2882-06-86 12:45:00Negative (11/22/18 7:45 AM)[facility] TWQIYED0638-67-81 12:45:00Negative (11/22/18 7:45 AM)[facility] WOMYMMH2379-03-28 12:10:00Product available (11/22/18 7:10 AM)[facility] BLOOD BANK [id number] 12:10:00Product available (11/22/18 7:10 AM)[facility] [id number] 11:02:00Product available (11/22/18 6:02 AM) [facility] [id number] 11:02:00Product available (11/22/18 6:02 AM)[facility] [id number] 08:29:001.2[facility] PLGDQWPRWH0723-79-67 08:29:00 Test Item Value Reference Range Interpretation Comments PTT (test code = PTT) 45.6 s 22.9-35.8 [facility] ZulfhspEDNTQEPXGS7730-67-29 08:29:00 Test Item Value Reference Range Interpretation Comments PT (test code = PT) 20.4 s 12.0-14.7 [facility] QvodjpiICLOODQOXM0010-56-85 08:29:00 Test Item Value Reference Range Interpretation Comments INR (test code = INR) 1.79 1 0.85-1.17 [facility] [id number] 08:29:001.2[facility]annHEMATOLOGY 2018-11-22 08:29:00 Test Item Value Reference Range Interpretation Comments PTT (test code = PTT) 45.6 s 22.9-35.8 [facility] SamgwusPCSTKTRMIK1593-25-74 08:29:00 Test Item Value Reference Range Interpretation Comments PT (test code = PT) 20.4 s 12.0-14.7 [facility] XnijnwzVDVQAEPUZQ6034-61-50 08:29:00 Test Item Value Reference Range Interpretation Comments INR (test code = INR) 1.79 1 0.85-1.17 [facility] YmfovqrTFGNOOUZOW3177-02-67 03:08:006.0[facility] HermannTOXICOLOGY 2018-11-22 03:08:006.0[facility]annCHEM [id number] 17:52:768828Orjgqovs HermannCHEM WWZER2075-24-34 17:52:97719Ncyeizhx HermannCHEM EVJUT4350-21-79 17:52:00 Test Item Value Reference Range Interpretation Comments A/G Ratio (test code = A/G Ratio) 0.8 1 0.7-1.6 [facility]annCHEM [id number] 17:52:0095[facility]annCHEM PANEL 2018-11-21 17:52:000.5[facility]annCHEM [id number] 17:52:00 Test Item Value Reference Range Interpretation Comments B/C Ratio (test code = B/C Ratio) 13 12-21 [facility]annCHEM [id number] 17:52:004.3[facility]annCHEM PANEL 2018-11-21 17:52:001.9[facility]annCHEM ZIBLP5028-94-90 17:52:002.4[facility]annCHEM CYZOK7395-84-77 17:52:001.5[facility] UsrjgopXGZPYHVCCQ6417-44-11 17:52:0010.9[facility]annCHEM GSINY7684-67-74 17:52:432730Nketvdkn [place] CHEM PMBJQ6640-20-71 17:52:89974Svhxdeco HermannCHEM CBTMF0836-59-21 17:52:00 Test Item Value Reference Range Interpretation Comments A/G Ratio (test code = A/G Ratio) 0.8 1 0.7-1.6 [facility]annCHEM [id number] 17:52:0095[facility]annCHEM PANEL 2018-11-21 17:52:000.5[facility] HermannCHEM [id number] 17:52:00 Test Item Value Reference Range Interpretation Comments B/C Ratio (test code = B/C Ratio) 13 12-21 [facility]annCHEM [id number] 17:52:004.3[facility]annCHEM PANEL 2018-11-21 17:52:001.9[facility] HermannCHEM [id number] 17:52:002.4[facility] HermannCHEM [id number] 17:52:001.5[facility] OcrsmqkZICYFKCITV9425-89-49 17:52:0010.9[facility] HermannCARDIAC WJLZFIJ9644-54-04 05:38:001.74[facility]annCHEM ZUUWM3812-72-20 05:38:002.2[facility] HermannCHEM HNUIJ0099-51-74 05:38:00 Test Item Value Reference Range Interpretation Comments B/C Ratio (test code = B/C Ratio) 13 12-21 [facility] ChjmyzkCGVOJJRCCR7676-35-64 05:38:00 Test Item Value Reference Range Interpretation Comments [facility]anco Tr TND (test code [facility] TztryuhNKVVNJPCHV1144-10-69 05:38:0023.6[facility] HermannCARDIAC ENZYMES 2018-11-21 05:38:001.74[facility] HermannCHEM [id number] 05:38:002.2[facility] HermannCHEM UCIAK5688-52-06 05:38:00 Test Item Value Reference Range Interpretation Comments B/C Ratio (test code = B/C Ratio) 12-21 [facility] FegnpyhSPIEOWLENO1171-36-24 05:38:00 Test Item Value Reference Range Interpretation Comments Vanco Tr TND (test code = [facility]) [facility] FxlouiyEJPRYCGAEO6716-65-45 05:38:0023.6[facility] HermannURINE CHEM 2018-11-20 21:36:0034.4[facility] HermannURINE RBVR6744-33-00 21:36:0015[facility] HermannURINE [id number] 21:36:0010[facility]annURINE UJDK5505-62-96 21:36:0023.0[facility]annURINE HFTS7786-76-53 21:36:0034.4[facility] URINE DQPV0527-31-16 21:36:0015[facility] HermannURINE [id number] 21:36:0010 [facility]annURINE [id number] 21:36:0023.0[facility]annHEMATOLOGY 2018-11-20 21:32:00 Test Item Value Reference Range Interpretation Comments PTT (test code = PTT) 47.2 s 22.9-35.8 [facility] XmxqibsAIQJKWHOUC5626-90-91 21:32:0017.5[facility]annHEMATOLOGY 2018-11-20 21:32:00 Test Item Value Reference Range Interpretation Comments PTT (test code = PTT) 47.2 s 22.9-35.8 [facility] RsagwzzOOJAPHDVQK1709-05-89 21:32:0017.5[facility]annCARDIAC ENZYMES 2018-11-20 13:40:000.234[facility]annCARDIAC FZNUPGO4339-19-63 13:40:002.87 [facility]annCHEM KUZTX5115-61-56 13:40:000.44[facility]annCARDIAC ENZYMES 2018-11-20 13:40:000.234[facility]annCARDIAC SCQTLJN8754-18-73 13:40:002.87 [facility] HermannCHEM DCWPS2491-26-29 13:40:000.44[facility]annCARDIAC ENZYMES 2018-11-20 07:02:004.06[facility]annCARDIAC SUZLFPO7209-17-33 07:02:004.06 [facility]annCARDIAC ZUPKKQB0416-07-44 04:31:91834Lmirvrni HermannCARDIAC KJIQAOZ4216-07-56 04:31:00 Test Item Value Reference Range Interpretation Comments CK MB Index (test 2.6 1 See_Comment [Automate d message] The code = CK MB Index) system w [facility] generated this result transmit marta reference range : <=2.5. The reference range was not used to interpr et this result as lisbeth l/abnormal. [facility]annCARDIAC BCMJOEI7567-08-48 04:31:007.5[facility]annCARDIAC WDRLAKI5784-74-76 04:31:45965Nnvnvnce HermannCARDIAC KCWUMLF2051-67-14 04:31:00 Test Item Value Reference Range Interpretation Comments CK MB Index (test 2.6 1 See_Comment [Automate d message] The code = CK MB Index) system [employer] generated this result transmit marta reference range : <=2.5. The reference range was not used to interpr et this result as lisbeth l/abnormal. [facility] UWUTYCD9512-01-29 04:31:007.5[facility] XLIWLXZ2314-22-31 01:30:00 Test Item Value Reference Range Interpretation Comments CK MB Index (test 2.3 1 See_Comment [Automate d message] The code = CK MB Index) system [employer] generated this result transmit marta reference range : <=2.5. The reference range was not used to interpr et this result as lisbeth l/abnormal. [facility] NFTIZFC9264-00-64 01:30:007.2[facility] CPIUNKM5027-94-52 01:30:65076Eaymjrkr WxcivxlEOHGVPOBOV7188-39-50 01:30:001.0 [facility] PzlqeveHEBEUMZSPF1823-41-63 01:30:00Normal (11/19/18 8:30 PM)[facility] DwpsoudOBMEOYOPZW2922-24-77 01:30:004.7[facility] [id number] 01:30:00 Test Item Value Reference Range Interpretation Comments CK MB Index (test 2.3 1 See_Comment [Automate d message] The code = CK MB Index) system [employer] generated this result transmit marta reference range : <=2.5. The reference range was not used to interpr et this result as lisbeth l/abnormal. [facility] YQDAZNW1739-97-34 01:30:007.2[facility] PNBGTXR1956-22-83 01:30:32556Yoxlsmry BdorawwEFWZJVZOHL7283-98-77 01:30:001.0 [facility] TlqxhjjVTAOPWPNPH6504-11-25 01:30:00Normal (5/24/19 8:30 PM)[facility] JbufnnuROLHYPRRRI0954-41-47 01:30:004.7[facility] NSIUQLD6100-07-76 19:12:69693Ipaiqtvm [facility]annC[facility] SNZXFJE7292-44-32 19:12:00 Test Item Value Reference Range Interpretation Comments CK MB Index (test 0.9 1 See_Comment [Automate d message] The code = CK MB Index) system w [employer] generated this result transmit marta reference range : <=2.5. The reference range was not used to interpr et this result as lisbeth l/abnormal. [facility] AAZVIBS1011-01-16 19:12:001.3[facility]annCHEM PANEL 2018-11-18 19:12:00 Test Item Value Reference Range Interpretation Comments B/C Ratio (test code = B/C Ratio) 11 12-21 [facility] CNOPKNE7011-00-57 19:12:40897Fxwzkcwe [facility]annCARD[facility]AC YUBBGLC1085-76-74 19:12:00 Test Item Value Reference Range Interpretation Comments CK MB Index (test 0.9 1 See_Comment [Automate d message] The code = CK MB Index) system w [employer] generated this result transmit marta reference range : <=2.5. The reference range was not used to interpr et this result as lisbeth l/abnormal. [facility] FRSFZSS9885-79-51 19:12:001.3[facility]annCHEM PANEL 2018-11-18 19:12:00 Test Item Value Reference Range Interpretation Comments B/C Ratio (test code = B/C Ratio) 11 12-21 [facility] ItkuvuaEGLNYGAJQP9491-25-64 11:34:002.9[facility] HermannTOXICOLOGY 2018-11-18 11:34:002.9[facility]annCHEM OXPBZ9017-15-91 11:00:35164Knbunjud HermannCHEM EDOLN3309-94-52 11:00:61112Inevqaes PrgwshlCOSNAEDYDP3237-82-51 10:29:000.1[facility] MidxdhsLSPJWVJNPD5055-63-15 10:29:000.1[facility] BACTERIAL - [id number] 05:24:00Negative (11/17/18 12:24 AM)[facility] [id number] 05:24:00Negative (11/17/18 12:24 AM)[facility] HermannBACTERIAL - JZAOKJCO2486-90-37 05:24:00Negative (11/17/18 12:24 AM) [facility]BLOOD BANK EXTLMSI0958-10-20 05:24:00Negative (11/17/18 12:24 AM) [facility]annCHE[facility] OGWCN5120-68-96 02:56:33285Mdcxjhue HermannURINE CHEM 2018-11-17 02:56:26030Gineqblz HermannCHEM SVJEK9671-67-78 02:56:27265Xqpbcpqw HermannURINE HFUA6164-45-23 02:56:75524Tjngcmlr UjfbyiqBAZBLM1786-35-66 00:26:00 Test Item Value Reference Range Interpretation Comments VLDL (test code = VLDL) 15 1 [facility] DtsxweqLADYGK8640-20-84 00:26:0084[facility] FloxhjoHCQGVI1738-48-95 00:26:0042[facility] XuqtmjyGIHKYJ2401-02-19 00:26:00 Test Item Value Reference Range Interpretation Comments CHD Risk (test code = CHD Risk) 3.36 1 3.90-5.80 [facility] QkuizdvDQDJGN0806-46-52 00:26:0075[facility] EuvfglyDPAYVE6375-64-55 00:26:23104Eziyyqgu OjlyioyNVWXQGYJRS0767-66-15 00:26:006.2[facility] [place] PPVUUL6742-16-54 00:26:00 Test Item Value Reference Range Interpretation Comments VLDL (test code = VLDL) 15 1 [facility] TxlmacsNSPFAD9438-66-22 00:26:0084[facility] RdwwkufUSAIWP0029-94-33 00:26:0042[facility] YpcwjkeDZCRHI4199-25-85 00:26:00 Test Item Value Reference Range Interpretation Comments CHD Risk (test code = CHD Risk) 3.36 1 3.90-5.80 [facility] GmmxoacREMLAA2412-58-96 00:26:0075[facility] KrbqptzOJCDQJ5962-19-21 00:26:51523Hxikiviu AuxiwfpDIPKYNOVOO8224-23-85 00:26:006.2[facility]annURINE AND JUFVG9185-55-30 21:09:00Trace *ABN*(11/16/18 4:09 PM)[facility] ESKGC4786-60-79 21:09:00Negative (11/16/18 4:09 PM)[facility] JTKOR5218-79-80 21:09:00Negative (11/16/18 4:09 PM)[facility] ILWHM7558-24-58 21:09:00Trace *ABN*(11/16/18 4:09 PM)[facility] GYYJM8382-48-40 21:09:000.2[facility] VTRNT0800-38-84 21:09:00 Negative (11/16/18 4:09 PM)[facility] BFWVX8531-94-58 21:09:00 Negative *NA*(11/16/18 4:09 PM)[facility] RVMUA1070-31-99 21:09:00 <=1.005 *NA*(11/16/18 4:09 PM)[facility] GQGXW8480-93-54 21:09:00Clear (11/16/18 4:09 PM)[facility] XZULT5024-98-03 21:09:00Negative (11/16/18 4:09 PM)[facility] ATQLZ7832-45-37 21:09:00 Test Item Value Reference Range Interpretation Comments UA pH (test code = UA pH) 7.0 1 5.0-8.0 [facility] PCHNV3237-21-28 21:09:00Yellow *NA*(11/16/18 4:09 PM) [facility] WJEXY9766-74-14 21:09:00Trace *ABN*(11/16/18 4:09 PM) [facility] CGSKZ8732-97-42 21:09:00Negative (11/16/18 4:09 PM) [facility] BBQEK4857-18-38 21:09:00Negative (11/16/18 4:09 PM) [facility] ZCOMV0580-05-43 21:09:00Trace *ABN*(11/16/18 4:09 PM) [facility] EEVJV6096-63-19 21:09:000.2[facility] IWPJP2466-17-39 21:09:00Negative (11/16/18 4:09 PM)[facility] JNYGG2649-76-76 21:09:00Negative *NA*(11/16/18 4:09 PM)[facility] ZBSSX8204-93-69 21:09:00<=1.005 *NA*(11/16/18 4:09 PM)[facility] DUBIB8383-77-14 21:09:00Clear (11/16/18 4:09 PM)[facility] GCWBE5077-36-86 21:09:00Negative (11/16/18 4:09 PM)[facility] YXZDG8446-51-56 21:09:00 Test Item Value Reference Range Interpretation Comments UA pH (test code = UA pH) 7.0 1 5.0-8.0 [facility] XVEFE5755-00-89 21:09:00Yellow *NA*(11/16/18 4:09 PM) [facility]annCHEM CLICD2269-18-37 17:10:000.5[facility]annCHEM PANEL 2018-11-16 17:10:000.5[facility]annMISCELLANEOUS LAB [id number] 07:41:00 Test Item Value Reference Range Interpretation Comments SCAN RESULT (test code = 9931798) MISCELLANEOUS LAB [id number] 11:12:00 Test Item Value Reference Range Interpretation Comments SCAN RESULT (test code = 6365844) CSF CULTURE + GRAM [id number] 17:06:00 Test Item Value Reference Range Interpretation Comments CULTURE (BEAKER) (test code No growth = 1095) GRAM STAIN RESULT (BEAKER) <1+ WBCs (test code = 1123) GRAM STAIN RESULT (BEAKER) No organisms seen (test code = 92302) CBC W/PLT COUNT & AUTO ORDJGLUNCPNZ9277-51-68 10:29:00 Test Item Value Reference Range Interpretation [...] = 3438) Received comment: User comments: Slide comments:[id number] 06:29:00 Test Item Value Reference Range Interpretation Comments FERRITIN (BEAKER) (test code = 361) 357 ng/mL 5-275 H FOLATE, [id number] 06:29:00 Test Item Value Reference Range Interpretation Comments FOLATE (BEAKER) (test code = 362) 10.3 ng/mL >=7.0 [id number] 06:16:00 Test Item Value Reference Range Interpretation Comments MAGNESIUM (BEAKER) (test code = 1.4 mg/dL 1.6-2.6 L 627) BASIC METABOLIC [id number] 06:16:00 Test Item Value Reference Range Interpretation [...] B-TYPE NATRIURETIC PEPTIDE 1941 pg/mL 0-100 H (BEAKER) (test code = 700) POCT-GLUCOSE [id number] 21:20:00 Test Item Value Reference Range Interpretation Comments POC-GLUCOSE METER 184 mg/dL 70-110 H TESTED AT [facility] 67 ([facility]) (test code = [place] 1538) [address] POCT-GLUCOSE [id number] 17:25:00 Test Item Value Reference Range Interpretation Comments POC-GLUCOSE METER 189 mg/dL 70-110 H TESTED AT [facility] 6720 ([facility]) (test code = [place] 1538) [address] CBC W/PLT COUNT & AUTO [id number] 10:14:00 Test Item Value Reference Range Interpretation [...] (test Not detected Not detected code = 4815378) LISTERIA MONOCYTOGENES (test Not detected Not detected code = 6230703) NEISSERIA MENINGITIDIS (test Not detected Not detected code = 6298707) STREPTOCOCCUS AGALACTIAE (test Not detected Not detected code = 7160839) STREPTOCOCCUS PNEUMONIAE (test Not detected Not detected code = 2675465) CYTOMEGALOVIRUS (CMV) (test code Not detected Not detected = 2876616) ENTEROVIRUS (test code = Not detected Not detected 8212025) HUMAN HERPESVIRUS 6 (HHV-6) Not detected Not detected (test code = 4119338) HERPES SIMPLEX VIRUS 1(HSV-1) Not detected Not detected (test code = 4405675) HERPES SIMPLEX VIRUS 2(HSV-2) Not detected Not detected (test code = 8833629) HUMAN PARECHOVIRUS (test code = Not detected Not detected 9083601) VARICELLA-ZOSTER VIRUS (VZV) Not detected Not detected (test code = 2199529) CRYPTOCOCCUS NEOFORMANS/GATTII Not detected Not detected (test code = 2188361) Other viruses and bacteria not targeted by this PCR panel cannot be excluded; therefore, clinical correlation and follow up of serology, culture results, and other molecular studies is required. The results are not intended to be used as the sole means for clinical diagnosis or patient management decisions. This sample was tested at the [facility] Molecular Diagnostics Laboratory using the Music[employer].comArray Meningitis Encephalitis Panel. It is FDA cleared and has been verified and approved by the [facility] for clinical use. This laboratory is CLIA-certified and [employer] (CAP)-accredited to perform high complexity testing.[id number] 08:40:00 Test Item Value Reference Range Interpretation Comments MAGNESIUM (BEAKER) (test code = 1.6 mg/dL 1.6-2.6 627) BASIC METABOLIC [id number] 08:40:00 Test Item Value Reference Range Interpretation [...] Interpretation Comments CREATINE KINASE TOTAL (BEAKER) (test 678 U/L 29-200 H code = 380) POCT-GLUCOSE [id number] 07:49:00 Test Item Value Reference Range Interpretation Comments POC-GLUCOSE METER 144 mg/dL 70-110 H TESTED AT [facility] 67[address] ([facility]) (test code = [facility] 1538) [address] VDRL, [id number] 03:16:00 Test Item Value Reference Range Interpretation Comments SYPHILIS VDRL QUANTITATION CSF Nonreactive Nonreactive (BEAKER) (test code = 747) POCT-GLUCOSE [id number] 21:00:00 Test Item Value Reference Range Interpretation Comments POC-GLUCOSE METER 169 mg/dL 70-110 H TESTED AT [facility] 6720 ([facility]) (test code = [facility] 1538) [address] POTASSIUM, RANDOM [id number] 15:54:00 Test Item Value Reference Range Interpretation Comments POTASSIUM URINE (BEAKER) (test 19.0 meq/L code = 195) Reference Range: No NormalsFL, LUMBAR PUNCTURE, [id number] 14:00:00Patient is intubated in ICUReason for exam:->seizures, [...] Cooney Verified Date/Time: 04/21/2018 14:00:57 Reading Location: [address] Neuro Reading Room Electronically signedby: EDGAR COONEY M.D. on 04/21/2018 02:00 PMCSF CELL COUNT W/[id number] 13:58:00 Test Item Value Reference Range Interpretation [...] (test EDTA Tube code = 2678) GLUCOSE, [id number] 13:24:00 Test Item Value Reference Range Interpretation Comments GLUCOSE CSF (BEAKER) (test code = 70 mg/dL 40-70 406) PROTEIN, [id number] 13:24:00 Test Item Value Reference Range Interpretation Comments PROTEIN CSF (BEAKER) (test code = 21 mg/dL 15-45 378) POCT-GLUCOSE [id number] 13:17:00 Test Item Value Reference Range Interpretation Comments POC-GLUCOSE METER 99 mg/dL 70-110 TESTED AT [facility] 6720 (BEAKER) (test code = [place] [address] 6139) CBC W/PLT COUNT & AUTO [id number] 08:39:00 Test Item Value Reference Range Interpretation [...] 3438) Received comment: User comments: Slide comments:POCT-GLUCOSE [id number] 07:55:00 Test Item Value Reference Range Interpretation Comments POC-GLUCOSE METER 121 mg/dL 70-110 H TESTED AT [facility] 6720 (BEAKER) (test code = [place] 1538) [address] [id number] 07:06:00 Test Item Value Reference Range Interpretation Comments MAGNESIUM (BEAKER) (test code = 1.6 mg/dL 1.6-2.6 627) BASIC METABOLIC [id number] 07:06:00 Test Item Value Reference Range Interpretation [...] 358) GLUCOSE RANDOM 109 mg/dL 70-105 H ([facility]) (test code = 652) CALCIUM (BEAKER) 8.4 [...] U/L 29-200 H code = 380) BLOOD [id number] 00:00:00 Test Item Value Reference Range Interpretation Comments CULTURE (BEAKER) (test No growth in 5 days code = 1095) BLOOD [id number] 00:00:00 Test Item Value Reference Range Interpretation Comments CULTURE (BEAKER) (test No growth in 5 days code = 1095) POCT-GLUCOSE [id number] 21:29:00 Test Item Value Reference Range Interpretation Comments POC-GLUCOSE METER 179 mg/dL 70-110 H TESTED AT [facility] 67 ([facility]) (test code = [place] 1538) [address] POCT-GLUCOSE [id number] 17:41:00 Test Item Value Reference Range Interpretation Comments POC-GLUCOSE METER 177 mg/dL 70-110 H TESTED AT [place] [address] ([facility]) (test code = [place] [facility] 1538) [address] PROTHROMBIN TIME/[id number] 12:09:00 Test Item Value Reference Range Interpretation Comments PROTIME ([facility]) (test code = 13.5 seconds 11.7-14.7 759) INR ([facility]) (test code = 370) 1.0 <=5.9 RECOMMENDED COUMADIN/WARFARIN INR THERAPY RANGESSTANDARD DOSE: 2.0 - 3.0 Includes: PROPHYLAXIS forvenous thrombosis, systemic embolization; TREATMENT for venous thrombosis and/or pulmonary embolus.HIGH RISK: Target INR is 2.5-3.5 for patients with mechanical heart valves.POCT-GLUCOSE [id number] 11:23:00 Test Item Value Reference Range Interpretation Comments POC-GLUCOSE METER 99 mg/dL 70-110 TESTED AT [facility] 6720 (BEAKER) (test code = [place] [facility] [address] 1538) B-TYPE NATRIURETIC FACTOR (BNP)2018-04-20 07:24:00 Test Item Value Reference Range Interpretation Comments B-TYPE NATRIURETIC PEPTIDE 1445 pg/mL 0-100 H (BEAKER) (test code = 700) [id number] 07:23:00 Test Item Value Reference Range Interpretation Comments MAGNESIUM (BEAKER) (test code = 1.5 mg/dL 1.6-2.6 L 627) BASIC METABOLIC [id number] 07:23:00 Test Item Value Reference Range Interpretation [...] U/L 29-200 H code = 380) POCT-GLUCOSE [id number] 07:19:00 Test Item Value Reference Range Interpretation Comments POC-GLUCOSE METER 88 mg/dL 70-110 TESTED AT [facility] 6720 (BEAKER) (test code = [place] [facility] [address] 1538) CBC W/PLT COUNT & AUTO [id number] 06:56:00 Test Item Value Reference Range Interpretation [...] PERCENT (BEAKER) (test code = 2801) POCT-GLUCOSE [id number] 23:30:00 Test Item Value Reference Range Interpretation Comments POC-GLUCOSE METER 181 mg/dL 70-110 H TESTED AT [facility] 67 (BEAKER) (test code = [place] [facility] 1538) [address] VANCOMYCIN LEVEL, [id number] 20:16:00 Test Item Value Reference Range Interpretation Comments VANCOMYCIN TROUGH (BEAKER) (test 12.1 ug/mL 10.0-20.0 code = 522) [id number] 20:12:00 Test Item Value Reference Range Interpretation Comments POTASSIUM (BEAKER) (test code = 4.0 meq/L 3.5-5.1 379) POCT-GLUCOSE [id number] 12:18:00 Test Item Value Reference Range Interpretation Comments POC-GLUCOSE METER 201 mg/dL 70-110 H TESTED AT [place] [id number] ([facility]) (test code = [place] [facility] 1538) [address] [id number] 10:47:00 Test Item Value Reference Range Interpretation Comments POTASSIUM (BEAKER) (test code = 4.4 meq/L 3.5-5.1 379) [id number] 10:47:00 Test Item Value Reference Range Interpretation Comments MAGNESIUM (BEAKER) (test code = 2.1 mg/dL 1.6-2.6 627) CREATINE KINASE (CK)2018-04-19 10:47:00 Test Item Value Reference Range Interpretation Comments CREATINE KINASE TOTAL (BEAKER) (test 2936 U/L 29-200 H code = 380) SPUTUM CULTURE + GRAM [id number] 09:31:00 Test Item Value Reference Range Interpretation Comments CULTURE (BEAKER) See comment (test code = 1095) GRAM STAIN RESULT 2+ WBCs (BEAKER) (test code = 1123) GRAM STAIN RESULT 0-5 epithelial cells (BEAKER) (test code = 223792) GRAM STAIN RESULT <1+ gram positive cocci (BEAKER) (test code = in clusters 732248) <1+ yeastNo Normal respiratory tristian pfpjfhtSMCFWHPXVM6724-01-23 07:17:00 Test Item Value Reference Range Interpretation Comments PHOSPHORUS (BEAKER) (test code = 2.3 mg/dL 2.3-4.7 604) POCT-GLUCOSE [id number] 06:35:00 Test Item Value Reference Range Interpretation Comments POC-GLUCOSE METER 87 mg/dL 70-110 TESTED AT [facility] 6720 (BEAKER) (test code = [place] [address] 1538) CBC W/PLT COUNT & AUTO [id number] 04:15:00 Test Item Value Reference Range Interpretation [...] (BEAKER) (test code = 2801) BASIC METABOLIC [id number] 04:10:00 Test Item Value Reference Range Interpretation [...] S NOT APPLICABLE FOR DIALYSIS PATIEN TS. [id number] 04:09:00 Test Item Value Reference Range Interpretation Comments MAGNESIUM (BEAKER) (test code = 1.5 mg/dL 1.6-2.6 L 627) CREATINE KINASE (CK)2018-04-19 04:09:00 Test Item Value Reference Range Interpretation Comments CREATINE KINASE TOTAL (BEAKER) (test 3396 U/L 29-200 H code = 380) POCT-GLUCOSE [id number] 00:16:00 Test Item Value Reference Range Interpretation Comments POC-GLUCOSE METER 79 mg/dL 70-110 TESTED AT [facility] 6720 (BEAKER) (test code = [place] [address] 5138) [id number] 22:48:00 Test Item Value Reference Range Interpretation Comments MAGNESIUM (BEAKER) (test code = 1.9 mg/dL 1.6-2.6 627) CREATINE KINASE (CK)2018-04-18 22:48:00 Test Item Value Reference Range Interpretation Comments CREATINE KINASE TOTAL (BEAKER) (test 3450 U/L 29-200 H code = 380) [id number] 18:01:00 Test Item Value Reference Range Interpretation Comments MAGNESIUM (BEAKER) (test code = 1.5 mg/dL 1.6-2.6 L 627) CREATINE KINASE (CK)2018-04-18 18:01:00 Test Item Value Reference Range Interpretation Comments CREATINE KINASE TOTAL (BEAKER) (test 3451 U/L 29-200 H code = 380) POCT-GLUCOSE [id number] 12:41:00 Test Item Value Reference Range Interpretation Comments POC-GLUCOSE METER 89 mg/dL 70-110 TESTED AT [facility] 6720 (BEAKER) (test code = [place] [facility] [address] 1538) EEG MONITORING WITH VIDEO RECORDING EACH 24 [id number] 11:37:00billing for 04/17/18Neurophysiology Continuous Video Electroencephalogram Report DATE OF REPORT: 04/18/18 Date(s) of Study: ACC: [id number] Start time: 0704 hrs Stop time: 1101 hrs ICD-10: R56.9 CPT Code: 75961 HISTORY: 57 yo female with PMHx of [...] prior recording. Humera Sellers MD Epilepsy Fellow Tnoey Cruz MD Clinical Neurophysiology Attending [facility] Neurophysiology B-TYPE NATRIURETIC FACTOR (BNP)2018-04-18 10:58:00 Test Item Value Reference Range Interpretation Comments B-TYPE NATRIURETIC PEPTIDE (BEAKER) 689 pg/mL 0-100 H (test code = 700) PROTHROMBIN [id number] 10:55:00 Test Item Value Reference Range Interpretation Comments PROTIME (BEAKER) (test code = 14.2 seconds 11.7-14.7 759) INR (BEAKER) (test code = 370) 1.1 <=5.9 RECOMMENDED COUMADIN/WARFARIN INR THERAPY RANGESSTANDARD DOSE: 2.0 - 3.0 Includes: PROPHYLAXIS forvenous thrombosis, systemic embolization; TREATMENT for venous thrombosis and/or pulmonary embolus.HIGH RISK: Target INR is 2.5-3.5 for patients with mechanical heart valves.[id number] 10:55:00 Test Item Value Reference Range Interpretation Comments PARTIAL THROMBOPLASTIN TIME 27.7 seconds 22.5-36.0 (BEAKER) (test code = 760) BASIC METABOLIC [id number] 10:52:00 Test Item Value Reference Range Interpretation [...] S NOT APPLICABLE FOR DIALYSIS PATIEN TS. [id number] 10:51:00 Test Item Value Reference Range Interpretation Comments MAGNESIUM (BEAKER) (test code = 2.3 mg/dL 1.6-2.6 627) CREATINE KINASE (CK)2018-04-18 10:51:00 Test Item Value Reference Range Interpretation Comments CREATINE KINASE TOTAL (BEAKER) (test 2419 U/L 29-200 H code = 380) VANCOMYCIN LEVEL, [id number] 08:57:00 Test Item Value Reference Range Interpretation Comments VANCOMYCIN TROUGH (BEAKER) (test 14.4 ug/mL 10.0-20.0 code = 522) CBC W/PLT COUNT & AUTO [id number] 07:07:00 Test Item Value Reference Range Interpretation [...] PERCENT (BEAKER) (test code = 2801) POCT-GLUCOSE [id number] 06:59:00 Test Item Value Reference Range Interpretation Comments POC-GLUCOSE METER 88 mg/dL 70-110 TESTED AT [facility] 6720 (BEAKER) (test code = [place] [address] 1538) [id number] 06:01:00 Test Item Value Reference Range Interpretation Comments MAGNESIUM (BEAKER) (test code = 1.8 mg/dL 1.6-2.6 627) BASIC METABOLIC [id number] 06:01:00 Test Item Value Reference Range Interpretation [...] U/L 29-200 H code = 380) POCT-GLUCOSE [id number] 00:30:00 Test Item Value Reference Range Interpretation Comments POC-GLUCOSE METER 83 mg/dL 70-110 TESTED AT [facility] 6720 (BEAKER) (test code = [place] [facility] [address] 1538) BASIC METABOLIC [id number] 22:03:00 Test Item Value Reference Range Interpretation [...] S NOT APPLICABLE FOR DIALYSIS PATIEN TS. [id number] 22:02:00 Test Item Value Reference Range Interpretation Comments MAGNESIUM (BEAKER) (test code = 2.1 mg/dL 1.6-2.6 627) CREATINE KINASE (CK)2018-04-17 22:02:00 Test Item Value Reference Range Interpretation Comments CREATINE KINASE TOTAL (BEAKER) (test 1124 U/L 29-200 H code = 380) CBC W/PLT COUNT & AUTO [id number] 22:00:00 Test Item Value Reference Range Interpretation [...] 0-1 PERCENT (BEAKER) (test code = 2801) [id number] 20:09:00 Test Item Value Reference Range Interpretation Comments HEMOGLOBIN (BEAKER) (test code = 7.8 GM/DL 11.2-15.7 L 410) POCT-GLUCOSE [id number] 18:45:00 Test Item Value Reference Range Interpretation Comments POC-GLUCOSE METER 120 mg/dL 70-110 H TESTED AT [facility] 6720 (BEAKER) (test code = [place] 1538) [address] [id number] 16:19:00 Test Item Value Reference Range Interpretation Comments MAGNESIUM (BEAKER) (test code = 2.4 mg/dL 1.6-2.6 627) BASIC METABOLIC [id number] 16:19:00 Test Item Value Reference Range Interpretation [...] FOR DIALYSIS PATIEN TS. CREATINE KINASE (CK)2018-04-17 16:19:00 Test Item Value Reference Range Interpretation Comments CREATINE KINASE TOTAL (BEAKER) (test 1032 U/L 29-200 H code = 380) CBC W/PLT COUNT & AUTO [id number] 13:20:00 Test Item Value Reference Range Interpretation [...] = 22.8 % 34.1-44.9 L 411) POCT-GLUCOSE [id number] 11:43:00 Test Item Value Reference Range Interpretation Comments POC-GLUCOSE METER 126 mg/dL 70-110 H TESTED AT [facility] 67[address] (BEAKER) (test code = [place] 1538) [address] [id number] 10:49:00 Test Item Value Reference Range Interpretation Comments MAGNESIUM (BEAKER) (test code = 1.7 mg/dL 1.6-2.6 627) BASIC METABOLIC [id number] 10:49:00 Test Item Value Reference Range Interpretation [...] EEG MONITORING WITH VIDEO RECORDING EACH 24 [id number] 10:35:00status epilepticusNeurophysiology Continuous Video Electroencephalogram Report DATE OF REPORT: 04/17/18 Date(s) of Study: 04/17/2018 ACC: [id number] Start time: 0304 hrs Stop time: 0704 hrs ICD-10: R56.9 Choose an item. CPT Code: 98594 Choose an item. HISTORY: 57 yo female [...] Epilepsy Fellow Toney Cruz MD ClinicalNeurophysiology Attending [facility] Neurophysiology RAD, CHEST, 1 VIEW, NON [id number] 09:40:00Reason for exam:->Resp FailureShould this be performed [...] shadow normal in size. Signed: Dona Ornelas [facility] Verified Date/Time: 04/17/2018 09:40:13 Reading Location: [address] Transitional Reading Room OSMOLALITY, [id number] 09:04:00 Test Item Value Reference Range Interpretation Comments OSMOLALITY, SERUM (BEAKER) (test 287 mOsm/kg 275-295 code = 615) VANCOMYCIN LEVEL, [id number] 08:16:00 Test Item Value Reference Range Interpretation Comments VANCOMYCIN TROUGH (BEAKER) (test 13.8 ug/mL 10.0-20.0 code = 522) [id number] 07:03:00 Test Item Value Reference Range Interpretation Comments PARTIAL THROMBOPLASTIN TIME 52.6 seconds 22.5-36.0 H (BEAKER) (test code = 760) TROPONIN [id number] 06:45:00 Test Item Value Reference Range Interpretation Comments TROPONIN I (BEAKER) (test code = 0.80 ng/mL 0.00-0.03 397) Troponin I (TnI) levels [...] acute neurological disease, and persistent tachyarrhythmia.BASIC METABOLIC [id number] 06:20:00 Test Item Value Reference Range Interpretation [...] NOT APPLICABLE FOR DIALYSIS PATIEN TS. POCT-GLUCOSE [id number] 06:19:00 Test Item Value Reference Range Interpretation Comments POC-GLUCOSE METER 151 mg/dL 70-110 H TESTED AT [facility] 6720 (BEAKER) (test code = [place] 1538) [id number] 05:57:00 Test Item Value Reference Range Interpretation Comments MAGNESIUM (BEAKER) (test code = 1.9 mg/dL 1.6-2.6 627) CREATINE KINASE (CK)2018-04-17 05:57:00 Test Item Value Reference Range Interpretation Comments CREATINE KINASE TOTAL (BEAKER) (test 599 U/L 29-200 H code = 380) CALCIUM, [id number] 02:36:00 Test Item Value Reference Range Interpretation Comments CALCIUM IONIZED (BEAKER) (test 1.04 mmol/L 1.12-1.27 L code = 698) PH, BLOOD (BEAKER) (test code = 7.40 1810) BASIC METABOLIC [id number] 01:55:00 Test Item Value Reference Range Interpretation [...] NOT APPLICABLE FOR DIALYSIS PATIEN TS. TROPONIN [id number] 01:54:00 Test Item Value Reference Range Interpretation Comments TROPONIN I ([place]) (test code = 0.90 ng/mL 0.00-0.03 397) Troponin I (TnI) levels [...] failure, acidosis, acute neurological disease, and persistent tachyarrhythmia.[id number] 00:56:00 Test Item Value Reference Range Interpretation Comments MAGNESIUM ([place]) (test code = 1.6 mg/dL 1.6-2.6 627) POCT-GLUCOSE [id number] 00:34:00 Test Item Value Reference Range Interpretation Comments POC-GLUCOSE METER 156 mg/dL 70-110 H TESTED AT [facility] 6720 ([place]) (test code = [place] 1538) [id number] CREATINE KINASE (CK)2018-04-16 23:34:00 Test Item Value Reference Range Interpretation Comments CREATINE KINASE TOTAL ([place]) (test 630 U/L 29-200 H code = 380) MR, BRAIN, WITHOUT [id number] 20:50:00FINAL REPORT MRI brain without contrast 04/16/2018 [...] [place] Verified Date/Time: 04/16/2018 20:50:25 Reading Location: [facility] Radiology Reading Room PHENYTOIN LEVEL, [id number] 20:45:00 Test Item Value Reference Range Interpretation Comments PHENYTOIN (DILANTIN) ([facility]) 11.8 ug/mL 10.0-20.0 (test code = 605) Please obtain 2 hours after getting phenytoinPOCT-GLUCOSE [id number] 19:01:00 Test Item Value Reference Range Interpretation Comments POC-GLUCOSE METER 139 mg/dL 70-110 H TESTED AT [facility] 6720 ([facility]) (test code = [place] 1538) [address] [id number] 18:50:00 Test Item Value Reference Range Interpretation Comments PARTIAL THROMBOPLASTIN TIME 92.6 seconds 22.5-36.0 H ([facility]) (test code = 760) TROPONIN [id number] 18:01:00 Test Item Value Reference Range Interpretation Comments TROPONIN I (AKER) (test code = 1.72 ng/mL 0.00-0.03 HH [...] failure, acidosis, acute neurological disease, and persistent tachyarrhythmia.[id number] 17:38:00 Test Item Value Reference Range Interpretation Comments MAGNESIUM (BEAKER) (test code = 1.4 mg/dL 1.6-2.6 L 627) BASIC METABOLIC [id number] 17:38:00 Test Item Value Reference Range Interpretation [...] 844 U/L 29-200 H code = 380) [id number] 15:49:00 Test Item Value Reference Range Interpretation Comments PARTIAL THROMBOPLASTIN TIME > seconds 22.5-36.0 HH (BEAKER) (test code = 760) EEG AWAKE AND [id number] 14:47:00Reason for exam:->Seizures Should this be performed at the bedside?->[facility] DATE OF TEST: 04-16-18 START TIME: 04/16 at 08:33 END TIME: 04/16 at 08:56 DATE OF REPORT: 04-16-2018 [id number]: R56.9 CPT Code: 86500 HISTORY: 57 y o female with PMHx [...] & amp;#8239; Toney Cruz MDClinical Neurophysiology Attending [facility] [id number] 14:03:00 Test Item Value Reference Range Interpretation Comments PARTIAL THROMBOPLASTIN TIME > seconds 22.5-36.0 HH (BEAKER) (test code = 760) HEMOGLOBIN [id number] 12:34:00 Test Item Value Reference Range Interpretation Comments HEMOGLOBIN A1C (BEAKER) (test code = 5.6 % 4.3-6.1 368) POCT-GLUCOSE [id number] 12:14:00 Test Item Value Reference Range Interpretation Comments POC-GLUCOSE METER 139 mg/dL 70-110 H TESTED AT [facility] 6720 (BEAKER) (test code = [place] 1538) [address] RAD, CHEST, 1 VIEW, NON [id number] 12:10:00Reason for exam:->CVC placementShould this be performed [...] deformity is again seen. Signed: Polina Rubi [facility] Verified Date/Time: 04/16/2018 12:10:39 Reading Location: [facility] Radiology Reading Room LACTIC ACID, ARTERIAL, WHOLE BLOOD 2018-04-16 10:33:00 Test Item Value Reference Range Interpretation Comments LACTATE BLOOD 0.9 mmol/L 0.5-2.2 Specimen sligh tly ARTERIAL (2) (BEAKER) hemoly zed (test code = 2874) Effective 10/31/2015: Units/Reference Range ChangeNew: 0.5-2.2 mmol/L Previous: 5-20 mg/dLBLOOD GAS, [id number] 10:18:00 Test Item Value Reference Range Interpretation [...] L (test code = 387) PATIENT TEMPERATURE ([facility]) 38.0 C (test code = 1818) FIO2 ([facility]) (test code = 1819) 50.0 % TROPONIN [id number] 09:22:00 Test Item Value Reference Range Interpretation Comments TROPONIN I ([facility]) (test code = 2.47 ng/mL 0.00-0.03 397) Troponin I (TnI) levels [...] acidosis, acute neurological disease, and persistent tachyarrhythmia.POCT-GLUCOSE [id number] 06:41:00 Test Item Value Reference Range Interpretation Comments POC-GLUCOSE METER 141 mg/dL 70-110 H TESTED AT [facility] 6720 ([facility]) (test code = [place] [facility] 1538) [id number] 04:30:00 Test Item Value Reference Range Interpretation Comments PARTIAL THROMBOPLASTIN TIME 34.7 seconds 22.5-36.0 ([facility]) (test code = 760) Prior to initiating heparinVITAMIN [id number] 03:15:00 Test Item Value Reference Range Interpretation Comments VITAMIN B12 ([facility]) (test code = 283 pg/mL 213-289 774) TROPONIN [id number] 02:29:00 Test Item Value Reference Range Interpretation Comments TROPONIN I ([facility]) (test code = 2.03 ng/mL 0.00-0.03 397) [...] acute neurological disease, and persistent tachyarrhythmia.BASIC METABOLIC [id number] 02:07:00 Test Item Value Reference Range Interpretation [...] PATIEN TS. CBC W/PLT COUNT & AUTO [id number] 01:35:00 Test Item Value Reference Range Interpretation [...] PERCENT (BEAKER) (test code = 2801) LIPID [id number] 23:55:00 Test Item Value Reference Range Interpretation [...] High 160-189 Very High >=190TSH/FREE T4 IF [id number] 23:16:00 Test Item Value Reference Range Interpretation Comments THYROID STIMULATING HORMONE 1.73 uIU/mL 0.35-4.94 (BEAKER) (test code = 772) HEPATIC FUNCTION [id number] 22:57:00 Test Item Value Reference Range Interpretation [...] 356 U/L 29-200 H code = 380) [id number] 22:53:00 Test Item Value Reference Range Interpretation Comments ETHANOL (BEAKER) (test code = 400) < mg/dL <=10 [id number] 22:48:00 Test Item Value Reference Range Interpretation Comments AMMONIA (BEAKER) (test code = 348) 38 mol/L 18-72 POCT-LACTIC ACID, [id number] 22:36:00 Test Item Value Reference Range Interpretation Comments POC-LACTIC ACID, 1.7 mmol/L 0.9-1.7 TESTED AT [facility] [address] (BEAKER) (test [place] code = 2805) [address] [id number] 21:24:00 Test Item Value Reference Range Interpretation Comments PROCALCITONIN (BEAKER) (test code 2.11 ng/mL <0.05 H = 3036) SEPSIS RISK (ng/mL)Low: 0.05-0.50Intermediate: 0.51-2.00High: >=2.01POCT-LACTIC ACID, [id number] 20:31:00 Test Item Value Reference Range Interpretation Comments POC-LACTIC ACID, 1.3 mmol/L 0.9-1.7 TESTED AT [facility] [address] (BEAKER) (test [place] code = 2805) [address] URINALYSIS W/ [id number] 20:15:00 Test Item Value Reference Range Interpretation [...] = Occasional 1585) SOURCE(BEAKER) (test code = 4833) RAD, CHEST, 1 VIEW, NON [id number] 20:12:00Reason for exam:->iontubatedIs the patient ?->N/AFINAL REPORT [...] MDReport Verified Date/Time: 04/15/2018 20:12:16 Reading Location: [address] Reading Room POCT-GLUCOSE [id number] 20:00:00 Test Item Value Reference Range Interpretation Comments POC-GLUCOSE METER 124 mg/dL 70-110 H TESTED AT [facility] 6720 ([facility]) (test code = [place] 1538) [address] TROPONIN [id number] 19:59:00 Test Item Value Reference Range Interpretation Comments TROPONIN I ([facility]) (test code = 1.70 ng/mL 0.00-0.03 397) [...] Received comment: User comments: Slide comments:BASIC METABOLIC [id number] 19:46:00 Test Item Value Reference Range Interpretation [...] m DATA TO CALCULA TE ESTIMATED GFR. [id number] 19:43:00 Test Item Value Reference Range Interpretation Comments MAGNESIUM (BEAKER) (test code = 1.5 mg/dL 1.6-2.6 L 627) [id number] 19:38:00 Test Item Value Reference Range Interpretation [...] for patients with mechanical heart valves.BLOOD GAS, [id number] 19:27:00 Test Item Value Reference Range Interpretation [...] (BEAKER) (test code = 1819) 100.0 % [id number] 19:27:00 Test Item Value Reference Range Interpretation Comments CARBOXYHEMOGLOBIN (BEAKER) (test code = 2.5 % 0.0-5.0 695) CT, CTANGIO [id number] 19:02:00Reason for exam:->Symptoms onset less than 6 [...] [place] Verified Date/Time: 04/15/2018 19:02:43 Reading Location: [facility] Radiology Reading Room CT, CAROTID, [id number] 19:02:00Reason for exam:- >Symptoms onset less than [...] [place] Verified Date/Time: 04/15/2018 19:02:43 Reading Location: [facility] Radiology Reading Room [facility] CAM[facility]ST, BRAIN/STROKE [id number] 18:30:00Reason for exam:->strokeFINAL REPORT CT head without [...] on 04/15/2018 at 1825. Signed: Ana Cabello MDReport Verified Date/Time: 04/15/2018 18:30:59 Reading Location: [facility] Radiology Reading Room
--- NOTE | 2021-10-10 15:23 | EDPHYS ---
Physician Documentation [facility] Name: Cathy Giraldo Age: 60 yrs Sex: Female : 1960 Arrival Date: 10/10/2021 Time: 14:53 Bed Waiting Private MD: ED Physician Terence Etienne HPI: 10/10 15:32 This 60 yrs old Female presents to ER via Ambulatory with complaints of Prescription jr8 Refill. 15:32 Patient came to the emergency room for medication refill for her 2 seizure medications. jr8 Stated that they have been trying to get into her neurologist but the closest appointment that she has October 28. Will run out for before then and is worried that she will have a seizure if she cannot continue her medications. Denies any symptoms at this time.. Severity of symptoms: At their worst the symptoms were mild. The patient has not recently seen a physician. Historical: - Allergies: 15:16 Hydrocodone-Acetaminophen; ll1 - PMHx: 15:16 epilepsy; Hypertensive disorder; COPD; CVA; Seizure; ll1 - PSHx: 15:16 R hip replacement; back SX; ll1 - Immunization history:: Client reports receiving the 2nd dose of the Covid vaccine. - Social history:: Smoking status: Patient reports the use of cigarette tobacco products, smokes one pack cigarettes per day. ROS: 15:32 Constitutional: Negative for fever, chills, and weight loss, Cardiovascular: Negative jr8 for chest pain, palpitations, and edema, Respiratory: Negative for shortness of breath, cough, wheezing, and pleuritic chest pain, Abdomen/GI: Negative for abdominal pain, nausea, vomiting, diarrhea, and constipation, Neuro: Negative for headache, weakness, numbness, tingling, and seizure. 15:32 All other systems are negative. Exam: 15:32 Constitutional: This is a well developed, well nourished patient who is awake, alert, jr8 and in no acute distress. Cardiovascular: Regular rate and rhythm with a normal S1 and S2. No gallops, murmurs, or rubs. Normal PMI, no JVD. No pulse deficits. Respiratory: Lungs have equal breath sounds bilaterally, clear to auscultation and percussion. No rales, rhonchi or wheezes noted. No increased work of breathing, no retractions or nasal flaring. Abdomen/GI: Soft, non-tender, with normal bowel sounds. No distension or tympany. No guarding or rebound. No evidence of tenderness throughout. Skin: Warm, dry with normal turgor. Normal color with no rashes, no lesions, and no evidence of cellulitis. MS/ Extremity: Pulses equal, no cyanosis. Neurovascular intact. Full, normal range of motion. Neuro: Awake and alert, GCS 15, oriented to person, place, time, and situation. Cranial nerves II-XII grossly intact. Motor strength 5/5 in all extremities. Sensory grossly intact. Cerebellar exam normal. Normal gait. Vital Signs: 15:14 BP 170 / 97; Pulse 68; Resp 17; Temp 98.1(O); Pulse Ox 98% ; Weight 40.37 kg; Height 5 ll1 ft. 2 in. (157.48 cm); Pain 0/10; 15:14 Body Mass Index 16.28 (40.37 kg, 157.48 cm) ll1 MDM: 15:22 Patient medically screened. jr8 15:32 Data reviewed: vital signs, nurses notes, and as a result, I will discharge patient. jr8 Data interpreted: Pulse oximetry: on room air is 98 %. Interpretation: normal. Counseling: I had a detailed discussion with the patient and/or guardian regarding: the historical points, exam findings, and any diagnostic results supporting the discharge/admit diagnosis, the need for outpatient follow up, a neurologist, to return to the emergency department if symptoms worsen or persist or if there are any questions or concerns that arise at home. Administered Medications: No medications were administered Disposition: 18:53 Co-signature as Attending Physician, Terence Etienne MD I agree with the assessment and abdi plan of care. Disposition Summary: 10/10/21 15:23 Discharge Ordered Location: Home jr8 Problem: new jr8 Symptoms: are unchanged jr8 Condition: Stable jr8 Diagnosis - Encounter for Medication Refill jr8 Followup: jr8 - With: Private Physician - When: As needed - Reason: Recheck today's complaints, Continuance of care, Re-evaluation by your physician Discharge Instructions: - Discharge Summary Sheet jr8 Forms: - Medication Reconciliation Form jr8 - Thank You Letter jr8 - Antibiotic Education jr8 - Prescription Opioid Use jr8 Prescriptions: - Vimpat 200 mg Oral tablet - take 1 tablet by ORAL route 2 times per day; 60 tablet; Refills: 0, Product jr8 Selection Permitted - Vimpat 50 mg Oral tablet - take 2 tablet by ORAL route 2 times per day; 120 tablet; Refills: 0, Product jr8 Selection Permitted - clobazam 10 mg Oral tablet - take 1.5 tablet by ORAL route every 12 hours; 60 tablet; Refills: 0, Product jr8 Selection Permitted Signatures: Terence Etienne MD MD cha Roszak, Josh, PA PA jr8 Jessica Ni RN RN ll1 Corrections: (The following items were deleted from the chart) 15:18 15:16 Allergies: ACETAMINOPHEN; ll1 ll1
--- NOTE | 2021-10-10 15:23 | ER ---
Nurse's Notes [facility] Name: Cathy Giraldo Age: 60 yrs Sex: Female : 1960 Arrival Date: 10/10/2021 Time: 14:53 Bed Waiting Private MD: Diagnosis: Encounter for Medication Refill Presentation: 10/10 15:14 Chief complaint: Patient states: Needs refills for clobazam, Vimpat 50 MG, and Vimpat ll1 200 MG. Has neurologist appt October 28. Coronavirus screen: Client denies travel out of the [place] in the last 14 days. At this time, the client does not indicate any symptoms associated with coronavirus-19. Ebola Screen: Patient denies travel to an Ebola-affected area in the 21 days before illness onset. Initial Sepsis Screen: Does the patient meet any 2 criteria? No. Patient's initial sepsis screen is negative. Does the patient have a suspected source of infection? No. Patient's initial sepsis screen is negative. Risk Assessment: Do you want to hurt yourself or someone else? Patient reports no desire to harm self or others. Onset of symptoms was October 10, 2021. 15:14 Method Of Arrival: Ambulatory ll1 15:14 Acuity: RACHEL 4 ll1 Triage Assessment: 15:18 General: Appears in no apparent distress. Behavior is calm, cooperative, appropriate ll1 for age. Pain: Denies pain. Neuro: No deficits noted. Historical: - Allergies: 15:16 Hydrocodone-Acetaminophen; ll1 - PMHx: 15:16 epilepsy; Hypertensive disorder; COPD; CVA; Seizure; ll1 - PSHx: 15:16 R hip replacement; back SX; ll1 - Immunization history:: Client reports receiving the 2nd dose of the Covid vaccine. - Social history:: Smoking status: Patient reports the use of cigarette tobacco products, smokes one pack cigarettes per day. Screenin:28 Abuse screen: Denies threats or abuse. Nutritional screening: No deficits noted. ll1 Tuberculosis screening: No symptoms or risk factors identified. Fall Risk Total [place] Fall Scale indicates No Risk (0-24 pts). Assessment: 15:28 Reassessment: No changes from previously documented assessment. Patient and/or family ll1 updated on plan of care and expected duration. Pain level reassessed. Patient is alert, oriented x 3, equal unlabored respirations, skin warm/dry/pink. Vital Signs: 15:14 BP 170 / 97; Pulse 68; Resp 17; Temp 98.1(O); Pulse Ox 98% ; Weight 40.37 kg; Height 5 ll1 ft. 2 in. (157.48 cm); Pain 0/10; 15:14 Body Mass Index 16.28 (40.37 kg, 157.48 cm) ll1 ED Course: 14:53 Patient arrived in ED. ds1 15:16 Triage completed. ll1 15:18 Arm band placed on. ll1 15:22 Delvin Guido PA is PHCP. jr8 15:22 Terence Etienne MD is Attending Physician. jr8 15:28 Patient has correct armband on for positive identification. ll1 15:28 No provider procedures requiring assistance completed. Patient did not have IV access ll1 during this emergency room visit. Administered Medications: No medications were administered Outcome: 15:23 Discharge ordered by . jr8 15:28 Patient left the ED. ll1 15:28 Discharged to home ambulatory. ll1 15:28 Condition: stable 15:28 Discharge instructions given to patient, family, Instructed on discharge instructions, follow up and referral plans. medication usage, Demonstrated understanding of instructions, follow-up care, medications, Prescriptions given X 3. Signatures: Inna Moya ds1 Delvin Guido PA PA jr8 Jessica Ni RN RN ll1 Corrections: (The following items were deleted from the chart) 15:18 15:16 Allergies: ACETAMINOPHEN; ll1 ll1
[2021-10-11 01:03] VITALS: BP 170/97; TEMP 98.1; O2SAT 98
== END 2021-10-10 15:28 | disposition home or self-care (01) ==
LOC: ER 14:49
DX: Z76.0 Encounter for issue of repeat prescription (principal)
CPT/HCPCS: 99282